=== PATIENT | male | born 1965 | race American Indian/Alaskan Native ===

== ENCOUNTER 2017-03-25 11:58 | Emergency (ER) | payer OTHER, SELFPAY ==
[2017-03-25 12:15] VITALS: RESP 18; TEMP 97.8; O2SAT 98
[2017-03-25] MEDS ORDERED: Sodium Chloride 0.9% 1,000 ML IV ONE ×2 (12:52→13:39)
[2017-03-25 13:06] LABS: BASO % 0.8 % (0.0-2.0); EOS # 0.1 K/uL (0.0-0.7); EOS % 1.2 % (0.0-4.0); HEMATOCRIT 45.8 % (35.0-51.0); LYMPH # 1.2 K/uL (1.0-4.3); LYMPH % 25.7 % (20.0-40.0); MEAN CELL VOLUME 89.7 fL (80.0-94.0); MEAN CORPUSCULAR HGB CONC 33.4 g/dL (33.0-37.0); MEAN PLATELET VOLUME 7.7 fL (7.2-11.7); MONO # 0.3 K/uL (0.0-0.8); MONO % 5.7 % (0.0-10.0); RED CELL DISTRIBUTION WIDTH 13.7 % (11.5-14.5); WHITE BLOOD COUNT 4.7 K/uL (4.8-10.8)
[2017-03-25 13:12] LABS: RBC URINE 1 /hpf (0-3); URINE BILIRUBIN NEGATIVE (NEGATIVE); URINE BLOOD NEGATIVE (NEGATIVE); URINE COLOR Straw (YELLOW); URINE GLUCOSE (UA) 3+ mg/dL (Normal); URINE KETONE 1+ mg/dL (NEGATIVE); URINE LEUKOCYTE ESTERASE NEG Leu/uL (Negative); URINE PROTEIN NEGATIVE (NEGATIVE); URINE UROBILINOGEN NORMAL mg/dL (0.2-1.0); WBC URINE < 1 /hpf (0-5)
[2017-03-25 13:21] LABS: CHLORIDE 90 mmol/L (98-107); POTASSIUM 4.5 mmol/L (3.6-5.2); SODIUM 129 mmol/L (132-148)
[2017-03-25 13:23] LABS: AST/SGOT 31 U/L (17-59); BILIRUBIN,TOTAL 0.7 mg/dL (0.2-1.3); CARBON DIOXIDE 27 mmol/L (22-30); GFR AFRICAN-AMERICAN > 60
[2017-03-25 13:24] LABS: ALB/GLOB RATIO 1.2 (1.0-2.1); ALKALINE PHOSPHATASE 138 U/L (38-126); ALT/SGPT 23 U/L (21-72); BLOOD UREA NITROGEN 12 mg/dL (9-20); CALCIUM 8.7 mg/dl (8.6-10.4); TOTAL PROTEIN 7.3 g/dL (6.3-8.3)
[2017-03-25] MEDS ORDERED: Sodium Chloride 0.9% 1,000 ML ONE (13:29)
[2017-03-25 13:35] LABS: GLUCOSE,RANDOM 503 mg/dL (75-110)
[2017-03-25] MEDS ORDERED: (Novolin R) Insulin Human Regular 100 units/ml vial IV ONE (13:39)
[2017-03-25] MEDS ORDERED: (Novolin R) Insulin Human Regular 100 units/ml vial ONE (14:09)
--- NOTE | 2017-03-25 14:43 | C.PDOC ---
History Of Present Illness 51-year-old male with PMHx of Seizure disorder, DM, Hypertension and Asthma, BIBA for evaluation of witnessed seizure. Patient admits to a Hx of seizure disorder and states he is compliant with Dilantin. He denies alcohol abuse or history of withdrawal seizures. Patient has no physical complaints at this time Time Seen by Provider: 03/25/17 12:39 Chief Complaint (Nursing): Seizure History Per: Patient, EMS History/Exam Limitations: no limitations Recent Seizure Activity Began: Just Before Arrival Number Of Seizures: One Length Of Seizures (Duration): Seconds Quality Of Seizure: Generalized Past Medical History Reviewed: Historical Data, Nursing Documentation, Vital Signs Vital Signs: Last Vital Signs Temp 97.8 F 03/25/17 12:07 Pulse 81 03/25/17 14:58 Resp 18 03/25/17 14:58 BP 139/84 03/25/17 14:58 Pulse Ox 98 03/25/17 16:00 - Medical History PMH: Asthma, Diabetes, HTN, Seizures - [facility] Procedures ALCOHOL DETOXIFICATION (08/03/14) Family History: States: No Known Family Hx - Social History Hx Tobacco Use: Yes Hx Alcohol Use: No Hx Substance Use: No - Immunization History Hx Tetanus Toxoid Vaccination: Yes Hx Influenza Vaccination: No Hx Pneumococcal Vaccination: No Review Of Systems Except As Marked, All Systems Reviewed And Found Negative. Constitutional: Negative for: Fever Cardiovascular: Negative for: Chest Pain, Palpitations Respiratory: Negative for: Cough, Shortness of Breath Gastrointestinal: Negative for: Nausea, Vomiting, Abdominal Pain, Diarrhea Skin: Negative for: Rash Neurological: Positive for: Seizures. Negative for: Weakness, Numbness, Altered Mental Status, Headache Physical Exam - Physical Exam Appears: Well, Non-toxic, No Acute Distress Skin: Warm, Dry, No Rash Head: Atraumatic, Normacephalic Eye(s): bilateral: Normal Inspection, PERRL, EOMI Oral Mucosa: Moist Lips: Normal Appearing, No Laceration Neck: Normal, Normal ROM, No Midline Cervical Tenderness, No Paracervical Tenderness, No Step Off Deformity, Supple Cardiovascular: Rhythm Regular Respiratory: Normal Breath Sounds, No Rales, No Rhonchi, No Wheezing Gastrointestinal/Abdominal: Normal Exam, Bowel Sounds, Soft, No Tenderness Extremity: Normal ROM Extremity: Bilateral: Atraumatic Neurological/Psych: Oriented x3, Normal Speech, Normal Cognition, Normal Cranial Nerves, No Cerebellar Signs, Normal Motor, Normal Sensation ED Course And Treatment - Laboratory Results Result Diagrams: 03/25/17 13:02 03/25/17 13:02 O2 Sat by Pulse Oximetry: 98 (RA) Pulse Ox Interpretation: Normal Progress Note: Bloodwork, EKG and UA ordered and reviewed. Patient's Dilantin level is noted - IV dilantin ordered. IV NS and IV insulin ordered for hyperglycemia. to be low. Blood sugar noted to be high. This patient is choosing to leave against medical advice. I have personally explained to the patient that choosing to do so may result in permanent bodily harm or . I have discussed at length that without further evaluation and monitoring there may be unforeseen circumstances and/or deterioration causing permanent bodily harm or as a result of their choice. The patient is alert, oriented, and shows the mental capacity to make clear decisions regarding the patients health care at this time. The patient continues to wish to leave against medical advice. In light of the patients decision to leave AMA, follow-up has been arranged and the patient is aware of the importance of following up as instructed. The patient has been advised that they should return to the ED immediately if they change their mind at any time, or if their condition begins to worsen. Reevaluation Time: 14:15 Reassessment Condition: Improved (Patient refusing rest of IV dilantin and wants to leave against medical advice. He has signed AMA form, and is aware of the risks of doing so. Rx given for metoformin and dilantin, and patient instructed to follow up with PMD/clinic in 1-2 days. He understands he should return to ED if symptoms worsen.) Disposition Counseled Patient/Family Regarding: Studies Performed, Diagnosis, Need For Followup, Rx Given - Disposition Referrals: Molly Mendes MD [Non-Staff] - Disposition: AGAINST MEDICAL ADVICE Disposition Time: 14:50 Condition: STABLE Additional Instructions: FOLLOW UP WITH YOUR DOCTOR IN 1-2 DAYS USE MEDICATIONS DIRECTED RETURN TO ER IF YOU HAVE ANY CONCERNING SYMPTOMS YOU ARE SIGNING OUT AGAINST MY MEDICAL ADVICE Prescriptions: metFORMIN [glucOPHAGE] 500 mg PO DAILY #30 tab Phenytoin Sodium Extended 100 mg PO BID #60 capsule Instructions: Epilepsy (ED), Against Medical Advice (ED) Print Language: SWISS - POA Present On Arrival: None - Clinical Impression Clinical Impression: Left against medical advice, Hyperglycemia, Seizure - Scribe Statement The provider has reviewed the documentation as recorded by the Alexibbeny Edwards All medical record entries made by the Alexibe were at my direction and personally dictated by me. I have reviewed the chart and agree that the record accurately reflects my personal performance of the history, physical exam, medical decision making, and the department course for this patient. I have also personally directed, reviewed, and agree with the discharge instructions and disposition.
[2017-03-25 14:59] VITALS: BP 139/84; PULSE 81
--- NOTE | 2017-03-26 18:36 | CARD ---
APPROVED REPORT EKG Measurement Heart [id number] <Conclusion> Normal sinus rhythm Normal ECG
== END 2017-03-25 14:58 | disposition left against medical advice (07) ==
LOC: C.ER 11:58
DX: G40.909 Epilepsy, unspecified, not intractable, without status epilepticus (principal); E11.65 Type 2 diabetes mellitus with hyperglycemia; Z79.84 Long term (current) use of oral hypoglycemic drugs
CPT/HCPCS: 80053; 80185; 80324; 80345; 80346; 80349; 80353; 80358; 80361; 81001; 82550; 83992; 85025; 93005; 96360; 99285; J7040

== ENCOUNTER 2017-05-24 15:35 | Inpatient (IN) | payer OTHER ==
[2017-05-24 15:40] VITALS: BMI 19.1
[2017-05-24] MEDS ORDERED: Piperacillin/Tazobact 3.375 gm 100 ML IV STA (16:06)
[2017-05-24] MEDS ORDERED: Sodium Chloride 0.9% 1,000 ML IV STA (16:06)
--- NOTE | 2017-05-24 16:29 | C.PDOC ---
History Of Present Illness 51 y/o male with history of heroin abuse, alcohol abuse, BIBA for left great toe pain. Denies trauma, fever, chills, nausea, vomiting, diarrhea, or other associated symptoms. Time Seen by Provider: 05/24/17 16:01 Chief Complaint (Nursing): Abdominal Pain History Per: Patient History/Exam Limitations: no limitations Onset/Duration Of Symptoms: Days Current Symptoms Are (Timing): Still Present Recent travel outside of the [place]: No Past Medical History Reviewed: Historical Data, Nursing Documentation, Vital Signs Vital Signs: Last Vital Signs Temp 98.8 F 05/24/17 15:43 Pulse 73 05/24/17 17:12 Resp 21 05/24/17 17:12 BP 173/84 H 05/24/17 17:12 Pulse Ox 98 05/24/17 18:14 - Medical History PMH: Asthma, Diabetes, HTN, Seizures - [facility] Procedures ALCOHOL DETOXIFICATION (08/03/14) Family History: States: Unknown Family Hx - Social History Hx Tobacco Use: Yes Hx Alcohol Use: No Hx Substance Use: Yes (snbiffs heroin) - Immunization History Hx Tetanus Toxoid Vaccination: Yes Hx Influenza Vaccination: No Hx Pneumococcal Vaccination: No Review Of Systems Except As Marked, All Systems Reviewed And Found Negative. Constitutional: Negative for: Fever, Chills Cardiovascular: Negative for: Chest Pain Respiratory: Negative for: Cough, Shortness of Breath Gastrointestinal: Negative for: Nausea, Vomiting, Abdominal Pain Musculoskeletal: Positive for: Foot Pain (left great toe) Skin: Negative for: Rash Neurological: Negative for: Weakness, Numbness Physical Exam - Physical Exam Appears: Non-toxic, No Acute Distress, Other (thin, emaciated, obtunded) Skin: Warm, Dry Head: Atraumatic, Normacephalic Chest: Symmetrical Cardiovascular: Rhythm Regular Respiratory: Normal Breath Sounds, No Rales, No Rhonchi, No Wheezing Gastrointestinal/Abdominal: Soft, No Tenderness Back: Normal Inspection Extremity: Normal ROM, Capillary Refill (< 2 sec.), No Deformity, Other (left great toe, sausage-like, foul smelling, no crepitus ) Extremity: Bilateral: Normal Color And Temperature Neurological/Psych: Oriented x3, Normal Speech, Normal Cognition, Normal Motor, Normal Sensation ED Course And Treatment - Laboratory Results Result Diagrams: 05/24/17 17:15 05/24/17 16:33 Lab Interpretation: Normal ECG: Interpreted By Me ECG Rhythm: Sinus Rhythm ECG Interpretation: Normal Rate From EC O2 Sat by Pulse Oximetry: 98 (RA) Pulse Ox Interpretation: Normal - Radiology CXR: Interpreted by Me CXR Interpretation: Yes: No Acute Disease - Other Rad L great toe X-Ray: Interpreted by Me (+ bony destruction L great toe, no gas.) Progress Note: Treated with pepcid, toradol, zofran, IVFs, IVF abx. Labs, CxR, EKG ordered. - Physician Consult Information Outcome Of Conversation: 1814: d/w Dr. Jagdish Donahue- [employer]- ok to Obs. Medical Decision Making Medical Decision Making: diabetic toe ulcer, persistent heroine/alcohol abuse Disposition Doctor Will See Patient In The: Hospital Counseled Patient/Family Regarding: Studies Performed, Diagnosis - Disposition Disposition: HOSPITALIZED Disposition Time: 18:15 Condition: FAIR - Clinical Impression Clinical Impression: Diabetic toe ulcer, Nausea and vomiting in adult, Osteomyelitis - Scribe Statement The provider has reviewed the documentation as recorded by the Rosa Elena Stallings Provider Attestation: All medical record entries made by the Rosa Elena were at my direction and personally dictated by me. I have reviewed the chart and agree that the record accurately reflects my personal performance of the history, physical exam, medical decision making, and the department course for this patient. I have also personally directed, reviewed, and agree with the discharge instructions and disposition.
[2017-05-24] MEDS ORDERED: Sodium Chloride 0.9% 1,000 ML ONE (16:36)
[2017-05-24 16:44] LABS: ALBUMIN 3.6 g/dL (3.5-5.0)
[2017-05-24 16:47] LABS: ALB/GLOB RATIO 0.8 (1.0-2.1); AST/SGOT 48 U/L (17-59); GFR AFRICAN-AMERICAN > 60; GFR NON-AFRICAN AMERICAN > 60
[2017-05-24 16:48] LABS: ALT/SGPT 18 U/L (21-72); BLOOD UREA NITROGEN 18 mg/dL (9-20); CALCIUM 9.1 mg/dl (8.6-10.4)
[2017-05-24] MEDS ORDERED: Piperacillin/Tazobact 3.375 gm 100 ML IVPB ONE (17:19)
[2017-05-24 17:28] LABS: BASO % 0.3 % (0.0-2.0); EOS % 0.3 % (0.0-4.0); HEMOGLOBIN 15.6 g/dL (12.0-18.0); LYMPH # 0.8 K/uL (1.0-4.3); LYMPH % 7.8 % (20.0-40.0); MEAN CELL VOLUME 89.9 fL (80.0-94.0); MEAN CORPUSCULAR HEMOGLOBIN 29.3 pg (27.0-31.0); MEAN CORPUSCULAR HGB CONC 32.6 g/dL (33.0-37.0); MEAN PLATELET VOLUME 7.4 fL (7.2-11.7); MONO # 0.6 K/uL (0.0-0.8); MONO % 6.4 % (0.0-10.0); NEUT # 8.3 K/uL (1.8-7.0); NEUT % 85.2 % (50.0-75.0); RED CELL DISTRIBUTION WIDTH 12.9 % (11.5-14.5)
[2017-05-24 17:34] LABS: PLATELET COUNT 359 K/uL (130-400); WHITE BLOOD COUNT 9.7 K/uL (4.8-10.8)
[2017-05-24 17:37] LABS: INR 1.1; PROTHROMBIN TIME 12.3 SECONDS (9.7-12.2)
--- NOTE | 2017-05-24 18:00 | RAD ---
PROCEDURE: CHEST RADIOGRAPH, 1 VIEW HISTORY: SOB COMPARISON: None available. FINDINGS: No PICC line is identified. LUNGS: The lungs are well inflated and clear. PLEURA: No pneumothorax or pleural fluid seen. CARDIOVASCULAR: Normal. OSSEOUS STRUCTURES: No significant abnormalities. VISUALIZED UPPER ABDOMEN: Normal. OTHER FINDINGS: None. IMPRESSION: No acute findings. No PICC line is identified on this radiograph.
--- NOTE | 2017-05-24 18:20 | RAD ---
PROCEDURE: Radiographs of the left great toe. TECHNIQUE:: AP radiograph of the left foot, with oblique and lateral view of the left great toe. COMPARISON: None. FINDINGS: BONES: There is destruction and erosive changes in the tip of the distal phalanx of the great toe. JOINTS: Normal. SOFT TISSUES: There is soft tissue swelling, ulceration and soft tissue gas in the great toe. OTHER FINDINGS: None. IMPRESSION: Findings are most compatible with osteomyelitis in the tuft of the distal phalanx of the great toe with cellulitis and soft tissue emphysema.
[2017-05-24 18:48] LABS: BANDS 2 % (0-2); EOSINOPHIL 1 % (0-4); LYMPHOCYTE 8 % (20-40); MONOCYTE 8 % (0-10); NEUTROPHIL 81 % (50-75); PLATELET ESTIMATE NORMAL (NORMAL); TOTAL CELLS COUNTED 100
[2017-05-24 18:49] LABS: LARGE PLATELETS PRESENT; MICROCYTOSIS SLIGHT; TEARDROP CELLS SLIGHT
--- NOTE | 2017-05-24 19:22 | CP.PCM.CON ---
History of Present Illness - History of Present Illness History of Present Illness: 51 y/o male with PMHx of DM, HTN, alcoholism, heroine abuse, seizures and asthma seen in the ED for left great toe pain. Patient states he has had this wound on his toe for two weeks and it is causing him a lot of pain. Patient states he does not see a doctor for his feet. Patient came in to the ED for nausea and vomiting but currently denies F/C/N/V/SOB. Review of Systems - Review of Systems All systems: reviewed and no additional remarkable complaints except (per HPI) Past Patient History - Past Medical History & Family History Past Medical History?: Yes - Past Social History Smoking Status: Light Smoker < 10 Cigarettes Daily - CARDIAC Hx Hypertension: Yes - PULMONARY Hx Asthma: Yes - NEUROLOGICAL Hx Seizures: Yes - ENDOCRINE/METABOLIC Hx Endocrine Disorders: Yes Hx Diabetes Mellitus Type 1: Yes - HEMATOLOGICAL/ONCOLOGICAL Hx Cancer: No - INTEGUMENTARY Hx Dermatological Problems: No - MUSCULOSKELETAL/RHEUMATOLOGICAL Hx Musculoskeletal Disorders: Yes Other/Comment: scoliosis - GASTROINTESTINAL Hx Gastrointestinal Disorders: No - GENITOURINARY/GYNECOLOGICAL Hx Genitourinary Disorders: No - PSYCHIATRIC Hx Substance Use: Yes (snbiffs heroin) - SURGICAL HISTORY Hx Surgeries: Yes Hx Musculoskeletal Surgery: Yes (b/l ankles; L wrist) - ANESTHESIA Hx Anesthesia: Yes Hx Anesthesia Reactions: No Hx Malignant Hyperthermia: No Meds Allergies/Adverse Reactions: Allergies Allergy/AdvReac Type Severity Reaction Status Date / Time FISH AdvReac Verified 05/24/17 15:39 tomatoes AdvReac Uncoded 03/25/17 12:15 Physical Exam - Constitutional Appears: Well, Non-toxic, No Acute Distress - Extremities Exam Additional comments: Vasc: DP/PT 2/4 B/L. Temperature gradient WNL. CFT < 3 sec x 10 digits. No pedal edema. Derm: Open ulceration noted to distal tip of left hallux with multiple ports of entry. Wound base is a mixture of necrotic and fibrotic tissue. Hyperkeratotic borders noted. Serosanguinous drainage elicited with pressure. (+) malodor. No fluctuance, no surrounding erythema, no streaking cellulitis. Additional 2x2cm ulceration noted L foot sub met 5 with hyperkeratotic rim. Hyperkeratotic lesion noted sub met 1 on R foot. Neuro: Protective sensation grossly intact Ortho: Pain upon use of cotton tip applicator to assess if wound probes to bone. - Neurological Exam Neurological exam: Altered (possibly under influence of heroine, alcohol and/or other substances) - Psychiatric Exam Psychiatric exam: Normal Affect, Normal Mood Results - Vital Signs Recent Vital Signs: Last Vital Signs Temp 98.8 F 05/24/17 15:43 Pulse 73 05/24/17 17:12 Resp 21 05/24/17 17:12 BP 173/84 H 05/24/17 17:12 Pulse Ox 98 05/24/17 18:34 - Labs Result Diagrams: 05/24/17 17:15 05/24/17 16:33 Assessment & Plan - Assessment and Plan (Free Text) Assessment: 51 y/o male with L hallux distal phalanx ulceration secondary to DM, alcoholism and heroine abuse. Plan: Pt seen and evaluated in ED Discussed plan in detail with attending Dr. Jordan Labs and vitals reviewed- afebrile, WBC 9.7 X-rays reveal destructive and erosive changes to L hallux distal phalanx Ordered MRI of L foot Pt to need partial hallux amp of L foot Will discuss treatment options with patient when he is alert and awake tomorrow to determine next step Will likely take to OR Saturday with Dr. Jordna pending patient agreement and medical clearance Medical clearance requested by. Dr Donahue - thank you Podiatry will continue to follow Thank you for this consult
[2017-05-24] MEDS ORDERED: Albuterol-Ipratrop 3 mg / 0.5 (3 ml) UD INH PRN (23:20)
[2017-05-25] MEDS: Piperacillin/Tazobact 3.375 GM in Sodium Chloride 100 ML IVPB SCH ×4 (00:06→23:51)
[2017-05-25] MEDS: Fluticasone-Salmeterol 250-50mcg Diskus INH SCH ×2 (07:48→20:01)
[2017-05-25] MEDS ORDERED: Fosphenytoin 1,000 MG in Sodium Chloride 0.9% 50 ML IV STA (10:45)
[2017-05-25] MEDS: (Novolog) Insulin Aspart, Recombinant 100 u/ml 10 ml vial SC SCH ×4 (11:43→21:52)
--- NOTE | 2017-05-25 11:44 | CT ---
PROCEDURE: CT HEAD WITHOUT CONTRAST. HISTORY: s/p seizure, r/o acute cva COMPARISON: None available. TECHNIQUE: Axial computed tomography images were obtained through the head/brain without intravenous contrast. Radiation dose: Total exam DLP = 1003.15 mGy-cm. This CT exam was performed using one or more of the following dose reduction techniques: Automated exposure control, adjustment of the mA and/or kV according to patient size, and/or use of iterative reconstruction technique. FINDINGS: HEMORRHAGE: No intracranial hemorrhage. BRAIN: No mass effect or edema. No atrophy or chronic microvascular ischemic changes. VENTRICLES: Unremarkable. No hydrocephalus. CALVARIUM: Unremarkable. PARANASAL SINUSES: Unremarkable as visualized. No significant inflammatory changes. MASTOID AIR CELLS: Unremarkable as visualized. No inflammatory changes. OTHER FINDINGS: None. IMPRESSION: No evidence of acute intracranial hemorrhage territorial infarct mass effect or midline shift.
--- NOTE | 2017-05-25 11:56 | RAD ---
HISTORY: r/o aspiration following seizure COMPARISON: Comparison is made to 11/14/2013 and 05/24/2017 FINDINGS: LUNGS: No significant interval change in the lungs PLEURA: No significant pleural effusion identified, no pneumothorax apparent. CARDIOVASCULAR: Normal. OSSEOUS STRUCTURES: No significant abnormalities. VISUALIZED UPPER ABDOMEN: Normal. OTHER FINDINGS: None. IMPRESSION: No active disease.
[2017-05-25 12:01] LABS: ABG ALLEN TEST POS; ARTERIAL BLOOD GAS HCO3 32.9 mmol/L (21-28); ARTERIAL BLOOD GAS HEMOGLOBIN 13.7 g/dL (11.7-17.4); ARTERIAL BLOOD GAS PCO2 46 mm/Hg (35-45); ARTERIAL BLOOD GAS PH 7.49 (7.35-7.45); ARTERIAL BLOOD GAS PO2 334 mm/Hg (80-100); ARTERIAL BLOOD GAS TCO2 36.5 mmol/L (22-28)
--- NOTE | 2017-05-25 13:10 | CP.PCM.PN ---
Subjective - Date & Time of Evaluation Date of Evaluation: 05/25/17 Time of Evaluation: 11:45 - Subjective Subjective: 51 y/o diabetic male patient seen at bedside this AM for f/u of right foot ulcerations. Pt seen resting in bed at time of visit and unarousable to verbal commands, however is arousable to painful stimuli. Was notified by nursing of [employer] event due to seizure activity earlier this AM at 10:30 while patient getting MRI of right foot. Pt was given ativan and stabilized and returned to floor. Dressing to right foot appears c/d/i at this time. Objective - Vital Signs/Intake and Output Vital Signs (last 24 hours): Temp Pulse Resp BP Pulse Ox 98.4 F 68 20 167/76 H 98 05/25/17 08:00 05/25/17 08:00 05/25/17 08:00 05/25/17 08:00 05/25/17 08:00 Intake and Output: 05/25/17 05/25/17 06:59 18:59 Intake Total 150 Balance 150 - Medications Medications: Current Medications Albuterol/Ipratropium (Duoneb 3 Mg/0.5 Mg (3 Ml) Ud) 3 ml INH RQ6 PRN PRN Reason: Shortness of Breath Heparin Sodium (Porcine) (Heparin) 5,000 units SC Q12 RANDAL Piperacillin Sod/Tazobactam (Sod 3.375 gm/ Sodium Chloride) 100 mls @ 200 mls/ hr IVPB Q8H [facility] Last Admin: 05/25/17 12:32 Dose: 200 mls/hr Vancomycin HCl 1,000 mg/ (Sodium Chloride) 250 mls @ 166.6 mls/hr IVPB Q12H [facility] Last Admin: 05/25/17 12:32 Dose: 166.6 mls/hr Insulin Aspart (Novolog) 0 unit SC ACHS RANDAL PRN Reason: Protocol Last Admin: 05/25/17 12:25 Dose: 3 unit Lisinopril (Zestril) 10 mg PO DAILY [facility] Last Admin: 05/25/17 11:43 Dose: Not Given Metformin HCl (Glucophage) 500 mg PO BRK [facility] Last Admin: 05/25/17 11:43 Dose: Not Given Phenytoin Sodium (Dilantin) 100 mg PO Q8H [facility] Last Admin: 05/25/17 12:17 Dose: Not Given Fluticasone/Salmeterol (Advair Diskus 250/50) 1 puff INH RQ12 RANDAL Last Admin: 05/25/17 07:48 Dose: Not Given - Labs Labs: PT 12.3 SECONDS (9.7-12.2) H 05/24/17 17:15 INR 1.1 05/24/17 17:15 APTT 32 SECONDS (21-34) 05/24/17 17:15 - Constitutional Appears: Non-toxic, No Acute Distress - Extremities Exam Additional comments: Vasc: DP/PT 2/4 B/L. Temperature gradient WNL. CFT < 3 sec x 10 digits. No pedal edema. Derm: Open ulceration noted to distal tip of left hallux with multiple ports of entry. Wound base is a mixture of necrotic and fibrotic tissue. Hyperkeratotic borders noted. Serosanguinous drainage elicited with pressure. (+) malodor. No fluctuance, no surrounding erythema, no streaking cellulitis. Additional 2x2cm ulceration noted L foot sub met 5 with hyperkeratotic rim. Hyperkeratotic lesion noted sub met 1 on R foot. Neuro: Protective sensation grossly intact - Neurological Exam Neurological Exam: absent: Alert, Awake - Psychiatric Exam Additional comments: unable to obtain Assessment and Plan - Assessment and Plan (Free Text) Assessment: 51 y/o male with L hallux distal phalanx ulceration secondary to DM Plan: Pt S&E at bedside Discussed plan in detail with attending Dr. Jordan Labs and vitals reviewed- afebrile, WBC 9.7 X-rays reveal destructive and erosive changes to L hallux distal phalanx MRI left foot taken: results pending Pt will require a left foot partial hallux amputation possibly for Saturday with Dr. Jordan Medical clearance is requested by Dr. Donahue Will discuss plan with patient when he becomes more stable Podiatry will continue to follow closely
[2017-05-25 13:53] LABS: BASO % 0.5 % (0.0-2.0); EOS % 0.3 % (0.0-4.0); HEMOGLOBIN 15.5 g/dL (12.0-18.0); LYMPH # 1.1 K/uL (1.0-4.3); LYMPH % 11.5 % (20.0-40.0); MEAN CELL VOLUME 90.9 fL (80.0-94.0); MEAN CORPUSCULAR HEMOGLOBIN 29.3 pg (27.0-31.0); MEAN CORPUSCULAR HGB CONC 32.2 g/dL (33.0-37.0); MEAN PLATELET VOLUME 7.4 fL (7.2-11.7); MONO # 0.8 K/uL (0.0-0.8); MONO % 8.4 % (0.0-10.0); NEUT # 7.3 K/uL (1.8-7.0); NEUT % 79.3 % (50.0-75.0); RBC 5.31 Mil/uL (4.40-5.90); RED CELL DISTRIBUTION WIDTH 13.2 % (11.5-14.5); WHITE BLOOD COUNT 9.2 K/uL (4.8-10.8)
[2017-05-25 14:02] LABS: ALBUMIN 3.5 g/dL (3.5-5.0)
[2017-05-25 14:04] LABS: GFR AFRICAN-AMERICAN > 60; GFR NON-AFRICAN AMERICAN > 60
[2017-05-25 14:05] LABS: ALB/GLOB RATIO 0.8 (1.0-2.1); ALT/SGPT 21 U/L (21-72); AST/SGOT 35 U/L (17-59); BLOOD UREA NITROGEN 28 mg/dL (9-20); CALCIUM 9.1 mg/dl (8.6-10.4)
--- NOTE | 2017-05-25 14:31 | CP.PCM.HP ---
Past Patient History - Past Medical History & Family History Past Medical History?: Yes - Past Social History Smoking Status: Light Smoker < 10 Cigarettes Daily - CARDIAC Hx Hypertension: Yes - PULMONARY Hx Asthma: Yes - NEUROLOGICAL Hx Seizures: Yes - HEENT Hx HEENT Problems: No - RENAL Hx Chronic Kidney Disease: No - ENDOCRINE/METABOLIC Hx Endocrine Disorders: Yes Hx Diabetes Mellitus Type 1: Yes - HEMATOLOGICAL/ONCOLOGICAL Hx Cancer: No - INTEGUMENTARY Hx Dermatological Problems: No - MUSCULOSKELETAL/RHEUMATOLOGICAL Hx Musculoskeletal Disorders: Yes Other/Comment: scoliosis - GASTROINTESTINAL Hx Gastrointestinal Disorders: No - GENITOURINARY/GYNECOLOGICAL Hx Genitourinary Disorders: No - PSYCHIATRIC Hx Substance Use: Yes (snbiffs heroin) - SURGICAL HISTORY Hx Surgeries: Yes Hx Musculoskeletal Surgery: Yes (b/l ankles; L wrist) - ANESTHESIA Hx Anesthesia: Yes Hx Anesthesia Reactions: No Hx Malignant Hyperthermia: No Meds Allergies/Adverse Reactions: Allergies Allergy/AdvReac Type Severity Reaction Status Date / Time FISH AdvReac Verified 05/24/17 15:39 tomatoes AdvReac Uncoded 03/25/17 12:15 Physical Exam - Constitutional Appears: Well - Head Exam Head Exam: ATRAUMATIC, NORMAL INSPECTION, NORMOCEPHALIC - Eye Exam Eye Exam: EOMI, Normal appearance, PERRL Pupil Exam: NORMAL ACCOMODATION, PERRL - ENT Exam ENT Exam: Mucous Membranes Moist, Normal Exam - Neck Exam Neck exam: Positive for: Normal Inspection - Respiratory Exam Respiratory Exam: Decreased Breath Sounds - Cardiovascular Exam Cardiovascular Exam: REGULAR RHYTHM, +S1, +S2 - GI/Abdominal Exam GI & Abdominal Exam: Diminished Bowel Sounds, Soft - Rectal Exam Rectal Exam: Deferred Results - Vital Signs Recent Vital Signs: Last Vital Signs Temp 98.4 F 05/25/17 08:00 Pulse 68 05/25/17 08:00 Resp 20 05/25/17 08:00 BP 167/76 H 05/25/17 08:00 Pulse Ox 98 05/25/17 08:00 - Labs Result Diagrams: 05/25/17 13:48 05/25/17 13:48 Labs: Laboratory Results - last 24 hr 05/24/17 05/25/17 05/25/17 22:04 07:28 10:49 WBC RBC Hgb Hct MCV MCH MCHC RDW Plt Count MPV Neut % (Auto) Lymph % (Auto) [place] % (Auto) Eos % (Auto) Baso % (Auto) Neut # Lymph # [place] # Eos # Baso # Puncture Site pCO2 pO2 HCO3 ABG pH ABG Total CO2 ABG O2 Saturation ABG Base Excess ABG Hemoglobin ABG Carboxyhemoglobin POC ABG HHb (Measured) ABG Methemoglobin Rafael Test A-a O2 Difference Respiratory Index Hgb O2 Saturation Liter Flow FiO2 Sodium Potassium Chloride Carbon Dioxide Anion Gap BUN Creatinine Est GFR ( Amer) Est GFR (Non-Af Amer) POC Glucose (mg/dL) 321 H 223 H 277 H Random Glucose Calcium Total Bilirubin AST ALT Alkaline Phosphatase Troponin I Total Protein Albumin Globulin Albumin/Globulin Ratio Phenytoin 05/25/17 05/25/17 05/25/17 11:55 13:48 13:48 WBC 9.2 RBC 5.31 Hgb 15.5 Hct 48.2 MCV 90.9 MCH 29.3 MCHC 32.2 L RDW 13.2 Plt Count 395 MPV 7.4 Neut % (Auto) 79.3 H Lymph % (Auto) 11.5 L [place] % (Auto) 8.4 Eos % (Auto) 0.3 Baso % (Auto) 0.5 Neut # 7.3 H Lymph # 1.1 [place] # 0.8 Eos # 0.0 Baso # 0.0 Puncture Site Rra pCO2 46 H pO2 334 H HCO3 32.9 H ABG pH 7.49 H ABG Total CO2 36.5 H ABG O2 Saturation 100.0 H ABG Base Excess 10.3 H ABG Hemoglobin 13.7 ABG Carboxyhemoglobin 2.1 H POC ABG HHb (Measured) 0.0 ABG Methemoglobin 1.6 Rafael Test Pos A-a O2 Difference 93.0 Respiratory Index 0.3 Hgb O2 Saturation 96.2 Liter Flow 12.0 FiO2 68.0 Sodium 136 Potassium 3.6 Chloride 89 L Carbon Dioxide 33 H Anion Gap 18 BUN 28 H Creatinine 0.9 Est GFR ( Amer) > 60 Est GFR (Non-Af Amer) > 60 POC Glucose (mg/dL) Random Glucose 278 H Calcium 9.1 Total Bilirubin 0.8 AST 35 ALT 21 Alkaline Phosphatase 137 H Troponin I < 0.0120 Total Protein 7.9 Albumin 3.5 Globulin 4.4 H Albumin/Globulin Ratio 0.8 L Phenytoin 05/25/17 13:48 WBC RBC Hgb Hct MCV MCH MCHC RDW Plt Count MPV Neut % (Auto) Lymph % (Auto) [place] % (Auto) Eos % (Auto) Baso % (Auto) Neut # Lymph # [place] # Eos # Baso # Puncture Site pCO2 pO2 HCO3 ABG pH ABG Total CO2 ABG O2 Saturation ABG Base Excess ABG Hemoglobin ABG Carboxyhemoglobin POC ABG HHb (Measured) ABG Methemoglobin Rafael Test A-a O2 Difference Respiratory Index Hgb O2 Saturation Liter Flow FiO2 Sodium Potassium Chloride Carbon Dioxide Anion Gap BUN Creatinine Est GFR ( Amer) Est GFR (Non-Af Amer) POC Glucose (mg/dL) Random Glucose Calcium Total Bilirubin AST ALT Alkaline Phosphatase Troponin I Total Protein Albumin Globulin Albumin/Globulin Ratio Phenytoin 22.0 H
[2017-05-25] MEDS ORDERED: Thiamine 100 mg/ml Inj IV ONE (15:04)
[2017-05-25] MEDS ORDERED: Magnesium Sulfate 1 gm in D5W 1 GM/100 ML BAG IVPB ONE (15:06)
--- NOTE | 2017-05-25 15:10 | PCM.RRTMUL ---
POLICYHOLDER INFORMATION CLERK Nurses Assessment - Situation POLICYHOLDER INFORMATION CLERK Responder Arrival Time:: 10:30 Location:: Outside Trailer (pt was getting imaging) POLICYHOLDER INFORMATION CLERK Reason for Call: Change in Mental Status POLICYHOLDER INFORMATION CLERK Called By: Other Disciplines - IV IV Inserted during POLICYHOLDER INFORMATION CLERK?: No - Respiratory Oxygen Delivery Method:: Room Air - Medication Medications Administered During POLICYHOLDER INFORMATION CLERK :: Ativan. Cerebyx - Diagnostic Test Ordered EKG:: Yes Chest X-Ray:: Yes CT Scan:: Yes - Stat Labs Ordered POLICYHOLDER INFORMATION CLERK Stat Labs Ordered:: CBC, BMP, TROPONIN, ABG CPR started during POLICYHOLDER INFORMATION CLERK?: No - Vital Signs Blood Pressure:: 167/76 Pulse Rate:: 68 Respiratory Rate:: 20 Temperature:: 98.4 F - Recommendations 5) POLICYHOLDER INFORMATION CLERK Level of Care Recommendations: Remain in current setting I.Reason for POLICYHOLDER INFORMATION CLERK - A) Acute Change in Patient: (Select all that apply): Acute change in mental status Subjective: An POLICYHOLDER INFORMATION CLERK was called by the senior quality technician while the patient was getting imaging in the trailer area of floor 1. We arrived at the scene at 1030am. We saw the patient laying in a transport bed on his side having a seizure with vomit and saliva around his mouth. The code cart did not have ativan (as it is policy at [facility] for the code carts not to carry ativan) thus the patient was wheeled back to his room 368A. The patient was given 2mg Ativan stat. His vitals were checked which showed 180/80 and a hr of 70. An ekg was done which did not show any abnormalities. A stat chest xray was ordered to check for aspiration, the xray was negative. His seizure resolved a few minutes after administration of ativan. He was also given a loading dose of cerebyx. A 100% oxygen nonbreather was placed. He was taken to get a head CT to rule out an intracranial bleed, this was also negative. Dr Garcia, neurology, was called to get recommendations for further medications (Dilantin 100mg q8). The patient's PMD, Dr Enio Donahue, was also called and notified of the situation. - B) Neurological Status (Select all that apply): Disoriented - C) Respiratory Oxygen Delivery Method: Face Mask @% - Head Head Exam: NORMAL INSPECTION - Eyes Eye Exam: EOMI, Normal appearance - Respiratory Exam Respiratory Exam: Clear to Ausculation Bilateral, NORMAL BREATHING PATTERN - Cardiovascular Exam Cardiovascular Exam: REGULAR RHYTHM - GI/Abdominal Exam GI & Abdominal Exam: Soft, Normal Bowel Sounds - Neurological Exam Neurological Exam: Awake
[2017-05-26] MEDS: Fluticasone-Salmeterol 250-50mcg Diskus INH SCH ×2 (08:38→19:34)
[2017-05-26] MEDS: (Novolog) Insulin Aspart, Recombinant 100 u/ml 10 ml vial SC SCH ×4 (08:45→22:37)
[2017-05-26] MEDS: Piperacillin/Tazobact 3.375 GM in Sodium Chloride 100 ML IVPB SCH ×2 (08:45→16:36)
--- NOTE | 2017-05-26 13:23 | CP.PCM.PN ---
Subjective - Date & Time of Evaluation Date of Evaluation: 05/26/17 Time of Evaluation: 12:30 - Subjective Subjective: 51 y/o diabetic male patient seen at bedside this AM for f/u of right foot ulcerations. Pt seen resting in bed at time of visit, appears comfortable however very lethargic at time of visit and not arousable to verbal stimuli. Nursing denies any acute events overnight. Dressing appears c/d/i to foot at this time. Objective - Vital Signs/Intake and Output Vital Signs (last 24 hours): Temp Pulse Resp BP Pulse Ox 98.1 F 73 20 163/94 H 99 05/26/17 08:17 05/26/17 08:17 05/26/17 08:17 05/26/17 08:17 05/26/17 08:17 Intake and Output: 05/26/17 05/26/17 06:59 18:59 Intake Total 950 Balance 950 - Medications Medications: Current Medications Albuterol/Ipratropium (Duoneb 3 Mg/0.5 Mg (3 Ml) Ud) 3 ml INH RQ6 PRN PRN Reason: Shortness of Breath Heparin Sodium (Porcine) (Heparin) 5,000 units SC Q12 [facility] Last Admin: 05/26/17 09:05 Dose: 5,000 units Piperacillin Sod/Tazobactam (Sod 3.375 gm/ Sodium Chloride) 100 mls @ 200 mls/ hr IVPB Q8H [facility] Last Admin: 05/26/17 08:45 Dose: 200 mls/hr Vancomycin HCl 1,000 mg/ (Sodium Chloride) 250 mls @ 166.6 mls/hr IVPB Q12H [facility] Last Admin: 05/26/17 10:33 Dose: 166.6 mls/hr Insulin Aspart (Novolog) 0 unit SC ACHS [facility] PRN Reason: Protocol Last Admin: 05/26/17 12:45 Dose: 2 unit Lisinopril (Zestril) 10 mg PO DAILY [facility] Last Admin: 05/26/17 09:05 Dose: 10 mg Metformin HCl (Glucophage) 500 mg PO BRK [facility] Last Admin: 05/26/17 08:45 Dose: 500 mg Phenytoin Sodium (Dilantin) 100 mg PO Q8H [facility] Last Admin: 05/26/17 12:46 Dose: 100 mg Fluticasone/Salmeterol (Advair Diskus 250/50) 1 puff INH RQ12 [facility] Last Admin: 05/26/17 08:38 Dose: 1 puff - Labs Labs: 05/25/17 13:48 05/25/17 13:48 PT 12.3 SECONDS (9.7-12.2) H 05/24/17 17:15 INR 1.1 05/24/17 17:15 APTT 32 SECONDS (21-34) 05/24/17 17:15 - Constitutional Appears: Non-toxic, No Acute Distress - Extremities Exam Additional comments: Vasc: DP/PT 2/4 B/L. Temperature gradient WNL. CFT < 3 sec x 10 digits. No pedal edema. Derm: Open ulceration noted to distal tip of left hallux with multiple ports of entry. Wound base is a mixture of necrotic and fibrotic tissue. Hyperkeratotic borders noted. Serosanguinous drainage elicited with pressure. (+) malodor. No fluctuance, no surrounding erythema, no streaking cellulitis. Additional 2x2cm ulceration noted L foot sub met 5 with hyperkeratotic rim. Hyperkeratotic lesion noted sub met 1 on R foot. Neuro: Protective sensation grossly intact - Neurological Exam Neurological Exam: absent: Alert, Awake, Oriented x3 - Psychiatric Exam Additional comments: unable to assess Assessment and Plan - Assessment and Plan (Free Text) Assessment: 51 y/o male with L hallux distal phalanx ulceration secondary to DM Plan: Pt S&E at bedside Discussed plan in detail with attending Dr. Jordan Labs and vitals reviewed- afebrile, WBC 9.7 X-rays reveal destructive and erosive changes to L hallux distal phalanx MRI left foot taken: results pending Plan for OR tomorrow afternoon 05/27/[address] Jordan for left foot partial hallux amputation Will require medical clearance prior to OR NPO past midnight Will discuss plan with patient when he becomes more stable Podiatry will continue to follow closely
--- NOTE | 2017-05-26 15:30 | CP.PCM.CON ---
History of Present Illness - History of Present Illness History of Present Illness: 51 y/o male with PMHx of DM, HTN, alcoholism, heroine abuse, seizures and asthma seen in the ED for left great toe pain. Patient states he has had this wound on his toe for two weeks and it is causing him a lot of pain. Patient states he does not see a doctor for his feet. Patient came in to the ED for nausea and vomiting but currently denies F/C/N/V/SOB. Review of Systems - Review of Systems All systems: reviewed and no additional remarkable complaints except - Constitutional Constitutional: As Per HPI - EENT Eyes: absent: As Per HPI, Blind Spots, Blurred Vision, Change in Vision, Decreased Night Vision, Diplopia, Discharge, Dry Eye, Exophthalmos, Floaters, Irritation, Itchy Eyes, Loss of Peripheral Vision, Pain, Photophobia, Requires Corrective Lenses, Sees Flashes, Spots in Vision, Tunnel Vision, Other Visual Disturbances, Loss of Vision, Other Ears: absent: As Per HPI, Decreased Hearing, Ear Discharge, Ear Pain, Tinnitus, Abnormal Hearing, Disequilibrium, Dizziness, Other Nose/Mouth/Throat: absent: As Per HPI, Epistaxis, Nasal Congestion, Nasal Discharge, Nasal Obstruction, Nasal Trauma, Nose Pain, Post Nasal Drip, Sinus Pain, Sinus Pressure, Bleeding Gums, Change in Voice, Dental Pain, Dry Mouth, Dysphagia, Halitosis, Hoarsness, Lip Swelling, Mouth Lesions, Mouth Pain, Odynophagia, Sore Throat, Throat Swelling, Tongue Swelling, Facial Pain, Neck Pain, Neck Mass, Other - Cardiovascular Cardiovascular: absent: As Per HPI, Acrocyanosis, Chest Pain, Chest Pain at Rest , Chest Pain with Activity, Claudication, Diaphoresis, Dyspnea, Dyspnea on Exertion, Edema, Irregular Heart Rhythm, Pain Radiating to Arm/Neck/Jaw, Leg Edema, Leg Ulcers, Lightheadedness, Orthopnea, Palpitations, Paroxysmal Nocturnal Dyspnea, Pedal Edema, Radiating Pain, Rapid Heart Rate, Slow Heart Rate, Syncope, Other - Respiratory Respiratory: absent: As Per HPI, Cough, Dyspnea, Hemoptysis, Dyspnea on Exertion , Wheezing, Snoring, Stridor, Pain on Inspiration, Chest Congestion, Excessive Mucous Production, Change in Mucous Color, Pain with Coughing, Other - Gastrointestinal Gastrointestinal: absent: As Per HPI, Abdominal Pain, Belching, Bloating, Change in Bowel Habits, Change in Stool Character, Coffee Ground Emesis, Constipation, Cramping, Diarrhea, Dyspepsia, Dysphagia, Early Satiety, Excessive Flatus, Fecal Incontinence, Heartburn, Hematemesis, Hematochezia, Loose Stools, Melena, Nausea, Odynophagia, Temesmus, Vomiting, Other - Genitourinary Genitourinary: absent: As Per HPI, Change in Urinary Stream, Difficulty Urinating, Dysuria, Flank Pain, Hematuria, Pyuria, Nocturia, Urinary Incontinence, Urinary Frequency, Urinary Hesitance, Urinary Urgency, Voiding Freq/Small Amts, Freq UTI, Hx Renal/Bladder Calculi, Hx /Renal Surgery, Bladder Distension, Other - Musculoskeletal Musculoskeletal: As Per HPI - Integumentary Integumentary: As Per HPI, Skin Pain, Wounds - Neurological Neurological: absent: As Per HPI, Abnormal Gait, Abnormal Hearing, Abnormal Movements, Abnormal Speech, Behavioral Changes, Burning Sensations, Confusion, Convulsions, Disequilibrium, Dizziness, Numbness, Focal Weakness, Frequent Falls , Headaches, Lack of Coordination, Loss of Vision, Memory Loss, Paresthesias, Radicular Pain, Restless Legs, Sensory Deficit, Syncope, Tingling, Tremor, Vertigo, Weakness, Other Visual Disturbances, Other - Psychiatric Psychiatric: absent: As Per HPI, Abnormal Sleep Pattern, Anhedonia, Anxiety, Auditory Hallucinations, Behavioral Changes, Change in Appetite, Change in Libido, Confusion, Depression, Difficulty Concentrating, Hallucinations, Homicidal Ideation, Hopelessness, Irritability, Memory Loss, Mood Swings, Panic Attacks, Paranoia, Suicidal Ideation, Visual Hallucinations, Tactile Hallucinations, Other - Endocrine Endocrine: absent: As Per HPI, Change in Body Appearance, Change in Libido, Cold Intolorance, Deepening of Voice, Excessive Sweating, Fatigue, Flushing, Heat Intolorance, Increase in Ring/Shoe/Hat Size, Palpitations, Polydipsia, Polyphagia, Polyuria, Other - Hematologic/Lymphatic Hematologic: absent: As Per HPI, Easy Bleeding, Easy Bruising, Lymphadenopathy, Other Past Patient History - Past Medical History & Family History Past Medical History?: Yes - Past Social History Smoking Status: Light Smoker < 10 Cigarettes Daily - CARDIAC Hx Hypertension: Yes - PULMONARY Hx Asthma: Yes - NEUROLOGICAL Hx Seizures: Yes - HEENT Hx HEENT Problems: No - RENAL Hx Chronic Kidney Disease: No - ENDOCRINE/METABOLIC Hx Endocrine Disorders: Yes Hx Diabetes Mellitus Type 1: Yes - HEMATOLOGICAL/ONCOLOGICAL Hx Cancer: No - INTEGUMENTARY Hx Dermatological Problems: No - MUSCULOSKELETAL/RHEUMATOLOGICAL Hx Musculoskeletal Disorders: Yes Other/Comment: scoliosis - GASTROINTESTINAL Hx Gastrointestinal Disorders: No - GENITOURINARY/GYNECOLOGICAL Hx Genitourinary Disorders: No - PSYCHIATRIC Hx Substance Use: Yes (snbiffs heroin) - SURGICAL HISTORY Hx Surgeries: Yes Hx Musculoskeletal Surgery: Yes (b/l ankles; L wrist) - ANESTHESIA Hx Anesthesia: Yes Hx Anesthesia Reactions: No Hx Malignant Hyperthermia: No Meds Allergies/Adverse Reactions: Allergies Allergy/AdvReac Type Severity Reaction Status Date / Time FISH AdvReac Verified 05/24/17 15:39 tomatoes AdvReac Uncoded 03/25/17 12:15 - Medications Medications: Current Medications Albuterol/Ipratropium (Duoneb 3 Mg/0.5 Mg (3 Ml) Ud) 3 ml INH RQ6 PRN PRN Reason: Shortness of Breath Heparin Sodium (Porcine) (Heparin) 5,000 units SC Q12 [facility] Last Admin: 05/26/17 09:05 Dose: 5,000 units Piperacillin Sod/Tazobactam (Sod 3.375 gm/ Sodium Chloride) 100 mls @ 200 mls/ hr IVPB Q8H [facility] Last Admin: 05/26/17 08:45 Dose: 200 mls/hr Vancomycin/Sodium Chloride (Vancocin) 1 gm in 200 mls @ 166.6 mls/hr IVPB Q12H [facility] Insulin Aspart (Novolog) 0 unit SC ACHS [facility] PRN Reason: Protocol Last Admin: 05/26/17 12:45 Dose: 2 unit Lisinopril (Zestril) 10 mg PO DAILY [facility] Last Admin: 05/26/17 09:05 Dose: 10 mg Metformin HCl (Glucophage) 500 mg PO BRK [facility] Last Admin: 05/26/17 08:45 Dose: 500 mg Phenytoin Sodium (Dilantin) 100 mg PO Q8H [facility] Last Admin: 05/26/17 12:46 Dose: 100 mg Fluticasone/Salmeterol (Advair Diskus 250/50) 1 puff INH RQ12 [facility] Last Admin: 05/26/17 08:38 Dose: 1 puff Physical Exam - Constitutional Appears: Non-toxic, Chronically Ill - Head Exam Head Exam: NORMOCEPHALIC - Eye Exam Eye Exam: PERRL. absent: Scleral icterus - ENT Exam ENT Exam: Mucous Membranes Dry, Normal External Ear Exam - Neck Exam Neck exam: Negative for: Lymphadenopathy - Respiratory Exam Respiratory Exam: Decreased Breath Sounds, Clear to Auscultation Bilateral - Cardiovascular Exam Cardiovascular Exam: REGULAR RHYTHM, +S1, +S2 - GI/Abdominal Exam GI & Abdominal Exam: Diminished Bowel Sounds, Soft. absent: Tenderness - Rectal Exam Rectal Exam: Deferred - Exam Exam: NORMAL INSPECTION - Extremities Exam Extremities exam: Positive for: pedal edema, tenderness, pedal pulses present. Negative for: calf tenderness Additional comments: Vasc: DP/PT 2/4 B/L. Temperature gradient WNL. CFT < 3 sec x 10 digits. No pedal edema. Derm: Open ulceration noted to distal tip of left hallux with multiple ports of entry. Wound base is a mixture of necrotic and fibrotic tissue. Hyperkeratotic borders noted. Serosanguinous drainage elicited with pressure. (+) malodor. No fluctuance, no surrounding erythema, no streaking cellulitis. Additional 2x2cm ulceration noted L foot sub met 5 with hyperkeratotic rim. Hyperkeratotic lesion noted sub met 1 on R foot. Neuro: Protective sensation grossly intact Ortho: Pain upon use of cotton tip applicator to assess if wound probes to bone. - Back Exam Back exam: absent: CVA tenderness (L), CVA tenderness (R), paraspinal tenderness - Neurological Exam Neurological exam: Alert, CN II-XII Intact, Oriented x3, Reflexes Normal - Psychiatric Exam Psychiatric exam: Normal Mood - Skin Skin Exam: Dry Results - Vital Signs Recent Vital Signs: Last Vital Signs Temp 98.1 F 05/26/17 08:17 Pulse 73 05/26/17 08:17 Resp 20 05/26/17 08:17 BP 163/94 H 05/26/17 08:17 Pulse Ox 99 05/26/17 08:17 - Labs Result Diagrams: 05/25/17 13:48 05/25/17 13:48 Labs: Laboratory Results - last 24 hr 05/25/17 05/25/17 05/26/17 16:38 21:11 07:04 POC Glucose (mg/dL) 351 H 312 H 229 H Phenytoin 05/26/17 05/26/17 10:00 11:21 POC Glucose (mg/dL) 265 H Phenytoin 12.2 Assessment & Plan (1) Diabetic toe ulcer Status: Acute (2) Nausea and vomiting in adult Status: Acute (3) Osteomyelitis Status: Acute (4) Abdominal pain Status: Acute (5) Alcohol dependence Status: Acute (6) Diabetes Status: Acute - Assessment and Plan (Free Text) Assessment: await wound cultures will likely need 6 weeks iv antibiotics
--- NOTE | 2017-05-26 19:31 | CON ---
DATE OF ADMISSION: 05/24/2017 ATTENDING PHYSICIAN: Dr. Donahue. REASON FOR CONSULTATION: Breakthrough seizures. HISTORY OF PRESENT ILLNESS: The patient is a 51-year-old gentleman with past medical history of diabetes mellitus, hypertension, alcohol abuse, heroin abuse, seizure disorder and asthma. The patient came to the emergency room because of infected toes, and while he was sent for the MRI, the patient had seizures and the patient was admitted for further evaluation. The patient is known with history of seizures. The patient is on Dilantin. The patient stated that he uses only 1 tablet a day and last seizure was 2 weeks ago. The patient does not have neurologist and does not know the name of his primary physician. The patient is lethargic now at this point. The patient is giving answers with efforts. PAST MEDICAL HISTORY: As mentioned above. CURRENT MEDICATIONS: Dilantin, albuterol, metformin, subQ heparin, insulin, piperacillin, phenytoin and fluticasone. SOCIAL HISTORY: Ethanol, drug abuse. ALLERGIES: Allergic to TOMATOES and FISH. REVIEW OF SYSTEMS: As per H and P and ER note reviewed. PHYSICAL EXAMINATION VITAL SIGNS: Blood pressure 173/84, pulse 73, respirations 21 and temperature 98.8. MENTAL STATUS: The patient is alert, awake, partially oriented to place, person and time. Slow mental processing. Decreased attention span. Short-term memory. The patient is not fully cooperative for neurological examination. CRANIAL NERVES: Pupils 3 mm bilaterally, active. No facial palsy. V1 to V3 intact. As mentioned before, the patient is not cooperative with exam. MOTOR: The patient is moving all his upper and lower extremities spontaneously and responses to noxious stimuli. The patient is lethargic, arousable and then he goes back to sleep. LABORATORY DATA: White blood cells 9.7, hemoglobin 15.6, hematocrit 47 and platelets 359. Sodium 132, potassium 4.8, chloride 86, CO2 of 33, BUN 18 and creatinine 0.7. IMAGING: CAT scan of the brain did not reveal significant findings. IMPRESSION: Breakthrough seizures, unfortunately it is not known if the patient was taking any drugs or not. No urine tox screen was done except for alcohol, which was normal. The patient's CAT scan did not reveal significant findings. The patient's Dilantin level was done after the patient was given probably a gram in the emergency room and Dilantin level is 22. The patient's lethargy could be secondary to high-level Dilantin versus postictal state. I will hold Dilantin for now. We will repeat the Dilantin in the morning and restart Dilantin in the morning. In addition, continue with Dilantin 100 mg every 8 hours starting tomorrow morning. The patient should be followed up by neurologist after discharge. If they change his Dilantin to Keppra, Dilantin needs a level and my feeling is that the patient is not compliant with medications and is drinking. I would rather put him on Keppra 500 mg q.12 hours and 750 after discharge. If needed, Dr. Sy will follow up the patient on Saturday. Thank you for the consultation. Roddy Garcia MD
--- NOTE | 2017-05-26 21:33 | CP.PCM.PN ---
Subjective - Date & Time of Evaluation Date of Evaluation: 05/26/17 Objective - Vital Signs/Intake and Output Vital Signs (last 24 hours): Temp Pulse Resp BP Pulse Ox 98.2 F 70 20 162/83 H 96 05/26/17 15:00 05/26/17 15:00 05/26/17 15:00 05/26/17 15:00 05/26/17 15:00 Intake and Output: 05/26/17 05/27/17 18:59 06:59 Intake Total 1200 Balance 1200 - Medications Medications: Current Medications Albuterol/Ipratropium (Duoneb 3 Mg/0.5 Mg (3 Ml) Ud) 3 ml INH RQ6 PRN PRN Reason: Shortness of Breath Famotidine (Pepcid) 20 mg IVP Q12 [facility] Heparin Sodium (Porcine) (Heparin) 5,000 units SC Q12 [facility] Last Admin: 05/26/17 09:05 Dose: 5,000 units Piperacillin Sod/Tazobactam (Sod 3.375 gm/ Sodium Chloride) 100 mls @ 200 mls/ hr IVPB Q8H [facility] Last Admin: 05/26/17 16:36 Dose: 200 mls/hr Vancomycin/Sodium Chloride (Vancocin) 1 gm in 200 mls @ 166.6 mls/hr IVPB Q12H [facility] Multivitamins/Vitamin C 5 ml/Thiamine HCl 100 mg/ Sodium Chloride 1,006 mls @ 60 mls/hr IV .[id number] [facility] Insulin Aspart (Novolog) 0 unit SC ACHS [facility] PRN Reason: Protocol Last Admin: 05/26/17 17:47 Dose: Not Given Lisinopril (Zestril) 10 mg PO DAILY [facility] Last Admin: 05/26/17 09:05 Dose: 10 mg Metformin HCl (Glucophage) 500 mg PO BRK [facility] Last Admin: 05/26/17 08:45 Dose: 500 mg Ondansetron HCl (Zofran Inj) 4 mg IVP Q8 PRN PRN Reason: Nausea/Vomiting Phenytoin Sodium (Dilantin) 100 mg PO Q8H [facility] Last Admin: 05/26/17 19:28 Dose: 100 mg Fluticasone/Salmeterol (Advair Diskus 250/50) 1 puff INH RQ12 [facility] Last Admin: 07/16/17 19:34 Dose: Not Given - Labs Labs: 05/25/17 13:48 05/25/17 13:48 PT 12.3 SECONDS (9.7-12.2) H 05/24/17 17:15 INR 1.1 05/24/17 17:15 APTT 32 SECONDS (21-34) 05/24/17 17:15
[2017-05-26] MEDS ORDERED: THIAMINE IV SCH (22:00)
[2017-05-26] MEDS ORDERED: SODIUM CHLORIDE 0.9% IV SCH (22:00)
[2017-05-26] MEDS ORDERED: MULTIVITAMIN IV SCH (22:00)
[2017-05-26] MEDS: Vancomycin 1 gm/NS 200 ml 1 GM/200 ML BAG IVPB SCH (22:35)
[2017-05-27] MEDS: Piperacillin/Tazobact 3.375 GM in Sodium Chloride 100 ML IVPB SCH ×2 (00:05→08:22)
[2017-05-27] MEDS: (Novolog) Insulin Aspart, Recombinant 100 u/ml 10 ml vial SC SCH ×2 (07:54→12:06)
--- NOTE | 2017-05-27 08:38 | CP.PCM.CON ---
<Soni Carballo - Last Filed: 05/27/17 10:19> History of Present Illness - History of Present Illness History of Present Illness: GI Fellow PGY4 Consult Note This is a 51yM with a pmhx of IDDM, HTN, Asthma, Seizure, Heroine/Alcholol abuse. Pt pw co left food pain, pt found to have left hallux distal phalanx diabetic infection with ulceration, bone destruction/erosion. Plan by podiatry for left foot partial hallux amputation today, pt is on IV abx Vanco/Zoysn. Consult for GI for nausea. Per nursing, pt has one episode of nausea last night that resolved with IV Zofran and one episode of diarrhea. 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 Pt had a seizure inpt and received IV Ativan after a [employer]. Pt denies any EGD or colonoscopy and reports nausea, vomiting and diarrhea for 2 days. ROS: A 12point ROS was obtained and was negative except as mentioned above. PmHx: As stated in HPI PsHx: Ankle, Wrist surgery SHx: Illicit drug use-sniffs heroin, alcohol abuse unable to quantify, tobacco use FHx: No reported family history Past Patient History - Past Medical History & Family History Past Medical History?: Yes - Past Social History Smoking Status: Light Smoker < 10 Cigarettes Daily - CARDIAC Hx Hypertension: Yes - PULMONARY Hx Asthma: Yes - NEUROLOGICAL Hx Seizures: Yes - HEENT Hx HEENT Problems: No - RENAL Hx Chronic Kidney Disease: No - ENDOCRINE/METABOLIC Hx Endocrine Disorders: Yes Hx Diabetes Mellitus Type 1: Yes - HEMATOLOGICAL/ONCOLOGICAL Hx Cancer: No - INTEGUMENTARY Hx Dermatological Problems: No - MUSCULOSKELETAL/RHEUMATOLOGICAL Hx Musculoskeletal Disorders: Yes Other/Comment: scoliosis - GASTROINTESTINAL Hx Gastrointestinal Disorders: No - GENITOURINARY/GYNECOLOGICAL Hx Genitourinary Disorders: No - PSYCHIATRIC Hx Substance Use: Yes (snbiffs heroin) - SURGICAL HISTORY Hx Surgeries: Yes Hx Musculoskeletal Surgery: Yes (b/l ankles; L wrist) - ANESTHESIA Hx Anesthesia: Yes Hx Anesthesia Reactions: No Hx Malignant Hyperthermia: No Meds Allergies/Adverse Reactions: Allergies Allergy/AdvReac Type Severity Reaction Status Date / Time FISH AdvReac Verified 05/24/17 15:39 tomatoes AdvReac Uncoded 03/25/17 12:15 - Medications Medications: Current Medications Albuterol/Ipratropium (Duoneb 3 Mg/0.5 Mg (3 Ml) Ud) 3 ml INH RQ6 PRN PRN Reason: Shortness of Breath Famotidine (Pepcid) 20 mg IVP Q12 [facility] Last Admin: 05/26/17 22:27 Dose: 20 mg Heparin Sodium (Porcine) (Heparin) 5,000 units SC Q12 [facility] Last Admin: 05/26/17 22:38 Dose: 5,000 units Piperacillin Sod/Tazobactam (Sod 3.375 gm/ Sodium Chloride) 100 mls @ 200 mls/ hr IVPB Q8H [facility] Last Admin: 05/27/17 08:22 Dose: 200 mls/hr Vancomycin/Sodium Chloride (Vancocin) 1 gm in 200 mls @ 166.6 mls/hr IVPB Q12H [facility] Last Admin: 05/26/17 22:35 Dose: 166.6 mls/hr Multivitamins/Vitamin C 5 ml/Thiamine HCl 100 mg/ Sodium Chloride 1,006 mls @ 60 mls/hr IV .[id number] [facility] Last Admin: 05/26/17 22:27 Dose: 60 mls/hr Sodium Chloride (Sodium Chloride 0.9%) 1,000 mls @ 60 mls/hr IV .[id number] [facility] Insulin Aspart (Novolog) 0 unit SC ACHS [facility] PRN Reason: Protocol Last Admin: 05/27/17 07:54 Dose: Not Given Lisinopril (Zestril) 10 mg PO DAILY [facility] Last Admin: 05/26/17 09:05 Dose: 10 mg Metformin HCl (Glucophage) 500 mg PO BRK [facility] Last Admin: 05/27/17 07:54 Dose: Not Given Ondansetron HCl (Zofran Inj) 4 mg IVP Q8 PRN PRN Reason: Nausea/Vomiting Phenytoin Sodium (Dilantin) 100 mg PO Q8H [facility] Last Admin: 05/27/17 03:10 Dose: 100 mg Fluticasone/Salmeterol (Advair Diskus 250/50) 1 puff INH RQ12 [facility] Last Admin: 05/26/17 19:34 Dose: Not Given Physical Exam - Constitutional Appears: Older Than Stated Age Additional comments: Drowsy but arousable - Head Exam Head Exam: ATRAUMATIC, NORMAL INSPECTION, NORMOCEPHALIC - Eye Exam Eye Exam: EOMI, Normal appearance, PERRL Pupil Exam: PERRL - ENT Exam ENT Exam: Mucous Membranes Moist, Normal Exam - Neck Exam Neck exam: Positive for: Normal Inspection - Respiratory Exam Respiratory Exam: Clear to Auscultation Bilateral, NORMAL BREATHING PATTERN - Cardiovascular Exam Cardiovascular Exam: RRR, +S1, +S2 - GI/Abdominal Exam GI & Abdominal Exam: Normal Bowel Sounds, Soft. absent: Distended, Guarding, Organomegaly - Rectal Exam Rectal Exam: Deferred - Extremities Exam Additional comments: Left Hallux dressing - Neurological Exam Additional comments: Drowsy but arousable, not answering much questions, reports that he is withdrawing - Psychiatric Exam Psychiatric exam: Flat Affect - Skin Skin Exam: Dry, Intact, Normal Color, Warm Results - Vital Signs Recent Vital Signs: Last Vital Signs Temp 98.8 F 05/27/17 00:01 Pulse 64 05/27/17 00:01 Resp 20 05/27/17 00:01 BP 161/73 H 05/27/17 00:01 Pulse Ox 95 05/27/17 00:01 - Labs Result Diagrams: 05/25/17 13:48 05/25/17 13:48 Labs: Laboratory Results - last 24 hr 05/26/17 05/26/17 05/26/17 10:00 11:21 17:21 POC Glucose (mg/dL) 265 H 185 H Vancomycin Trough Phenytoin 12.2 05/26/17 05/26/17 05/27/17 21:24 21:44 07:10 POC Glucose (mg/dL) 244 H 189 H Vancomycin Trough 9.4 Phenytoin 05/27/17 07:15 POC Glucose (mg/dL) Vancomycin Trough Phenytoin 10.8 Assessment & Plan - Assessment and Plan (Free Text) Assessment: This is a 51yM with hx of drug abuse with heroin and alcohol, IDDM, HTN, Seizure pw co ft pain and associated N/V/D. 1. Nausea 2. Diabetic foot infection 3. Heroin Abuse-withdrawing 4. Alcohol Abuse 5. Seizures Plan: -Nausea improves with IV Zofran, one episode of diarrhea and no further emesis. -Nausea likely multifactorial from current infection, abx therapy, and heroin withdrawal, and possible gastroparesis. -Continue supportive care with anti-emetics and can add probiotic to help with diarrhea since pt is receiving antibiotics. -Left hallux diabetic ft infection, plan for OR today by podiatry, continue abx per primary team -Recommend psych consult for detox/withdrawal <Kaden Franklin MD - Last Filed: 05/27/17 11:11> Meds - Medications Medications: Current Medications Albuterol/Ipratropium (Duoneb 3 Mg/0.5 Mg (3 Ml) Ud) 3 ml INH RQ6 PRN PRN Reason: Shortness of Breath Famotidine (Pepcid) 20 mg IVP Q12 [facility] Last Admin: 05/27/17 10:44 Dose: Not Given Heparin Sodium (Porcine) (Heparin) 5,000 units SC Q12 [facility] Last Admin: 05/26/17 22:38 Dose: 5,000 units Piperacillin Sod/Tazobactam (Sod 3.375 gm/ Sodium Chloride) 100 mls @ 200 mls/ hr IVPB Q8H [facility] Last Admin: 05/27/17 08:22 Dose: 200 mls/hr Vancomycin/Sodium Chloride (Vancocin) 1 gm in 200 mls @ 166.6 mls/hr IVPB Q12H [facility] Last Admin: 05/27/17 10:45 Dose: 166.6 mls/hr Multivitamins/Vitamin C 5 ml/Thiamine HCl 100 mg/ Sodium Chloride 1,006 mls @ 60 mls/hr IV .[id number] [facility] Last Admin: 05/26/17 22:27 Dose: 60 mls/hr Sodium Chloride (Sodium Chloride 0.9%) 1,000 mls @ 60 mls/hr IV .[id number] [facility] Insulin Aspart (Novolog) 0 unit SC ACHS [facility] PRN Reason: Protocol Last Admin: 05/27/17 07:54 Dose: Not Given Lisinopril (Zestril) 10 mg PO DAILY [facility] Last Admin: 05/27/17 10:44 Dose: Not Given Metformin HCl (Glucophage) 500 mg PO BRK [facility] Last Admin: 05/27/17 07:54 Dose: Not Given Ondansetron HCl (Zofran Inj) 4 mg IVP Q8 PRN PRN Reason: Nausea/Vomiting Phenytoin Sodium (Dilantin) 100 mg PO Q8H [facility] Last Admin: 05/27/17 03:10 Dose: 100 mg Fluticasone/Salmeterol (Advair Diskus 250/50) 1 puff INH RQ12 [facility] Last Admin: 05/27/17 08:57 Dose: 1 puff Results - Vital Signs Recent Vital Signs: Last Vital Signs Temp 98.4 F 05/27/17 08:50 Pulse 76 05/27/17 08:50 Resp 20 05/27/17 08:50 BP 154/65 H 05/27/17 08:50 Pulse Ox 100 05/27/17 08:50 - Labs Result Diagrams: 05/25/17 13:48 05/25/17 13:48 Labs: Laboratory Results - last 24 hr 05/26/17 05/26/17 05/26/17 10:00 11:21 17:21 POC Glucose (mg/dL) 265 H 185 H Vancomycin Trough Phenytoin 12.2 05/26/17 05/26/17 05/27/17 21:24 21:44 07:10 POC Glucose (mg/dL) 244 H 189 H Vancomycin Trough 9.4 Phenytoin 05/27/17 07:15 POC Glucose (mg/dL) Vancomycin Trough Phenytoin 10.8 Attending/Attestation - Attestation I have personally seen and examined this patient.: Yes I have fully participated in the care of the patient.: Yes I have reviewed all pertinent clinical information: Yes Notes (Text): 05/27/17 11:08 Patient seen with GI fellow on rounds. This is a 51yM with hx of drug abuse with heroin and alcohol, IDDM, HTN, Seizure pw complain of left foot with nausea. Nausea likely due to uncontrolled blood sugar. Currently in alcohol and heroin withdrawal. Last use was two days ago. Needs alcohol withdrawal protocol and anti emetic needed. Hb normal and no s/s of GI bleeding or hematemesis. LFt normal. No s/s of alcohol hepatitis. Continue supportive care. Continue PPI. No GI intervention needed. Will sign off. Thank you for letting us participate in the care of your patient.
[2017-05-27 08:51] VITALS: O2SAT 100
[2017-05-27] MEDS: Fluticasone-Salmeterol 250-50mcg Diskus INH SCH (08:57)
[2017-05-27] MEDS: Vancomycin 1 gm/NS 200 ml 1 GM/200 ML BAG IVPB SCH (10:45)
--- NOTE | 2017-05-27 11:11 | CP.PCM.PN ---
Subjective - Date & Time of Evaluation Date of Evaluation: 05/27/17 Time of Evaluation: 08:40 - Subjective Subjective: clinically same Objective - Vital Signs/Intake and Output Vital Signs (last 24 hours): Temp Pulse Resp BP Pulse Ox 98.4 F 76 20 154/65 H 100 05/27/17 08:50 05/27/17 08:50 05/27/17 08:50 05/27/17 08:50 05/27/17 08:50 Intake and Output: 05/27/17 05/27/17 06:59 18:59 Intake Total 1280 Balance 1280 - Medications Medications: Current Medications Albuterol/Ipratropium (Duoneb 3 Mg/0.5 Mg (3 Ml) Ud) 3 ml INH RQ6 PRN PRN Reason: Shortness of Breath Famotidine (Pepcid) 20 mg IVP Q12 [facility] Last Admin: 05/27/17 10:44 Dose: Not Given Heparin Sodium (Porcine) (Heparin) 5,000 units SC Q12 [facility] Last Admin: 05/26/17 22:38 Dose: 5,000 units Piperacillin Sod/Tazobactam (Sod 3.375 gm/ Sodium Chloride) 100 mls @ 200 mls/ hr IVPB Q8H [facility] Last Admin: 05/27/17 08:22 Dose: 200 mls/hr Vancomycin/Sodium Chloride (Vancocin) 1 gm in 200 mls @ 166.6 mls/hr IVPB Q12H [facility] Last Admin: 05/27/17 10:45 Dose: 166.6 mls/hr Multivitamins/Vitamin C 5 ml/Thiamine HCl 100 mg/ Sodium Chloride 1,006 mls @ 60 mls/hr IV .[id number] [facility] Last Admin: 05/26/17 22:27 Dose: 60 mls/hr Sodium Chloride (Sodium Chloride 0.9%) 1,000 mls @ 60 mls/hr IV .[id number] [facility] Insulin Aspart (Novolog) 0 unit SC ACHS [facility] PRN Reason: Protocol Last Admin: 05/27/17 07:54 Dose: Not Given Lisinopril (Zestril) 10 mg PO DAILY [facility] Last Admin: 05/27/17 10:44 Dose: Not Given Metformin HCl (Glucophage) 500 mg PO BRK [facility] Last Admin: 05/27/17 07:54 Dose: Not Given Ondansetron HCl (Zofran Inj) 4 mg IVP Q8 PRN PRN Reason: Nausea/Vomiting Phenytoin Sodium (Dilantin) 100 mg PO Q8H [facility] Last Admin: 05/27/17 03:10 Dose: 100 mg Fluticasone/Salmeterol (Advair Diskus 250/50) 1 puff INH RQ12 [facility] Last Admin: 05/27/17 08:57 Dose: 1 puff - Labs Labs: 05/25/17 13:48 05/25/17 13:48 PT 12.3 SECONDS (9.7-12.2) H 05/24/17 17:15 INR 1.1 05/24/17 17:15 APTT 32 SECONDS (21-34) 05/24/17 17:15 - Constitutional Appears: Well - Head Exam Head Exam: ATRAUMATIC, NORMAL INSPECTION, NORMOCEPHALIC - Eye Exam Eye Exam: EOMI, Normal appearance, PERRL Pupil Exam: NORMAL ACCOMODATION, PERRL - ENT Exam ENT Exam: Mucous Membranes Moist, Normal Exam - Neck Exam Neck Exam: Full ROM, Normal Inspection. absent: Lymphadenopathy - Respiratory Exam Respiratory Exam: Decreased Breath Sounds - Cardiovascular Exam Cardiovascular Exam: REGULAR RHYTHM, +S1, +S2 - GI/Abdominal Exam GI & Abdominal Exam: Soft, Diminished Bowel Sounds - Rectal Exam Rectal Exam: Deferred
--- NOTE | 2017-05-27 11:28 | CP.PCM.PN ---
Subjective - Date & Time of Evaluation Date of Evaluation: 05/27/17 Time of Evaluation: 11:26 - Subjective Subjective: 51 y/o diabetic male patient seen at bedside this AM for f/u of right foot ulcerations. Pt seen resting in bed at time of visit, appears comfortable however very lethargic at time of visit. denies any acute events overnight. Dressing appears c/d/i to foot at this time. Objective - Vital Signs/Intake and Output Vital Signs (last 24 hours): Temp Pulse Resp BP Pulse Ox 98.4 F 76 20 154/65 H 100 05/27/17 08:50 05/27/17 08:50 05/27/17 08:50 05/27/17 08:50 05/27/17 08:50 Intake and Output: 05/27/17 05/27/17 06:59 18:59 Intake Total 1280 Balance 1280 - Medications Medications: Current Medications Albuterol/Ipratropium (Duoneb 3 Mg/0.5 Mg (3 Ml) Ud) 3 ml INH RQ6 PRN PRN Reason: Shortness of Breath Famotidine (Pepcid) 20 mg IVP Q12 [facility] Last Admin: 05/27/17 10:44 Dose: Not Given Heparin Sodium (Porcine) (Heparin) 5,000 units SC Q12 [facility] Last Admin: 05/26/17 22:38 Dose: 5,000 units Piperacillin Sod/Tazobactam (Sod 3.375 gm/ Sodium Chloride) 100 mls @ 200 mls/ hr IVPB Q8H [facility] Last Admin: 05/27/17 08:22 Dose: 200 mls/hr Vancomycin/Sodium Chloride (Vancocin) 1 gm in 200 mls @ 166.6 mls/hr IVPB Q12H [facility] Last Admin: 05/27/17 10:45 Dose: 166.6 mls/hr Sodium Chloride (Sodium Chloride 0.9%) 1,000 mls @ 60 mls/hr IV .[id number] [facility] Multivitamins/Vitamin C 5 ml/Thiamine HCl 100 mg/ Sodium Chloride 1,006 mls @ 60 mls/hr IV DAILY@2200 [facility] Insulin Aspart (Novolog) 0 unit SC ACHS [facility] PRN Reason: Protocol Last Admin: 05/27/17 07:54 Dose: Not Given Lisinopril (Zestril) 10 mg PO DAILY [facility] Last Admin: 05/27/17 10:44 Dose: Not Given Metformin HCl (Glucophage) 500 mg PO BRK [facility] Last Admin: 05/27/17 07:54 Dose: Not Given Ondansetron HCl (Zofran Inj) 4 mg IVP Q8 PRN PRN Reason: Nausea/Vomiting Phenytoin Sodium (Dilantin) 100 mg PO Q8H [facility] Last Admin: 05/27/17 03:10 Dose: 100 mg Fluticasone/Salmeterol (Advair Diskus 250/50) 1 puff INH RQ12 [facility] Last Admin: 05/27/17 08:57 Dose: 1 puff - Labs Labs: 05/25/17 13:48 05/25/17 13:48 PT 12.3 SECONDS (9.7-12.2) H 05/24/17 17:15 INR 1.1 05/24/17 17:15 APTT 32 SECONDS (21-34) 05/24/17 17:15 - Constitutional Appears: Well, Non-toxic - Extremities Exam Additional comments: Vasc: DP/PT 2/4 B/L. Temperature gradient WNL. CFT < 3 sec x 10 digits. No pedal edema. Derm: Open ulceration noted to distal tip of left hallux with multiple ports of entry. Wound base is a mixture of necrotic and fibrotic tissue. Hyperkeratotic borders noted. Serosanguinous drainage elicited with pressure. (+) malodor. No fluctuance, no surrounding erythema, no streaking cellulitis. Additional 2x2cm ulceration noted L foot sub met 5 with hyperkeratotic rim. Hyperkeratotic lesion noted sub met 1 on R foot. Neuro: Protective sensation grossly intact - Neurological Exam Neurological Exam: Alert, Awake, Oriented x3 Assessment and Plan - Assessment and Plan (Free Text) Assessment: 51 y/o male with L hallux distal phalanx ulceration secondary to DM Plan: Pt S&E at bedside Discussed plan in detail with attending Dr. Jordan Labs and vitals reviewed- afebrile, WBC 9.7 (05/26/17) X-rays reveal destructive and erosive changes to L hallux distal phalanx MRI left foot taken: results pending Going to OR this afternoon 05/27/[address] Jordan for left foot partial hallux amputation NPO past midnight confirmed All risks, benefits, complications of surgical procedure explained in detail to patient no guarantees were given nor implied all questions and concerns were addressed Podiatry will continue to follow closely
[2017-05-27 11:29] LABS: BASO # 0.1 K/uL (0.0-0.2); EOS # 0.1 K/uL (0.0-0.7); EOS % 0.9 % (0.0-4.0); HEMOGLOBIN 14.1 g/dL (12.0-18.0); LYMPH # 1.2 K/uL (1.0-4.3); LYMPH % 12.5 % (20.0-40.0); MEAN CELL VOLUME 89.7 fL (80.0-94.0); MEAN CORPUSCULAR HEMOGLOBIN 29.4 pg (27.0-31.0); MEAN CORPUSCULAR HGB CONC 32.8 g/dL (33.0-37.0); MEAN PLATELET VOLUME 7.3 fL (7.2-11.7); MONO # 0.8 K/uL (0.0-0.8); MONO % 8.6 % (0.0-10.0); NEUT # 7.2 K/uL (1.8-7.0); NRBC % 0.1 % (0.0-2.0); RBC 4.78 Mil/uL (4.40-5.90); WHITE BLOOD COUNT 9.3 K/uL (4.8-10.8)
[2017-05-27] MEDS ORDERED: ceFAZolin IV 1 gm in Dextrose 0 GM/0 ML BAG IVPB ONE (11:33)
[2017-05-27] MEDS ORDERED: Lidocaine 2% Inj (20ml) ONE (11:33)
[2017-05-27] MEDS ORDERED: Bupivacaine HCl 0.5% PF (10 ml) Inj ONE (11:33)
[2017-05-27] MEDS ORDERED: Lactated Ringer's 1,000 ML IV ONE (11:40)
[2017-05-27 11:57] LABS: ALBUMIN 2.9 g/dL (3.5-5.0)
[2017-05-27 12:00] LABS: ALB/GLOB RATIO 0.7 (1.0-2.1); AST/SGOT 32 U/L (17-59); BLOOD UREA NITROGEN 17 mg/dL (9-20); GFR AFRICAN-AMERICAN > 60; GFR NON-AFRICAN AMERICAN > 60
[2017-05-27 12:01] LABS: ALT/SGPT 20 U/L (21-72); CALCIUM 8.3 mg/dl (8.6-10.4)
[2017-05-27] MEDS ORDERED: Bacitracin 150,000 UNIT in Sodium Chloride 0.9% Irrig 3,000 ML IR SCH (12:08)
[2017-05-27] MEDS ORDERED: Midazolam 2 MG/2 ML VIAL ONE (12:15)
[2017-05-27] MEDS ORDERED: Propofol 10 mg/ml Inj (20 ML) ONE (12:15)
--- NOTE | 2017-05-27 12:38 | CP.PCM.PN ---
Subjective - Date & Time of Evaluation Date of Evaluation: 05/27/17 Time of Evaluation: 08:00 - Subjective Subjective: iv rx in progress poditry to follow await cultures Objective - Vital Signs/Intake and Output Vital Signs (last 24 hours): Temp Pulse Resp BP Pulse Ox 98.4 F 76 20 154/65 H 100 05/27/17 08:50 05/27/17 08:50 05/27/17 08:50 05/27/17 08:50 05/27/17 08:50 Intake and Output: 05/27/17 05/27/17 06:59 18:59 Intake Total 1280 Balance 1280 - Medications Medications: Current Medications Albuterol/Ipratropium (Duoneb 3 Mg/0.5 Mg (3 Ml) Ud) 3 ml INH RQ6 PRN PRN Reason: Shortness of Breath Famotidine (Pepcid) 20 mg IVP Q12 [facility] Last Admin: 05/27/17 10:44 Dose: Not Given Heparin Sodium (Porcine) (Heparin) 5,000 units SC Q12 [facility] Last Admin: 05/26/17 22:38 Dose: 5,000 units Piperacillin Sod/Tazobactam (Sod 3.375 gm/ Sodium Chloride) 100 mls @ 200 mls/ hr IVPB Q8H [facility] Last Admin: 05/27/17 08:22 Dose: 200 mls/hr Vancomycin/Sodium Chloride (Vancocin) 1 gm in 200 mls @ 166.6 mls/hr IVPB Q12H [facility] Last Admin: 05/27/17 10:45 Dose: 166.6 mls/hr Sodium Chloride (Sodium Chloride 0.9%) 1,000 mls @ 60 mls/hr IV .[id number] [facility] Multivitamins/Vitamin C 5 ml/Thiamine HCl 100 mg/ Sodium Chloride 1,006 mls @ 60 mls/hr IV DAILY@2200 [facility] Bacitracin 150,000 unit/ (Sodium Chloride) 3,000 mls @ 3,000 mls/hr IR .Q1H [facility] Stop: 05/27/17 13:07 Insulin Aspart (Novolog) 0 unit SC ACHS [facility] PRN Reason: Protocol Last Admin: 05/27/17 12:06 Dose: Not Given Lisinopril (Zestril) 10 mg PO DAILY [facility] Last Admin: 05/27/17 10:44 Dose: Not Given Metformin HCl (Glucophage) 500 mg PO BRK [facility] Last Admin: 05/27/17 07:54 Dose: Not Given Ondansetron HCl (Zofran Inj) 4 mg IVP Q8 PRN PRN Reason: Nausea/Vomiting Phenytoin Sodium (Dilantin) 100 mg PO Q8H [facility] Last Admin: 05/27/17 11:30 Dose: Not Given Fluticasone/Salmeterol (Advair Diskus 250/50) 1 puff INH RQ12 [facility] Last Admin: 05/27/17 08:57 Dose: 1 puff - Labs Labs: 05/27/17 11:23 05/27/17 11:23 PT 12.3 SECONDS (9.7-12.2) H 05/24/17 17:15 INR 1.1 05/24/17 17:15 APTT 32 SECONDS (21-34) 05/24/17 17:15 - Constitutional Appears: Non-toxic - Head Exam Head Exam: NORMOCEPHALIC - Eye Exam Eye Exam: PERRL - ENT Exam ENT Exam: Mucous Membranes Dry - Neck Exam Neck Exam: absent: Lymphadenopathy - Respiratory Exam Respiratory Exam: Decreased Breath Sounds - Cardiovascular Exam Cardiovascular Exam: REGULAR RHYTHM - GI/Abdominal Exam GI & Abdominal Exam: Distended Assessment and Plan (1) Diabetic toe ulcer Status: Acute (2) Nausea and vomiting in adult Status: Acute (3) Osteomyelitis Status: Acute (4) Abdominal pain Status: Acute (5) Alcohol dependence Status: Acute (6) Diabetes Status: Acute
--- NOTE | 2017-05-27 12:47 | CARD ---
APPROVED REPORT EKG Measurement Heart [id number] <Conclusion> Normal sinus rhythm Possible Left atrial enlargement Left ventricular hypertrophy Septal infarct, age undetermined Abnormal ECG
--- NOTE | 2017-05-27 13:16 | PCM.SURG1 ---
Surgeon's Initial Post Op Note - Surgeon's Notes Surgeon: Dr. Jordan Gamb Cutter: Dr. Nunn PGY-2, Dr. De PGY-1 Type of Anesthesia: Local Anesthesia Administered By: Dr. Brumfield Pre-Operative Diagnosis: left hallux osteomyelitis Operative Findings: see dictation. 20mL 2% lidocaine plain wiht 0.5%marcaine plain. 2-0 , 3-0 nylon Post-Operative Diagnosis: same Operation Performed: left foot partial hallux amputation Specimen/Specimens Removed: bone Estimated Blood Loss: EBL {In ML}: 10 Blood Products Given: N/A Drains Used: No Drains Post-Op Condition: Good Date of Surgery/Procedure: 05/27/17 Time of Surgery/Procedure: 12:00
[2017-05-27] MEDS ORDERED: Oxycodone/Acetaminophen 5/325 mg Tab PO PRN ×2 (13:17)
--- NOTE | 2017-05-27 13:17 | RAD ---
Abdomen dated 05/26/2017. History: Persistent vomiting. Single AP supine portable view of the abdomen performed. Note that the examination is limited due to patient rotation to the right side. In the comparison made with prior CT scan abdomen and pelvis dated 05/12/2014. Findings: The current study reveals a nonobstructive/nonspecific bowel gas pattern. There is a rectangular and/or cylindrical radiopaque density overlying the right parasagittal abdomen at the L1-L2 level that measures 5.2 x 3.5 cm of uncertain etiology and location. This could represent overlying skin surface artifact. Rule out swallowed foreign body. Impression: Slightly limited study due to patient rotation. No evidence of acute mechanical bowel obstruction. There is a rectangular or cylindrical shaped radiopaque density overlying the right parasagittal abdomen at the L1-L2 level of uncertain etiology. This probably represents overlying artifact however swallowed foreign body not excluded. Clinical correlation recommended. Note that preliminary report provided by overnight radiology service Osseous structures appear intact.
[2017-05-27 14:11] VITALS: PULSE 80
[2017-05-27 14:13] VITALS: BP 164/90; RESP 18; TEMP 98
[2017-05-27] MEDS ORDERED: Potassium Chloride 20 mEq/15 ml LIQ UD PO ONE (14:45)
--- NOTE | 2017-05-27 15:46 | RAD ---
PROCEDURE: Left Foot Radiographs. HISTORY: s/p left foot surgery COMPARISON: None. FINDINGS: BONES: Status post amputation 1st digit in the mid proximal phalanx. No acute fracture. Small plantar calcaneal spur. Orthopedic hardware distal fibula. JOINTS: Normal. SOFT TISSUES: Bandaging seen over amputation site OTHER FINDINGS: None. IMPRESSION: Amputation 1st digit in the mid proximal phalanx.
[2017-05-27] MEDS ORDERED: Sodium Chloride 0.9% 1,000 ML IV SCH (16:00)
--- NOTE | 2017-05-27 16:12 | CP.PCM.PN ---
Subjective - Date & Time of Evaluation Date of Evaluation: 05/27/17 Time of Evaluation: 15:55 - Subjective Subjective: PGY3 House Doctor Note: Called for AMA. Dr. Jagdish Donahue was not yet notified. Called Dr. Jagdish Donahue who said patient should not leave because patient has osteomyelitis and just had surgery today. Code ECHO called while I was on the phone with Dr. Jagdish Donahue. Patient found on ground floor by back elevators. Patient convinced to go back upstairs to at least get IV line removed. Patient refused to stay to get any more IV antibiotics. I repeatedly told patient he has a very bad infection in his foot that can kill him. Patient said "then let me ." When told I dont want him to , patient scoffed. Patient was repeatedly asked if he wanted to call his niece to see what she thought. He repeatedly said no and that he will call her once he is out of here. Patient knew what year it is and where he was. Patient said he understood that he could develop sepsis or bacteremia from his bone infection. Patient said he understood that he can . Patient would not explain why he wants to leave. Patient very agitated and yelling at security guards. Patient signed AMA form explaining risks of infection, trauma and after IV line in jugular vein was removed. Objective - Vital Signs/Intake and Output Vital Signs (last 24 hours): Temp Pulse Resp BP Pulse Ox 98.0 F 80 18 164/90 H 100 05/27/17 14:00 05/27/17 14:10 05/27/17 14:00 05/27/17 14:00 05/27/17 14:00 Intake and Output: 05/27/17 05/27/17 06:59 18:59 Intake Total 1280 450 Balance 1280 450 - Medications Medications: Current Medications Acetaminophen (Tylenol 325mg Tab) 650 mg PO Q6 PRN PRN Reason: Pain, Mild (1-3) Albuterol/Ipratropium (Duoneb 3 Mg/0.5 Mg (3 Ml) Ud) 3 ml INH RQ6 PRN PRN Reason: Shortness of Breath Famotidine (Pepcid) 20 mg IVP Q12 [facility] Last Admin: 05/27/17 10:44 Dose: Not Given Heparin Sodium (Porcine) (Heparin) 5,000 units SC Q12 [facility] Last Admin: 05/26/17 22:38 Dose: 5,000 units Piperacillin Sod/Tazobactam (Sod 3.375 gm/ Sodium Chloride) 100 mls @ 200 mls/ hr IVPB Q8H [facility] Last Admin: 05/27/17 08:22 Dose: 200 mls/hr Vancomycin/Sodium Chloride (Vancocin) 1 gm in 200 mls @ 166.6 mls/hr IVPB Q12H [facility] Last Admin: 05/27/17 10:45 Dose: 166.6 mls/hr Sodium Chloride (Sodium Chloride 0.9%) 1,000 mls @ 60 mls/hr IV .[id number] [facility] Multivitamins/Vitamin C 5 ml/Thiamine HCl 100 mg/ Sodium Chloride 1,006 mls @ 60 mls/hr IV DAILY@2200 [facility] Insulin Aspart (Novolog) 0 unit SC ACHS [facility] PRN Reason: Protocol Last Admin: 05/27/17 12:06 Dose: Not Given Lisinopril (Zestril) 10 mg PO DAILY [facility] Last Admin: 05/27/17 10:44 Dose: Not Given Metformin HCl (Glucophage) 500 mg PO BRK [facility] Last Admin: 05/27/17 07:54 Dose: Not Given Ondansetron HCl (Zofran Inj) 4 mg IVP Q8 PRN PRN Reason: Nausea/Vomiting Oxycodone/Acetaminophen (Percocet 5/325 Mg Tab) 1 tab PO Q4H PRN PRN Reason: Pain, moderate (4-7) Stop: 05/30/17 13:18 Oxycodone/Acetaminophen (Percocet 5/325 Mg Tab) 2 tab PO Q4H PRN PRN Reason: Pain, severe (8-10) Stop: 05/30/17 13:18 Phenytoin Sodium (Dilantin) 100 mg PO Q8H [facility] Last Admin: 05/27/17 11:30 Dose: Not Given Fluticasone/Salmeterol (Advair Diskus 250/50) 1 puff INH RQ12 [facility] Last Admin: 05/27/17 08:57 Dose: 1 puff - Labs Labs: 05/27/17 11:23 05/27/17 11:23 PT 12.3 SECONDS (9.7-12.2) H 05/24/17 17:15 INR 1.1 05/24/17 17:15 APTT 32 SECONDS (21-34) 05/24/17 17:15
[2017-05-27] MEDS ORDERED: THIAMINE IV SCH (22:00)
[2017-05-27] MEDS ORDERED: SODIUM CHLORIDE 0.9% IV SCH (22:00)
[2017-05-27] MEDS ORDERED: MULTIVITAMIN IV SCH (22:00)
--- NOTE | 2017-05-27 23:49 | CP.PCM.PN ---
Subjective - Date & Time of Evaluation Date of Evaluation: 05/27/17 Time of Evaluation: 17:00 - Subjective Subjective: consultation requested for evaluation of PAD patient not seen as he left AMA prior to evaluation Objective - Vital Signs/Intake and Output Vital Signs (last 24 hours): Temp Pulse Resp BP Pulse Ox 98.0 F 80 18 164/90 H 100 05/27/17 14:00 05/27/17 14:10 05/27/17 14:00 05/27/17 14:00 05/27/17 14:00 Intake and Output: 05/27/17 05/28/17 18:59 06:59 Intake Total 450 Balance 450 - Labs Labs: 05/27/17 11:23 05/27/17 11:23 PT 12.3 SECONDS (9.7-12.2) H 05/24/17 17:15 INR 1.1 05/24/17 17:15 APTT 32 SECONDS (21-34) 05/24/17 17:15
--- NOTE | 2017-05-28 22:13 | OP ---
PROCEDURE DATE: 05/27/2017 PREOPERATIVE DIAGNOSIS: Left hallux osteomyelitis. POSTOPERATIVE DIAGNOSIS: Left hallux osteomyelitis. PROCEDURE: Left foot partial hallux amputation. SURGEON: Iris Jordan DPM SCREEN PRINTING MACHINE OPERATOR: 1. Funmi Nunn DPM, PGY2 2. Jimmy De DPM, PGY1 ADJUSTMENT SUPERVISOR: Dr. Brumfield. TYPE OF ANESTHESIA: IV sedation with local. INDICATIONS: The patient is a 51-year-old male with the above diagnosis. The patient has all conservative treatment at this time and now require a surgical intervention. The patient's family consent after careful explanation of risks, benefits, complications, and alternatives for surgical procedure. No guarantees were given nor imply. PREPARATION: The patient was brought into the operating room and placed on the operating room table in a supine position. A time-out was performed for identification of the correct patient and procedure. After induction of IV sedation, the patient received a total of 20 mL of 1:1 mix of 2% lidocaine plain and 0.5 % Marcaine plain in the local block-type fashion to the left foot. Once local anesthesia was achieved, the left foot was then prepped and draped in a normal sterile manner and the procedure began. DESCRIPTION OF PROCEDURE: Attention was then drawn to the left hallux where a V-shape racket-type incision was made at the base of the proximal phalanx of the hallux extending around the digit circumferentially using a 15 blade. The incision was then extended down through subcutaneous layers down to the level of bone. Using a bone clamp to stabilize the toe, all the soft tissue structures were released and detached from its insertion. The distal phalanx of the hallux was then disarticulated from the left foot. Utilizing a sagittal saw, the distal aspect of the proximal phalanx was then resected. All bone was sent to pathology. Deep wound cultures were taken at this time and sent to pathology. Using a size #15 blade, all necrotic and nonviable tissue was then excisionally debrided from the surgical site. The surgical site was then copiously flushed with a 3 L bag of saline mixed with bacitracin using a pulsed lavage. At this time, the skin layers were then reapproximated and coapted using 2-0 and 3-0 nylon in simple suture technique. The foot was then dressed with Betadine soaked Adaptic, 4 x 4 gauze, Kerlix, Yesenia and Mk. Immediate capillary refill time is noted at the surgical site. POSTOPERATIVE CONDITION: The patient tolerated the anesthesia and procedure well and was escorted to recovery room with vital signs stable and neurovascular status intact to the left foot. The patient is to be partial weightbearing to the heel and podiatry will continue to follow the patient while the patient remains in-house and will follow up with Dr. Jordan upon discharge. Funmi Nunn DPM
--- NOTE | 2017-05-31 14:09 | CARD ---
APPROVED REPORT EKG Measurement Heart [id number] <Conclusion> Normal sinus rhythm Septal infarct, age undetermined Abnormal ECG
== END 2017-05-27 16:40 | disposition left against medical advice (07) ==
LOC: C.ER 15:35 → C.9E 18:12 → C.3T 20:18
PROVIDERS: ADMIT Internal Medicine Nephrology; ATTEND Internal Medicine Nephrology
PROC: 0Y6N0Z9 Detachment at Left Foot, Partial 1st Ray, Open Approach (ICD-10-PCS; principal; 2017-05-27 14:15)
DX: E10.69 Type 1 diabetes mellitus with other specified complication (principal); M86.9 Osteomyelitis, unspecified; I10 Essential (primary) hypertension; L97.529 Non-pressure chronic ulcer of other part of left foot with unspecified severity; F11.23 Opioid dependence with withdrawal; E10.621 Type 1 diabetes mellitus with foot ulcer; M41.9 Scoliosis, unspecified; J45.909 Unspecified asthma, uncomplicated; F17.210 Nicotine dependence, cigarettes, uncomplicated; Y90.9 Presence of alcohol in blood, level not specified; F10.20 Alcohol dependence, uncomplicated; G40.802 Other epilepsy, not intractable, without status epilepticus; R53.83 Other fatigue; T42.0X5A Adverse effect of hydantoin derivatives, initial encounter; E10.628 Type 1 diabetes mellitus with other skin complications; L03.032 Cellulitis of left toe

== ENCOUNTER 2017-08-17 18:06 | Inpatient (IN) | payer OTHER ==
[2017-08-17 18:18] VITALS: BMI 22.0
[2017-08-17 19:17] LABS: BASO # 0.1 K/uL (0.0-0.2); BASO % 0.9 % (0.0-2.0); EOS # 0.4 K/uL (0.0-0.7); EOS % 4.5 % (0.0-4.0); HEMATOCRIT 32.5 % (35.0-51.0); LYMPH # 1.2 K/uL (1.0-4.3); LYMPH % 15.3 % (20.0-40.0); MEAN CELL VOLUME 88.7 fL (80.0-94.0); MEAN CORPUSCULAR HEMOGLOBIN 30.2 pg (27.0-31.0); MEAN PLATELET VOLUME 6.7 fL (7.2-11.7); MONO # 0.4 K/uL (0.0-0.8); MONO % 4.7 % (0.0-10.0); RED CELL DISTRIBUTION WIDTH 13.9 % (11.5-14.5)
[2017-08-17 19:24] LABS: RBC URINE 4 /hpf (0-3); URINE BILIRUBIN NEGATIVE (NEGATIVE); URINE BLOOD NEGATIVE (NEGATIVE); URINE COLOR Yellow (YELLOW); URINE GLUCOSE (UA) 3+ mg/dL (Normal); URINE KETONE NEGATIVE (NEGATIVE); URINE LEUKOCYTE ESTERASE NEG Leu/uL (Negative); URINE PROTEIN 1+ mg/dL (NEGATIVE); URINE UROBILINOGEN NORMAL mg/dL (0.2-1.0); WBC URINE < 1 /hpf (0-5)
[2017-08-17 19:42] LABS: CHLORIDE 95 mmol/L (98-107); POTASSIUM 3.5 mmol/L (3.6-5.2); SODIUM 132 mmol/L (132-148)
[2017-08-17 19:44] LABS: ALB/GLOB RATIO 0.8 (1.0-2.1); ALKALINE PHOSPHATASE 120 U/L (38-126); AST/SGOT 31 U/L (17-59); BILIRUBIN,TOTAL 0.4 mg/dL (0.2-1.3); BLOOD UREA NITROGEN 8 mg/dL (9-20); CARBON DIOXIDE 26 mmol/L (22-30); GFR AFRICAN-AMERICAN > 60; TOTAL PROTEIN 7.4 g/dL (6.3-8.3)
[2017-08-17 19:45] LABS: ALCOHOL SERUM 21 mg/dl (0-10); ALT/SGPT 22 U/L (21-72); GLUCOSE,RANDOM 338 mg/dL (75-110)
[2017-08-17] MEDS ORDERED: Sodium Chloride 0.9% 1,000 ML IV ONE (20:06)
[2017-08-17] MEDS ORDERED: Sodium Chloride 0.9% 1,000 ML ONE (20:06)
[2017-08-17] MEDS ORDERED: HYDROmorphone 1 mg/ml ISec IVP PRN (20:34)
--- NOTE | 2017-08-17 20:35 | C.PDOC ---
Time Seen by Provider: 08/17/17 18:32 Chief Complaint (Nursing): Abnormal Skin Integrity History Per: Patient, EMS History/Exam Limitations: intoxication Onset/Duration Of Symptoms: Days Current Symptoms Are (Timing): Worse Location Of Injury: Left: Foot, Leg Quality Of Symptoms: Painful, Swollen, Draining Severity: Moderate Additional History Per: Prior Records Past Medical History Reviewed: Historical Data, Nursing Documentation, Vital Signs Vital Signs: Last Vital Signs Temp 98.8 F 08/17/17 20:06 Pulse 109 H 08/17/17 18:28 Resp 18 08/17/17 18:28 BP 153/74 H 08/17/17 18:28 Pulse Ox 100 08/17/17 18:28 - Medical History PMH: Asthma, Diabetes, HTN, Seizures Other Surgeries: Left toes amputations - [facility] Procedures ALCOHOL DETOXIFICATION (08/03/14) DETACHMENT AT LEFT FOOT, PARTIAL 1ST RAY, OPEN APPROACH (05/24/17) Family History: States: Unknown Family Hx - Social History Hx Tobacco Use: Yes Hx Alcohol Use: Yes Hx Substance Use: Yes (sniffs heroin) - Immunization History Hx Tetanus Toxoid Vaccination: Yes Hx Influenza Vaccination: No Hx Pneumococcal Vaccination: No Review Of Systems Constitutional: Positive for: Fever Cardiovascular: Negative for: Chest Pain Respiratory: Negative for: Shortness of Breath Gastrointestinal: Negative for: Vomiting, Abdominal Pain Genitourinary: Negative for: Dysuria Musculoskeletal: Positive for: Back Pain, Leg Pain (left), Foot Pain (left). Negative for: Neck Pain Skin: Positive for: Rash Neurological: Negative for: Weakness, Numbness Physical Exam - Physical Exam Appears: Unkempt Skin: Warm, Dry Head: Atraumatic, Normacephalic Eye(s): bilateral: PERRL Neck: Normal ROM, Supple Cardiovascular: Rhythm Regular Respiratory: Normal Breath Sounds, No Accessory Muscle Use Gastrointestinal/Abdominal: Soft, No Tenderness Back: No CVA Tenderness Extremity: Normal ROM, Pedal Edema (left), Other (Left foot large open ulcer with erythma and warmth moving up left foot. ) Neurological/Psych: Oriented x3, Normal Motor, Normal Sensation, Slow To Respond With Command ED Course And Treatment - Laboratory Results Result Diagrams: 08/17/17 19:10 08/17/17 19:10 Lab Interpretation: Abnormal Interpretation Of Abnormal: Hyperglycemia. Elevated ESR and CRP. O2 Sat by Pulse Oximetry: 100 Disposition Discussed With : Stephen Donahue Comment: He accepted pt on his service and gave admitting orders to the nurse. Doctor Will See Patient In The: Hospital Counseled Patient/Family Regarding: Studies Performed, Diagnosis, Smoking Cessation - Disposition Disposition: HOSPITALIZED Disposition Time: 20:36 Condition: GUARDED - POA Present On Arrival: Poor Glycemic Control - Clinical Impression Clinical Impression: Diabetic ulcer of left foot, Cellulitis of left leg
[2017-08-17] MEDS ORDERED: Piperacillin/Tazobact 3.375 gm 100 ML IVPB ONE (20:57)
[2017-08-17] MEDS: Piperacillin/Tazobact 3.375 GM in Sodium Chloride 100 ML IVPB SCH (21:18)
--- NOTE | 2017-08-17 21:58 | CP.PCM.HP ---
Past Patient History - Past Medical History & Family History Past Medical History?: Yes - Past Social History Smoking Status: Light Smoker < 10 Cigarettes Daily - CARDIAC Hx Hypertension: Yes - PULMONARY Hx Asthma: Yes - NEUROLOGICAL Hx Seizures: Yes - HEENT Hx HEENT Problems: No - RENAL Hx Chronic Kidney Disease: No - ENDOCRINE/METABOLIC Hx Endocrine Disorders: Yes Hx Diabetes Mellitus Type 1: Yes - INTEGUMENTARY Hx Dermatological Problems: No - MUSCULOSKELETAL/RHEUMATOLOGICAL Hx Musculoskeletal Disorders: Yes Other/Comment: scoliosis - GASTROINTESTINAL Hx Gastrointestinal Disorders: No - PSYCHIATRIC Hx Substance Use: Yes (sniffs heroin) - SURGICAL HISTORY Hx Surgeries: Yes Hx Amputation: Yes (L foot last 3toes) Hx Musculoskeletal Surgery: Yes (b/l ankles; L wrist) - ANESTHESIA Hx Anesthesia: Yes Hx Anesthesia Reactions: No Hx Malignant Hyperthermia: No Meds Allergies/Adverse Reactions: Allergies Allergy/AdvReac Type Severity Reaction Status Date / Time FISH AdvReac Verified 08/17/17 18:18 tomatoes Allergy RASH Uncoded 08/17/17 18:18 Physical Exam - Constitutional Appears: Well - Head Exam Head Exam: ATRAUMATIC, NORMAL INSPECTION, NORMOCEPHALIC - Eye Exam Eye Exam: EOMI, Normal appearance, PERRL Pupil Exam: NORMAL ACCOMODATION, PERRL - ENT Exam ENT Exam: Mucous Membranes Moist, Normal Exam - Neck Exam Neck exam: Positive for: Normal Inspection - Respiratory Exam Respiratory Exam: Decreased Breath Sounds - Cardiovascular Exam Cardiovascular Exam: REGULAR RHYTHM, +S1, +S2 - GI/Abdominal Exam GI & Abdominal Exam: Diminished Bowel Sounds, Soft - Rectal Exam Rectal Exam: Deferred Results - Vital Signs Recent Vital Signs: Last Vital Signs Temp 99.4 F 08/17/17 21:16 Pulse 103 H 08/17/17 21:16 Resp 18 08/17/17 21:16 BP 156/74 H 08/17/17 21:16 Pulse Ox 98 08/17/17 21:16 - Labs Result Diagrams: 08/17/17 19:10 08/17/17 19:10 Labs: Laboratory Results - last 24 hr 08/17/17 08/17/17 08/17/17 19:10 19:10 19:10 WBC 8.0 RBC 3.67 L Hgb 11.1 L D Hct 32.5 L MCV 88.7 MCH 30.2 MCHC 34.0 RDW 13.9 Plt Count 387 MPV 6.7 L Neut % (Auto) 74.6 Lymph % (Auto) 15.3 L [place] % (Auto) 4.7 Eos % (Auto) 4.5 H Baso % (Auto) 0.9 Neut # 6.0 Lymph # 1.2 [place] # 0.4 Eos # 0.4 Baso # 0.1 ESR 64 H Sodium 132 Potassium 3.5 L Chloride 95 L Carbon Dioxide 26 Anion Gap 14 BUN 8 L Creatinine 0.7 L Est GFR ( Amer) > 60 Est GFR (Non-Af Amer) > 60 POC Glucose (mg/dL) Random Glucose 338 H Calcium 9.0 Total Bilirubin 0.4 AST 31 ALT 22 Alkaline Phosphatase 120 C-React Prot High Sens Total Protein 7.4 Albumin 3.3 L Globulin 4.1 H Albumin/Globulin Ratio 0.8 L Urine Color Yellow Urine Clarity Clear Urine pH 6.0 Ur Specific [place] 1.028 Urine Protein 1+ H Urine Glucose (UA) 3+ H Urine Ketones Negative Urine Blood Negative Urine Nitrate Negative Urine Bilirubin Negative Urine Urobilinogen Normal Ur Leukocyte Esterase Neg Urine WBC (Auto) < 1 Urine RBC (Auto) 4 H Urine Opiates Screen Urine Methadone Screen Ur Barbiturates Screen Phenytoin Ur Phencyclidine Scrn Ur Amphetamines Screen U Benzodiazepines Scrn U Oth Cocaine Metabols U Cannabinoids Screen Alcohol, Quantitative 21 H 08/17/17 08/17/17 08/17/17 19:10 19:10 19:10 WBC RBC Hgb Hct MCV MCH MCHC RDW Plt Count MPV Neut % (Auto) Lymph % (Auto) [place] % (Auto) Eos % (Auto) Baso % (Auto) Neut # Lymph # [place] # Eos # Baso # ESR Sodium Potassium Chloride Carbon Dioxide Anion Gap BUN Creatinine Est GFR ( Amer) Est GFR (Non-Af Amer) POC Glucose (mg/dL) Random Glucose Calcium Total Bilirubin AST ALT Alkaline Phosphatase C-React Prot High Sens > 15.00 H Total Protein Albumin Globulin Albumin/Globulin Ratio Urine Color Urine Clarity Urine pH Ur Specific [place] Urine Protein Urine Glucose (UA) Urine Ketones Urine Blood Urine Nitrate Urine Bilirubin Urine Urobilinogen Ur Leukocyte Esterase Urine WBC (Auto) Urine RBC (Auto) Urine Opiates Screen Positive Urine Methadone Screen Negative Ur Barbiturates Screen Negative Phenytoin < 3.0 L Ur Phencyclidine Scrn Negative Ur Amphetamines Screen Negative U Benzodiazepines Scrn Negative U Oth Cocaine Metabols Positive U Cannabinoids Screen Negative Alcohol, Quantitative 08/17/17 21:47 WBC RBC Hgb Hct MCV MCH MCHC RDW Plt Count MPV Neut % (Auto) Lymph % (Auto) [place] % (Auto) Eos % (Auto) Baso % (Auto) Neut # Lymph # [place] # Eos # Baso # ESR Sodium Potassium Chloride Carbon Dioxide Anion Gap BUN Creatinine Est GFR ( Amer) Est GFR (Non-Af Amer) POC Glucose (mg/dL) 357 H Random Glucose Calcium Total Bilirubin AST ALT Alkaline Phosphatase C-React Prot High Sens Total Protein Albumin Globulin Albumin/Globulin Ratio Urine Color Urine Clarity Urine pH Ur Specific [place] Urine Protein Urine Glucose (UA) Urine Ketones Urine Blood Urine Nitrate Urine Bilirubin Urine Urobilinogen Ur Leukocyte Esterase Urine WBC (Auto) Urine RBC (Auto) Urine Opiates Screen Urine Methadone Screen Ur Barbiturates Screen Phenytoin Ur Phencyclidine Scrn Ur Amphetamines Screen U Benzodiazepines Scrn U Oth Cocaine Metabols U Cannabinoids Screen Alcohol, Quantitative
[2017-08-17] MEDS: (Novolog) Insulin Aspart, Recombinant 100 u/ml 10 ml vial SC SCH (23:00)
[2017-08-17] MEDS: (Lantus) Insulin Glargine, Recombinant SC SCH (23:00)
[2017-08-18] MEDS: Piperacillin/Tazobact 3.375 GM in Sodium Chloride 100 ML IVPB SCH ×3 (05:36→20:30)
[2017-08-18] MEDS: (Novolog) Insulin Aspart, Recombinant 100 u/ml 10 ml vial SC SCH ×4 (08:00→21:46)
[2017-08-18] MEDS: Pantoprazole 40 mg EC Tab PO SCH (09:27)
[2017-08-18] MEDS: Enoxaparin 40 mg Syringe SC SCH (09:28)
--- NOTE | 2017-08-18 11:30 | CP.PCM.PN ---
Subjective - Date & Time of Evaluation Date of Evaluation: 08/18/17 Time of Evaluation: 13:20 - Subjective Subjective: clinically same Objective - Vital Signs/Intake and Output Vital Signs (last 24 hours): Temp Pulse Resp BP Pulse Ox 99 F 89 20 161/80 H 97 08/18/17 07:00 08/18/17 07:00 08/18/17 07:00 08/18/17 07:00 08/18/17 07:00 Intake and Output: 08/18/17 08/18/17 06:59 18:59 Intake Total 1000 Output Total 850 Balance 150 - Medications Medications: Current Medications Enoxaparin Sodium (Lovenox) 40 mg SC DAILY [facility] Last Admin: 08/18/17 09:28 Dose: 40 mg Home Med (Clonidine Hydrochloride [Catapres]) 0.2 mg PO BID [facility] Hydromorphone HCl (Dilaudid) 1 mg IVP Q8 PRN PRN Reason: Pain, moderate (4-7) Last Admin: 08/18/17 08:13 Dose: 1 mg Piperacillin Sod/Tazobactam (Sod 3.375 gm/ Sodium Chloride) 100 mls @ 200 mls/ hr IVPB Q8H [facility] Last Admin: 08/18/17 05:36 Dose: 200 mls/hr Vancomycin HCl 1 gm/ Sodium (Chloride) 250 mls @ 166.7 mls/hr IVPB Q24H [facility] Last Admin: 08/18/17 00:02 Dose: 166.7 mls/hr Insulin Aspart (Novolog) 0 unit SC ACHS [facility] PRN Reason: Protocol Last Admin: 08/18/17 08:00 Dose: 2 unit Insulin Glargine (Lantus) 30 unit SC HS [facility] Last Admin: 08/17/17 23:00 Dose: 30 units Pantoprazole Sodium (Protonix Ec Tab) 40 mg PO DAILY [facility] Last Admin: 08/18/17 09:27 Dose: 40 mg Phenytoin Sodium (Dilantin) 100 mg PO BID [facility] Last Admin: 08/18/17 09:27 Dose: 100 mg - Labs Labs: 08/17/17 19:10 08/17/17 19:10 - Constitutional Appears: Well - Head Exam Head Exam: ATRAUMATIC, NORMAL INSPECTION, NORMOCEPHALIC - Eye Exam Eye Exam: EOMI, Normal appearance, PERRL Pupil Exam: NORMAL ACCOMODATION, PERRL - ENT Exam ENT Exam: Mucous Membranes Moist, Normal Exam - Neck Exam Neck Exam: Full ROM, Normal Inspection. absent: Lymphadenopathy - Respiratory Exam Respiratory Exam: Decreased Breath Sounds - Cardiovascular Exam Cardiovascular Exam: REGULAR RHYTHM, +S1, +S2 - GI/Abdominal Exam GI & Abdominal Exam: Soft, Diminished Bowel Sounds - Rectal Exam Rectal Exam: Deferred
[2017-08-18 12:21] LABS: ALB/GLOB RATIO 0.9 (1.0-2.1); BILIRUBIN,DIRECT 0.4 mg/dL (0.0-0.4); BILIRUBIN,TOTAL 0.4 mg/dL (0.2-1.3); TOTAL PROTEIN 6.3 g/dL (6.3-8.3)
[2017-08-18] MEDS ORDERED: Potassium Chloride 20 mEq ER Tab PO STA (19:07)
[2017-08-18] MEDS: (Lantus) Insulin Glargine, Recombinant SC SCH (22:01)
--- NOTE | 2017-08-18 22:31 | CP.PCM.CON ---
History of Present Illness - History of Present Illness History of Present Illness: INFECTIOUS DISEASE CONSULT; HPI; 51 years old heroin and alcohol abuser male patient with past medical history of diabetes, hypertension, seizures, asthma , comes in with complaints of pain over left great toe.PATIENT HAS A DRAINING ULCER ON THE LEFT FOOT. No fever, nausea, vomiting. Patient was recently hospitalized at [facility] in May 2017 and underwent left foot partial hullux amputation on 05/17/17 for osteomyelitis. Patient grew Proteus mirabilis and Enterococcus faecalis and was being treated with IV antibiotics. Patient signed out AMA same day in spite of being explained he could of sepsis. PT STILL HAS GIOVANI IN PLACE 1ST BIG TOE S/P PARTIAL AMPUTAYION IST HULLUX, LEFT FOOT. FOOT IS EDEMATOUS WITH CELLULITIS EXTENDING DORSUM OF THE FOOT. Patient presently started on IV Zosyn by the private M.D. Infectious disease consultation requested for the above diabetic foot ulcer. PMH: Asthma, Diabetes, HTN, Seizures Other Surgeries: Left toes amputations - [facility] Procedures ALCOHOL DETOXIFICATION (08/03/14) DETACHMENT AT LEFT FOOT, PARTIAL 1ST RAY, OPEN APPROACH (05/24/17) Family History: States: Unknown Family Hx - Social History Hx Tobacco Use: Yes Hx Alcohol Use: Yes Hx Substance Use: Yes (sniffs heroin) - Immunization History Hx Tetanus Toxoid Vaccination: Yes Hx Influenza Vaccination: No Hx Pneumococcal Vaccination: No ALLERGY; FISH, TOMATOES. Review of Systems - Constitutional Constitutional: absent: Chills, Fever - EENT Nose/Mouth/Throat: absent: Mouth Lesions - Cardiovascular Cardiovascular: absent: Chest Pain - Respiratory Respiratory: absent: Cough, Dyspnea - Gastrointestinal Gastrointestinal: absent: Abdominal Pain, Diarrhea, Nausea, Vomiting - Genitourinary Genitourinary: absent: Dysuria, Hematuria - Neurological Neurological: absent: Headaches - Hematologic/Lymphatic Hematologic: As Per HPI. absent: Lymphadenopathy Past Patient History - Past Medical History & Family History Past Medical History?: Yes - Past Social History Smoking Status: Light Smoker < 10 Cigarettes Daily - CARDIAC Hx Hypertension: Yes - PULMONARY Hx Asthma: Yes - NEUROLOGICAL Hx Seizures: Yes - HEENT Hx HEENT Problems: No - RENAL Hx Chronic Kidney Disease: No - ENDOCRINE/METABOLIC Hx Endocrine Disorders: Yes Hx Diabetes Mellitus Type 1: Yes - INTEGUMENTARY Hx Dermatological Problems: No - MUSCULOSKELETAL/RHEUMATOLOGICAL Hx Musculoskeletal Disorders: Yes Other/Comment: scoliosis - GASTROINTESTINAL Hx Gastrointestinal Disorders: No - PSYCHIATRIC Hx Substance Use: Yes (sniffs heroin) - SURGICAL HISTORY Hx Surgeries: Yes Hx Amputation: Yes (L foot last 3toes) Hx Musculoskeletal Surgery: Yes (b/l ankles; L wrist) - ANESTHESIA Hx Anesthesia: Yes Hx Anesthesia Reactions: No Hx Malignant Hyperthermia: No Meds Allergies/Adverse Reactions: Allergies Allergy/AdvReac Type Severity Reaction Status Date / Time FISH AdvReac Verified 08/17/17 18:18 tomatoes Allergy RASH Uncoded 08/17/17 18:18 - Medications Medications: Current Medications Clonidine HCl (Catapres) 0.2 mg PO BID [facility] Last Admin: 08/18/17 17:51 Dose: 0.2 mg Enoxaparin Sodium (Lovenox) 40 mg SC DAILY [facility] Last Admin: 08/18/17 09:28 Dose: 40 mg Hydromorphone HCl (Dilaudid) 1 mg IVP Q4H PRN PRN Reason: pain Last Admin: 08/18/17 20:31 Dose: 1 mg Piperacillin Sod/Tazobactam (Sod 3.375 gm/ Sodium Chloride) 100 mls @ 200 mls/ hr IVPB Q8H [facility] Last Admin: 08/18/17 20:30 Dose: 200 mls/hr Vancomycin HCl 1 gm/ Sodium (Chloride) 250 mls @ 166.7 mls/hr IVPB Q24H [facility] Last Admin: 08/18/17 21:17 Dose: 166.7 mls/hr Insulin Aspart (Novolog) 0 unit SC ACHS [facility] PRN Reason: Protocol Last Admin: 08/18/17 21:46 Dose: Not Given Insulin Glargine (Lantus) 30 unit SC HS [facility] Last Admin: 08/18/17 22:01 Dose: 30 units Pantoprazole Sodium (Protonix Ec Tab) 40 mg PO DAILY [facility] Last Admin: 08/18/17 09:27 Dose: 40 mg Phenytoin Sodium (Dilantin) 100 mg PO BID [facility] Last Admin: 08/18/17 17:51 Dose: 100 mg Pneumococcal Polyvalent Vaccine (Pneumovax 23 Vaccine) 0.5 ml IM .ONCE ONE Stop: 08/20/17 10:01 Physical Exam - Constitutional Appears: No Acute Distress - Head Exam Head Exam: NORMAL INSPECTION - Eye Exam Eye Exam: EOMI, PERRL - ENT Exam ENT Exam: Normal Oropharynx - Neck Exam Neck exam: Positive for: Normal Inspection - Respiratory Exam Respiratory Exam: Clear to Auscultation Bilateral - Cardiovascular Exam Cardiovascular Exam: REGULAR RHYTHM, +S1, +S2 - GI/Abdominal Exam GI & Abdominal Exam: Normal Bowel Sounds, Soft - Extremities Exam Extremities exam: Positive for: pedal pulses present. Negative for: calf tenderness, pedal edema Additional comments: Normal ROM, Pedal Edema (left), Other (Left foot large open ulcer with erythma and warmth moving up left foot. MULTIPLE AMPUTATIONS OF THE LEFT FOOT TOES. SECOND TOE INTACT. ) - Neurological Exam Neurological exam: Alert, CN II-XII Intact, Oriented x3, Reflexes Normal - Skin Skin Exam: Dry, Normal Color, Warm Results - Vital Signs Recent Vital Signs: Last Vital Signs Temp 98.5 F 08/18/17 15:08 Pulse 83 08/18/17 16:00 Resp 20 08/18/17 15:08 BP 134/72 08/18/17 20:30 Pulse Ox 100 08/18/17 15:08 - Labs Result Diagrams: 08/19/17 13:57 08/19/17 13:57 Labs: Laboratory Results - last 24 hr 08/18/17 08/18/17 08/18/17 02:08 06:33 11:51 ESR 55 H POC Glucose (mg/dL) 259 H 206 H Total Bilirubin Direct Bilirubin AST ALT Alkaline Phosphatase Total Protein Albumin Globulin Albumin/Globulin Ratio 08/18/17 08/18/17 08/18/17 11:51 12:10 17:19 ESR POC Glucose (mg/dL) 287 H 318 H Total Bilirubin 0.4 Direct Bilirubin 0.4 AST 23 ALT 24 Alkaline Phosphatase 106 Total Protein 6.3 Albumin 3.0 L Globulin 3.3 Albumin/Globulin Ratio 0.9 L 08/18/17 21:41 ESR POC Glucose (mg/dL) 203 H Total Bilirubin Direct Bilirubin AST ALT Alkaline Phosphatase Total Protein Albumin Globulin Albumin/Globulin Ratio Assessment & Plan (1) Cellulitis of left leg Status: Acute (2) Amputation of left foot with complication Status: Acute (3) Diabetic ulcer of left foot Status: Acute (4) Alcohol dependence Status: Acute (5) Diabetes Status: Acute - Assessment and Plan (Free Text) Plan: PLAN; PANCULTURES ESR CRP. cONTINUE iv zOSYN 3.375 EVERY 8 HOURLY .08/17/17. aDD iv VANCOMYCIN 1 G ONCE A DAY DAILY. 08/17/17. vANCO TROUGH LEVEL PRIOR TO THE FOURTH DOSE ON 08/20/19 AND KEEP BETWEEN 10 AND 20. fOLLOW-UP RENAL FUNCTIONS CLOSELY. WOUND CULTURE LEFT FIRST TOE. lOCAL WOUND CARE PER PODIATRY. fOLLOW-UP CULTURES TO ADJUST ANTIBIOTICS. CASE DISCUSSED WITH STAFF. ANALGESICS PER PMD.
[2017-08-19] MEDS: Piperacillin/Tazobact 3.375 GM in Sodium Chloride 100 ML IVPB SCH ×3 (04:36→20:38)
--- NOTE | 2017-08-19 07:32 | CP.PCM.PN ---
<Fran Leon - Last Filed: 08/19/17 16:33> Subjective - Date & Time of Evaluation Date of Evaluation: 08/19/17 Time of Evaluation: 07:27 - Subjective Subjective: PGY-[address] Donahue's Service: Pt seen and examined at bedside. Nursing reports no acute events overnight. Patient denies pain in foot, and admits ambulating with cane. Pt denies fever, chills, chest pain, SOB, palpitations, N/V. Objective - Vital Signs/Intake and Output Vital Signs (last 24 hours): Temp Pulse Resp BP Pulse Ox 97.2 F L 81 20 128/83 97 08/18/17 23:05 08/18/17 23:05 08/18/17 23:05 08/19/17 04:35 08/18/17 23:05 Intake and Output: 08/19/17 08/19/17 06:59 18:59 Intake Total 1700 Output Total 400 Balance 1300 - Medications Medications: Current Medications Clonidine HCl (Catapres) 0.2 mg PO BID [facility] Last Admin: 08/18/17 17:51 Dose: 0.2 mg Enoxaparin Sodium (Lovenox) 40 mg SC DAILY [facility] Last Admin: 08/18/17 09:28 Dose: 40 mg Hydromorphone HCl (Dilaudid) 1 mg IVP Q4H PRN PRN Reason: pain Last Admin: 08/19/17 04:37 Dose: 1 mg Piperacillin Sod/Tazobactam (Sod 3.375 gm/ Sodium Chloride) 100 mls @ 200 mls/ hr IVPB Q8H [facility] Last Admin: 08/19/17 04:36 Dose: 200 mls/hr Vancomycin HCl 1 gm/ Sodium (Chloride) 250 mls @ 166.7 mls/hr IVPB Q24H [facility] Last Admin: 08/18/17 21:17 Dose: 166.7 mls/hr Insulin Aspart (Novolog) 0 unit SC ACHS [facility] PRN Reason: Protocol Last Admin: 08/18/17 21:46 Dose: Not Given Insulin Glargine (Lantus) 30 unit SC HS [facility] Last Admin: 08/18/17 22:01 Dose: 30 units Pantoprazole Sodium (Protonix Ec Tab) 40 mg PO DAILY [facility] Last Admin: 08/18/17 09:27 Dose: 40 mg Phenytoin Sodium (Dilantin) 100 mg PO BID [facility] Last Admin: 08/18/17 17:51 Dose: 100 mg Pneumococcal Polyvalent Vaccine (Pneumovax 23 Vaccine) 0.5 ml IM .ONCE ONE Stop: 08/20/17 10:01 - Labs Labs: 08/17/17 19:10 08/17/17 19:10 - Constitutional Appears: Non-toxic, No Acute Distress - Head Exam Head Exam: ATRAUMATIC, NORMOCEPHALIC Additional comments: no tongue fasciculations - Eye Exam Eye Exam: EOMI Pupil Exam: PERRL - ENT Exam ENT Exam: Mucous Membranes Moist - Neck Exam Neck Exam: Full ROM - Respiratory Exam Respiratory Exam: Clear to Ausculation Bilateral, NORMAL BREATHING PATTERN. absent: Rales, Rhonchi, Wheezes - Cardiovascular Exam Cardiovascular Exam: REGULAR RHYTHM, +S1, +S2 - GI/Abdominal Exam GI & Abdominal Exam: Soft, Normal Bowel Sounds. absent: Tenderness - Extremities Exam Extremities Exam: Tenderness. absent: Normal Inspection Additional comments: DP/PT pulses present but diminished Edema noted on left Left leg warm to touch Open ulcer noted History of amputation - Back Exam Back Exam: NORMAL INSPECTION Additional comments: No tremors - Neurological Exam Neurological Exam: Alert, Awake, Oriented x3 Additional comments: No tremors on exam - Psychiatric Exam Psychiatric exam: Normal Affect, Normal Mood - Skin Skin Exam: Normal Color, Warm Assessment and Plan - Assessment and Plan (Free Text) Plan: Diabetic ulcer/Cellulitis History of left foot partial amputation (left partial hallux) on 05/2017 for osteomyelitis - pt started on IV antibiotics but signed out AMA, not finishing course Draining ulcer over great toe on left foot ESR 55 Dr. Mujica, ID rewards consultant: help appreciated - Zosyn 3.375 gm Q8H - Vancomycin 1gram Daily - f/u Vanco trough prior to fourth dose (goal 10-20) Podiatry consult: Dr. Jordan - performed prior surgery Wound care consult -f/u reccs f/u foot Xray Blood culture (08/17/17): No growth x 24 hours x 2 wound culture (08/17/17): Gram negative goran, gram positive cocci, Corynebacterium species Dilaudid 1 mg IV Q4H PRN T2DM Consistent carb diet BG consistently elevated through admission Lantus 30 units SC HS ISS f/u A1C HTN well controlled today; elevated on admission Catapres 0.2mg PO BID Monitor Seizure D/O Dilantin 100mg PO BID History of heroin/EtOH abuse UDS positive for opiates, cocaine EtOH 21 on admission - Patient states his use is occasional depending on how much money he has - denies W/D symptoms - No tongue fasciculations or tremors noted on exam - No detox protocol needed per Dr Donahue Prophylaxis Lovenox 40mg SC daily Protonix 40mg PO daily [facility] C/I Fran Leon PGY2 All medical management per Dr. Juan Donahue <Stephen Donahue S - Last Filed: 08/19/17 23:37> Objective - Vital Signs/Intake and Output Vital Signs (last 24 hours): Temp Pulse Resp BP Pulse Ox 98.6 F 90 20 146/95 H 97 08/19/17 16:00 08/19/17 16:00 08/19/17 16:00 08/19/17 16:00 08/19/17 16:00 Intake and Output: 08/19/17 08/20/17 18:59 06:59 Intake Total 400 Balance 400 - Medications Medications: Current Medications Clonidine HCl (Catapres) 0.2 mg PO BID [facility] Last Admin: 08/19/17 18:25 Dose: 0.2 mg Enoxaparin Sodium (Lovenox) 40 mg SC DAILY [facility] Last Admin: 08/19/17 09:02 Dose: 40 mg Hydromorphone HCl (Dilaudid) 1 mg IVP Q4H PRN PRN Reason: pain Last Admin: 08/19/17 20:39 Dose: 1 mg Piperacillin Sod/Tazobactam (Sod 3.375 gm/ Sodium Chloride) 100 mls @ 200 mls/ hr IVPB Q8H [facility] Last Admin: 08/19/17 20:38 Dose: 200 mls/hr Vancomycin HCl 1 gm/ Sodium (Chloride) 250 mls @ 166.7 mls/hr IVPB Q24H [facility] Last Admin: 08/19/17 22:37 Dose: 166.7 mls/hr Insulin Aspart (Novolog) 0 unit SC ACHS [facility] PRN Reason: Protocol Last Admin: 08/19/17 22:55 Dose: Not Given Insulin Glargine (Lantus) 30 unit SC HS [facility] Last Admin: 08/19/17 22:37 Dose: 30 units Pantoprazole Sodium (Protonix Ec Tab) 40 mg PO DAILY [facility] Last Admin: 08/19/17 09:01 Dose: 40 mg Phenytoin Sodium (Dilantin) 100 mg PO BID [facility] Last Admin: 08/19/17 18:25 Dose: 100 mg Pneumococcal Polyvalent Vaccine (Pneumovax 23 Vaccine) 0.5 ml IM .ONCE ONE Stop: 08/20/17 10:01 Silver Sulfadiazine (Silvadene 1% 20 Gm) 1 ea TOP DAILY [facility] - Labs Labs: 08/19/17 13:57 08/19/17 13:57 Attending/Attestation - Attestation I have personally seen and examined this patient.: Yes I have fully participated in the care of the patient.: Yes I have reviewed all pertinent clinical information, including history, physical exam and plan: Yes Notes (Text): 08/19/17 23:37 asein and discussed with the staff and the resident spoke to Dr. Duarte who is a cardiology states he will look into someone accepting from the medicine and will speak with me after that will talk to another Dr. Gonsalez tomorrow morning continue same WBC is going down patient looks okay MRI reveals possible acute stroke Dr. Lyon is aware continue current medications including Plavix Lovenox lisinopril vancomycin continue same
[2017-08-19] MEDS: (Novolog) Insulin Aspart, Recombinant 100 u/ml 10 ml vial SC SCH ×4 (08:30→22:55)
[2017-08-19] MEDS: Pantoprazole 40 mg EC Tab PO SCH (09:01)
[2017-08-19] MEDS: Enoxaparin 40 mg Syringe SC SCH (09:02)
[2017-08-19 14:02] LABS: BASO % 0.6 % (0.0-2.0); EOS # 0.2 K/uL (0.0-0.7); EOS % 4.3 % (0.0-4.0); HEMATOCRIT 31.5 % (35.0-51.0); LYMPH # 1.5 K/uL (1.0-4.3); LYMPH % 31.2 % (20.0-40.0); MEAN CELL VOLUME 88.8 fL (80.0-94.0); MEAN CORPUSCULAR HEMOGLOBIN 30.1 pg (27.0-31.0); MEAN CORPUSCULAR HGB CONC 33.9 g/dL (33.0-37.0); MEAN PLATELET VOLUME 6.7 fL (7.2-11.7); MONO # 0.3 K/uL (0.0-0.8); RED CELL DISTRIBUTION WIDTH 14.1 % (11.5-14.5); WHITE BLOOD COUNT 4.9 K/uL (4.8-10.8)
[2017-08-19 14:19] LABS: CHLORIDE 98 mmol/L (98-107)
[2017-08-19 14:20] LABS: POTASSIUM 4.6 mmol/L (3.6-5.2); SODIUM 131 mmol/L (132-148)
[2017-08-19 14:22] LABS: ALB/GLOB RATIO 0.9 (1.0-2.1); ALKALINE PHOSPHATASE 95 U/L (38-126); AST/SGOT 20 U/L (17-59); BILIRUBIN,TOTAL 0.3 mg/dL (0.2-1.3); BLOOD UREA NITROGEN 11 mg/dL (9-20); CARBON DIOXIDE 27 mmol/L (22-30); GFR AFRICAN-AMERICAN > 60; GLUCOSE,RANDOM 205 mg/dL (75-110); TOTAL PROTEIN 6.1 g/dL (6.3-8.3)
[2017-08-19 14:23] LABS: ALT/SGPT 22 U/L (21-72); CALCIUM 8.3 mg/dl (8.6-10.4); MAGNESIUM 1.7 mg/dL (1.6-2.3); PHOSPHOROUS 2.7 mg/dL (2.5-4.5)
--- NOTE | 2017-08-19 16:09 | CP.PCM.PN ---
Subjective - Date & Time of Evaluation Date of Evaluation: 08/19/17 Time of Evaluation: 13:40 - Subjective Subjective: clinically same Objective - Vital Signs/Intake and Output Vital Signs (last 24 hours): Temp Pulse Resp BP Pulse Ox 98.1 F 79 20 148/87 96 08/19/17 07:15 08/19/17 07:15 08/19/17 07:15 08/19/17 07:15 08/19/17 07:15 Intake and Output: 08/19/17 08/19/17 06:59 18:59 Intake Total 1700 400 Output Total 400 Balance 1300 400 - Medications Medications: Current Medications Clonidine HCl (Catapres) 0.2 mg PO BID [facility] Last Admin: 08/19/17 09:01 Dose: 0.2 mg Enoxaparin Sodium (Lovenox) 40 mg SC DAILY [facility] Last Admin: 08/19/17 09:02 Dose: 40 mg Hydromorphone HCl (Dilaudid) 1 mg IVP Q4H PRN PRN Reason: pain Last Admin: 08/19/17 12:51 Dose: 1 mg Piperacillin Sod/Tazobactam (Sod 3.375 gm/ Sodium Chloride) 100 mls @ 200 mls/ hr IVPB Q8H [facility] Last Admin: 08/19/17 12:46 Dose: 200 mls/hr Vancomycin HCl 1 gm/ Sodium (Chloride) 250 mls @ 166.7 mls/hr IVPB Q24H [facility] Last Admin: 08/18/17 21:17 Dose: 166.7 mls/hr Insulin Aspart (Novolog) 0 unit SC ACHS [facility] PRN Reason: Protocol Last Admin: 08/19/17 12:10 Dose: 2 unit Insulin Glargine (Lantus) 30 unit SC HS [facility] Last Admin: 08/18/17 22:01 Dose: 30 units Pantoprazole Sodium (Protonix Ec Tab) 40 mg PO DAILY [facility] Last Admin: 08/19/17 09:01 Dose: 40 mg Phenytoin Sodium (Dilantin) 100 mg PO BID [facility] Last Admin: 08/19/17 09:01 Dose: 100 mg Pneumococcal Polyvalent Vaccine (Pneumovax 23 Vaccine) 0.5 ml IM .ONCE ONE Stop: 08/20/17 10:01 - Labs Labs: 08/19/17 13:57 08/19/17 13:57 - Constitutional Appears: Well - Head Exam Head Exam: ATRAUMATIC, NORMAL INSPECTION, NORMOCEPHALIC - Eye Exam Eye Exam: EOMI, Normal appearance, PERRL Pupil Exam: NORMAL ACCOMODATION, PERRL - ENT Exam ENT Exam: Mucous Membranes Moist, Normal Exam - Neck Exam Neck Exam: Full ROM, Normal Inspection. absent: Lymphadenopathy - Respiratory Exam Respiratory Exam: Decreased Breath Sounds - Cardiovascular Exam Cardiovascular Exam: REGULAR RHYTHM, +S1, +S2 - GI/Abdominal Exam GI & Abdominal Exam: Soft, Diminished Bowel Sounds - Rectal Exam Rectal Exam: Deferred Assessment and Plan - Assessment and Plan (Free Text) Plan: case seen and discussed with the staff and the resident spoke to Dr. Duarte who is a cardiology states he will look into someone accepting from the medicine and will speak with me after that will talk to another Dr. Gonsalez tomorrow morning continue same WBC is going down patient looks okay MRI reveals possible acute stroke Dr. Lyon is aware continue current medications including Plavix Lovenox lisinopril vancomycin continue same
--- NOTE | 2017-08-19 16:15 | RAD ---
PROCEDURE: Left Foot Radiographs. HISTORY: diabetic ulcer; hx OM/amputation left hallux COMPARISON: 05/27/2017 FINDINGS: BONES: The patient is status post interval amputation at the base of the 5th metatarsal and at the distal aspect of the 3rd and 4th metatarsals. The 2nd digit is intact. The patient is status post amputation of the 1st digit at the mid proximal phalanx. No osseous erosion. There is some smooth periosteal reaction seen about the distal aspect of the 4th metatarsal. JOINTS: Normal. SOFT TISSUES: Normal. OTHER FINDINGS: Evidence prior surgical fixation of distal fibular fracture. A screw traversing distal fibula and tibia has fractured in its mid aspect. IMPRESSION: Status post multiple amputations.
--- NOTE | 2017-08-19 20:26 | CP.PCM.PN ---
Subjective - Date & Time of Evaluation Date of Evaluation: 08/19/17 Time of Evaluation: 20:26 - Subjective Subjective: afebrile. resting in bed. NAEO. SEEN AND DRESSING DONE BY PODIATRY. LT FOOT EDEMATOUS WITH CELLULITUS AND OPEN ULCER. LT. HULLUX +VE ERYTHEMA AND EDEMA STUMP, INCISION +VE GIOVANI. Objective - Vital Signs/Intake and Output Vital Signs (last 24 hours): Temp Pulse Resp BP Pulse Ox 98.6 F 90 20 146/95 H 97 08/19/17 16:00 08/19/17 16:00 08/19/17 16:00 08/19/17 16:00 08/19/17 16:00 Intake and Output: 08/19/17 08/20/17 18:59 06:59 Intake Total 400 Balance 400 - Medications Medications: Current Medications Clonidine HCl (Catapres) 0.2 mg PO BID [facility] Last Admin: 08/19/17 18:25 Dose: 0.2 mg Enoxaparin Sodium (Lovenox) 40 mg SC DAILY [facility] Last Admin: 08/19/17 09:02 Dose: 40 mg Hydromorphone HCl (Dilaudid) 1 mg IVP Q4H PRN PRN Reason: pain Last Admin: 08/19/17 16:23 Dose: 1 mg Piperacillin Sod/Tazobactam (Sod 3.375 gm/ Sodium Chloride) 100 mls @ 200 mls/ hr IVPB Q8H [facility] Last Admin: 08/19/17 12:46 Dose: 200 mls/hr Vancomycin HCl 1 gm/ Sodium (Chloride) 250 mls @ 166.7 mls/hr IVPB Q24H [facility] Last Admin: 08/18/17 21:17 Dose: 166.7 mls/hr Insulin Aspart (Novolog) 0 unit SC ACHS [facility] PRN Reason: Protocol Last Admin: 08/19/17 17:12 Dose: 5 unit Insulin Glargine (Lantus) 30 unit SC HS [facility] Last Admin: 08/18/17 22:01 Dose: 30 units Pantoprazole Sodium (Protonix Ec Tab) 40 mg PO DAILY [facility] Last Admin: 08/19/17 09:01 Dose: 40 mg Phenytoin Sodium (Dilantin) 100 mg PO BID [facility] Last Admin: 08/19/17 18:25 Dose: 100 mg Pneumococcal Polyvalent Vaccine (Pneumovax 23 Vaccine) 0.5 ml IM .ONCE ONE Stop: 08/20/17 10:01 Silver Sulfadiazine (Silvadene 1% 20 Gm) 1 ea TOP DAILY [facility] - Labs Labs: 08/19/17 13:57 08/19/17 13:57 - Constitutional Appears: No Acute Distress - Head Exam Head Exam: NORMAL INSPECTION - Eye Exam Eye Exam: EOMI, PERRL - ENT Exam ENT Exam: Normal Oropharynx - Respiratory Exam Respiratory Exam: Clear to Ausculation Bilateral - Cardiovascular Exam Cardiovascular Exam: REGULAR RHYTHM, +S1, +S2 - GI/Abdominal Exam GI & Abdominal Exam: Soft, Normal Bowel Sounds - Extremities Exam Extremities Exam: Pedal Edema (LT FOOT IN DRESSING.). absent: Calf Tenderness - Neurological Exam Neurological Exam: Awake, Oriented x3 - Psychiatric Exam Psychiatric exam: Normal Mood - Skin Skin Exam: Normal Color, Warm Assessment and Plan (1) Cellulitis of left leg Status: Acute (2) Amputation of left foot with complication Status: Acute (3) Diabetic ulcer of left foot Assessment & Plan: XRAY LT FOOT. MULTIPLE AMPUTATIONS. ESR 54. CONTINUE ABX. Status: Acute (4) Alcohol dependence Status: Acute (5) Diabetes Status: Acute - Assessment and Plan (Free Text) Plan: CONTINUE iv zOSYN 3.375 EVERY 8 HOURLY .08/17/17. ON iv VANCOMYCIN 1 G ONCE A DAY DAILY. 08/17/17. vANCO TROUGH LEVEL PRIOR TO THE FOURTH DOSE ON 08/20/19 AND KEEP BETWEEN 10 AND 20. fOLLOW-UP RENAL FUNCTIONS CLOSELY. WOUND CULTURE LEFT FIRST TOE. lOCAL WOUND CARE PER PODIATRY. fOLLOW-UP CULTURES TO ADJUST ANTIBIOTICS. CASE DISCUSSED WITH STAFF. ANALGESICS PER PMD.
--- NOTE | 2017-08-19 20:33 | CP.PCM.CON ---
History of Present Illness - History of Present Illness History of Present Illness: 51 y/o male with PMHx of DM, HTN, alcoholism, heroine abuse, seizures and asthma seen at bedside for left foot ulceration and cellulitis. Pt is well know to podiatry service. Pt presents to [facility] with concern of potential infection in his left foot s/p prior amputation of the affected foot. Pt says he noted swelling in the left leg 4 days agod, and will increased mal-odor came for evaluation. Pt denies recent f/c/cp/sob/n/v/d. Past Patient History - Past Medical History & Family History Past Medical History?: Yes - Past Social History Smoking Status: Light Smoker < 10 Cigarettes Daily - CARDIAC Hx Hypertension: Yes - PULMONARY Hx Asthma: Yes - NEUROLOGICAL Hx Seizures: Yes - HEENT Hx HEENT Problems: No - RENAL Hx Chronic Kidney Disease: No - ENDOCRINE/METABOLIC Hx Endocrine Disorders: Yes Hx Diabetes Mellitus Type 1: Yes - INTEGUMENTARY Hx Dermatological Problems: No - MUSCULOSKELETAL/RHEUMATOLOGICAL Hx Musculoskeletal Disorders: Yes Other/Comment: scoliosis - GASTROINTESTINAL Hx Gastrointestinal Disorders: No - PSYCHIATRIC Hx Substance Use: Yes (sniffs heroin) - SURGICAL HISTORY Hx Surgeries: Yes Hx Amputation: Yes (L foot last 3toes) Hx Musculoskeletal Surgery: Yes (b/l ankles; L wrist) - ANESTHESIA Hx Anesthesia: Yes Hx Anesthesia Reactions: No Hx Malignant Hyperthermia: No Meds Allergies/Adverse Reactions: Allergies Allergy/AdvReac Type Severity Reaction Status Date / Time FISH AdvReac Verified 08/17/17 18:18 tomatoes Allergy RASH Uncoded 08/17/17 18:18 - Medications Medications: Current Medications Clonidine HCl (Catapres) 0.2 mg PO BID [facility] Last Admin: 08/19/17 18:25 Dose: 0.2 mg Enoxaparin Sodium (Lovenox) 40 mg SC DAILY [facility] Last Admin: 08/19/17 09:02 Dose: 40 mg Hydromorphone HCl (Dilaudid) 1 mg IVP Q4H PRN PRN Reason: pain Last Admin: 08/19/17 16:23 Dose: 1 mg Piperacillin Sod/Tazobactam (Sod 3.375 gm/ Sodium Chloride) 100 mls @ 200 mls/ hr IVPB Q8H [facility] Last Admin: 08/19/17 12:46 Dose: 200 mls/hr Vancomycin HCl 1 gm/ Sodium (Chloride) 250 mls @ 166.7 mls/hr IVPB Q24H [facility] Last Admin: 08/18/17 21:17 Dose: 166.7 mls/hr Insulin Aspart (Novolog) 0 unit SC ACHS [facility] PRN Reason: Protocol Last Admin: 08/19/17 17:12 Dose: 5 unit Insulin Glargine (Lantus) 30 unit SC HS [facility] Last Admin: 08/18/17 22:01 Dose: 30 units Pantoprazole Sodium (Protonix Ec Tab) 40 mg PO DAILY [facility] Last Admin: 08/19/17 09:01 Dose: 40 mg Phenytoin Sodium (Dilantin) 100 mg PO BID [facility] Last Admin: 08/19/17 18:25 Dose: 100 mg Pneumococcal Polyvalent Vaccine (Pneumovax 23 Vaccine) 0.5 ml IM .ONCE ONE Stop: 08/20/17 10:01 Silver Sulfadiazine (Silvadene 1% 20 Gm) 1 ea TOP DAILY [facility] Physical Exam - Constitutional Appears: Well, Non-toxic, No Acute Distress - Extremities Exam Additional comments: Left foot focused. Vasc: DP/PT 2/4 B/L. Temperature gradient WNL. CFT < 3 sec x 10 digits. Pedal non-pitting edema noted compared to contra-lateral limb. Calor noted to left foot and leg, extending proximally to level distal to calf. . Derm: Open full thickness ulceration noted to dorso-lateral aspect of left forefoot. Wound base is 100% granular with fibrotic slough and fibrotic margins. Ulcer bed measures 9 x 3 cm, negative probe to bone, absent tunneling, and marginal undermining. Mal-odor noted, absent purulence. MUSK: Partial hallux amputation site noted. Absence of 3rrd, 4th, and 5th digits noted. Neuro: Protective sensation grossly intact Results - Vital Signs Recent Vital Signs: Last Vital Signs Temp 98.6 F 08/19/17 16:00 Pulse 90 08/19/17 16:00 Resp 20 08/19/17 16:00 BP 146/95 H 08/19/17 16:00 Pulse Ox 97 08/19/17 16:00 - Labs Result Diagrams: 08/19/17 13:57 08/19/17 13:57 Labs: Laboratory Results - last 24 hr 08/18/17 08/19/17 08/19/17 21:41 06:10 11:35 WBC RBC Hgb Hct MCV MCH MCHC RDW Plt Count MPV Neut % (Auto) Lymph % (Auto) Giles % (Auto) Eos % (Auto) Baso % (Auto) Neut # Lymph # Giles # Eos # Baso # Sodium Potassium Chloride Carbon Dioxide Anion Gap BUN Creatinine Est GFR ( Amer) Est GFR (Non-Af Amer) POC Glucose (mg/dL) 203 H 322 H 248 H Random Glucose Calcium Phosphorus Magnesium Total Bilirubin AST ALT Alkaline Phosphatase Total Protein Albumin Globulin Albumin/Globulin Ratio 08/19/17 08/19/17 08/19/17 13:57 13:57 16:41 WBC 4.9 RBC 3.55 L Hgb 10.7 L Hct 31.5 L MCV 88.8 MCH 30.1 MCHC 33.9 RDW 14.1 Plt Count 375 MPV 6.7 L Neut % (Auto) 56.9 Lymph % (Auto) 31.2 Giles % (Auto) 7.0 Eos % (Auto) 4.3 H Baso % (Auto) 0.6 Neut # 2.8 Lymph # 1.5 Giles # 0.3 Eos # 0.2 Baso # 0.0 Sodium 131 L Potassium 4.6 Chloride 98 Carbon Dioxide 27 Anion Gap 10 BUN 11 Creatinine 0.8 Est GFR ( Amer) > 60 Est GFR (Non-Af Amer) > 60 POC Glucose (mg/dL) 355 H Random Glucose 205 H Calcium 8.3 L Phosphorus 2.7 Magnesium 1.7 Total Bilirubin 0.3 AST 20 ALT 22 Alkaline Phosphatase 95 Total Protein 6.1 L Albumin 2.9 L Globulin 3.3 Albumin/Globulin Ratio 0.9 L Assessment & Plan - Assessment and Plan (Free Text) Assessment: 51 year old male with left foot 1) full thickness ulceration and cellulitis Plan: Pt seen and evaluated. Chart, labs, and vitals reviewed. Discussed with attending, Dr. Jordan, who endorsed the following plan. Aseptically bluntly debrided all non-viable superficial soft tissue with sterile scissors totaling 3cm^2. Cleansed site with sterile saline. Dressed with betadine, 4x4 gauze, and DSD. Prescribed Silvadene cream. Pt to be partial weightbearing to left heel with use of post-op shoe. Radiographs reviewed- (-) OM and soft tissue emphysema. Left foot wound cultures- pending. Continue IV abx per ID. Podiatry to follow patient while inhouse. - Date & Time Date: 08/19/17 Time: 16:25
[2017-08-19] MEDS: (Lantus) Insulin Glargine, Recombinant SC SCH (22:37)
[2017-08-20] MEDS: Piperacillin/Tazobact 3.375 GM in Sodium Chloride 100 ML IVPB SCH ×3 (04:48→21:04)
[2017-08-20 07:08] LABS: CHLORIDE 98 mmol/L (98-107)
[2017-08-20 07:09] LABS: POTASSIUM 4.2 mmol/L (3.6-5.2); SODIUM 133 mmol/L (132-148)
[2017-08-20 07:10] LABS: CHOLESTEROL 149 mg/dL (0-199)
[2017-08-20 07:11] LABS: ALB/GLOB RATIO 0.8 (1.0-2.1); ALKALINE PHOSPHATASE 94 U/L (38-126); ALT/SGPT 21 U/L (21-72); AST/SGOT 26 U/L (17-59); BILIRUBIN,TOTAL < 0.1 mg/dL (0.2-1.3); BLOOD UREA NITROGEN 10 mg/dL (9-20); CARBON DIOXIDE 28 mmol/L (22-30); GFR AFRICAN-AMERICAN > 60; GLUCOSE,RANDOM 215 mg/dL (75-110); PHOSPHOROUS 3.1 mg/dL (2.5-4.5); TOTAL PROTEIN 6.3 g/dL (6.3-8.3)
[2017-08-20 07:12] LABS: CALCIUM 8.7 mg/dl (8.6-10.4); MAGNESIUM 1.8 mg/dL (1.6-2.3)
[2017-08-20 07:19] LABS: BASO % 0.4 % (0.0-2.0); EOS # 0.2 K/uL (0.0-0.7); EOS % 4.5 % (0.0-4.0); HEMATOCRIT 31.9 % (35.0-51.0); LYMPH # 1.6 K/uL (1.0-4.3); LYMPH % 33.4 % (20.0-40.0); MEAN CELL VOLUME 88.6 fL (80.0-94.0); MEAN CORPUSCULAR HGB CONC 33.9 g/dL (33.0-37.0); MEAN PLATELET VOLUME 6.9 fL (7.2-11.7); MONO # 0.4 K/uL (0.0-0.8); NRBC % 0.1 % (0.0-2.0); RED CELL DISTRIBUTION WIDTH 13.6 % (11.5-14.5); WHITE BLOOD COUNT 4.7 K/uL (4.8-10.8)
[2017-08-20] MEDS: (Novolog) Insulin Aspart, Recombinant 100 u/ml 10 ml vial SC SCH ×4 (08:14→21:42)
[2017-08-20] MEDS: Pantoprazole 40 mg EC Tab PO SCH (09:03)
[2017-08-20] MEDS: Enoxaparin 40 mg Syringe SC SCH (09:03)
[2017-08-20] MEDS: Silver Sulfadiazine 1% Cream (20 gm) TOP SCH (09:35)
[2017-08-20] MEDS ORDERED: Pneumococcal 23-Valent Vaccine IM ONE (10:00)
--- NOTE | 2017-08-20 10:04 | CP.PCM.PN ---
Subjective - Date & Time of Evaluation Date of Evaluation: 08/20/17 Time of Evaluation: 09:46 - Subjective Subjective: PGY-[address] Donahue's service: Pt seen and examined at bedside. Nursing reports no acute events overnight. Pt found walking morales with cane. Pt reports increased pain in his leg today. He denies fever, chills, SOB, chest pain, N/V/D/C. Objective - Vital Signs/Intake and Output Vital Signs (last 24 hours): Temp Pulse Resp BP Pulse Ox 98.3 F 74 18 160/88 H 100 08/20/17 07:15 08/20/17 07:15 08/20/17 07:15 08/20/17 07:15 08/20/17 07:15 Intake and Output: 08/20/17 08/20/17 06:59 18:59 Intake Total 1630 Output Total 1000 Balance 630 - Medications Medications: Current Medications Clonidine HCl (Catapres) 0.2 mg PO BID [facility] Last Admin: 08/20/17 09:03 Dose: 0.2 mg Enoxaparin Sodium (Lovenox) 40 mg SC DAILY [facility] Last Admin: 08/20/17 09:03 Dose: 40 mg Hydromorphone HCl (Dilaudid) 1 mg IVP Q4H PRN PRN Reason: pain Last Admin: 08/20/17 08:39 Dose: 1 mg Piperacillin Sod/Tazobactam (Sod 3.375 gm/ Sodium Chloride) 100 mls @ 200 mls/ hr IVPB Q8H [facility] Last Admin: 08/20/17 04:48 Dose: 200 mls/hr Vancomycin HCl 1 gm/ Sodium (Chloride) 250 mls @ 166.7 mls/hr IVPB Q24H [facility] Last Admin: 08/19/17 22:37 Dose: 166.7 mls/hr Insulin Aspart (Novolog) 0 unit SC ACHS [facility] PRN Reason: Protocol Last Admin: 08/20/17 08:14 Dose: 2 unit Insulin Glargine (Lantus) 30 unit SC HS [facility] Last Admin: 08/19/17 22:37 Dose: 30 units Pantoprazole Sodium (Protonix Ec Tab) 40 mg PO DAILY [facility] Last Admin: 08/20/17 09:03 Dose: 40 mg Phenytoin Sodium (Dilantin) 100 mg PO BID [facility] Last Admin: 08/20/17 09:03 Dose: 100 mg Pneumococcal Polyvalent Vaccine (Pneumovax 23 Vaccine) 0.5 ml IM .ONCE ONE Stop: 08/20/17 10:01 Last Admin: 08/20/17 09:36 Dose: Not Given Silver Sulfadiazine (Silvadene 1% 20 Gm) 1 ea TOP DAILY [facility] Last Admin: 08/20/17 09:35 Dose: 1 gm - Labs Labs: 08/20/17 06:45 08/20/17 06:45 - Additional Findings Additional findings: - Constitutional Appears: Non-toxic, No Acute Distress - Head Exam Head Exam: ATRAUMATIC, NORMOCEPHALIC Additional comments: no tongue fasciculations - Eye Exam Eye Exam: EOMI Pupil Exam: PERRL - ENT Exam ENT Exam: Mucous Membranes Moist - Neck Exam Neck Exam: Full ROM - Respiratory Exam Respiratory Exam: Clear to Ausculation Bilateral, NORMAL BREATHING PATTERN. absent: Rales, Rhonchi, Wheezes - Cardiovascular Exam Cardiovascular Exam: REGULAR RHYTHM, +S1, +S2 - GI/Abdominal Exam GI & Abdominal Exam: Soft, Normal Bowel Sounds. absent: Tenderness - Extremities Exam Extremities Exam: Tenderness. absent: Normal Inspection Additional comments: DP/PT pulses present but diminished Edema noted on left Left leg warm to touch Open ulcer noted History of amputation - Back Exam Back Exam: NORMAL INSPECTION Additional comments: No tremors - Neurological Exam Neurological Exam: Alert, Awake, Oriented x3 Additional comments: No tremors on exam - Psychiatric Exam Psychiatric exam: Normal Affect, Normal Mood - Skin Skin Exam: Normal Color, Warm Assessment and Plan - Assessment and Plan (Free Text) Plan: Diabetic ulcer/Cellulitis History of left foot partial amputation (left partial hallux) on 05/2017 for osteomyelitis - pt started on IV antibiotics but signed out AMA, not finishing course Draining ulcer over great toe on left foot Foot Xray (08/19/17): Negative for OM ESR 55 Dr. Mujica, ID exchange underwriting consultant: help donald - Zosyn 3.375 gm Q8H - Vancomycin 1gram Daily - f/u Vanco trough prior to fourth dose (goal 10-20) Podiatry consult: Dr. Jordan - performed prior amputation of left hallux - Partial weight-bearing with post-op shoe; silvadene cream Wound care consult -f/u reccs Blood culture (08/17/17): No growth x 48 hours x 2 Wound culture (08/17/17): Staph Aureus, Acinetobacter baumanni, Corynebacterium species Dilaudid 1 mg IV Q4H PRN T2DM Poorly controlled, A1c 9.2 Consistent carb diet BG consistently elevated through admission Start Lisinopril 5mg PO Daily Lantus increased to 35 units SC HS ISS - increased to HTN well controlled today; elevated on admission Start Lisinopril 5mg PO Daily Catapres 0.2mg PO BID Monitor Vitamin D deficiency < 12.8 on labs Start Ergocalciferol 50,000 u Q7D Seizure D/O Dilantin 100mg PO BID History of heroin/EtOH abuse UDS positive for opiates, cocaine EtOH 21 on admission - Patient states his use is occasional depending on how much money he has - denies W/D symptoms - No tongue fasciculations or tremors noted on exam - No detox protocol needed per Dr Donahue Prophylaxis Lovenox 40mg SC daily Protonix 40mg PO daily [facility] C/I Fran Leon PGY2 All medical management per Dr. Juan Donahue
[2017-08-20] MEDS ORDERED: Ergocalciferol 50,000 Intl Units Cap PO SCH (10:15)
[2017-08-20] MEDS ORDERED: HYDROmorphone 0.5 mg/0.5 ml ISec IVP STA (10:46)
--- NOTE | 2017-08-20 13:52 | CP.PCM.PN ---
Subjective - Date & Time of Evaluation Date of Evaluation: 08/20/17 Time of Evaluation: 08:20 - Subjective Subjective: 51 y/o male seen at bedside for left foot ulceration and cellulitis. Pt says he is feeling better and left lef feels "less hot." Pt denies and overnight events. f/c/cp/sob/n/v/d. Pt has no new pedal complaints. Objective - Vital Signs/Intake and Output Vital Signs (last 24 hours): Temp Pulse Resp BP Pulse Ox 98.3 F 74 18 160/88 H 100 08/20/17 07:15 08/20/17 07:15 08/20/17 07:15 08/20/17 07:15 08/20/17 07:15 Intake and Output: 08/20/17 08/20/17 06:59 18:59 Intake Total 1630 Output Total 1000 Balance 630 - Medications Medications: Current Medications Clonidine HCl (Catapres) 0.2 mg PO BID [facility] Last Admin: 08/20/17 09:03 Dose: 0.2 mg Enoxaparin Sodium (Lovenox) 40 mg SC DAILY [facility] Last Admin: 08/20/17 09:03 Dose: 40 mg Ergocalciferol (Drisdol 50,000 Intl Units Cap) 1 cap PO Q7D [facility] Last Admin: 08/20/17 11:08 Dose: 1 cap Hydromorphone HCl (Dilaudid) 1 mg IVP Q4H PRN PRN Reason: pain Last Admin: 08/20/17 13:09 Dose: 1 mg Piperacillin Sod/Tazobactam (Sod 3.375 gm/ Sodium Chloride) 100 mls @ 200 mls/ hr IVPB Q8H [facility] Last Admin: 08/20/17 13:04 Dose: 200 mls/hr Vancomycin HCl 1 gm/ Sodium (Chloride) 250 mls @ 166.7 mls/hr IVPB Q24H [facility] Last Admin: 08/19/17 22:37 Dose: 166.7 mls/hr Insulin Aspart (Novolog) 0 unit SC ACHS [facility] PRN Reason: Protocol Last Admin: 08/20/17 12:00 Dose: 6 unit Insulin Glargine (Lantus) 35 unit SC HS [facility] Lisinopril (Zestril) 5 mg PO DAILY [facility] Pantoprazole Sodium (Protonix Ec Tab) 40 mg PO DAILY [facility] Last Admin: 08/20/17 09:03 Dose: 40 mg Phenytoin Sodium (Dilantin) 100 mg PO BID [facility] Last Admin: 08/20/17 09:03 Dose: 100 mg Silver Sulfadiazine (Silvadene 1% 20 Gm) 1 ea TOP DAILY [facility] Last Admin: 08/20/17 09:35 Dose: 1 gm - Labs Labs: 08/20/17 06:45 08/20/17 06:45 - Constitutional Appears: Well, Non-toxic, No Acute Distress - Extremities Exam Additional comments: Left foot focused. Dressing clean, dry, and intact. Vasc: DP/PT 2/4 B/L. Temperature gradient WNL. CFT < 3 sec x 10 digits. Pedal non-pitting edema noted compared to contra-lateral limb. Calor noted to left foot and leg, extending proximally to level distal to calf. . Derm: Open full thickness ulceration noted to dorso-lateral aspect of left forefoot. Wound base is 100% granular and fibrotic margins. Ulcer bed measures 9 x 3 cm, negative probe to bone, absent tunneling, and marginal undermining. Mal-odor noted, absent purulence. MUSK: Partial hallux amputation site noted. Absence of 3rrd, 4th, and 5th digits noted. Neuro: Protective sensation grossly intact - Neurological Exam Neurological Exam: Alert, Awake, Oriented x3 - Psychiatric Exam Psychiatric exam: Normal Affect, Normal Mood Assessment and Plan - Assessment and Plan (Free Text) Assessment: 51 year old male with left foot 1) full thickness ulceration and cellulitis Plan: Pt seen and evaluated. Chart, labs, and vitals reviewed. Discussed with attending, Dr. Jordan, who endorsed the following plan. Cleansed site with sterile saline. Dressed with Silvadene cream, 4x4 gauze, and DSD. Pt to be partial weightbearing to left heel with use of post-op shoe. Radiographs reviewed- (-) OM and soft tissue emphysema. Left foot wound cultures- Acinetobacter Baumannii, Staph Aureus, Corynebacterium species Continue IV abx per ID. Podiatry to follow patient while inhouse.
--- NOTE | 2017-08-20 20:12 | CP.PCM.PN ---
Subjective - Date & Time of Evaluation Date of Evaluation: 08/20/17 Time of Evaluation: 11:40 - Subjective Subjective: clinically same Objective - Vital Signs/Intake and Output Vital Signs (last 24 hours): Temp Pulse Resp BP Pulse Ox 98.1 F 83 20 143/84 98 08/20/17 15:00 08/20/17 15:00 08/20/17 15:00 08/20/17 15:00 08/20/17 15:00 Intake and Output: 08/20/17 08/21/17 18:59 06:59 Intake Total 500 Balance 500 - Medications Medications: Current Medications Clonidine HCl (Catapres) 0.2 mg PO BID [facility] Last Admin: 08/20/17 18:35 Dose: 0.2 mg Enoxaparin Sodium (Lovenox) 40 mg SC DAILY [facility] Last Admin: 08/20/17 09:03 Dose: 40 mg Ergocalciferol (Drisdol 50,000 Intl Units Cap) 1 cap PO Q7D [facility] Last Admin: 08/20/17 11:08 Dose: 1 cap Hydromorphone HCl (Dilaudid) 1 mg IVP Q4H PRN PRN Reason: pain Last Admin: 08/20/17 17:01 Dose: 1 mg Piperacillin Sod/Tazobactam (Sod 3.375 gm/ Sodium Chloride) 100 mls @ 200 mls/ hr IVPB Q8H [facility] Last Admin: 08/20/17 13:04 Dose: 200 mls/hr Vancomycin HCl 1 gm/ Sodium (Chloride) 250 mls @ 166.7 mls/hr IVPB Q24H [facility] Last Admin: 08/19/17 22:37 Dose: 166.7 mls/hr Insulin Aspart (Novolog) 0 unit SC ACHS [facility] PRN Reason: Protocol Last Admin: 08/20/17 16:30 Dose: Not Given Insulin Glargine (Lantus) 35 unit SC HS [facility] Lisinopril (Zestril) 5 mg PO DAILY [facility] Last Admin: 08/20/17 18:37 Dose: 5 mg Pantoprazole Sodium (Protonix Ec Tab) 40 mg PO DAILY [facility] Last Admin: 08/20/17 09:03 Dose: 40 mg Phenytoin Sodium (Dilantin) 100 mg PO BID [facility] Last Admin: 08/20/17 18:35 Dose: 100 mg Silver Sulfadiazine (Silvadene 1% 20 Gm) 1 ea TOP DAILY [facility] Last Admin: 08/20/17 09:35 Dose: 1 gm - Labs Labs: 08/20/17 06:45 08/20/17 06:45 - Constitutional Appears: Well - Head Exam Head Exam: ATRAUMATIC, NORMAL INSPECTION, NORMOCEPHALIC - Eye Exam Eye Exam: EOMI, Normal appearance, PERRL Pupil Exam: NORMAL ACCOMODATION, PERRL - ENT Exam ENT Exam: Mucous Membranes Moist, Normal Exam - Neck Exam Neck Exam: Full ROM, Normal Inspection. absent: Lymphadenopathy - Respiratory Exam Respiratory Exam: Decreased Breath Sounds - Cardiovascular Exam Cardiovascular Exam: REGULAR RHYTHM, +S1, +S2 - GI/Abdominal Exam GI & Abdominal Exam: Soft, Diminished Bowel Sounds - Rectal Exam Rectal Exam: Deferred
[2017-08-20] MEDS: (Lantus) Insulin Glargine, Recombinant SC SCH (21:41)
--- NOTE | 2017-08-20 22:25 | CP.PCM.PN ---
Subjective - Date & Time of Evaluation Date of Evaluation: 08/20/17 Time of Evaluation: 22:25 - Subjective Subjective: afebrile. resting in bed. OFFERS NO NEW COMPLAINTS EXCEPT ANXIOUS TO GO. SEEN AND NEW DRESSING DONE BY PODIATRY LT FOOT EDEMATOUS WITH CELLULITUS AND OPEN ULCER. LT. HULLUX +VE ERYTHEMA AND EDEMA STUMP, INCISION +VE GIOVANI. WOUND CULTURE +VE ACINETOBACTER BAUMANNI,MSSA,, CORYNEBACTERIUM SPECIES Radiographs reviewed- (-) OM and soft tissue emphysema. Objective - Vital Signs/Intake and Output Vital Signs (last 24 hours): Temp Pulse Resp BP Pulse Ox 98.1 F 83 20 143/84 98 08/20/17 15:00 08/20/17 15:00 08/20/17 15:00 08/20/17 15:00 08/20/17 15:00 Intake and Output: 08/20/17 08/21/17 18:59 06:59 Intake Total 500 Balance 500 - Medications Medications: Current Medications Clonidine HCl (Catapres) 0.2 mg PO BID [facility] Last Admin: 08/20/17 18:35 Dose: 0.2 mg Enoxaparin Sodium (Lovenox) 40 mg SC DAILY [facility] Last Admin: 08/20/17 09:03 Dose: 40 mg Ergocalciferol (Drisdol 50,000 Intl Units Cap) 1 cap PO Q7D [facility] Last Admin: 08/20/17 11:08 Dose: 1 cap Hydromorphone HCl (Dilaudid) 1 mg IVP Q4H PRN PRN Reason: pain Last Admin: 08/20/17 21:00 Dose: 1 mg Piperacillin Sod/Tazobactam (Sod 3.375 gm/ Sodium Chloride) 100 mls @ 200 mls/ hr IVPB Q8H [facility] Last Admin: 08/20/17 21:04 Dose: 200 mls/hr Vancomycin HCl 1 gm/ Sodium (Chloride) 250 mls @ 166.7 mls/hr IVPB Q24H [facility] Last Admin: 08/20/17 21:33 Dose: 166.7 mls/hr Insulin Aspart (Novolog) 0 unit SC ACHS [facility] PRN Reason: Protocol Last Admin: 08/20/17 21:42 Dose: 3 unit Insulin Glargine (Lantus) 35 unit SC HS [facility] Last Admin: 08/20/17 21:41 Dose: 35 units Lisinopril (Zestril) 5 mg PO DAILY [facility] Last Admin: 08/20/17 18:37 Dose: 5 mg Pantoprazole Sodium (Protonix Ec Tab) 40 mg PO DAILY [facility] Last Admin: 08/20/17 09:03 Dose: 40 mg Phenytoin Sodium (Dilantin) 100 mg PO BID [facility] Last Admin: 08/20/17 18:35 Dose: 100 mg Silver Sulfadiazine (Silvadene 1% 20 Gm) 1 ea TOP DAILY [facility] Last Admin: 08/20/17 09:35 Dose: 1 gm - Labs Labs: 08/20/17 06:45 08/20/17 06:45 - Constitutional Appears: No Acute Distress - Head Exam Head Exam: NORMAL INSPECTION - Eye Exam Eye Exam: EOMI, PERRL - ENT Exam ENT Exam: Normal Oropharynx - Neck Exam Neck Exam: Normal Inspection - Respiratory Exam Respiratory Exam: Clear to Ausculation Bilateral, NORMAL BREATHING PATTERN - Cardiovascular Exam Cardiovascular Exam: REGULAR RHYTHM, +S1, +S2 - GI/Abdominal Exam GI & Abdominal Exam: Soft, Normal Bowel Sounds - Extremities Exam Extremities Exam: Pedal Edema. absent: Calf Tenderness - Neurological Exam Neurological Exam: Awake, CN II-XII Intact, Oriented x3 - Psychiatric Exam Psychiatric exam: Normal Mood - Skin Skin Exam: Dry, Warm Assessment and Plan (1) Cellulitis of left leg Status: Acute (2) Amputation of left foot with complication Status: Acute (3) Diabetic ulcer of left foot Status: Acute (4) Alcohol dependence Status: Acute (5) Diabetes Status: Acute - Assessment and Plan (Free Text) Plan: DC iv zOSYN 3.375 EVERY 8 HOURLY .08/17/17. START iv CEFEPIME 1 G EVERY 12 HOURLY 08/20/17 FOR BETTER aCINETOBACTER COVERAGE. CONTINUE iv VANCOMYCIN 1 G ONCE A DAY DAILY. 08/17/17. PATIENT WILL NEED A PICC LINE FOR iv ANTIBIOTICS X 2WKS AND CLOSE MONITORING OF RENAL FUNCTIONS F/U BY BY MOUTH LEVAQUIN 500 MG ONCE A DAY FOR 2 WEEKS. VANCO TROUGH LEVEL PRIOR TO THE FOURTH DOSE ON 08/20/19 AND KEEP BETWEEN 10 AND 20. fOLLOW-UP RENAL FUNCTIONS CLOSELY. wILL DISCUSS WITH ATTENDING IF PATIENT PLANNING TO STAY LAST TIME HE WALKED OUT AMA.
[2017-08-20] MEDS ORDERED: Cefepime 1 GM in Sodium Chloride 0.9% 50 ML IVPB SCH (23:45)
[2017-08-21] MEDS: Cefepime 1 GM in Sodium Chloride 0.9% 100 ML IVPB SCH ×2 (00:35→12:30)
[2017-08-21 07:38] LABS: BASO % 0.4 % (0.0-2.0); EOS # 0.2 K/uL (0.0-0.7); EOS % 4.6 % (0.0-4.0); HEMATOCRIT 33.8 % (35.0-51.0); LYMPH # 1.5 K/uL (1.0-4.3); LYMPH % 33.3 % (20.0-40.0); MEAN CELL VOLUME 88.3 fL (80.0-94.0); MEAN CORPUSCULAR HEMOGLOBIN 30.5 pg (27.0-31.0); MEAN CORPUSCULAR HGB CONC 34.6 g/dL (33.0-37.0); MEAN PLATELET VOLUME 6.6 fL (7.2-11.7); MONO # 0.4 K/uL (0.0-0.8); MONO % 9.2 % (0.0-10.0); NRBC % 0.1 % (0.0-2.0); RED CELL DISTRIBUTION WIDTH 13.9 % (11.5-14.5); WHITE BLOOD COUNT 4.4 K/uL (4.8-10.8)
[2017-08-21] MEDS: (Novolog) Insulin Aspart, Recombinant 100 u/ml 10 ml vial SC SCH ×4 (08:00→22:11)
[2017-08-21 08:08] LABS: CHLORIDE 97 mmol/L (98-107); POTASSIUM 4.8 mmol/L (3.6-5.2); SODIUM 131 mmol/L (132-148)
[2017-08-21 08:10] LABS: GFR AFRICAN-AMERICAN > 60
[2017-08-21 08:11] LABS: ALB/GLOB RATIO 0.9 (1.0-2.1); ALKALINE PHOSPHATASE 98 U/L (38-126); ALT/SGPT 23 U/L (21-72); AST/SGOT 35 U/L (17-59); BILIRUBIN,TOTAL 0.3 mg/dL (0.2-1.3); BLOOD UREA NITROGEN 14 mg/dL (9-20); CARBON DIOXIDE 28 mmol/L (22-30); GLUCOSE,RANDOM 155 mg/dL (75-110); PHOSPHOROUS 3.6 mg/dL (2.5-4.5); TOTAL PROTEIN 6.9 g/dL (6.3-8.3)
[2017-08-21 08:12] LABS: CALCIUM 8.7 mg/dl (8.6-10.4); MAGNESIUM 1.8 mg/dL (1.6-2.3)
[2017-08-21] MEDS: Pantoprazole 40 mg EC Tab PO SCH (09:27)
[2017-08-21] MEDS: Enoxaparin 40 mg Syringe SC SCH (09:27)
[2017-08-21] MEDS: Silver Sulfadiazine 1% Cream (20 gm) TOP SCH (10:00)
--- NOTE | 2017-08-21 11:25 | CP.PCM.PN ---
Subjective - Date & Time of Evaluation Date of Evaluation: 08/21/17 Time of Evaluation: 11:00 - Subjective Subjective: PGY3 on medicine Dr. Donahue service: Pt seen and examined at bedside. Pt reports leg pain controlled better with medicine but requests more. No acute events overnight per RN. Denied other complaints. Asked for juice and crackers. Objective - Vital Signs/Intake and Output Vital Signs (last 24 hours): Temp Pulse Resp BP Pulse Ox 98.1 F 72 18 152/83 H 100 08/21/17 07:20 08/21/17 07:20 08/21/17 07:20 08/21/17 07:20 08/21/17 07:20 Intake and Output: 08/21/17 08/21/17 06:59 18:59 Intake Total 1300 Output Total 900 Balance 400 - Medications Medications: Current Medications Clonidine HCl (Catapres) 0.2 mg PO BID [facility] Last Admin: 08/21/17 09:27 Dose: 0.2 mg Enoxaparin Sodium (Lovenox) 40 mg SC DAILY [facility] Last Admin: 08/21/17 09:27 Dose: 40 mg Ergocalciferol (Drisdol 50,000 Intl Units Cap) 1 cap PO Q7D [facility] Last Admin: 08/20/17 11:08 Dose: 1 cap Hydromorphone HCl (Dilaudid) 1 mg IVP Q4H PRN PRN Reason: pain Last Admin: 08/21/17 09:01 Dose: 1 mg Vancomycin HCl 1 gm/ Sodium (Chloride) 250 mls @ 166.7 mls/hr IVPB Q24H [facility] Last Admin: 08/20/17 21:33 Dose: 166.7 mls/hr Cefepime HCl 1 gm/ Sodium (Chloride) 100 mls @ 200 mls/hr IVPB Q12H [facility] Last Admin: 08/21/17 00:35 Dose: 200 mls/hr Insulin Aspart (Novolog) 0 unit SC ACHS [facility] PRN Reason: Protocol Last Admin: 08/21/17 08:00 Dose: 2 unit Insulin Glargine (Lantus) 35 unit SC HS [facility] Last Admin: 08/20/17 21:41 Dose: 35 units Ketorolac Tromethamine (Toradol) 30 mg IVP Q6 PRN PRN Reason: moderate pain Lisinopril (Zestril) 5 mg PO DAILY [facility] Last Admin: 08/21/17 09:27 Dose: 5 mg Pantoprazole Sodium (Protonix Ec Tab) 40 mg PO DAILY [facility] Last Admin: 08/21/17 09:27 Dose: 40 mg Phenytoin Sodium (Dilantin) 100 mg PO BID [facility] Last Admin: 08/21/17 09:27 Dose: 100 mg Silver Sulfadiazine (Silvadene 1% 20 Gm) 1 ea TOP DAILY [facility] Last Admin: 08/20/17 09:35 Dose: 1 gm - Labs Labs: 08/21/17 07:30 08/21/17 07:30 - Constitutional Appears: Non-toxic, No Acute Distress - Head Exam Head Exam: NORMOCEPHALIC - Eye Exam Eye Exam: Normal appearance Pupil Exam: NORMAL ACCOMODATION - Respiratory Exam Respiratory Exam: Clear to Ausculation Bilateral, NORMAL BREATHING PATTERN. absent: Wheezes - Cardiovascular Exam Cardiovascular Exam: REGULAR RHYTHM, +S1, +S2. absent: Gallop, Rubs - GI/Abdominal Exam GI & Abdominal Exam: Soft, Normal Bowel Sounds - Extremities Exam Additional comments: LLE dressing c/d/i, mild edema L>R - Neurological Exam Neurological Exam: Alert, Awake, Oriented x3 - Psychiatric Exam Psychiatric exam: Normal Mood - Skin Skin Exam: Dry, Intact Assessment and Plan - Assessment and Plan (Free Text) Assessment: Diabetic ulcer/Cellulitis History of left foot partial amputation (left partial hallux) on 05/2017 for osteomyelitis - pt started on IV antibiotics but signed out AMA, not finishing course Draining ulcer over great toe on left foot Foot Xray (08/19/17): Negative for OM ESR 55 Dr. Mujica, ID vendor management consultant: help appreciated Zosyn started on 08/17 and stopped on 08/20. Will need Cefepime 1g IV q12H and Vancomycin 1g IV daily for 2 weeks with close monitoring of renal function, followed by Levaquin 500mg PO daily for 2 weeks. Will need to keep Vancomycin trough between 10-20. Pt to have PICC insertion today, case management for rehab placement. Podiatry consult: Dr. Jordan - performed prior amputation of left hallux - Partial weight-bearing with post-op shoe; silvadene cream Wound care consult -f/u reccs Blood culture (08/17/17): No growth x 48 hours x 2 Wound culture (08/17/17): Staph Aureus, Acinetobacter baumanni, Corynebacterium species Dilaudid 1 mg IV Q4H PRN Toradol q6H PRN T2DM Poorly controlled, A1c 9.2 Consistent carb diet BG consistently elevated through admission Start Lisinopril 5mg PO Daily Lantus increased to 35 units SC HS ISS - increased to HTN well controlled today; elevated on admission Start Lisinopril 5mg PO Daily Catapres 0.2mg PO BID Monitor Vitamin D deficiency < 12.8 on labs Start Ergocalciferol 50,000 u Q7D Seizure D/O Dilantin 100mg PO BID History of heroin/EtOH abuse UDS positive for opiates, cocaine EtOH 21 on admission - Patient states his use is occasional depending on how much money he has - denies W/D symptoms - No tongue fasciculations or tremors noted on exam - No detox protocol needed per Dr Donahue Prophylaxis Lovenox 40mg SC daily Protonix 40mg PO daily SCD C/I All medical management per Dr. Juan Donahue
--- NOTE | 2017-08-21 13:19 | RAD ---
HISTORY: verify left PICC COMPARISON: Chest x-ray performed 05/25/17 TECHNIQUE: Chest, one view. FINDINGS: Left-sided PICC extends to the cavoatrial junction. LUNGS: No focal consolidation. Please note that chest x-ray has limited sensitivity for the detection of pulmonary masses. PLEURA: No significant pleural effusion identified. No definite pneumothorax . CARDIOVASCULAR: Heart size appears within normal limits. OSSEOUS STRUCTURES: No acute osseous abnormality identified. VISUALIZED UPPER ABDOMEN: Unremarkable. OTHER FINDINGS: None. IMPRESSION: Left-sided PICC.
[2017-08-21] MEDS ORDERED: HYDROmorphone 0.5 mg/0.5 ml ISec IVP ONE (16:15)
[2017-08-21] MEDS: HYDROmorphone 0.5 mg/0.5 ml ISec IVP PRN ×2 (17:58→21:58)
--- NOTE | 2017-08-21 19:19 | CP.PCM.PN ---
Subjective - Date & Time of Evaluation Date of Evaluation: 08/21/17 Time of Evaluation: 11:00 - Subjective Subjective: clinically same Objective - Vital Signs/Intake and Output Vital Signs (last 24 hours): Temp Pulse Resp BP Pulse Ox 98.2 F 80 20 149/83 99 08/21/17 15:43 08/21/17 15:43 08/21/17 15:43 08/21/17 15:43 08/21/17 15:43 Intake and Output: 08/21/17 08/22/17 18:59 06:59 Intake Total 600 Balance 600 - Medications Medications: Current Medications Clonidine HCl (Catapres) 0.2 mg PO BID [facility] Last Admin: 08/21/17 17:58 Dose: 0.2 mg Enoxaparin Sodium (Lovenox) 40 mg SC DAILY [facility] Last Admin: 08/21/17 09:27 Dose: 40 mg Ergocalciferol (Drisdol 50,000 Intl Units Cap) 1 cap PO Q7D [facility] Last Admin: 08/20/17 11:08 Dose: 1 cap Hydromorphone HCl (Dilaudid) 1 mg IVP Q4H PRN PRN Reason: pain Last Admin: 08/21/17 17:58 Dose: 1 mg Vancomycin HCl 1 gm/ Sodium (Chloride) 250 mls @ 166.7 mls/hr IVPB Q24H [facility] Last Admin: 08/20/17 21:33 Dose: 166.7 mls/hr Cefepime HCl 1 gm/ Sodium (Chloride) 100 mls @ 200 mls/hr IVPB Q12H [facility] Last Admin: 08/21/17 12:30 Dose: 200 mls/hr Insulin Aspart (Novolog) 0 unit SC ACHS [facility] PRN Reason: Protocol Last Admin: 08/21/17 18:06 Dose: 3 unit Insulin Glargine (Lantus) 35 unit SC HS [facility] Last Admin: 08/20/17 21:41 Dose: 35 units Ketorolac Tromethamine (Toradol) 30 mg IVP Q6 PRN PRN Reason: Pain, moderate (4-7) Last Admin: 08/21/17 11:44 Dose: 30 mg Lisinopril (Zestril) 5 mg PO DAILY [facility] Last Admin: 08/21/17 09:27 Dose: 5 mg Pantoprazole Sodium (Protonix Ec Tab) 40 mg PO DAILY [facility] Last Admin: 08/21/17 09:27 Dose: 40 mg Phenytoin Sodium (Dilantin) 100 mg PO BID [facility] Last Admin: 08/21/17 17:58 Dose: 100 mg Silver Sulfadiazine (Silvadene 1% 20 Gm) 1 ea TOP DAILY [facility] Last Admin: 08/21/17 10:00 Dose: 1 gm - Labs Labs: 08/21/17 07:30 08/21/17 07:30 - Constitutional Appears: Well - Head Exam Head Exam: ATRAUMATIC, NORMAL INSPECTION, NORMOCEPHALIC - Eye Exam Eye Exam: EOMI, Normal appearance, PERRL Pupil Exam: NORMAL ACCOMODATION, PERRL - ENT Exam ENT Exam: Mucous Membranes Moist, Normal Exam - Neck Exam Neck Exam: Full ROM, Normal Inspection. absent: Lymphadenopathy - Respiratory Exam Respiratory Exam: Decreased Breath Sounds - Cardiovascular Exam Cardiovascular Exam: REGULAR RHYTHM, +S1, +S2 - GI/Abdominal Exam GI & Abdominal Exam: Soft, Diminished Bowel Sounds - Rectal Exam Rectal Exam: Deferred
--- NOTE | 2017-08-21 19:21 | CP.PCM.PN ---
Subjective - Date & Time of Evaluation Date of Evaluation: 08/21/17 Time of Evaluation: 04:00 - Subjective Subjective: 51 y/o male seen at bedside for left foot ulceration and cellulitis. Pt says he is feeling better and left legf feels "less hot." Pt denies and overnight events. Pt states that he has back pain radiating into left leg, pain is graded "6/10". Pt denies f/c/cp/sob/n/v/d. Pt has no new pedal complaints. Objective - Vital Signs/Intake and Output Vital Signs (last 24 hours): Temp Pulse Resp BP Pulse Ox 98.2 F 80 20 149/83 99 08/21/17 15:43 08/21/17 15:43 08/21/17 15:43 08/21/17 15:43 08/21/17 15:43 Intake and Output: 08/21/17 08/22/17 18:59 06:59 Intake Total 600 Balance 600 - Medications Medications: Current Medications Clonidine HCl (Catapres) 0.2 mg PO BID [facility] Last Admin: 08/21/17 17:58 Dose: 0.2 mg Enoxaparin Sodium (Lovenox) 40 mg SC DAILY [facility] Last Admin: 08/21/17 09:27 Dose: 40 mg Ergocalciferol (Drisdol 50,000 Intl Units Cap) 1 cap PO Q7D [facility] Last Admin: 08/20/17 11:08 Dose: 1 cap Hydromorphone HCl (Dilaudid) 1 mg IVP Q4H PRN PRN Reason: pain Last Admin: 08/21/17 17:58 Dose: 1 mg Vancomycin HCl 1 gm/ Sodium (Chloride) 250 mls @ 166.7 mls/hr IVPB Q24H [facility] Last Admin: 08/20/17 21:33 Dose: 166.7 mls/hr Cefepime HCl 1 gm/ Sodium (Chloride) 100 mls @ 200 mls/hr IVPB Q12H [facility] Last Admin: 08/21/17 12:30 Dose: 200 mls/hr Insulin Aspart (Novolog) 0 unit SC ACHS [facility] PRN Reason: Protocol Last Admin: 08/21/17 18:06 Dose: 3 unit Insulin Glargine (Lantus) 35 unit SC HS [facility] Last Admin: 08/20/17 21:41 Dose: 35 units Ketorolac Tromethamine (Toradol) 30 mg IVP Q6 PRN PRN Reason: Pain, moderate (4-7) Last Admin: 08/21/17 11:44 Dose: 30 mg Lisinopril (Zestril) 5 mg PO DAILY [facility] Last Admin: 08/21/17 09:27 Dose: 5 mg Pantoprazole Sodium (Protonix Ec Tab) 40 mg PO DAILY [facility] Last Admin: 08/21/17 09:27 Dose: 40 mg Phenytoin Sodium (Dilantin) 100 mg PO BID [facility] Last Admin: 08/21/17 17:58 Dose: 100 mg Silver Sulfadiazine (Silvadene 1% 20 Gm) 1 ea TOP DAILY [facility] Last Admin: 08/21/17 10:00 Dose: 1 gm - Labs Labs: 08/21/17 07:30 08/21/17 07:30 - Constitutional Appears: Well, Non-toxic, No Acute Distress - Extremities Exam Additional comments: Left foot focused. Dressing clean, dry, and intact. Vasc: DP/PT 2/4 B/L. Temperature gradient WNL. CFT < 3 sec x 10 digits. Pedal non-pitting edema noted compared to contra-lateral limb. Calor noted to left foot and leg, extending proximally to level distal to calf. . Derm: Open full thickness ulceration noted to dorso-lateral aspect of left forefoot. Wound base is 100% granular and fibrotic margins. Ulcer bed measures 9 x 3 cm, negative probe to bone, absent tunneling, and marginal undermining. Mal-odor noted, absent purulence. MUSK: Partial hallux amputation site noted. Absence of 3rrd, 4th, and 5th digits noted. Neuro: Protective sensation grossly intact - Neurological Exam Neurological Exam: Alert, Awake, Oriented x3 - Psychiatric Exam Psychiatric exam: Normal Affect, Normal Mood Assessment and Plan - Assessment and Plan (Free Text) Assessment: 51 year old male with left foot 1) full thickness ulceration and cellulitis Plan: Pt seen and evaluated. Chart, labs, and vitals reviewed. Discussed with attending, Dr. Jordan, who endorsed the following plan. Cleansed site with sterile saline. Dressed with Silvadene cream, 4x4 gauze, and DSD. Pt to be partial weightbearing to left heel with use of post-op shoe. Radiographs reviewed- (-) OM and soft tissue emphysema. Left foot wound cultures- Acinetobacter Baumannii, Staph Aureus, Corynebacterium species Continue IV abx per ID. Podiatry to follow patient while inhouse.
[2017-08-21] MEDS: (Lantus) Insulin Glargine, Recombinant SC SCH (21:57)
--- NOTE | 2017-08-21 22:56 | CP.PCM.PN ---
Subjective - Date & Time of Evaluation Date of Evaluation: 08/21/17 Time of Evaluation: 22:55 - Subjective Subjective: afebrile. STATES HE FEELS FINE. lESS PAIN LEFT FOOT. S/P GLEN picc LINE IN PLACE LT FOOT EDEMATOUS WITH CELLULITUS AND OPEN ULCER. LT. HULLUX +VE ERYTHEMA AND EDEMA STUMP, INCISION +VE GIOVANI. WOUND CULTURE +VE ACINETOBACTER BAUMANNI,MSSA,, CORYNEBACTERIUM SPECIES S-NOTED. ACINITOBACTER SENSITIVE TO PRIMAXIN vANCO TROUGH <5.0 LOW ADJUST ANTIBIOTICS DC iv CEFEPIME START iv PRIMAXIN 500 MG EVERY 8 HOURLY.08/21/17 INCREASE iv VANCOMYCIN 1 G EVERY 12 HOURLY. 08/21/17. Objective - Vital Signs/Intake and Output Vital Signs (last 24 hours): Temp Pulse Resp BP Pulse Ox 98.2 F 80 20 149/83 99 08/21/17 15:43 08/21/17 15:43 08/21/17 15:43 08/21/17 15:43 08/21/17 15:43 Intake and Output: 08/21/17 08/22/17 18:59 06:59 Intake Total 600 Balance 600 - Medications Medications: Current Medications Clonidine HCl (Catapres) 0.2 mg PO BID [facility] Last Admin: 08/21/17 17:58 Dose: 0.2 mg Enoxaparin Sodium (Lovenox) 40 mg SC DAILY [facility] Last Admin: 08/21/17 09:27 Dose: 40 mg Ergocalciferol (Drisdol 50,000 Intl Units Cap) 1 cap PO Q7D [facility] Last Admin: 08/20/17 11:08 Dose: 1 cap Hydromorphone HCl (Dilaudid) 1 mg IVP Q4H PRN PRN Reason: pain Last Admin: 08/21/17 21:58 Dose: 1 mg Vancomycin HCl 1 gm/ Sodium (Chloride) 250 mls @ 166.7 mls/hr IVPB Q24H [facility] Last Admin: 08/21/17 22:11 Dose: 166.7 mls/hr Cefepime HCl 1 gm/ Sodium (Chloride) 100 mls @ 200 mls/hr IVPB Q12H [facility] Last Admin: 08/21/17 12:30 Dose: 200 mls/hr Insulin Aspart (Novolog) 0 unit SC ACHS [facility] PRN Reason: Protocol Last Admin: 08/21/17 22:11 Dose: 2 unit Insulin Glargine (Lantus) 35 unit SC HS [facility] Last Admin: 08/21/17 21:57 Dose: 35 units Ketorolac Tromethamine (Toradol) 30 mg IVP Q6 PRN PRN Reason: Pain, moderate (4-7) Last Admin: 08/21/17 11:44 Dose: 30 mg Lisinopril (Zestril) 5 mg PO DAILY [facility] Last Admin: 08/21/17 09:27 Dose: 5 mg Pantoprazole Sodium (Protonix Ec Tab) 40 mg PO DAILY [facility] Last Admin: 08/21/17 09:27 Dose: 40 mg Phenytoin Sodium (Dilantin) 100 mg PO BID [facility] Last Admin: 08/21/17 17:58 Dose: 100 mg Silver Sulfadiazine (Silvadene 1% 20 Gm) 1 ea TOP DAILY [facility] Last Admin: 08/21/17 10:00 Dose: 1 gm - Labs Labs: 08/21/17 07:30 08/21/17 07:30 - Constitutional Appears: No Acute Distress - Head Exam Head Exam: NORMAL INSPECTION - ENT Exam ENT Exam: Normal Oropharynx - Neck Exam Neck Exam: Normal Inspection - Respiratory Exam Respiratory Exam: Clear to Ausculation Bilateral - Cardiovascular Exam Cardiovascular Exam: REGULAR RHYTHM, +S1, +S2 - GI/Abdominal Exam GI & Abdominal Exam: Soft, Normal Bowel Sounds - Extremities Exam Extremities Exam: Pedal Edema (LEFT FOOT WITH EDEMA AND CLEAN, DRY DRESSING. mILD TENDERNESS AT THE SITE OF ULCER.). absent: Calf Tenderness - Neurological Exam Neurological Exam: Awake, CN II-XII Intact, Oriented x3 - Psychiatric Exam Psychiatric exam: Normal Mood - Skin Skin Exam: Dry, Warm Assessment and Plan (1) Cellulitis of left leg Status: Acute (2) Amputation of left foot with complication Status: Acute (3) Diabetic ulcer of left foot Status: Acute (4) Alcohol dependence Status: Acute (5) Diabetes Status: Acute - Assessment and Plan (Free Text) Plan: DC iv CEFEPIME START iv PRIMAXIN 500 MG EVERY 8 HOURLY.08/21/17 X 2WEEKS INCREASE iv VANCOMYCIN 1 G EVERY 12 HOURLY. 08/21/17 X 2 WEEKS F/U BY BY MOUTH LEVAQUIN 750 ONCE DAILY FOR 2 WEEKS. fOLLOW-UP VANCO TROUGH LEVEL PRIOR TO THE FOURTH DOSE AND KEEP BETWEEN 10 AND 20. fOLLOW-UP RENAL FUNCTIONS WEEKLY. fOLLOW-UP lftS WEEKLY WITH CBC. LOCAL WOUND CARE PER PODIATRY. LOCAL CARE picc LINE PER pmd. WILL FOLLOW PATIENT WHILE IN HOSPITAL. CASE DISCUSSED WITH STAFF.
[2017-08-22] MEDS: HYDROmorphone 0.5 mg/0.5 ml ISec IVP PRN ×4 (01:02→14:11)
[2017-08-22 06:30] LABS: BASO % 0.4 % (0.0-2.0); EOS # 0.2 K/uL (0.0-0.7); EOS % 4.1 % (0.0-4.0); HEMATOCRIT 33.4 % (35.0-51.0); LYMPH # 1.8 K/uL (1.0-4.3); LYMPH % 33.1 % (20.0-40.0); MEAN CELL VOLUME 88.6 fL (80.0-94.0); MEAN CORPUSCULAR HEMOGLOBIN 30.3 pg (27.0-31.0); MEAN CORPUSCULAR HGB CONC 34.2 g/dL (33.0-37.0); MEAN PLATELET VOLUME 6.5 fL (7.2-11.7); MONO # 0.5 K/uL (0.0-0.8); MONO % 8.7 % (0.0-10.0); WHITE BLOOD COUNT 5.4 K/uL (4.8-10.8)
[2017-08-22 07:38] LABS: CHLORIDE 96 mmol/L (98-107); SODIUM 130 mmol/L (132-148)
[2017-08-22 07:39] LABS: POTASSIUM 4.7 mmol/L (3.6-5.2)
[2017-08-22 07:40] LABS: GFR AFRICAN-AMERICAN > 60
[2017-08-22 07:41] LABS: ALB/GLOB RATIO 0.9 (1.0-2.1); ALKALINE PHOSPHATASE 98 U/L (38-126); ALT/SGPT 30 U/L (21-72); AST/SGOT 52 U/L (17-59); BILIRUBIN,TOTAL 0.3 mg/dL (0.2-1.3); BLOOD UREA NITROGEN 15 mg/dL (9-20); CARBON DIOXIDE 28 mmol/L (22-30); GLUCOSE,RANDOM 189 mg/dL (75-110); PHOSPHOROUS 3.4 mg/dL (2.5-4.5); TOTAL PROTEIN 6.6 g/dL (6.3-8.3)
[2017-08-22 07:42] LABS: CALCIUM 8.9 mg/dl (8.6-10.4); MAGNESIUM 1.7 mg/dL (1.6-2.3)
[2017-08-22] MEDS: (Novolog) Insulin Aspart, Recombinant 100 u/ml 10 ml vial SC SCH ×2 (08:13→12:48)
[2017-08-22] MEDS: Pantoprazole 40 mg EC Tab PO SCH (09:40)
[2017-08-22] MEDS: Enoxaparin 40 mg Syringe SC SCH (09:40)
[2017-08-22] MEDS ORDERED: Vancomycin 1 gm/NS 200 ml 1 GM/200 ML BAG IVPB SCH (10:00)
[2017-08-22] MEDS: Silver Sulfadiazine 1% Cream (20 gm) TOP SCH (10:10)
--- NOTE | 2017-08-22 11:36 | CP.PCM.PN ---
Subjective - Date & Time of Evaluation Date of Evaluation: 08/22/17 Time of Evaluation: 10:00 - Subjective Subjective: 51 y/o male seen at bedside for left foot ulceration and cellulitis. Pt says he is feeling "fine" and left leg feels beter. Pt denies and overnight events. Pt states that his previously reported back pain radiating into left leg, is well controlled by pain medication at this time. Pt denies f/c/cp/sob/n/v/d. Pt has no new pedal complaints. Objective - Vital Signs/Intake and Output Vital Signs (last 24 hours): Temp Pulse Resp BP Pulse Ox 98.4 F 74 18 158/88 H 100 08/22/17 07:15 08/22/17 07:15 08/22/17 07:15 08/22/17 07:15 08/22/17 07:15 - Medications Medications: Current Medications Clonidine HCl (Catapres) 0.2 mg PO BID [facility] Last Admin: 08/22/17 09:40 Dose: 0.2 mg Enoxaparin Sodium (Lovenox) 40 mg SC DAILY [facility] Last Admin: 08/22/17 09:40 Dose: 40 mg Ergocalciferol (Drisdol 50,000 Intl Units Cap) 1 cap PO Q7D [facility] Last Admin: 08/20/17 11:08 Dose: 1 cap Hydromorphone HCl (Dilaudid) 1 mg IVP Q4H PRN PRN Reason: pain Last Admin: 08/22/17 09:35 Dose: 1 mg Imipenem/Cilastatin Sodium 500 (mg/ Sodium Chloride) 100 mls @ 100 mls/hr IVPB Q8H [facility] Last Admin: 08/22/17 08:27 Dose: 100 mls/hr Vancomycin/Sodium Chloride (Vancocin) 1 gm in 200 mls @ 133 mls/hr IVPB Q12H [facility] Stop: 08/27/17 10:01 Last Admin: 08/22/17 10:08 Dose: 133 mls/hr Insulin Aspart (Novolog) 0 unit SC ACHS [facility] PRN Reason: Protocol Last Admin: 08/22/17 08:13 Dose: 2 unit Insulin Glargine (Lantus) 35 unit SC HS [facility] Last Admin: 08/21/17 21:57 Dose: 35 units Ketorolac Tromethamine (Toradol) 30 mg IVP Q6 PRN PRN Reason: Pain, moderate (4-7) Last Admin: 08/21/17 11:44 Dose: 30 mg Lisinopril (Zestril) 5 mg PO DAILY [facility] Last Admin: 08/22/17 09:40 Dose: 5 mg Pantoprazole Sodium (Protonix Ec Tab) 40 mg PO DAILY [facility] Last Admin: 08/22/17 09:40 Dose: 40 mg Phenytoin Sodium (Dilantin) 100 mg PO BID [facility] Last Admin: 08/22/17 09:40 Dose: 100 mg Silver Sulfadiazine (Silvadene 1% 20 Gm) 1 ea TOP DAILY [facility] Last Admin: 08/22/17 10:10 Dose: 1 gm - Labs Labs: 08/22/17 06:21 08/22/17 06:21 - Constitutional Appears: Well, Non-toxic, No Acute Distress - Extremities Exam Additional comments: Left foot focused. Dressing clean, dry, and intact. Vasc: DP/PT 2/4 B/L. Temperature gradient WNL. CFT < 3 sec x 10 digits. Pedal non-pitting edema noted compared to contra-lateral limb. Calor noted to left foot and leg, extending proximally to level distal to calf. . Derm: Open full thickness ulceration noted to dorso-lateral aspect of left forefoot. Wound base is 100% granular and fibrotic margins. Ulcer bed measures 9 x 3 cm, negative probe to bone, absent tunneling, and marginal undermining. Mal-odor noted, absent purulence. MUSK: Partial hallux amputation site noted. Absence of 3rrd, 4th, and 5th digits noted. Neuro: Protective sensation grossly intact - Neurological Exam Neurological Exam: Alert, Awake, Oriented x3 - Psychiatric Exam Psychiatric exam: Normal Affect, Normal Mood Assessment and Plan - Assessment and Plan (Free Text) Assessment: 51 year old male with left foot 1) full thickness ulceration and cellulitis Plan: Pt seen and evaluated. Chart, labs, and vitals reviewed. Discussed with attending, Dr. Jordan, who endorsed the following plan. Cleansed site with sterile saline. Dressed with Silvadene cream, 4x4 gauze, and DSD. Pt to be partial weightbearing to left heel with use of post-op shoe. Radiographs reviewed- (-) OM and soft tissue emphysema. Left foot wound cultures- Acinetobacter Baumannii, Staph Aureus, Corynebacterium species Continue IV abx per ID. Pt is stable for discharge from podiatry standpoint. Follow up with Dr. Jordan in [facility] podiatry clinic. Podiatry to follow patient while inhouse.
--- NOTE | 2017-08-22 15:38 | CP.PCM.PN ---
Subjective - Date & Time of Evaluation Date of Evaluation: 08/22/17 Time of Evaluation: 15:26 - Subjective Subjective: PATIENT SEEN AND EXAMINED AAO LYING DOWN COMPLAINING OF DISCONFORT PALN WAS DISCUSS WITH PMD AND CLEARED PATIENT FOR D/C TO BE D/C TO [facility] PER Juan BROOKS AND DR Rabia POLANCO CLEARED PATIENT FOR D/C PICC NOTED INTHE LEFT ARM AND NEEDED FOR CAUL FAT PULLER IV ABX PER DR Juan ARORA AND Rabia POLANCO CONTINUE HOME MEDICATIONS PER DR Juan ARORA CONTINUE IV ABX OER DR Rabia POLANCO FOLLOW IV PRAMAXIN 500 MG EVERY 12 HOURS FOR 2 WEEKS (STARTED ON 08/21/2017) VIA PICC LINE IV VANCOMYCIN 1 G EVERY 12 HOURS FOR 2 WEEKS (STARTED 08/21/2017) THEN FOLLOW UP BY MOUTH LEVAQUIN 750 MG DAILY FOR 2 WEEKS FOLLOW UP WITH VANCO THROUGH LEVEL PRIOR TO THE FOURTH DOSE AND KEEP LEVEL BETWEEN 10 AND 20 FOLLOW UP RENAL FUNCTION WEEKLY POST DC FOLLOW UP LFT S WEEKLY WITH CBC PICC LINE CARE PER FACILITY PROTOCOL LOCAL WOUND CARE PER CARRIAGE OPERATOR AND FACILITY PROTOCOL ---- PER DR RODRIGUEZ THE CARRIAGE OPERATOR: CLEANSED SITE WITH STERILE SALINE. DRESSED WITH SILVADENE CREAM [id number] AND DSD PATIENT TO BE PARTIAL WEIGHTBERAING TO LEFT HEEL WITH USE OF POST-OP SHOE FOLLOW UP WITH DR RODRIGUEZ IN [facility] ----PLAN DISCUSS WITH PATIENT AND AGREE WITH D/C PLAN Objective - Vital Signs/Intake and Output Vital Signs (last 24 hours): Temp Pulse Resp BP Pulse Ox 98.4 F 74 18 158/88 H 100 08/22/17 07:15 08/22/17 07:15 08/22/17 07:15 08/22/17 07:15 08/22/17 07:15 - Medications Medications: Current Medications Clonidine HCl (Catapres) 0.2 mg PO BID [facility] Last Admin: 08/22/17 09:40 Dose: 0.2 mg Enoxaparin Sodium (Lovenox) 40 mg SC DAILY [facility] Last Admin: 08/22/17 09:40 Dose: 40 mg Ergocalciferol (Drisdol 50,000 Intl Units Cap) 1 cap PO Q7D [facility] Last Admin: 08/20/17 11:08 Dose: 1 cap Hydromorphone HCl (Dilaudid) 1 mg IVP Q4H PRN PRN Reason: pain Last Admin: 08/22/17 14:11 Dose: 1 mg Imipenem/Cilastatin Sodium 500 (mg/ Sodium Chloride) 100 mls @ 100 mls/hr IVPB Q8H [facility] Last Admin: 08/22/17 08:27 Dose: 100 mls/hr Vancomycin/Sodium Chloride (Vancocin) 1 gm in 200 mls @ 133 mls/hr IVPB Q12H [facility] Stop: 08/27/17 10:01 Last Admin: 08/22/17 10:08 Dose: 133 mls/hr Insulin Aspart (Novolog) 0 unit SC ACHS [facility] PRN Reason: Protocol Last Admin: 08/22/17 12:48 Dose: Not Given Insulin Glargine (Lantus) 35 unit SC HS [facility] Last Admin: 08/21/17 21:57 Dose: 35 units Ketorolac Tromethamine (Toradol) 30 mg IVP Q6 PRN PRN Reason: Pain, moderate (4-7) Last Admin: 08/21/17 11:44 Dose: 30 mg Lisinopril (Zestril) 5 mg PO DAILY [facility] Last Admin: 08/22/17 09:40 Dose: 5 mg Pantoprazole Sodium (Protonix Ec Tab) 40 mg PO DAILY [facility] Last Admin: 08/22/17 09:40 Dose: 40 mg Phenytoin Sodium (Dilantin) 100 mg PO BID [facility] Last Admin: 08/22/17 09:40 Dose: 100 mg Silver Sulfadiazine (Silvadene 1% 20 Gm) 1 ea TOP DAILY [facility] Last Admin: 08/22/17 10:10 Dose: 1 gm - Labs Labs: 08/22/17 06:21 08/22/17 06:21
[2017-08-22 16:32] VITALS: BP 157/79; PULSE 78; RESP 20; TEMP 98.2; O2SAT 98
[2017-08-22] MEDS ORDERED: Influenza Vaccine 60 mcg/0.5 mL SYR (4YR UP) IM ONE (16:55)
--- NOTE | 2017-08-22 17:58 | CP.PCM.PN ---
Subjective - Date & Time of Evaluation Date of Evaluation: 08/22/17 Time of Evaluation: 07:40 - Subjective Subjective: clinically same Objective - Vital Signs/Intake and Output Vital Signs (last 24 hours): Temp Pulse Resp BP Pulse Ox 98.2 F 78 20 157/79 H 98 08/22/17 16:00 08/22/17 16:00 08/22/17 16:00 08/22/17 16:00 08/22/17 16:00 - Medications Medications: Current Medications Clonidine HCl (Catapres) 0.2 mg PO BID [facility] Last Admin: 08/22/17 09:40 Dose: 0.2 mg Ergocalciferol (Drisdol 50,000 Intl Units Cap) 1 cap PO Q7D [facility] Last Admin: 08/20/17 11:08 Dose: 1 cap Hydromorphone HCl (Dilaudid) 1 mg IVP Q4H PRN PRN Reason: pain Last Admin: 08/22/17 14:11 Dose: 1 mg Imipenem/Cilastatin Sodium 500 (mg/ Sodium Chloride) 100 mls @ 100 mls/hr IVPB Q8H [facility] Last Admin: 08/22/17 08:27 Dose: 100 mls/hr Vancomycin/Sodium Chloride (Vancocin) 1 gm in 200 mls @ 133 mls/hr IVPB Q12H [facility] Stop: 08/27/17 10:01 Last Admin: 08/22/17 10:08 Dose: 133 mls/hr Insulin Aspart (Novolog) 0 unit SC ACHS [facility] PRN Reason: Protocol Last Admin: 08/22/17 12:48 Dose: Not Given Insulin Glargine (Lantus) 35 unit SC HS [facility] Last Admin: 08/21/17 21:57 Dose: 35 units Ketorolac Tromethamine (Toradol) 30 mg IVP Q6 PRN PRN Reason: Pain, moderate (4-7) Last Admin: 08/21/17 11:44 Dose: 30 mg Lisinopril (Zestril) 5 mg PO DAILY [facility] Last Admin: 08/22/17 09:40 Dose: 5 mg Pantoprazole Sodium (Protonix Ec Tab) 40 mg PO DAILY [facility] Last Admin: 08/22/17 09:40 Dose: 40 mg Phenytoin Sodium (Dilantin) 100 mg PO BID [facility] Last Admin: 08/22/17 09:40 Dose: 100 mg Silver Sulfadiazine (Silvadene 1% 20 Gm) 1 ea TOP DAILY [facility] Last Admin: 08/22/17 10:10 Dose: 1 gm - Labs Labs: 08/22/17 06:21 08/22/17 06:21 - Constitutional Appears: Well - Head Exam Head Exam: ATRAUMATIC, NORMAL INSPECTION, NORMOCEPHALIC - Eye Exam Eye Exam: EOMI, Normal appearance, PERRL Pupil Exam: NORMAL ACCOMODATION, PERRL - ENT Exam ENT Exam: Mucous Membranes Moist, Normal Exam - Neck Exam Neck Exam: Full ROM, Normal Inspection. absent: Lymphadenopathy - Respiratory Exam Respiratory Exam: Decreased Breath Sounds - Cardiovascular Exam Cardiovascular Exam: REGULAR RHYTHM, +S1, +S2 - GI/Abdominal Exam GI & Abdominal Exam: Soft, Diminished Bowel Sounds - Rectal Exam Rectal Exam: Deferred
--- NOTE | 2017-08-27 15:02 | PQF GENQUE ---
This form is a permanent part of the medical record The progress notes state the patient had an infection of the amputation stump, however the specific complication was never stated. Please clarify for coding purposes the type of amputation stump complication the patient was treated for. Clarification of your documentation is requested to better reflect the severity of illness and intensity of treatment of your patient. Indicators present [] Specify: [Diabetic foot ulcereration and cellulitis] [] Specify: [] [] Specify: [] [] Specify: [] Location in the medical record that reflects the above clinical findings: [] Treatment Provided: [] PHYSICIAN'S RESPONSE Based on your medical judgment of the clinical indicators outlined above please clarify the following: [] Practitioner response [] If unable to determine, please check the box, sign and date. Present On Admission (POA) Indicator: [] Present at the time of admission [] Not present at the time of admission [] Clinically Undetermined In responding to this query, please exercise your independent professional judgment. The fact that a question is asked does not imply that any particular answer is desired or expected. Thank you for your clarification on this documentation. If you have any questions please call:[ ] * Thank you, [ ] police inspector MIKE
== END 2017-08-22 17:55 | DRG 287 ==
LOC: C.ER 18:06 → C.9E 21:05 → C.6T 21:22 → OBSVTOIN 08-19 16:55 → C.3T 08-22 11:21
PROVIDERS: ADMIT Internal Medicine Nephrology; ATTEND Internal Medicine Nephrology
PROC: 0HBNXZZ Excision of Left Foot Skin, External Approach (ICD-10-PCS; principal; 2017-08-19)
PROC: 05H333Z Insertion of Infusion Device into Right Innominate Vein, Percutaneous Approach (ICD-10-PCS; 2017-08-21)
DX: E11.621 Type 2 diabetes mellitus with foot ulcer (principal); L03.116 Cellulitis of left lower limb; B95.61 Methicillin susceptible Staphylococcus aureus infection as the cause of diseases classified elsewhere; I10 Essential (primary) hypertension; F11.10 Opioid abuse, uncomplicated; J45.909 Unspecified asthma, uncomplicated; F17.210 Nicotine dependence, cigarettes, uncomplicated; F10.20 Alcohol dependence, uncomplicated; B96.89 Other specified bacterial agents as the cause of diseases classified elsewhere; E55.9 Vitamin D deficiency, unspecified; G40.909 Epilepsy, unspecified, not intractable, without status epilepticus; T87.9 Unspecified complications of amputation stump

== ENCOUNTER 2017-09-24 04:08 | Emergency (ER) | payer OTHER ==
[2017-09-24 04:08] VITALS: BMI 22.0
[2017-09-24 04:22] VITALS: RESP 20
--- NOTE | 2017-09-24 05:40 | C.PDOC ---
History Of Present Illness 52 y/o male brought to ED by EMS with complaints of low back pain since earlier today. Patient states he was walking and suddenly "back gave up on him". Patient states he has previously been evaluated for back pain and given Percocets, reports he ran out and tried refilling medication buy couldn't. Patient is requesting Dilaudid and states he does not like taking pills. No other complaints at this time. Time Seen by Provider: 09/24/17 04:16 Chief Complaint (Nursing): Back Pain History Per: Patient History/Exam Limitations: no limitations Onset/Duration Of Symptoms: Hrs Current Symptoms Are (Timing): Still Present Quality Of Discomfort: "Pain" Previous Symptoms: Chronic Pain Associated Symptoms: denies: Incontinence, New Weakness, New Numbness Exacerbating Factor(s): Turning, Movement Recent travel outside of the [place]: No Past Medical History Reviewed: Historical Data, Nursing Documentation, Vital Signs Vital Signs: Last Vital Signs Temp 98.3 F 09/24/17 05:48 Pulse 90 09/24/17 05:48 Resp 20 09/24/17 05:48 BP 150/74 09/24/17 05:48 Pulse Ox 97 09/24/17 05:51 - Medical History PMH: Asthma, Diabetes, HTN, Seizures Surgical History: No Surg Hx - [facility] Procedures ALCOHOL DETOXIFICATION (08/03/14) DETACHMENT AT LEFT FOOT, PARTIAL 1ST RAY, OPEN APPROACH (05/24/17) EXCISION OF LEFT FOOT SKIN, EXTERNAL APPROACH (08/19/17) INSERTION OF INFUSION DEV INTO R INNOM VEIN, PERC APPROACH (08/19/17) Family History: States: No Known Family Hx - Social History Hx Tobacco Use: Yes Hx Alcohol Use: Yes Hx Substance Use: Yes (sniffs heroin) - Immunization History Hx Tetanus Toxoid Vaccination: Yes Hx Influenza Vaccination: No Hx Pneumococcal Vaccination: No Review Of Systems Except As Marked, All Systems Reviewed And Found Negative. Constitutional: Negative for: Fever, Chills Gastrointestinal: Negative for: Nausea, Vomiting Genitourinary: Negative for: Dysuria, Hematuria Musculoskeletal: Positive for: Back Pain Skin: Negative for: Rash Physical Exam - Physical Exam Appears: Non-toxic, No Acute Distress Skin: Warm, Dry, No Rash Head: Atraumatic, Normacephalic Eye(s): bilateral: Normal Inspection, PERRL, EOMI Oral Mucosa: Moist Neck: Normal ROM, No Midline Cervical Tenderness, No Paracervical Tenderness, Supple Chest: Symmetrical, No Tenderness Cardiovascular: Rhythm Regular, No Friction Rub, No Murmur Respiratory: Normal Breath Sounds, No Rales, No Rhonchi, No Wheezing Gastrointestinal/Abdominal: Soft, No Tenderness, No Guarding, No Rebound Back: No CVA Tenderness, No Paraspinal Tenderness Extremity: Normal ROM, No Tenderness, Capillary Refill (<2 seconds), No Swelling Neurological/Psych: Oriented x3, Normal Speech, Normal Cranial Nerves, Normal Motor, Normal Sensation Gait: Steady ED Course And Treatment O2 Sat by Pulse Oximetry: 97 (RA) Pulse Ox Interpretation: Normal Medical Decision Making Medical Decision Making: Patient has become combative and argumentive with the staff and patient was discharged home. Disposition - Disposition Referrals: Rolando Becerril MD [Primary Care Provider] - Disposition: HOME/ ROUTINE Disposition Time: 05:49 Condition: GOOD Additional Instructions: Follow up with the medical doctor within 1-2 days. Return if worsened. Prescriptions: Acetaminophen [Tylenol] 325 mg PO Q6 PRN #30 tab PRN Reason: Pain, Mild (1-3) Ibuprofen [Motrin] 600 mg PO TID #21 tab Instructions: Acute Low Back Pain (ED) Forms: [facility] (Spanish) - Clinical Impression Clinical Impression: Low back pain - PA / DIRECTOR OF RADIOLOGY / Resident Statement MD/DO has reviewed & agrees with the documentation as recorded. - Scribe Statement The provider has reviewed the documentation as recorded by the Alexibe Balwinder Mcgowan All medical record entries made by the Alexibe were at my direction and personally dictated by me. I have reviewed the chart and agree that the record accurately reflects my personal performance of the history, physical exam, medical decision making, and the department course for this patient. I have also personally directed, reviewed, and agree with the discharge instructions and disposition.
[2017-09-24 05:50] VITALS: BP 150/74; PULSE 90; TEMP 98.3
[2017-09-24 05:51] VITALS: O2SAT 97
== END 2017-09-24 06:00 | disposition home or self-care (01) ==
LOC: C.ER 04:08 → SUPCPDRO 04:08 → C.ER 06:00
DX: M54.5 Low back pain (principal)
CPT/HCPCS: 82948; 96372; 99283; J1885

== ENCOUNTER 2017-11-09 23:39 | Inpatient (IN) | payer OTHER ==
[2017-11-09 23:39] VITALS: BMI 22.0
--- NOTE | 2017-11-10 00:09 | C.PDOC ---
History Of Present Illness 52 year old male presents to the ED looking for a place to stay and c/o left foot pain. Patient reports he drinks everyday as well as using multiple drugs. 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 Patient denies fever, chills, nausea, vomit, abdominal pain. Time Seen by Provider: 11/10/17 00:09 Chief Complaint (Nursing): Syncope History Per: Patient History/Exam Limitations: no limitations Onset/Duration Of Symptoms: Days Current Symptoms Are (Timing): Still Present Seizure Or Post-ictal Symptoms: None Fall Associated With With Symptoms: No Severity: None Recent travel outside of the [place]: No Additional History Per: Patient Past Medical History Reviewed: Historical Data, Nursing Documentation, Vital Signs Vital Signs: Last Vital Signs Temp 98.3 F 11/09/17 23:54 Pulse 109 H 11/09/17 23:54 Resp 12 11/09/17 23:54 BP 177/93 H 11/09/17 23:54 Pulse Ox 95 11/10/17 04:30 - Medical History PMH: Asthma, Diabetes, HTN, Peripheral Edema, Seizures Denies: Deep Vein Thrombosis, Chronic Kidney Disease Surgical History: No Surg Hx Denies: Pacemaker - [facility] Procedures ALCOHOL DETOXIFICATION (08/03/14) DETACHMENT AT LEFT 3RD TOE, COMPLETE, OPEN APPROACH (06/05/17) DETACHMENT AT LEFT 3RD TOE, HIGH, OPEN APPROACH (06/05/17) DETACHMENT AT LEFT 4TH TOE, COMPLETE, OPEN APPROACH (06/05/17) DETACHMENT AT LEFT 4TH TOE, HIGH, OPEN APPROACH (06/05/17) DETACHMENT AT LEFT 5TH TOE, COMPLETE, OPEN APPROACH (06/05/17) DETACHMENT AT LEFT 5TH TOE, HIGH, OPEN APPROACH (06/05/17) DETACHMENT AT LEFT FOOT, COMPLETE 5TH RAY, OPEN APPROACH (06/05/17) DETACHMENT AT LEFT FOOT, PARTIAL 1ST RAY, OPEN APPROACH (05/24/17) DRAINAGE OF L FOOT SUBCU/FASCIA, OPEN APPROACH (06/05/17) EXCISION OF L FOOT SUBCU/FASCIA, OPEN APPROACH (06/05/17) EXCISION OF LEFT FOOT SKIN, EXTERNAL APPROACH (08/19/17) EXCISION OF TOE NAIL, EXTERNAL APPROACH (10/01/17) FLUOROSCOPY OF SUP VENA CAVA USING L OSM CONTRAST, GUIDANCE (06/05/17) INSERTION OF INFUSION DEV INTO R INNOM VEIN, PERC APPROACH (08/19/17) INSERTION OF INFUSION DEV INTO R SUBCLAV VEIN, PERC APPROACH (10/14/17) INSERTION OF INFUSION DEV INTO SUP VENA CAVA, PERC APPROACH (06/05/17) INTRODUCE OF OTH THERAP SUBST INTO RESP TRACT, VIA OPENING (09/14/17) TRANSFUSE NONAUT RED BLOOD CELLS IN PERIPH VEIN, PERC (06/05/17) ULTRASONOGRAPHY OF LEFT UPPER EXTREMITY VEINS, GUIDANCE (06/05/17) ULTRASONOGRAPHY OF RIGHT UPPER EXTREMITY VEINS, GUIDANCE (10/14/17) Family History: States: Unknown Family Hx - Social History Hx Tobacco Use: Yes Hx Alcohol Use: Yes Hx Substance Use: Yes (sniffs heroin) - Immunization History Hx Tetanus Toxoid Vaccination: Yes Hx Influenza Vaccination: No Hx Pneumococcal Vaccination: No Review Of Systems Constitutional: Negative for: Fever, Chills Cardiovascular: Negative for: Chest Pain, Palpitations Respiratory: Negative for: Cough, Shortness of Breath Gastrointestinal: Negative for: Nausea, Vomiting, Abdominal Pain Musculoskeletal: Positive for: Foot Pain (left) Skin: Negative for: Rash Neurological: Negative for: Weakness, Numbness Physical Exam - Physical Exam Appears: Non-toxic, No Acute Distress Skin: Warm, Dry Head: Normacephalic Eye(s): bilateral: Other (slightly pinpoint, reactive) Nose: No Discharge, No Deformity Oral Mucosa: Moist Teeth: No Normal Dentition (Poor ) Neck: Trachea Midline, Supple Chest: Symmetrical Cardiovascular: Rhythm Regular, No Murmur Respiratory: No Decreased Breath Sounds, No Rales, No Rhonchi, No Wheezing Gastrointestinal/Abdominal: Soft, No Tenderness Back: Normal Inspection Extremity: No Tenderness, Pedal Edema (trace), No Calf Tenderness, Capillary Refill (< 2 seconds), No Swelling, Other (chronic open ulcer to dorsum of left foot, amputated 3th,4th,5th metacarpals) Extremity: Bilateral: Normal ROM Pulses: Left Dorsalis Pedis: Normal, Right Dorsalis Pedis: Normal Neurological/Psych: Oriented x3 Gait: Unable To Assess ED Course And Treatment - Laboratory Results Result Diagrams: 11/10/17 01:25 11/10/17 01:25 ECG: Interpreted By Me, Viewed By Me ECG Rhythm: Sinus Rhythm (120), Nonspecific Changes O2 Sat by Pulse Oximetry: 95 (On RA) Pulse Ox Interpretation: Normal - Radiology CXR: Interpreted by Me, Viewed By Me CXR Interpretation: Yes: Infiltrates, Cardiomegaly, Other (acute pulm edema) Progress Note: Plan: -Blood work. -VBG. 2:45 AM pt hypoxic. ! narcan given. Pt agitated ,. combative, sat incread to 93%. continuing to thrash in the strecher, requiring restrains. lungs: rales. cor: tachy. spoke with dr ulloa - icu- will see the pt in the ed Critical Care Time - Critical Care Note Total Time (in mins): 30 Documented critical care: time excludes all time spent performing seperately billable procedures. Disposition Discussed With Dr.: Stephen Donahue Comment: accepted the pt on his service and took over the care at 4:27 AM Counseled Patient/Family Regarding: Studies Performed, Diagnosis - Disposition Disposition: HOSPITALIZED Disposition Time: 00:09 Condition: CRITICAL Forms: [facility] ([place]) - POA Present On Arrival: Poor Glycemic Control - Clinical Impression Clinical Impression: Osteomyelitis of foot, Alcohol abuse, Hyperglycemia, Pneumonia, Pulmonary edema - Scribe Statement The provider has reviewed the documentation as recorded by the Scribe Andreas Quiroz All medical record entries made by the Scribe were at my direction and personally dictated by me. I have reviewed the chart and agree that the record accurately reflects my personal performance of the history, physical exam, medical decision making, and the department course for this patient. I have also personally directed, reviewed, and agree with the discharge instructions and disposition. Decision To Admit - Pt Status Changed To: Hospital Disposition Of: Inpatient - Admit Certification Admit to Inpatient:: After my assessment, the patient will require hospitalization for at least two midnights. This is because of the severity of symptoms shown, intensity of services needed, and/or the medical risk in this patient being treated as an outpatient. - InPatient: Physician Admission Certification: I certify that this patient requires 2 or more midnights of care for the following reason:: After my assessment, the patient will require hospitalization for at least two midnights. This is because of the severity of symptoms shown, intensity of services needed, and/or the medical risk in this patient being treated as an outpatient. - . Bed Request Type: ICU Admitting Physician: Stephen Donahue Patient Diagnosis: Osteomyelitis of foot, Alcohol abuse, Hyperglycemia, Pneumonia, Pulmonary edema
[2017-11-10 01:28] LABS: BASO # 0.1 K/uL (0.0-0.2); BASO % 1.1 % (0.0-2.0); EOS # 0.1 K/uL (0.0-0.7); EOS % 2.4 % (0.0-4.0); LYMPH # 1.1 K/uL (1.0-4.3); MEAN CELL VOLUME 89.3 fL (80.0-94.0); MEAN CORPUSCULAR HEMOGLOBIN 29.3 pg (27.0-31.0); MEAN CORPUSCULAR HGB CONC 32.8 g/dL (33.0-37.0); MEAN PLATELET VOLUME 6.9 fL (7.2-11.7); MONO # 0.5 K/uL (0.0-0.8); MONO % 8.9 % (0.0-10.0); NEUT # 4.2 K/uL (1.8-7.0); NEUT % 69.6 % (50.0-75.0); RBC 3.41 Mil/uL (4.40-5.90); RED CELL DISTRIBUTION WIDTH 15.6 % (11.5-14.5)
[2017-11-10 01:49] LABS: BLOOD UREA NITROGEN 19 mg/dL (9-20); GFR AFRICAN-AMERICAN > 60; GFR NON-AFRICAN AMERICAN > 60
[2017-11-10 02:06] LABS: VENOUS BLOOD GAS BASE EXCESS 2.7 mmol/L (0.0-2.0); VENOUS BLOOD GAS PCO2 56 mmHg (40-60); VENOUS BLOOD GAS PO2 37 mm/Hg (30-55); VENOUS BLOOD PH 7.33 (7.32-7.43)
[2017-11-10] MEDS ORDERED: Naloxone 0.4 mg/ml Inj (Adult) ONE (02:54)
[2017-11-10] MEDS ORDERED: Naloxone 0.4 mg/ml Inj (Adult) IVP ONE (03:00)
[2017-11-10 03:24] LABS: BARBITURATES, UR NEGATIVE (NEGATIVE); BENZODIAZEPINES, UR NEGATIVE (NEGATIVE); PHENCYCLIDINE, UR NEGATIVE (NEGATIVE)
[2017-11-10 03:28] LABS: OPIATES, UR POSITIVE (NEGATIVE)
[2017-11-10] MEDS ORDERED: Piperacillin/Tazobact 3.375 gm 100 ML IVPB STA (04:07)
[2017-11-10] MEDS ORDERED: Piperacill/Tazo 3.375gm in Dex 3.375 GM/50 ML BAG IVPB STA (04:29)
[2017-11-10] MEDS ORDERED: Propofol 10 mg/ml Inj (20 ML) ONE ×2 (05:17→10:18)
[2017-11-10] MEDS ORDERED: Propofol 10 mg/ml 1,000 MG/100 ML VIAL ONE (05:18)
[2017-11-10] MEDS: Propofol 10 mg/ml 1,000 MG/100 ML VIAL IV PRN ×3 (05:30→20:48)
--- NOTE | 2017-11-10 05:37 | CP.PCM.CON ---
History of Present Illness - History of Present Illness History of Present Illness: History from ER notes/Physician 52 year old male with h/o HTN,asthma,DM,toe amputation,drug abuse presents to the ED looking for a place to stay and c/o left foot pain. Patient reports he drinks everyday as well as using multiple drugs. 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 Patient denies fever, chills, nausea, vomit, abdominal pain. In Er he was found to be hypoxic ,narcan given.Patient became agitated lorazepam and geodan given.Chest xray showed pulmonary edema,IV lasix given, diuresed 900cc urine . Urine positive for opiates and coccaine At time of my evaluation patient responded only to pain,hypoxic, tachycardic, frothing from the mouth Intubated started on propofol Review of Systems - Review of Systems Systems not reviewed;Unavailable: Unstable Vital Signs, Respiratory Distress Past Patient History - Past Medical History & Family History Past Medical History?: Yes - Past Social History Smoking Status: Light Smoker < 10 Cigarettes Daily - CARDIAC Hx Hypertension: Yes Hx Pacemaker: No Hx Peripheral Edema: Yes - PULMONARY Hx Asthma: Yes - NEUROLOGICAL Hx Seizures: Yes - HEENT Hx HEENT Problems: No - RENAL Hx Chronic Kidney Disease: No - ENDOCRINE/METABOLIC Hx Diabetes Mellitus Type 2: Yes - INTEGUMENTARY Hx Dermatological Problems: No - MUSCULOSKELETAL/RHEUMATOLOGICAL Hx Musculoskeletal Disorders: Yes Hx Falls: No Hx Osteomyelitis: Yes (s/p amputations of L toes #3,4,5 ) - GASTROINTESTINAL Hx Gastrointestinal Disorders: No - PSYCHIATRIC Hx Substance Use: Yes (sniffs heroin) - SURGICAL HISTORY Hx Amputation: Yes (L foot last 3toes) - ANESTHESIA Hx Anesthesia Reactions: No Meds Allergies/Adverse Reactions: Allergies Allergy/AdvReac Type Severity Reaction Status Date / Time Fish Containing Products Allergy VOMITING Verified 11/10/17 00:00 tomato Allergy VOMITING Verified 11/10/17 00:00 FISH AdvReac Verified 11/10/17 00:00 tomatoes Allergy RASH Uncoded 11/10/17 00:00 Physical Exam - Constitutional Appears: Unkempt, Older Than Stated Age, Chronically Ill - Head Exam Head Exam: ATRAUMATIC, NORMAL INSPECTION, NORMOCEPHALIC - Eye Exam Eye Exam: PERRL Additional comments: pinpoint pupils - ENT Exam ENT Exam: Mucous Membranes Moist - Neck Exam Neck exam: Positive for: Normal Inspection - Respiratory Exam Respiratory Exam: Rales - Cardiovascular Exam Cardiovascular Exam: Tachycardia. absent: JVD - GI/Abdominal Exam GI & Abdominal Exam: Normal Bowel Sounds, Soft. absent: Guarding - Extremities Exam Extremities exam: Positive for: pedal edema, pedal pulses present - Expanded Lower Extremities Exam Left Foot/Toe exam: amputation (left 3rd,4th,5th toes amputated.dorsum of foot withulcer) Results - Vital Signs Recent Vital Signs: Last Vital Signs Temp 98.3 F 11/09/17 23:54 Pulse 109 H 11/09/17 23:54 Resp 12 11/09/17 23:54 BP 177/93 H 11/09/17 23:54 Pulse Ox 95 11/10/17 05:26 - Labs Result Diagrams: 11/10/17 01:25 11/10/17 01:25 Labs: Laboratory Results - last 24 hr 11/10/17 11/10/17 11/10/17 01:25 01:25 01:55 WBC 6.0 RBC 3.41 L Hgb 10.0 L Hct 30.5 L MCV 89.3 MCH 29.3 MCHC 32.8 L RDW 15.6 H Plt Count 347 MPV 6.9 L Neut % (Auto) 69.6 Lymph % (Auto) 18.0 L [place] % (Auto) 8.9 Eos % (Auto) 2.4 Baso % (Auto) 1.1 Neut # 4.2 Lymph # 1.1 [place] # 0.5 Eos # 0.1 Baso # 0.1 pO2 37 VBG pH 7.33 VBG pCO2 56 VBG HCO3 26.5 VBG Total CO2 31.2 H VBG O2 Sat (Calc) 74.8 H VBG Base Excess 2.7 H VBG Potassium 4.3 Glucose 335 H Lactate 2.4 H Sodium 129 L 139.0 Potassium 4.3 Chloride 99 103.0 Carbon Dioxide 25 Anion Gap 10 BUN 19 Creatinine 0.9 Est GFR ( Amer) > 60 Est GFR (Non-Af Amer) > 60 Random Glucose 315 H Calcium 8.0 L Venous Blood Potassium 4.3 Urine Opiates Screen Urine Methadone Screen Ur Barbiturates Screen Ur Phencyclidine Scrn Ur Amphetamines Screen U Benzodiazepines Scrn U Oth Cocaine Metabols U Cannabinoids Screen Alcohol, Quantitative < 10 11/10/17 03:06 WBC RBC Hgb Hct MCV MCH MCHC RDW Plt Count MPV Neut % (Auto) Lymph % (Auto) [place] % (Auto) Eos % (Auto) Baso % (Auto) Neut # Lymph # [place] # Eos # Baso # pO2 VBG pH VBG pCO2 VBG HCO3 VBG Total CO2 VBG O2 Sat (Calc) VBG Base Excess VBG Potassium Glucose Lactate Sodium Potassium Chloride Carbon Dioxide Anion Gap BUN Creatinine Est GFR ( Amer) Est GFR (Non-Af Amer) Random Glucose Calcium Venous Blood Potassium Urine Opiates Screen Positive H Urine Methadone Screen Negative Ur Barbiturates Screen Negative Ur Phencyclidine Scrn Negative Ur Amphetamines Screen Negative U Benzodiazepines Scrn Negative U Oth Cocaine Metabols Positive H U Cannabinoids Screen Negative Alcohol, Quantitative - EKG Data EKG Interpreted by: Myself Rate: Tachycardia - Imaging and Cardiology Chest x-ray Status: Image reviewed by me Assessment & Plan - Assessment and Plan (Free Text) Assessment: 1.Respiratory failure secondary to Pulmonary edema,r/o R pneumonia diuretics serial EKG/Cardiac enzymes ACEI,lovenox cultures,antibiotics 2.DM-insulin coverage 3.Drug abuse-watch for withdrawals 4.siezures on Keppra 5.Anemia 6.h/o asthma
[2017-11-10] MEDS: (Novolin R) Insulin Human Regular 100 units/ml vial SC SCH ×2 (06:00→10:28)
[2017-11-10 06:04] LABS: PROTHROMBIN TIME 10.6 SECONDS (9.7-12.2)
[2017-11-10 06:18] LABS: ABG ALLEN TEST POS; ARTERIAL BLOOD GAS HCO3 26.1 mmol/L (21-28); ARTERIAL BLOOD GAS O2 SAT 100.2 % (95-98); ARTERIAL BLOOD GAS PCO2 52 mm/Hg (35-45); ARTERIAL BLOOD GAS PH 7.34 (7.35-7.45); ARTERIAL BLOOD GAS PO2 238 mm/Hg (80-100); ARTERIAL BLOOD GAS TCO2 29.7 mmol/L (22-28)
--- NOTE | 2017-11-10 06:34 | PCM.PROC ---
Procedures Attestation:: I certify that I have explained the specified Operation(s) or Procedure(s), risks, benefits and reasonable alternatives to the Patient and/or other person responsible. The opportunity was given to ask questions and all questions answered - Intubation Time Out Performed: Yes Sedative: Etomidate, Other (Ativan 2mg iv) Laryngoscope: Mary (4) ET Tube Size: 8.0 ET Tube Uncuffed: No ET Tube Secured Locarion: Teeth (21) ET Tube Placement Confirmation: Visualized Passing Through Cords, Breath Sounds Equal Bilaterally, No Breath Sounds Over Epigastrum, Confirmation w/Capnometry Patient Tolerated Procedure: Well Additional comments: Patient was lethargic, RR in 30's/min, rattling all the lung herman, spo2 76% on NRB. CXR suggestive of pulm edema vs areas of alveolar infiltrate/ consolidation. Done on request of Dr. Ramírez expediter service order overnight.
[2017-11-10 07:03] LABS: ALBUMIN 3.3 g/dL (3.5-5.0); ALT/SGPT 53 U/L (21-72); AST/SGOT 101 U/L (17-59); BLOOD UREA NITROGEN 20 mg/dL (9-20); CALCIUM 8.2 mg/dl (8.6-10.4); GFR AFRICAN-AMERICAN > 60; GFR NON-AFRICAN AMERICAN > 60
[2017-11-10 07:14] LABS: MAGNESIUM 1.7 mg/dL (1.6-2.3)
[2017-11-10 07:14] LABS: B-TYPE NATRIURETIC PEPTIDE 1570 pg/mL (0-900)
[2017-11-10 07:26] LABS: TROPONIN I 0.085 ng/mL (0.00-0.120)
[2017-11-10 08:20] LABS: FOLATE 12.4 ng/mL
[2017-11-10 08:28] LABS: URINE AMORPHOUS SEDIMENT RARE /ul (<OCC); URINE BILIRUBIN NEGATIVE (NEGATIVE); URINE BLOOD 1+ (NEGATIVE); URINE CLARITY Clear (Clear); URINE COLOR Straw (YELLOW); URINE GLUCOSE (UA) 3+ mg/dL (Normal); URINE LEUKOCYTE ESTERASE NEG Leu/uL (Negative); URINE NITRATE NEGATIVE (NEGATIVE); URINE PROTEIN 1+ mg/dL (NEGATIVE); URINE UROBILINOGEN NORMAL mg/dL (0.2-1.0)
[2017-11-10 08:34] LABS: MAGNESIUM 1.8 mg/dL (1.6-2.3)
[2017-11-10] MEDS: Piperacill/Tazo 3.375gm in Dex 3.375 GM/50 ML BAG IVPB SCH ×3 (08:51→19:32)
--- NOTE | 2017-11-10 08:56 | RAD ---
PROCEDURE: CHEST RADIOGRAPH, 1 VIEW HISTORY: sob COMPARISON: Comparison is made to 08/21/2017 FINDINGS: LUNGS: Diffuse heterogeneous opacities in the lungs more prominent at the perihilar region. Findings suspicious for pulmonary edema. The differential consideration includes ARDS. PLEURA: No pneumothorax or pleural fluid seen. CARDIOVASCULAR: Normal. OSSEOUS STRUCTURES: No significant abnormalities. VISUALIZED UPPER ABDOMEN: Normal. OTHER FINDINGS: None. IMPRESSION: Acute pulmonary edema versus ARDS.
--- NOTE | 2017-11-10 09:05 | RAD ---
HISTORY: post intubation bed 6 COMPARISON: Comparison is made with previous same-day exam FINDINGS: LUNGS: Interval [id number] improvement in the perihilar opacities since the previous study. The patient is status post intubation. The ET tube is seen at appropriate position. PLEURA: No significant pleural effusion identified, no pneumothorax apparent. CARDIOVASCULAR: Normal. OSSEOUS STRUCTURES: No significant abnormalities. VISUALIZED UPPER ABDOMEN: Normal. OTHER FINDINGS: None. IMPRESSION: Status post intubation. The ET tube is seen at appropriate position. Interval improvement in the lungs since the previous study.
[2017-11-10 09:13] LABS: DILANTIN (PHENYTOIN) < 3.0 ug/mL (10-20); IRON 19 ug/dL (49-181)
[2017-11-10 09:18] LABS: TOTAL IRON BINDING CAPACITY 223 ug/dL (250-450)
[2017-11-10 09:19] LABS: % IRON SATURATION 8 (20-55)
[2017-11-10] MEDS ORDERED: Propofol 10 mg/ml Inj (20 ML) IV ONE (10:10)
--- NOTE | 2017-11-10 10:30 | CP.PCM.PN ---
Subjective - Date & Time of Evaluation Date of Evaluation: 11/10/17 Time of Evaluation: 10:27 - Subjective Subjective: CALLED TO BEDSIDE BY RUBEN AYALA. +ACTIVE VOMITING BILIOUS MATERIAL. PER ORDERS, NG TUBE WAS ORDERED @ 0528 BY MEDICINE TEAM BUT NONE APPEARS PRESENT. VSS. ON VENT +ACTIVE GAG REFLEX. PER RN JAMIE, DR AMBRIZ UNAVAILABLE FOR IMMEDIATE ER EVAL. PROCEDURE: 16 FR NG TUBE PLACED R NARE WO DIFF. +BILIOUS OUTPUT. VSS PT TOLERATED WELL. REPEAT CXR +NGT IN PLACE, ETT ABOVE FAY Objective - Vital Signs/Intake and Output Vital Signs (last 24 hours): Temp Pulse Resp BP Pulse Ox 98.2 F 102 H 20 153/94 H 100 11/10/17 06:50 11/10/17 09:45 11/10/17 09:45 11/10/17 09:45 11/10/17 09:45 Intake and Output: 11/10/17 11/10/17 06:59 18:59 Intake Total 100 Output Total 2500 Balance -2400 - Medications Medications: Current Medications Enoxaparin Sodium (Lovenox) 60 mg SC Q12 RANDAL Furosemide (Lasix) 40 mg IVP Q12 [facility] Propofol (Diprivan) 1,000 mg in 100 mls @ 1.905 mls/hr IV .Q24H PRN; Protocol; 5 MCG/KG/MIN PRN Reason: Agitation Last Admin: 11/10/17 08:09 Dose: 10 mcg/kg/min, 3.81 mls/hr Piperacillin Sod/Tazobactam Sod (Zosyn 3.375 Gm Iv Premix) 3.375 gm in 50 mls @ 100 mls/hr IVPB Q6H [facility] Last Admin: 11/10/17 08:51 Dose: Not Given Insulin Human Regular (Novolin R) 0 unit SC Q4H [facility] PRN Reason: Protocol Levetiracetam (Keppra) 500 mg PO BID [facility] Lisinopril (Zestril) 5 mg NG DAILY [facility] Pantoprazole Sodium (Protonix Inj) 40 mg IVP DAILY [facility] Phenytoin Sodium (Dilantin) 100 mg PO BID [facility]AL - Labs Labs: 11/10/17 01:25 11/10/17 06:26 PT 10.6 SECONDS (9.7-12.2) 11/10/17 05:48 INR 1.0 11/10/17 05:48 APTT 32 SECONDS (21-34) 11/10/17 05:48
[2017-11-10] MEDS: Enoxaparin 60 mg Syringe SC SCH ×2 (11:02→21:40)
[2017-11-10] MEDS ORDERED: (Novolin R) Insulin Human Regular 100 units/ml vial SC SCH (11:15)
[2017-11-10 12:53] LABS: BLOOD UREA NITROGEN 14 mg/dL (9-20); GFR AFRICAN-AMERICAN > 60; GFR NON-AFRICAN AMERICAN > 60
--- NOTE | 2017-11-10 13:19 | CP.PCM.CON ---
Past Patient History - Past Medical History & Family History Past Medical History?: Yes - Past Social History Smoking Status: Light Smoker < 10 Cigarettes Daily - CARDIAC Hx Hypertension: Yes Hx Pacemaker: No Hx Peripheral Edema: Yes - PULMONARY Hx Asthma: Yes - NEUROLOGICAL Hx Seizures: Yes - HEENT Hx HEENT Problems: No - RENAL Hx Chronic Kidney Disease: No - ENDOCRINE/METABOLIC Hx Diabetes Mellitus Type 2: Yes - INTEGUMENTARY Hx Dermatological Problems: No - MUSCULOSKELETAL/RHEUMATOLOGICAL Hx Musculoskeletal Disorders: Yes Hx Falls: No Hx Osteomyelitis: Yes (s/p amputations of L toes #3,4,5 ) - GASTROINTESTINAL Hx Gastrointestinal Disorders: No - PSYCHIATRIC Hx Substance Use: Yes (sniffs heroin) - SURGICAL HISTORY Hx Amputation: Yes (L foot last 3toes) - ANESTHESIA Hx Anesthesia Reactions: No Meds Allergies/Adverse Reactions: Allergies Allergy/AdvReac Type Severity Reaction Status Date / Time Fish Containing Products Allergy VOMITING Verified 11/10/17 00:00 tomato Allergy VOMITING Verified 11/10/17 00:00 FISH AdvReac Verified 11/10/17 00:00 tomatoes Allergy RASH Uncoded 11/10/17 00:00 - Medications Medications: Current Medications Enoxaparin Sodium (Lovenox) 60 mg SC Q12 [facility] Last Admin: 11/10/17 11:02 Dose: 60 mg Furosemide (Lasix) 40 mg IVP Q12 [facility] Last Admin: 11/10/17 10:45 Dose: 40 mg Propofol (Diprivan) 1,000 mg in 100 mls @ 1.905 mls/hr IV .Q24H PRN; Protocol; 5 MCG/KG/MIN PRN Reason: Agitation Last Titration: 11/10/17 12:30 Dose: Infused Piperacillin Sod/Tazobactam Sod (Zosyn 3.375 Gm Iv Premix) 3.375 gm in 50 mls @ 100 mls/hr IVPB Q6H [facility] Last Admin: 11/10/17 12:00 Dose: 100 mls/hr Insulin Aspart (Novolog) 0 unit SC QID [facility] PRN Reason: Protocol Insulin Human Regular (Novolin R) 0 unit SC Q4H [facility] PRN Reason: Protocol Levetiracetam (Keppra) 500 mg PO BID [facility] Last Admin: 11/10/17 10:00 Dose: Not Given Lisinopril (Zestril) 5 mg NG DAILY [facility] Last Admin: 11/10/17 10:00 Dose: Not Given Pantoprazole Sodium (Protonix Inj) 40 mg IVP DAILY [facility] Last Admin: 11/10/17 10:31 Dose: 40 mg Phenytoin Sodium (Dilantin) 100 mg PO BID [facility] Last Admin: 11/10/17 10:00 Dose: Not Given Results - Vital Signs Recent Vital Signs: Last Vital Signs Temp 98.2 F 11/10/17 06:50 Pulse 110 H 11/10/17 12:37 Resp 24 11/10/17 12:37 BP 115/77 11/10/17 12:37 Pulse Ox 100 11/10/17 12:37 - Labs Result Diagrams: 11/10/17 01:25 11/10/17 11:14 Labs: Laboratory Results - last 24 hr 11/10/17 11/10/17 11/10/17 01:25 01:25 01:55 WBC 6.0 RBC 3.41 L Hgb 10.0 L Hct 30.5 L MCV 89.3 MCH 29.3 MCHC 32.8 L RDW 15.6 H Plt Count 347 MPV 6.9 L Neut % (Auto) 69.6 Lymph % (Auto) 18.0 L [place] % (Auto) 8.9 Eos % (Auto) 2.4 Baso % (Auto) 1.1 Neut # 4.2 Lymph # 1.1 [place] # 0.5 Eos # 0.1 Baso # 0.1 PT INR APTT Puncture Site pCO2 pO2 37 HCO3 ABG pH ABG Total CO2 ABG O2 Saturation ABG Base Excess Rafael Test ABG Potassium VBG pH 7.33 VBG pCO2 56 VBG HCO3 26.5 VBG Total CO2 31.2 H VBG O2 Sat (Calc) 74.8 H VBG Base Excess 2.7 H VBG Potassium 4.3 A-a O2 Difference Respiratory Index Glucose 335 H Lactate 2.4 H Vent Mode Mechanical Rate FiO2 Tidal Volume PEEP Sodium 129 L 139.0 Potassium 4.3 Chloride 99 103.0 Carbon Dioxide 25 Anion Gap 10 BUN 19 Creatinine 0.9 Est GFR ( Amer) > 60 Est GFR (Non-Af Amer) > 60 POC Glucose (mg/dL) Random Glucose 315 H Calcium 8.0 L Phosphorus Magnesium Iron TIBC % Saturation Total Bilirubin AST ALT Alkaline Phosphatase Troponin I NT-Pro-B Natriuret Pep Total Protein Albumin Globulin Albumin/Globulin Ratio Vitamin B12 Folate Arterial Blood Potassium Venous Blood Potassium 4.3 Urine Color Urine Clarity Urine pH Ur Specific [place] Urine Protein Urine Glucose (UA) Urine Ketones Urine Blood Urine Nitrate Urine Bilirubin Urine Urobilinogen Ur Leukocyte Esterase Urine WBC (Auto) Urine RBC (Auto) Amorphous Sediment Urine Opiates Screen Urine Methadone Screen Ur Barbiturates Screen Phenytoin Ur Phencyclidine Scrn Ur Amphetamines Screen U Benzodiazepines Scrn U Oth Cocaine Metabols U Cannabinoids Screen Alcohol, Quantitative < 10 11/10/17 11/10/17 11/10/17 03:06 05:48 06:10 WBC RBC Hgb Hct MCV MCH MCHC RDW Plt Count MPV Neut % (Auto) Lymph % (Auto) [place] % (Auto) Eos % (Auto) Baso % (Auto) Neut # Lymph # [place] # Eos # Baso # PT 10.6 INR 1.0 APTT 32 Puncture Site Rradial pCO2 52 H pO2 238 H HCO3 26.1 ABG pH 7.34 L ABG Total CO2 29.7 H ABG O2 Saturation 100.2 H ABG Base Excess 1.4 Rafael Test Pos ABG Potassium 3.5 L VBG pH VBG pCO2 VBG HCO3 VBG Total CO2 VBG O2 Sat (Calc) VBG Base Excess VBG Potassium A-a O2 Difference 410.0 Respiratory Index 1.7 Glucose 252 H Lactate 0.6 L Vent Mode Prvc Mechanical Rate 12 FiO2 100.0 Tidal Volume 500 PEEP 5 Sodium 139.0 Potassium Chloride 108.0 H Carbon Dioxide Anion Gap BUN Creatinine Est GFR ( Amer) Est GFR (Non-Af Amer) POC Glucose (mg/dL) Random Glucose Calcium Phosphorus Magnesium Iron TIBC % Saturation Total Bilirubin AST ALT Alkaline Phosphatase Troponin I NT-Pro-B Natriuret Pep Total Protein Albumin Globulin Albumin/Globulin Ratio Vitamin B12 Folate Arterial Blood Potassium 3.5 L Venous Blood Potassium Urine Color Urine Clarity Urine pH Ur Specific [place] Urine Protein Urine Glucose (UA) Urine Ketones Urine Blood Urine Nitrate Urine Bilirubin Urine Urobilinogen Ur Leukocyte Esterase Urine WBC (Auto) Urine RBC (Auto) Amorphous Sediment Urine Opiates Screen Positive H Urine Methadone Screen Negative Ur Barbiturates Screen Negative Phenytoin Ur Phencyclidine Scrn Negative Ur Amphetamines Screen Negative U Benzodiazepines Scrn Negative U Oth Cocaine Metabols Positive H U Cannabinoids Screen Negative Alcohol, Quantitative 12/31/17 12/31/17 12/31/17 06:26 06:57 06:57 WBC RBC Hgb Hct MCV MCH MCHC RDW Plt Count MPV Neut % (Auto) Lymph % (Auto) [place] % (Auto) Eos % (Auto) Baso % (Auto) Neut # Lymph # [place] # Eos # Baso # PT INR APTT Puncture Site pCO2 pO2 HCO3 ABG pH ABG Total CO2 ABG O2 Saturation ABG Base Excess Rafael Test ABG Potassium VBG pH VBG pCO2 VBG HCO3 VBG Total CO2 VBG O2 Sat (Calc) VBG Base Excess VBG Potassium A-a O2 Difference Respiratory Index Glucose Lactate Vent Mode Mechanical Rate FiO2 Tidal Volume PEEP Sodium 131 L Potassium 4.6 Chloride 99 Carbon Dioxide 22 Anion Gap 14 BUN 20 Creatinine 0.9 Est GFR ( Amer) > 60 Est GFR (Non-Af Amer) > 60 POC Glucose (mg/dL) Random Glucose 316 H Calcium 8.2 L Phosphorus 4.0 Magnesium 1.8 1.7 Iron 19 L TIBC 223 L % Saturation 8 L Total Bilirubin 0.5 AST 101 H D ALT 53 Alkaline Phosphatase 267 H D Troponin I 0.0680 0.0850 NT-Pro-B Natriuret Pep 1570 H Total Protein 6.5 Albumin 3.3 L Globulin 3.2 Albumin/Globulin Ratio 1.0 Vitamin B12 498 Folate 12.4 Arterial Blood Potassium Venous Blood Potassium Urine Color Urine Clarity Urine pH Ur Specific [place] Urine Protein Urine Glucose (UA) Urine Ketones Urine Blood Urine Nitrate Urine Bilirubin Urine Urobilinogen Ur Leukocyte Esterase Urine WBC (Auto) Urine RBC (Auto) Amorphous Sediment Urine Opiates Screen Urine Methadone Screen Ur Barbiturates Screen Phenytoin < 3.0 L Ur Phencyclidine Scrn Ur Amphetamines Screen U Benzodiazepines Scrn U Oth Cocaine Metabols U Cannabinoids Screen Alcohol, Quantitative 11/10/17 11/10/17 11/10/17 08:08 09:37 11:14 WBC RBC Hgb Hct MCV MCH MCHC RDW Plt Count MPV Neut % (Auto) Lymph % (Auto) [place] % (Auto) Eos % (Auto) Baso % (Auto) Neut # Lymph # [place] # Eos # Baso # PT INR APTT Puncture Site pCO2 pO2 HCO3 ABG pH ABG Total CO2 ABG O2 Saturation ABG Base Excess Rafael Test ABG Potassium VBG pH VBG pCO2 VBG HCO3 VBG Total CO2 VBG O2 Sat (Calc) VBG Base Excess VBG Potassium A-a O2 Difference Respiratory Index Glucose Lactate Vent Mode Mechanical Rate FiO2 Tidal Volume PEEP Sodium 133 Potassium 3.6 Chloride 97 L Carbon Dioxide 31 H Anion Gap 9 L BUN 14 Creatinine 0.8 Est GFR ( Amer) > 60 Est GFR (Non-Af Amer) > 60 POC Glucose (mg/dL) 175 H Random Glucose 180 H Calcium 8.0 L Phosphorus Magnesium Iron TIBC % Saturation Total Bilirubin AST ALT Alkaline Phosphatase Troponin I 0.0870 NT-Pro-B Natriuret Pep Total Protein Albumin Globulin Albumin/Globulin Ratio Vitamin B12 Folate Arterial Blood Potassium Venous Blood Potassium Urine Color Straw Urine Clarity Clear Urine pH 6.0 Ur Specific [place] 1.002 L Urine Protein 1+ H Urine Glucose (UA) 3+ H Urine Ketones Negative Urine Blood 1+ H Urine Nitrate Negative Urine Bilirubin Negative Urine Urobilinogen Normal Ur Leukocyte Esterase Neg Urine WBC (Auto) 1 Urine RBC (Auto) 1 Amorphous Sediment Rare H Urine Opiates Screen Urine Methadone Screen Ur Barbiturates Screen Phenytoin Ur Phencyclidine Scrn Ur Amphetamines Screen U Benzodiazepines Scrn U Oth Cocaine Metabols U Cannabinoids Screen Alcohol, Quantitative
--- NOTE | 2017-11-10 13:37 | RAD ---
PROCEDURE: CHEST RADIOGRAPH, 1 VIEW HISTORY: NG TUBE PLACEMENT COMPARISON: Comparison is made with the previous same-day exam FINDINGS: LUNGS: No significant interval change in the lungs noted since the previous study. The ET tube is seen at appropriate position PLEURA: Blunting of the right costophrenic angle is noted suspicious for small pleural effusion CARDIOVASCULAR: Normal. OSSEOUS STRUCTURES: No significant abnormalities. VISUALIZED UPPER ABDOMEN: The NG tube seen extending to the abdomen indicated appropriate position. OTHER FINDINGS: None. IMPRESSION: Appropriate position of the NG tube. Otherwise no interval change.
[2017-11-10] MEDS ORDERED: (Novolog) Insulin Aspart, Recombinant 100 u/ml 10 ml vial SC SCH (14:00)
--- NOTE | 2017-11-10 18:35 | CP.PCM.CON ---
History of Present Illness - History of Present Illness History of Present Illness: Patient seen and evaluated Intubated Admitted with CHF and respiratory failure Continue current meds. Will follow Past Patient History - Past Medical History & Family History Past Medical History?: Yes - Past Social History Smoking Status: Light Smoker < 10 Cigarettes Daily - CARDIAC Hx Hypertension: Yes Hx Pacemaker: No Hx Peripheral Edema: Yes - PULMONARY Hx Asthma: Yes - NEUROLOGICAL Hx Seizures: Yes - HEENT Hx HEENT Problems: No - RENAL Hx Chronic Kidney Disease: No - ENDOCRINE/METABOLIC Hx Diabetes Mellitus Type 2: Yes - INTEGUMENTARY Hx Dermatological Problems: No - MUSCULOSKELETAL/RHEUMATOLOGICAL Hx Musculoskeletal Disorders: Yes Hx Falls: No Hx Osteomyelitis: Yes (s/p amputations of L toes #3,4,5 ) - GASTROINTESTINAL Hx Gastrointestinal Disorders: No - PSYCHIATRIC Hx Substance Use: Yes (sniffs heroin) - SURGICAL HISTORY Hx Amputation: Yes (L foot last 3toes) - ANESTHESIA Hx Anesthesia Reactions: No Meds Allergies/Adverse Reactions: Allergies Allergy/AdvReac Type Severity Reaction Status Date / Time Fish Containing Products Allergy VOMITING Verified 11/10/17 00:00 tomato Allergy VOMITING Verified 11/10/17 00:00 FISH AdvReac Verified 11/10/17 00:00 tomatoes Allergy RASH Uncoded 11/10/17 00:00 - Medications Medications: Current Medications Enoxaparin Sodium (Lovenox) 60 mg SC Q12 [facility] Last Admin: 11/10/17 11:02 Dose: 60 mg Furosemide (Lasix) 40 mg IVP Q12 [facility] Last Admin: 11/10/17 10:45 Dose: 40 mg Propofol (Diprivan) 1,000 mg in 100 mls @ 1.905 mls/hr IV .Q24H PRN; Protocol; 5 MCG/KG/MIN PRN Reason: Agitation Last Titration: 11/10/17 12:30 Dose: Infused Piperacillin Sod/Tazobactam Sod (Zosyn 3.375 Gm Iv Premix) 3.375 gm in 50 mls @ 100 mls/hr IVPB Q6H [facility] Last Admin: 11/10/17 12:00 Dose: 100 mls/hr Levetiracetam 500 mg/ Sodium (Chloride) 105 mls @ 420 mls/hr IVPB Q12H [facility] Insulin Aspart (Novolog) 0 unit SC Q6H [facility] PRN Reason: Protocol Lisinopril (Zestril) 5 mg NG DAILY [facility] Last Admin: 11/10/17 10:00 Dose: Not Given Pantoprazole Sodium (Protonix Inj) 40 mg IVP DAILY [facility] Last Admin: 11/10/17 10:31 Dose: 40 mg Phenytoin (Dilantin) 100 mg IVP BID [facility] Results - Vital Signs Recent Vital Signs: Last Vital Signs Temp 101.1 F H 11/10/17 13:15 Pulse 109 H 11/10/17 14:55 Resp 22 11/10/17 14:55 BP 168/93 H 11/10/17 14:55 Pulse Ox 100 11/10/17 14:55 - Labs Result Diagrams: 11/10/17 01:25 11/10/17 11:14 Labs: Laboratory Results - last 24 hr 11/10/17 11/10/17 11/10/17 01:25 01:25 01:55 WBC 6.0 RBC 3.41 L Hgb 10.0 L Hct 30.5 L MCV 89.3 MCH 29.3 MCHC 32.8 L RDW 15.6 H Plt Count 347 MPV 6.9 L Neut % (Auto) 69.6 Lymph % (Auto) 18.0 L [place] % (Auto) 8.9 Eos % (Auto) 2.4 Baso % (Auto) 1.1 Neut # 4.2 Lymph # 1.1 [place] # 0.5 Eos # 0.1 Baso # 0.1 PT INR APTT Puncture Site pCO2 pO2 37 HCO3 ABG pH ABG Total CO2 ABG O2 Saturation ABG Base Excess Rafael Test ABG Potassium VBG pH 7.33 VBG pCO2 56 VBG HCO3 26.5 VBG Total CO2 31.2 H VBG O2 Sat (Calc) 74.8 H VBG Base Excess 2.7 H VBG Potassium 4.3 A-a O2 Difference Respiratory Index Glucose 335 H Lactate 2.4 H Vent Mode Mechanical Rate FiO2 Tidal Volume PEEP Sodium 129 L 139.0 Potassium 4.3 Chloride 99 103.0 Carbon Dioxide 25 Anion Gap 10 BUN 19 Creatinine 0.9 Est GFR ( Amer) > 60 Est GFR (Non-Af Amer) > 60 POC Glucose (mg/dL) Random Glucose 315 H Calcium 8.0 L Phosphorus Magnesium Iron TIBC % Saturation Total Bilirubin AST ALT Alkaline Phosphatase Troponin I NT-Pro-B Natriuret Pep Total Protein Albumin Globulin Albumin/Globulin Ratio Vitamin B12 Folate Arterial Blood Potassium Venous Blood Potassium 4.3 Urine Color Urine Clarity Urine pH Ur Specific [place] Urine Protein Urine Glucose (UA) Urine Ketones Urine Blood Urine Nitrate Urine Bilirubin Urine Urobilinogen Ur Leukocyte Esterase Urine WBC (Auto) Urine RBC (Auto) Amorphous Sediment Urine Opiates Screen Urine Methadone Screen Ur Barbiturates Screen Phenytoin Ur Phencyclidine Scrn Ur Amphetamines Screen U Benzodiazepines Scrn U Oth Cocaine Metabols U Cannabinoids Screen Alcohol, Quantitative < 10 11/10/17 11/10/17 11/10/17 03:06 05:48 06:10 WBC RBC Hgb Hct MCV MCH MCHC RDW Plt Count MPV Neut % (Auto) Lymph % (Auto) [place] % (Auto) Eos % (Auto) Baso % (Auto) Neut # Lymph # [place] # Eos # Baso # PT 10.6 INR 1.0 APTT 32 Puncture Site Rradial pCO2 52 H pO2 238 H HCO3 26.1 ABG pH 7.34 L ABG Total CO2 29.7 H ABG O2 Saturation 100.2 H ABG Base Excess 1.4 Rafael Test Pos ABG Potassium 3.5 L VBG pH VBG pCO2 VBG HCO3 VBG Total CO2 VBG O2 Sat (Calc) VBG Base Excess VBG Potassium A-a O2 Difference 410.0 Respiratory Index 1.7 Glucose 252 H Lactate 0.6 L Vent Mode Prvc Mechanical Rate 12 FiO2 100.0 Tidal Volume 500 PEEP 5 Sodium 139.0 Potassium Chloride 108.0 H Carbon Dioxide Anion Gap BUN Creatinine Est GFR ( Amer) Est GFR (Non-Af Amer) POC Glucose (mg/dL) Random Glucose Calcium Phosphorus Magnesium Iron TIBC % Saturation Total Bilirubin AST ALT Alkaline Phosphatase Troponin I NT-Pro-B Natriuret Pep Total Protein Albumin Globulin Albumin/Globulin Ratio Vitamin B12 Folate Arterial Blood Potassium 3.5 L Venous Blood Potassium Urine Color Urine Clarity Urine pH Ur Specific [place] Urine Protein Urine Glucose (UA) Urine Ketones Urine Blood Urine Nitrate Urine Bilirubin Urine Urobilinogen Ur Leukocyte Esterase Urine WBC (Auto) Urine RBC (Auto) Amorphous Sediment Urine Opiates Screen Positive H Urine Methadone Screen Negative Ur Barbiturates Screen Negative Phenytoin Ur Phencyclidine Scrn Negative Ur Amphetamines Screen Negative U Benzodiazepines Scrn Negative U Oth Cocaine Metabols Positive H U Cannabinoids Screen Negative Alcohol, Quantitative 11/10/17 11/10/17 11/10/17 06:26 06:57 06:57 WBC RBC Hgb Hct MCV MCH MCHC RDW Plt Count MPV Neut % (Auto) Lymph % (Auto) [place] % (Auto) Eos % (Auto) Baso % (Auto) Neut # Lymph # [place] # Eos # Baso # PT INR APTT Puncture Site pCO2 pO2 HCO3 ABG pH ABG Total CO2 ABG O2 Saturation ABG Base Excess Rafael Test ABG Potassium VBG pH VBG pCO2 VBG HCO3 VBG Total CO2 VBG O2 Sat (Calc) VBG Base Excess VBG Potassium A-a O2 Difference Respiratory Index Glucose Lactate Vent Mode Mechanical Rate FiO2 Tidal Volume PEEP Sodium 131 L Potassium 4.6 Chloride 99 Carbon Dioxide 22 Anion Gap 14 BUN 20 Creatinine 0.9 Est GFR ( Amer) > 60 Est GFR (Non-Af Amer) > 60 POC Glucose (mg/dL) Random Glucose 316 H Calcium 8.2 L Phosphorus 4.0 Magnesium 1.8 1.7 Iron 19 L TIBC 223 L % Saturation 8 L Total Bilirubin 0.5 AST 101 H D ALT 53 Alkaline Phosphatase 267 H D Troponin I 0.0680 0.0850 NT-Pro-B Natriuret Pep 1570 H Total Protein 6.5 Albumin 3.3 L Globulin 3.2 Albumin/Globulin Ratio 1.0 Vitamin B12 498 Folate 12.4 Arterial Blood Potassium Venous Blood Potassium Urine Color Urine Clarity Urine pH Ur Specific [place] Urine Protein Urine Glucose (UA) Urine Ketones Urine Blood Urine Nitrate Urine Bilirubin Urine Urobilinogen Ur Leukocyte Esterase Urine WBC (Auto) Urine RBC (Auto) Amorphous Sediment Urine Opiates Screen Urine Methadone Screen Ur Barbiturates Screen Phenytoin < 3.0 L Ur Phencyclidine Scrn Ur Amphetamines Screen U Benzodiazepines Scrn U Oth Cocaine Metabols U Cannabinoids Screen Alcohol, Quantitative 11/10/17 11/10/17 11/10/17 08:08 09:37 11:14 WBC RBC Hgb Hct MCV MCH MCHC RDW Plt Count MPV Neut % (Auto) Lymph % (Auto) [place] % (Auto) Eos % (Auto) Baso % (Auto) Neut # Lymph # [place] # Eos # Baso # PT INR APTT Puncture Site pCO2 pO2 HCO3 ABG pH ABG Total CO2 ABG O2 Saturation ABG Base Excess Rafael Test ABG Potassium VBG pH VBG pCO2 VBG HCO3 VBG Total CO2 VBG O2 Sat (Calc) VBG Base Excess VBG Potassium A-a O2 Difference Respiratory Index Glucose Lactate Vent Mode Mechanical Rate FiO2 Tidal Volume PEEP Sodium 133 Potassium 3.6 Chloride 97 L Carbon Dioxide 31 H Anion Gap 9 L BUN 14 Creatinine 0.8 Est GFR ( Amer) > 60 Est GFR (Non-Af Amer) > 60 POC Glucose (mg/dL) 175 H Random Glucose 180 H Calcium 8.0 L Phosphorus Magnesium Iron TIBC % Saturation Total Bilirubin AST ALT Alkaline Phosphatase Troponin I 0.0870 NT-Pro-B Natriuret Pep Total Protein Albumin Globulin Albumin/Globulin Ratio Vitamin B12 Folate Arterial Blood Potassium Venous Blood Potassium Urine Color Straw Urine Clarity Clear Urine pH 6.0 Ur Specific [place] 1.002 L Urine Protein 1+ H Urine Glucose (UA) 3+ H Urine Ketones Negative Urine Blood 1+ H Urine Nitrate Negative Urine Bilirubin Negative Urine Urobilinogen Normal Ur Leukocyte Esterase Neg Urine WBC (Auto) 1 Urine RBC (Auto) 1 Amorphous Sediment Rare H Urine Opiates Screen Urine Methadone Screen Ur Barbiturates Screen Phenytoin Ur Phencyclidine Scrn Ur Amphetamines Screen U Benzodiazepines Scrn U Oth Cocaine Metabols U Cannabinoids Screen Alcohol, Quantitative 11/10/17 17:43 WBC RBC Hgb Hct MCV MCH MCHC RDW Plt Count MPV Neut % (Auto) Lymph % (Auto) [place] % (Auto) Eos % (Auto) Baso % (Auto) Neut # Lymph # [place] # Eos # Baso # PT INR APTT Puncture Site pCO2 pO2 HCO3 ABG pH ABG Total CO2 ABG O2 Saturation ABG Base Excess Rafael Test ABG Potassium VBG pH VBG pCO2 VBG HCO3 VBG Total CO2 VBG O2 Sat (Calc) VBG Base Excess VBG Potassium A-a O2 Difference Respiratory Index Glucose Lactate Vent Mode Mechanical Rate FiO2 Tidal Volume PEEP Sodium Potassium Chloride Carbon Dioxide Anion Gap BUN Creatinine Est GFR ( Amer) Est GFR (Non-Af Amer) POC Glucose (mg/dL) 189 H Random Glucose Calcium Phosphorus Magnesium Iron TIBC % Saturation Total Bilirubin AST ALT Alkaline Phosphatase Troponin I NT-Pro-B Natriuret Pep Total Protein Albumin Globulin Albumin/Globulin Ratio Vitamin B12 Folate Arterial Blood Potassium Venous Blood Potassium Urine Color Urine Clarity Urine pH Ur Specific [place] Urine Protein Urine Glucose (UA) Urine Ketones Urine Blood Urine Nitrate Urine Bilirubin Urine Urobilinogen Ur Leukocyte Esterase Urine WBC (Auto) Urine RBC (Auto) Amorphous Sediment Urine Opiates Screen Urine Methadone Screen Ur Barbiturates Screen Phenytoin Ur Phencyclidine Scrn Ur Amphetamines Screen U Benzodiazepines Scrn U Oth Cocaine Metabols U Cannabinoids Screen Alcohol, Quantitative
--- NOTE | 2017-11-10 18:54 | CP.PCM.HP ---
Past Patient History - Past Medical History & Family History Past Medical History?: Yes - Past Social History Smoking Status: Light Smoker < 10 Cigarettes Daily - CARDIAC Hx Hypertension: Yes Hx Pacemaker: No Hx Peripheral Edema: Yes - PULMONARY Hx Asthma: Yes - NEUROLOGICAL Hx Seizures: Yes - HEENT Hx HEENT Problems: No - RENAL Hx Chronic Kidney Disease: No - ENDOCRINE/METABOLIC Hx Diabetes Mellitus Type 2: Yes - INTEGUMENTARY Hx Dermatological Problems: No - MUSCULOSKELETAL/RHEUMATOLOGICAL Hx Musculoskeletal Disorders: Yes Hx Falls: No Hx Osteomyelitis: Yes (s/p amputations of L toes #3,4,5 ) - GASTROINTESTINAL Hx Gastrointestinal Disorders: No - PSYCHIATRIC Hx Substance Use: Yes (sniffs heroin) - SURGICAL HISTORY Hx Amputation: Yes (L foot last 3toes) - ANESTHESIA Hx Anesthesia Reactions: No Meds Allergies/Adverse Reactions: Allergies Allergy/AdvReac Type Severity Reaction Status Date / Time Fish Containing Products Allergy VOMITING Verified 11/10/17 00:00 tomato Allergy VOMITING Verified 11/10/17 00:00 FISH AdvReac Verified 11/10/17 00:00 tomatoes Allergy RASH Uncoded 11/10/17 00:00 Results - Vital Signs Recent Vital Signs: Last Vital Signs Temp 101.1 F H 11/10/17 13:15 Pulse 109 H 11/10/17 14:55 Resp 22 11/10/17 14:55 BP 168/93 H 11/10/17 14:55 Pulse Ox 100 11/10/17 14:55 - Labs Result Diagrams: 11/10/17 01:25 11/10/17 11:14 Labs: Laboratory Results - last 24 hr 11/10/17 11/10/17 11/10/17 01:25 01:25 01:55 WBC 6.0 RBC 3.41 L Hgb 10.0 L Hct 30.5 L MCV 89.3 MCH 29.3 MCHC 32.8 L RDW 15.6 H Plt Count 347 MPV 6.9 L Neut % (Auto) 69.6 Lymph % (Auto) 18.0 L Ferry % (Auto) 8.9 Eos % (Auto) 2.4 Baso % (Auto) 1.1 Neut # 4.2 Lymph # 1.1 Ferry # 0.5 Eos # 0.1 Baso # 0.1 PT INR APTT Puncture Site pCO2 pO2 37 HCO3 ABG pH ABG Total CO2 ABG O2 Saturation ABG Base Excess Rafael Test ABG Potassium VBG pH 7.33 VBG pCO2 56 VBG HCO3 26.5 VBG Total CO2 31.2 H VBG O2 Sat (Calc) 74.8 H VBG Base Excess 2.7 H VBG Potassium 4.3 A-a O2 Difference Respiratory Index Glucose 335 H Lactate 2.4 H Vent Mode Mechanical Rate FiO2 Tidal Volume PEEP Sodium 129 L 139.0 Potassium 4.3 Chloride 99 103.0 Carbon Dioxide 25 Anion Gap 10 BUN 19 Creatinine 0.9 Est GFR ( Amer) > 60 Est GFR (Non-Af Amer) > 60 POC Glucose (mg/dL) Random Glucose 315 H Calcium 8.0 L Phosphorus Magnesium Iron TIBC % Saturation Total Bilirubin AST ALT Alkaline Phosphatase Troponin I NT-Pro-B Natriuret Pep Total Protein Albumin Globulin Albumin/Globulin Ratio Vitamin B12 Folate Arterial Blood Potassium Venous Blood Potassium 4.3 Urine Color Urine Clarity Urine pH Ur Specific Homer Urine Protein Urine Glucose (UA) Urine Ketones Urine Blood Urine Nitrate Urine Bilirubin Urine Urobilinogen Ur Leukocyte Esterase Urine WBC (Auto) Urine RBC (Auto) Amorphous Sediment Urine Opiates Screen Urine Methadone Screen Ur Barbiturates Screen Phenytoin Ur Phencyclidine Scrn Ur Amphetamines Screen U Benzodiazepines Scrn U Oth Cocaine Metabols U Cannabinoids Screen Alcohol, Quantitative < 10 11/10/17 11/10/17 11/10/17 03:06 05:48 06:10 WBC RBC Hgb Hct MCV MCH MCHC RDW Plt Count MPV Neut % (Auto) Lymph % (Auto) Ferry % (Auto) Eos % (Auto) Baso % (Auto) Neut # Lymph # Ferry # Eos # Baso # PT 10.6 INR 1.0 APTT 32 Puncture Site Rradial pCO2 52 H pO2 238 H HCO3 26.1 ABG pH 7.34 L ABG Total CO2 29.7 H ABG O2 Saturation 100.2 H ABG Base Excess 1.4 Rafael Test Pos ABG Potassium 3.5 L VBG pH VBG pCO2 VBG HCO3 VBG Total CO2 VBG O2 Sat (Calc) VBG Base Excess VBG Potassium A-a O2 Difference 410.0 Respiratory Index 1.7 Glucose 252 H Lactate 0.6 L Vent Mode Prvc Mechanical Rate 12 FiO2 100.0 Tidal Volume 500 PEEP 5 Sodium 139.0 Potassium Chloride 108.0 H Carbon Dioxide Anion Gap BUN Creatinine Est GFR ( Amer) Est GFR (Non-Af Amer) POC Glucose (mg/dL) Random Glucose Calcium Phosphorus Magnesium Iron TIBC % Saturation Total Bilirubin AST ALT Alkaline Phosphatase Troponin I NT-Pro-B Natriuret Pep Total Protein Albumin Globulin Albumin/Globulin Ratio Vitamin B12 Folate Arterial Blood Potassium 3.5 L Venous Blood Potassium Urine Color Urine Clarity Urine pH Ur Specific Homer Urine Protein Urine Glucose (UA) Urine Ketones Urine Blood Urine Nitrate Urine Bilirubin Urine Urobilinogen Ur Leukocyte Esterase Urine WBC (Auto) Urine RBC (Auto) Amorphous Sediment Urine Opiates Screen Positive H Urine Methadone Screen Negative Ur Barbiturates Screen Negative Phenytoin Ur Phencyclidine Scrn Negative Ur Amphetamines Screen Negative U Benzodiazepines Scrn Negative U Oth Cocaine Metabols Positive H U Cannabinoids Screen Negative Alcohol, Quantitative 11/10/17 11/10/17 11/10/17 06:26 06:57 06:57 WBC RBC Hgb Hct MCV MCH MCHC RDW Plt Count MPV Neut % (Auto) Lymph % (Auto) Ferry % (Auto) Eos % (Auto) Baso % (Auto) Neut # Lymph # [place] # Eos # Baso # PT INR APTT Puncture Site pCO2 pO2 HCO3 ABG pH ABG Total CO2 ABG O2 Saturation ABG Base Excess Rafael Test ABG Potassium VBG pH VBG pCO2 VBG HCO3 VBG Total CO2 VBG O2 Sat (Calc) VBG Base Excess VBG Potassium A-a O2 Difference Respiratory Index Glucose Lactate Vent Mode Mechanical Rate FiO2 Tidal Volume PEEP Sodium 131 L Potassium 4.6 Chloride 99 Carbon Dioxide 22 Anion Gap 14 BUN 20 Creatinine 0.9 Est GFR ( Amer) > 60 Est GFR (Non-Af Amer) > 60 POC Glucose (mg/dL) Random Glucose 316 H Calcium 8.2 L Phosphorus 4.0 Magnesium 1.8 1.7 Iron 19 L TIBC 223 L % Saturation 8 L Total Bilirubin 0.5 AST 101 H D ALT 53 Alkaline Phosphatase 267 H D Troponin I 0.0680 0.0850 NT-Pro-B Natriuret Pep 1570 H Total Protein 6.5 Albumin 3.3 L Globulin 3.2 Albumin/Globulin Ratio 1.0 Vitamin B12 498 Folate 12.4 Arterial Blood Potassium Venous Blood Potassium Urine Color Urine Clarity Urine pH Ur Specific Homer Urine Protein Urine Glucose (UA) Urine Ketones Urine Blood Urine Nitrate Urine Bilirubin Urine Urobilinogen Ur Leukocyte Esterase Urine WBC (Auto) Urine RBC (Auto) Amorphous Sediment Urine Opiates Screen Urine Methadone Screen Ur Barbiturates Screen Phenytoin < 3.0 L Ur Phencyclidine Scrn Ur Amphetamines Screen U Benzodiazepines Scrn U Oth Cocaine Metabols U Cannabinoids Screen Alcohol, Quantitative 11/10/17 11/10/17 11/10/17 08:08 09:37 11:14 WBC RBC Hgb Hct MCV MCH MCHC RDW Plt Count MPV Neut % (Auto) Lymph % (Auto) [place]erry % (Auto) Eos % (Auto) Baso % (Auto) Neut # Lymph # [place] # Eos # Baso # PT INR APTT Puncture Site pCO2 pO2 HCO3 ABG pH ABG Total CO2 ABG O2 Saturation ABG Base Excess Rafael Test ABG Potassium VBG pH VBG pCO2 VBG HCO3 VBG Total CO2 VBG O2 Sat (Calc) VBG Base Excess VBG Potassium A-a O2 Difference Respiratory Index Glucose Lactate Vent Mode Mechanical Rate FiO2 Tidal Volume PEEP Sodium 133 Potassium 3.6 Chloride 97 L Carbon Dioxide 31 H Anion Gap 9 L BUN 14 Creatinine 0.8 Est GFR ( Amer) > 60 Est GFR (Non-Af Amer) > 60 POC Glucose (mg/dL) 175 H Random Glucose 180 H Calcium 8.0 L Phosphorus Magnesium Iron TIBC % Saturation Total Bilirubin AST ALT Alkaline Phosphatase Troponin I 0.0870 NT-Pro-B Natriuret Pep Total Protein Albumin Globulin Albumin/Globulin Ratio Vitamin B12 Folate Arterial Blood Potassium Venous Blood Potassium Urine Color Straw Urine Clarity Clear Urine pH 6.0 Ur Specific Homer 1.002 L Urine Protein 1+ H Urine Glucose (UA) 3+ H Urine Ketones Negative Urine Blood 1+ H Urine Nitrate Negative Urine Bilirubin Negative Urine Urobilinogen Normal Ur Leukocyte Esterase Neg Urine WBC (Auto) 1 Urine RBC (Auto) 1 Amorphous Sediment Rare H Urine Opiates Screen Urine Methadone Screen Ur Barbiturates Screen Phenytoin Ur Phencyclidine Scrn Ur Amphetamines Screen U Benzodiazepines Scrn U Oth Cocaine Metabols U Cannabinoids Screen Alcohol, Quantitative 11/10/17 17:43 WBC RBC Hgb Hct MCV MCH MCHC RDW Plt Count MPV Neut % (Auto) Lymph % (Auto) [place] % (Auto) Eos % (Auto) Baso % (Auto) Neut # Lymph # [place] # Eos # Baso # PT INR APTT Puncture Site pCO2 pO2 HCO3 ABG pH ABG Total CO2 ABG O2 Saturation ABG Base Excess Rafael Test ABG Potassium VBG pH VBG pCO2 VBG HCO3 VBG Total CO2 VBG O2 Sat (Calc) VBG Base Excess VBG Potassium A-a O2 Difference Respiratory Index Glucose Lactate Vent Mode Mechanical Rate FiO2 Tidal Volume PEEP Sodium Potassium Chloride Carbon Dioxide Anion Gap BUN Creatinine Est GFR ( Amer) Est GFR (Non-Af Amer) POC Glucose (mg/dL) 189 H Random Glucose Calcium Phosphorus Magnesium Iron TIBC % Saturation Total Bilirubin AST ALT Alkaline Phosphatase Troponin I NT-Pro-B Natriuret Pep Total Protein Albumin Globulin Albumin/Globulin Ratio Vitamin B12 Folate Arterial Blood Potassium Venous Blood Potassium Urine Color Urine Clarity Urine pH Ur Specific Homer Urine Protein Urine Glucose (UA) Urine Ketones Urine Blood Urine Nitrate Urine Bilirubin Urine Urobilinogen Ur Leukocyte Esterase Urine WBC (Auto) Urine RBC (Auto) Amorphous Sediment Urine Opiates Screen Urine Methadone Screen Ur Barbiturates Screen Phenytoin Ur Phencyclidine Scrn Ur Amphetamines Screen U Benzodiazepines Scrn U Oth Cocaine Metabols U Cannabinoids Screen Alcohol, Quantitative
[2017-11-10] MEDS: levETIRAcetam 500 MG in Sodium Chloride 0.9% 100 ML IVPB SCH (19:31)
[2017-11-10] MEDS: (Novolog) Insulin Aspart, Recombinant 100 u/ml 10 ml vial SC SCH (19:56)
[2017-11-10] MEDS: Phenytoin 100 mg/2 ml Inj IVP SCH (20:05)
[2017-11-11] MEDS: Piperacill/Tazo 3.375gm in Dex 3.375 GM/50 ML BAG IVPB SCH ×3 (00:36→12:13)
[2017-11-11] MEDS: (Novolog) Insulin Aspart, Recombinant 100 u/ml 10 ml vial SC SCH ×4 (00:37→17:49)
[2017-11-11] MEDS: Propofol 10 mg/ml 1,000 MG/100 ML VIAL IV PRN ×2 (04:17→10:20)
[2017-11-11 05:14] LABS: ABG ALLEN TEST POS; ARTERIAL BLOOD GAS HCO3 30.5 mmol/L (21-28); ARTERIAL BLOOD GAS HEMOGLOBIN 17.6 g/dL (11.7-17.4); ARTERIAL BLOOD GAS O2 SAT 100.3 % (95-98); ARTERIAL BLOOD GAS PCO2 47 mm/Hg (35-45); ARTERIAL BLOOD GAS PH 7.45 (7.35-7.45); ARTERIAL BLOOD GAS PO2 483 mm/Hg (80-100); ARTERIAL BLOOD GAS TCO2 34.1 mmol/L (22-28)
[2017-11-11] MEDS: levETIRAcetam 500 MG in Sodium Chloride 0.9% 100 ML IVPB SCH ×2 (06:32→17:15)
[2017-11-11 06:53] LABS: BASO % 0.3 % (0.0-2.0); EOS % 0.2 % (0.0-4.0); LYMPH # 0.3 K/uL (1.0-4.3); LYMPH % 4.2 % (20.0-40.0); MEAN CELL VOLUME 88.1 fL (80.0-94.0); MEAN CORPUSCULAR HGB CONC 34.1 g/dL (33.0-37.0); MEAN PLATELET VOLUME 7.1 fL (7.2-11.7); MONO # 0.3 K/uL (0.0-0.8); MONO % 3.4 % (0.0-10.0); NEUT # 7.2 K/uL (1.8-7.0); NEUT % 91.9 % (50.0-75.0); NRBC % 0.1 % (0.0-2.0); PLATELET COUNT 253 K/uL (130-400); RBC 2.67 Mil/uL (4.40-5.90); RED CELL DISTRIBUTION WIDTH 15.6 % (11.5-14.5); WHITE BLOOD COUNT 7.9 K/uL (4.8-10.8)
[2017-11-11 07:28] LABS: ALB/GLOB RATIO 0.9 (1.0-2.1); ALBUMIN 2.9 g/dL (3.5-5.0); ALT/SGPT 48 U/L (21-72); AST/SGOT 39 U/L (17-59); BLOOD UREA NITROGEN 16 mg/dL (9-20); GFR AFRICAN-AMERICAN > 60; GFR NON-AFRICAN AMERICAN > 60; MAGNESIUM 1.5 mg/dL (1.6-2.3)
--- NOTE | 2017-11-11 09:06 | RAD ---
HISTORY: respiratory failure COMPARISON: Comparison is made to with 11/10/2017 FINDINGS: LUNGS: Interval improvement in the previously seen patchy opacities in the lungs since the previous exam. Residual small perihilar opacities are noted. PLEURA: No significant pleural effusion identified, no pneumothorax apparent. CARDIOVASCULAR: Normal. OSSEOUS STRUCTURES: No significant abnormalities. VISUALIZED UPPER ABDOMEN: Normal. OTHER FINDINGS: None. IMPRESSION: Interval significant improvement in the previously seen patchy opacities in the lungs with residual small perihilar opacities. The ET tube and NG tube are seen at appropriate position.
[2017-11-11 09:09] LABS: EOSINOPHIL 1 % (0-4); LYMPHOCYTE 3 % (20-40); MONOCYTE 3 % (0-10); NEUTROPHIL 92 % (50-75); REACTIVE LYMPHOCYTES 1 % (0-0); TOTAL CELLS COUNTED 100
[2017-11-11 09:10] LABS: ANISOCYTOSIS SLIGHT; PLATELET ESTIMATE NORMAL (NORMAL); TOXIC GRANULATION PRESENT
[2017-11-11 09:11] LABS: HYPOCHROMIC SLIGHT; POLYCHROMIC SLIGHT
[2017-11-11] MEDS: Phenytoin 100 mg/2 ml Inj IVP SCH ×2 (09:20→17:18)
[2017-11-11] MEDS: Enoxaparin 60 mg Syringe SC SCH ×2 (09:21→21:30)
[2017-11-11] MEDS: Magnesium Sulfate 1 gm in D5W 1 GM/100 ML BAG IVPB SCH ×2 (14:52→15:30)
--- NOTE | 2017-11-11 15:13 | CP.PCM.PN ---
Subjective - Date & Time of Evaluation Date of Evaluation: 11/11/17 Time of Evaluation: 09:45 - Subjective Subjective: clinically same Objective - Vital Signs/Intake and Output Vital Signs (last 24 hours): Temp Pulse Resp BP Pulse Ox 98.6 F 103 H 17 138/86 100 11/11/17 08:00 11/11/17 14:30 11/11/17 13:02 11/11/17 13:02 11/11/17 13:02 Intake and Output: 11/11/17 11/11/17 06:59 18:59 Intake Total 355.5 185.3 Output Total 1420 85 Balance -1064.5 100.3 - Medications Medications: Current Medications Enoxaparin Sodium (Lovenox) 60 mg SC Q12 [facility] Last Admin: 11/11/17 09:21 Dose: 60 mg Furosemide (Lasix) 40 mg IVP Q12 [facility] Last Admin: 11/11/17 09:21 Dose: 40 mg Levetiracetam 500 mg/ Sodium (Chloride) 105 mls @ 420 mls/hr IVPB Q12H [facility] Last Admin: 11/11/17 06:32 Dose: 420 mls/hr Potassium Chloride (Potassium Chloride 10 Meq/100 Ml) 10 meq in 100 mls @ 100 mls/hr IVPB ONCE ONE Stop: 11/11/17 15:14 Last Admin: 11/11/17 14:52 Dose: 100 mls/hr Insulin Aspart (Novolog) 0 unit SC Q6H [facility] PRN Reason: Protocol Last Admin: 11/11/17 12:11 Dose: 2 unit Lisinopril (Zestril) 5 mg NG DAILY [facility] Last Admin: 11/11/17 09:22 Dose: 5 mg Pantoprazole Sodium (Protonix Inj) 40 mg IVP DAILY [facility] Last Admin: 11/11/17 09:22 Dose: 40 mg Phenytoin (Dilantin) 100 mg IVP BID [facility] Last Admin: 11/11/17 09:20 Dose: 100 mg - Labs Labs: 11/11/17 06:36 11/11/17 06:36 PT 10.6 SECONDS (9.7-12.2) 11/10/17 05:48 INR 1.0 11/10/17 05:48 APTT 32 SECONDS (21-34) 11/10/17 05:48 - Constitutional Appears: Well - Head Exam Head Exam: ATRAUMATIC, NORMAL INSPECTION, NORMOCEPHALIC - Eye Exam Eye Exam: EOMI, Normal appearance, PERRL Pupil Exam: NORMAL ACCOMODATION, PERRL - ENT Exam ENT Exam: Mucous Membranes Moist, Normal Exam - Neck Exam Neck Exam: Full ROM, Normal Inspection. absent: Lymphadenopathy - Respiratory Exam Respiratory Exam: Decreased Breath Sounds - Cardiovascular Exam Cardiovascular Exam: REGULAR RHYTHM, +S1, +S2 - GI/Abdominal Exam GI & Abdominal Exam: Soft, Diminished Bowel Sounds - Rectal Exam Rectal Exam: Deferred
--- NOTE | 2017-11-11 19:11 | CP.CCUPN ---
CCU Subjective - Physician Review Events Since Last Encounter (Free Text): 11/11/17 19:07 self extubated. CCU Objective - Vital Signs / Intake & Output Vital Signs (Last 4 hours): Vital Signs Temp Pulse Resp BP Pulse Ox 11/11/17 16:02 102 H 22 158/96 H 100 11/11/17 16:00 100.6 F H 102 H 23 100 11/11/17 15:40 102 H Intake and Output (Last 8hrs): Intake & Output 11/11/17 11/11/17 11/11/17 06:59 14:59 22:59 Intake Total 329.1 185.3 Output Total 1100 85 1670 Balance -770.9 100.3 -1670 Weight 145 lb 14.4 oz Intake: IV 100 140 Intake, IV Amount 229.1 45.3 Left Forearm 79.1 45.3 Right Forearm 150 Output: Urine 1100 85 1670 Urethral (Pina) 1100 85 1670 - Physical Exam Head: Positive for: Atraumatic, Normocephalic Pupils: Positive for: PERRL Extroacular Muscles: Positive for: EOMI Conjunctiva: Positive for: Normal Mouth: Positive for: Moist Mucous Membranes Respiratory/Chest: Positive for: Clear to Auscultation Cardiovascular: Positive for: Regular Rate and Rhythm Abdomen: Positive for: Normal Bowel Sounds. Negative for: Tenderness, Distention Upper Extremity: Positive for: Normal Inspection Psychiatric: Positive for: Alert - Medications Active Medications: Active Medications Generic Name Dose Route Start Last Admin Trade Name Freq PRN Reason Stop Dose Admin Enoxaparin Sodium 60 mg 11/10/17 10:00 11/11/17 09:21 Lovenox SC 60 mg Q12 [facility] Administration Furosemide 40 mg 11/10/17 10:00 11/11/17 09:21 Lasix IVP 40 mg Q12 [facility] Administration Levetiracetam 500 mg/ Sodium 105 mls @ 420 mls/hr 11/10/17 18:00 11/11/17 17: 15 Chloride IVPB 420 mls/hr Q12H [facility] Administration Insulin Aspart 0 unit 11/10/17 17:45 11/11/17 17:49 Novolog SC 1 unit Q6H [facility] Administration Protocol Lisinopril 5 mg 11/10/17 10:00 11/11/17 09:22 Zestril NG 5 mg DAILY [facility] Administration Pantoprazole Sodium 40 mg 11/10/17 10:00 11/11/17 09:22 Protonix Inj IVP 40 mg DAILY [facility] Administration Phenytoin 100 mg 11/10/17 18:00 11/11/17 17:18 Dilantin IVP 100 mg BID [facility] Administration - Patient Studies Lab Studies: Microbiology Studies 11/10/17 06:36 Blood Culture - Preliminary Blood-Venous NO GROWTH AFTER 24 HOURS 11/10/17 06:36 Blood Culture - Preliminary Blood-Venous NO GROWTH AFTER 24 HOURS 11/10/17 07:42 Urine Culture - Final Urine,Catheterized No Growth (<1,000 CFU/ML) Lab Studies 11/11/17 11/11/17 11/11/17 Range/Units 17:41 11:43 11:37 WBC (4.8-10.8) K/uL RBC (4.40-5.90) Mil/uL Hgb (12.0-18.0) g/dL Hct (35.0-51.0) % MCV (80.0-94.0) fL MCH (27.0-31.0) pg MCHC (33.0-37.0) g/dL RDW (11.5-14.5) % Plt Count (130-400) K/uL MPV (7.2-11.7) fL Neut % (Auto) (50.0-75.0) % Lymph % (Auto) (20.0-40.0) % Aiken % (Auto) (0.0-10.0) % Eos % (Auto) (0.0-4.0) % Baso % (Auto) (0.0-2.0) % Neut # (1.8-7.0) K/uL Lymph # (1.0-4.3) K/uL Aiken # (0.0-0.8) K/uL Eos # (0.0-0.7) K/uL Baso # (0.0-0.2) K/uL Neutrophils % (Manual) (50-75) % Lymphocytes % (Manual) (20-40) % Reactive Lymphs % (0-0) % Monocytes % (Manual) (0-10) % Eosinophils % (Manual) (0-4) % Toxic Granulation Platelet Estimate (NORMAL) Polychromasia Hypochromasia (manual) Anisocytosis (manual) Puncture Site pCO2 (35-45) mm/Hg pO2 (80-100) mm/Hg HCO3 (21-28) mmol/L ABG pH (7.35-7.45) ABG Total CO2 (22-28) mmol/L ABG O2 Saturation (95-98) % ABG Base Excess (-2.0-3.0) mmol/L ABG Hemoglobin (11.7-17.4) g/dL ABG Carboxyhemoglobin (0.5-1.5) % POC ABG HHb (Measured) (0.0-5.0) % ABG Methemoglobin (0.0-3.0) % Rafael Test A-a O2 Difference mm/Hg Respiratory Index Hgb O2 Saturation (95.0-98.0) % Vent Mode Mechanical Rate FiO2 % Tidal Volume PEEP Sodium (132-148) mmol/L Potassium (3.6-5.2) mmol/L Chloride (98-107) mmol/L Carbon Dioxide (22-30) mmol/L Anion Gap (10-20) BUN (9-20) mg/dL Creatinine (0.8-1.5) mg/dL Est GFR ( Amer) Est GFR (Non-Af Amer) POC Glucose (mg/dL) 174 H 220 H (65-110) mg/dL Random Glucose (75-110) mg/dL Calcium (8.6-10.4) mg/dl Phosphorus (2.5-4.5) mg/dL Magnesium (1.6-2.3) mg/dL Total Bilirubin (0.2-1.3) mg/dL AST (17-59) U/L ALT (21-72) U/L Alkaline Phosphatase (38-126) U/L Troponin I 0.0460 (0.00-0.120) ng/mL Total Protein (6.3-8.3) g/dL Albumin (3.5-5.0) g/dL Globulin (2.2-3.9) gm/dL Albumin/Globulin Ratio (1.0-2.1) 11/11/17 11/11/17 11/11/17 Range/Units 06:36 06:36 05:51 WBC 7.9 (4.8-10.8) K/uL RBC 2.67 L (4.40-5.90) Mil/uL Hgb 8.0 L D (12.0-18.0) g/dL Hct 23.5 L (35.0-51.0) % MCV 88.1 (80.0-94.0) fL MCH 30.0 (27.0-31.0) pg MCHC 34.1 (33.0-37.0) g/dL RDW 15.6 H (11.5-14.5) % Plt Count 253 (130-400) K/uL MPV 7.1 L (7.2-11.7) fL Neut % (Auto) 91.9 H (50.0-75.0) % Lymph % (Auto) 4.2 L (20.0-40.0) % Aiken % (Auto) 3.4 (0.0-10.0) % Eos % (Auto) 0.2 (0.0-4.0) % Baso % (Auto) 0.3 (0.0-2.0) % Neut # 7.2 H (1.8-7.0) K/uL Lymph # 0.3 L (1.0-4.3) K/uL Aiken # 0.3 (0.0-0.8) K/uL Eos # 0.0 (0.0-0.7) K/uL Baso # 0.0 (0.0-0.2) K/uL Neutrophils % (Manual) 92 H (50-75) % Lymphocytes % (Manual) 3 L (20-40) % Reactive Lymphs % 1 H (0-0) % Monocytes % (Manual) 3 (0-10) % Eosinophils % (Manual) 1 (0-4) % Toxic Granulation Present Platelet Estimate Normal (NORMAL) Polychromasia Slight Hypochromasia (manual) Slight Anisocytosis (manual) Slight Puncture Site pCO2 (35-45) mm/Hg pO2 (80-100) mm/Hg HCO3 (21-28) mmol/L ABG pH (7.35-7.45) ABG Total CO2 (22-28) mmol/L ABG O2 Saturation (95-98) % ABG Base Excess (-2.0-3.0) mmol/L ABG Hemoglobin (11.7-17.4) g/dL ABG Carboxyhemoglobin (0.5-1.5) % POC ABG HHb (Measured) (0.0-5.0) % ABG Methemoglobin (0.0-3.0) % Rafael Test A-a O2 Difference mm/Hg Respiratory Index Hgb O2 Saturation (95.0-98.0) % Vent Mode Mechanical Rate FiO2 % Tidal Volume PEEP Sodium 131 L (132-148) mmol/L Potassium 3.4 L (3.6-5.2) mmol/L Chloride 96 L (98-107) mmol/L Carbon Dioxide 30 (22-30) mmol/L Anion Gap 8 L (10-20) BUN 16 (9-20) mg/dL Creatinine 0.9 (0.8-1.5) mg/dL Est GFR ( Amer) > 60 Est GFR (Non-Af Amer) > 60 POC Glucose (mg/dL) 130 H (65-110) mg/dL Random Glucose 148 H (75-110) mg/dL Calcium 8.0 L (8.6-10.4) mg/dl Phosphorus 3.4 (2.5-4.5) mg/dL Magnesium 1.5 L (1.6-2.3) mg/dL Total Bilirubin 0.6 (0.2-1.3) mg/dL AST 39 (17-59) U/L ALT 48 (21-72) U/L Alkaline Phosphatase 180 H D (38-126) U/L Troponin I (0.00-0.120) ng/mL Total Protein 5.9 L (6.3-8.3) g/dL Albumin 2.9 L (3.5-5.0) g/dL Globulin 3.0 (2.2-3.9) gm/dL Albumin/Globulin Ratio 0.9 L (1.0-2.1) 11/11/17 11/11/17 11/10/17 Range/Units 04:50 00:07 22:16 WBC (4.8-10.8) K/uL RBC (4.40-5.90) Mil/uL Hgb (12.0-18.0) g/dL Hct (35.0-51.0) % MCV (80.0-94.0) fL MCH (27.0-31.0) pg MCHC (33.0-37.0) g/dL RDW (11.5-14.5) % Plt Count (130-400) K/uL MPV (7.2-11.7) fL Neut % (Auto) (50.0-75.0) % Lymph % (Auto) (20.0-40.0) % Aiken % (Auto) (0.0-10.0) % Eos % (Auto) (0.0-4.0) % Baso % (Auto) (0.0-2.0) % Neut # (1.8-7.0) K/uL Lymph # (1.0-4.3) K/uL Aiken # (0.0-0.8) K/uL Eos # (0.0-0.7) K/uL Baso # (0.0-0.2) K/uL Neutrophils % (Manual) (50-75) % Lymphocytes % (Manual) (20-40) % Reactive Lymphs % (0-0) % Monocytes % (Manual) (0-10) % Eosinophils % (Manual) (0-4) % Toxic Granulation Platelet Estimate (NORMAL) Polychromasia Hypochromasia (manual) Anisocytosis (manual) Puncture Site Rr pCO2 47 H (35-45) mm/Hg pO2 483 H (80-100) mm/Hg HCO3 30.5 H (21-28) mmol/L ABG pH 7.45 (7.35-7.45) ABG Total CO2 34.1 H (22-28) mmol/L ABG O2 Saturation 100.3 H (95-98) % ABG Base Excess 7.2 H (-2.0-3.0) mmol/L ABG Hemoglobin 17.6 H (11.7-17.4) g/dL ABG Carboxyhemoglobin 1.8 H (0.5-1.5) % POC ABG HHb (Measured) -0.3 L (0.0-5.0) % ABG Methemoglobin 1.1 (0.0-3.0) % Rafael Test Pos A-a O2 Difference 171.0 mm/Hg Respiratory Index 0.4 Hgb O2 Saturation 97.5 (95.0-98.0) % Vent Mode Prvc Mechanical Rate 12 FiO2 100.0 % Tidal Volume 500 PEEP 5 Sodium (132-148) mmol/L Potassium (3.6-5.2) mmol/L Chloride (98-107) mmol/L Carbon Dioxide (22-30) mmol/L Anion Gap (10-20) BUN (9-20) mg/dL Creatinine (0.8-1.5) mg/dL Est GFR ( Amer) Est GFR (Non-Af Amer) POC Glucose (mg/dL) 192 H (65-110) mg/dL Random Glucose (75-110) mg/dL Calcium (8.6-10.4) mg/dl Phosphorus (2.5-4.5) mg/dL Magnesium (1.6-2.3) mg/dL Total Bilirubin (0.2-1.3) mg/dL AST (17-59) U/L ALT (21-72) U/L Alkaline Phosphatase (38-126) U/L Troponin I 0.0770 (0.00-0.120) ng/mL Total Protein (6.3-8.3) g/dL Albumin (3.5-5.0) g/dL Globulin (2.2-3.9) gm/dL Albumin/Globulin Ratio (1.0-2.1) Laboratory Results - last 24 hr 11/10/17 11/11/17 11/11/17 22:16 00:07 04:50 WBC RBC Hgb Hct MCV MCH MCHC RDW Plt Count MPV Neut % (Auto) Lymph % (Auto) Aiken % (Auto) Eos % (Auto) Baso % (Auto) Neut # Lymph # [place] # Eos # Baso # Neutrophils % (Manual) Lymphocytes % (Manual) Reactive Lymphs % Monocytes % (Manual) Eosinophils % (Manual) Toxic Granulation Platelet Estimate Polychromasia Hypochromasia (manual) Anisocytosis (manual) Puncture Site Rr pCO2 47 H pO2 483 H HCO3 30.5 H ABG pH 7.45 ABG Total CO2 34.1 H ABG O2 Saturation 100.3 H ABG Base Excess 7.2 H ABG Hemoglobin 17.6 H ABG Carboxyhemoglobin 1.8 H POC ABG HHb (Measured) -0.3 L ABG Methemoglobin 1.1 Rafael Test Pos A-a O2 Difference 171.0 Respiratory Index 0.4 Hgb O2 Saturation 97.5 Vent Mode Prvc Mechanical Rate 12 FiO2 100.0 Tidal Volume 500 PEEP 5 Sodium Potassium Chloride Carbon Dioxide Anion Gap BUN Creatinine Est GFR ( Amer) Est GFR (Non-Af Amer) POC Glucose (mg/dL) 192 H Random Glucose Calcium Phosphorus Magnesium Total Bilirubin AST ALT Alkaline Phosphatase Troponin I 0.0770 Total Protein Albumin Globulin Albumin/Globulin Ratio 11/11/17 11/11/17 11/11/17 05:51 06:36 06:36 WBC 7.9 RBC 2.67 L Hgb 8.0 L D Hct 23.5 L MCV 88.1 MCH 30.0 MCHC 34.1 RDW 15.6 H Plt Count 253 MPV 7.1 L Neut % (Auto) 91.9 H Lymph % (Auto) 4.2 L Aiken % (Auto) 3.4 Eos % (Auto) 0.2 Baso % (Auto) 0.3 Neut # 7.2 H Lymph # 0.3 L Aiken # 0.3 Eos # 0.0 Baso # 0.0 Neutrophils % (Manual) 92 H Lymphocytes % (Manual) 3 L Reactive Lymphs % 1 H Monocytes % (Manual) 3 Eosinophils % (Manual) 1 Toxic Granulation Present Platelet Estimate Normal Polychromasia Slight Hypochromasia (manual) Slight Anisocytosis (manual) Slight Puncture Site pCO2 pO2 HCO3 ABG pH ABG Total CO2 ABG O2 Saturation ABG Base Excess ABG Hemoglobin ABG Carboxyhemoglobin POC ABG HHb (Measured) ABG Methemoglobin Rafael Test A-a O2 Difference Respiratory Index Hgb O2 Saturation Vent Mode Mechanical Rate FiO2 Tidal Volume PEEP Sodium 131 L Potassium 3.4 L Chloride 96 L Carbon Dioxide 30 Anion Gap 8 L BUN 16 Creatinine 0.9 Est GFR ( Amer) > 60 Est GFR (Non-Af Amer) > 60 POC Glucose (mg/dL) 130 H Random Glucose 148 H Calcium 8.0 L Phosphorus 3.4 Magnesium 1.5 L Total Bilirubin 0.6 AST 39 ALT 48 Alkaline Phosphatase 180 H D Troponin I Total Protein 5.9 L Albumin 2.9 L Globulin 3.0 Albumin/Globulin Ratio 0.9 L 11/11/17 11/11/17 11/11/17 11:37 11:43 17:41 WBC RBC Hgb Hct MCV MCH MCHC RDW Plt Count MPV Neut % (Auto) Lymph % (Auto) Aiken % (Auto) Eos % (Auto) Baso % (Auto) Neut # Lymph # Aiken # Eos # Baso # Neutrophils % (Manual) Lymphocytes % (Manual) Reactive Lymphs % Monocytes % (Manual) Eosinophils % (Manual) Toxic Granulation Platelet Estimate Polychromasia Hypochromasia (manual) Anisocytosis (manual) Puncture Site pCO2 pO2 HCO3 ABG pH ABG Total CO2 ABG O2 Saturation ABG Base Excess ABG Hemoglobin ABG Carboxyhemoglobin POC ABG HHb (Measured) ABG Methemoglobin Rafael Test A-a O2 Difference Respiratory Index Hgb O2 Saturation Vent Mode Mechanical Rate FiO2 Tidal Volume PEEP Sodium Potassium Chloride Carbon Dioxide Anion Gap BUN Creatinine Est GFR ( Amer) Est GFR (Non-Af Amer) POC Glucose (mg/dL) 220 H 174 H Random Glucose Calcium Phosphorus Magnesium Total Bilirubin AST ALT Alkaline Phosphatase Troponin I 0.0460 Total Protein Albumin Globulin Albumin/Globulin Ratio Fingerstick Blood Sugar Results: 174 Review of Systems - Review of Systems Systems not reviewed;Unavailable: Altered Mental Status Assessment/Plan (1) Pulmonary edema Assessment and plan: 52 year old male with h/o HTN,asthma,DM,toe amputation,drug abuse presents to the ED looking for a place to stay and c/o left foot pain. patient went into flash pulmonary edema in ED and was intubated. Seizure disorder continue Keppra IV and Dilantin IV self extubated, placed on BIPAP. diuretics improved pulmonary edema, f/u echo. DM type 2, SISS for coverage HTN continue lisinopril. Critical Care time 35 minutes Current Visit: Yes Status: Acute
--- NOTE | 2017-11-11 20:15 | CP.PCM.PN ---
Subjective - Date & Time of Evaluation Date of Evaluation: 11/11/17 Time of Evaluation: 16:10 - Subjective Subjective: Patient seen and evaluated Intubated No cardiac events noted Objective - Vital Signs/Intake and Output Vital Signs (last 24 hours): Temp Pulse Resp BP Pulse Ox 100.6 F H 102 H 22 158/96 H 100 11/11/17 16:00 11/11/17 16:02 11/11/17 16:02 11/11/17 16:02 11/11/17 16:02 Intake and Output: 11/11/17 11/12/17 18:59 06:59 Intake Total 185.3 Output Total 1755 60 Balance -1569.7 -60 - Medications Medications: Current Medications Enoxaparin Sodium (Lovenox) 60 mg SC Q12 [facility] Last Admin: 11/11/17 09:21 Dose: 60 mg Furosemide (Lasix) 40 mg IVP Q12 [facility] Last Admin: 11/11/17 09:21 Dose: 40 mg Levetiracetam 500 mg/ Sodium (Chloride) 105 mls @ 420 mls/hr IVPB Q12H [facility] Last Admin: 11/11/17 17:15 Dose: 420 mls/hr Insulin Aspart (Novolog) 0 unit SC Q6H [facility] PRN Reason: Protocol Last Admin: 11/11/17 17:49 Dose: 1 unit Lisinopril (Zestril) 5 mg NG DAILY [facility] Last Admin: 11/11/17 09:22 Dose: 5 mg Pantoprazole Sodium (Protonix Inj) 40 mg IVP DAILY [facility] Last Admin: 11/11/17 09:22 Dose: 40 mg Phenytoin (Dilantin) 100 mg IVP BID [facility] Last Admin: 11/11/17 17:18 Dose: 100 mg - Labs Labs: 11/11/17 06:36 11/11/17 06:36 PT 10.6 SECONDS (9.7-12.2) 11/10/17 05:48 INR 1.0 11/10/17 05:48 APTT 32 SECONDS (21-34) 11/10/17 05:48
[2017-11-11 20:17] LABS: ABG ALLEN TEST POS; ARTERIAL BLOOD GAS HCO3 31.3 mmol/L (21-28); ARTERIAL BLOOD GAS HEMOGLOBIN 10.8 g/dL (11.7-17.4); ARTERIAL BLOOD GAS O2 SAT 99.7 % (95-98); ARTERIAL BLOOD GAS PCO2 45 mm/Hg (35-45); ARTERIAL BLOOD GAS PH 7.47 (7.35-7.45); ARTERIAL BLOOD GAS PO2 136 mm/Hg (80-100); ARTERIAL BLOOD GAS TCO2 34.2 mmol/L (22-28)
[2017-11-12] MEDS: (Novolog) Insulin Aspart, Recombinant 100 u/ml 10 ml vial SC SCH ×5 (01:08→21:13)
[2017-11-12] MEDS: levETIRAcetam 500 MG in Sodium Chloride 0.9% 100 ML IVPB SCH ×2 (05:33→18:05)
[2017-11-12 06:39] LABS: HEMOGLOBIN 11.5 g/dL (12.0-18.0); MEAN CELL VOLUME 88.4 fL (80.0-94.0); MEAN CORPUSCULAR HEMOGLOBIN 29.6 pg (27.0-31.0); MEAN CORPUSCULAR HGB CONC 33.6 g/dL (33.0-37.0); MEAN PLATELET VOLUME 7.6 fL (7.2-11.7); RBC 3.88 Mil/uL (4.40-5.90); RED CELL DISTRIBUTION WIDTH 15.5 % (11.5-14.5); WHITE BLOOD COUNT 4.8 K/uL (4.8-10.8)
[2017-11-12 06:49] LABS: ALB/GLOB RATIO 0.9 (1.0-2.1); ALBUMIN 3.1 g/dL (3.5-5.0); ALT/SGPT 41 U/L (21-72); AST/SGOT 34 U/L (17-59); BLOOD UREA NITROGEN 20 mg/dL (9-20); CALCIUM 8.2 mg/dl (8.6-10.4); GFR AFRICAN-AMERICAN > 60; GFR NON-AFRICAN AMERICAN > 60
[2017-11-12 08:56] LABS: PROLACTIN 4.2 ng/mL (3.7-17.9)
[2017-11-12] MEDS: Phenytoin 100 mg/2 ml Inj IVP SCH (09:25)
[2017-11-12] MEDS ORDERED: PHENYTOIN IVPB STA (11:00)
[2017-11-12] MEDS ORDERED: SODIUM CHLORIDE 0.9% IVPB STA (11:00)
--- NOTE | 2017-11-12 11:47 | CP.PCM.PN ---
Subjective - Date & Time of Evaluation Date of Evaluation: 11/12/17 Time of Evaluation: 15:20 - Subjective Subjective: clinically same Objective - Vital Signs/Intake and Output Vital Signs (last 24 hours): Temp Pulse Resp BP Pulse Ox 99 F 95 H 22 145/94 H 100 11/12/17 08:00 11/12/17 11:02 11/12/17 11:02 11/12/17 11:02 11/12/17 10:00 Intake and Output: 11/12/17 11/12/17 06:59 18:59 Intake Total 240 Output Total 1954 65 Balance -1954 175 - Medications Medications: Current Medications Enoxaparin Sodium (Lovenox) 60 mg SC Q12 [facility] Last Admin: 11/11/17 21:30 Dose: 60 mg Furosemide (Lasix) 40 mg IVP Q12 [facility] Last Admin: 11/12/17 09:23 Dose: 40 mg Levetiracetam 500 mg/ Sodium (Chloride) 105 mls @ 420 mls/hr IVPB Q12H [facility] Last Admin: 11/12/17 05:33 Dose: 420 mls/hr Phenytoin 100 mg/ Sodium (Chloride) 52 mls @ 0 mls/hr IVPB TID [facility] PRN Reason: Per Protocol Phenytoin 500 mg/ Sodium (Chloride) 100 mls @ 120 mls/hr IVPB STAT STA Stop: 11/12/17 11:49 Insulin Aspart (Novolog) 0 unit SC Q6H [facility] PRN Reason: Protocol Last Admin: 11/12/17 05:46 Dose: Not Given Lisinopril (Zestril) 5 mg NG DAILY [facility] Last Admin: 11/12/17 09:33 Dose: 5 mg Pantoprazole Sodium (Protonix Inj) 40 mg IVP DAILY [facility] Last Admin: 11/12/17 09:23 Dose: 40 mg - Labs Labs: 11/12/17 06:10 11/12/17 06:11 PT 10.6 SECONDS (9.7-12.2) 11/10/17 05:48 INR 1.0 11/10/17 05:48 APTT 32 SECONDS (21-34) 11/10/17 05:48 - Constitutional Appears: Well - Head Exam Head Exam: ATRAUMATIC, NORMAL INSPECTION, NORMOCEPHALIC - Eye Exam Eye Exam: EOMI, Normal appearance, PERRL Pupil Exam: NORMAL ACCOMODATION, PERRL - ENT Exam ENT Exam: Mucous Membranes Moist, Normal Exam - Neck Exam Neck Exam: Full ROM, Normal Inspection. absent: Lymphadenopathy - Respiratory Exam Respiratory Exam: Decreased Breath Sounds - Cardiovascular Exam Cardiovascular Exam: REGULAR RHYTHM, +S1, +S2 - GI/Abdominal Exam GI & Abdominal Exam: Soft, Diminished Bowel Sounds - Rectal Exam Rectal Exam: Deferred
[2017-11-12] MEDS: Enoxaparin 60 mg Syringe SC SCH ×2 (12:20→21:12)
--- NOTE | 2017-11-12 13:15 | CARD ---
APPROVED REPORT EKG Measurement Heart [id number] <Conclusion> Sinus tachycardia Possible Left atrial enlargement Anteroseptal infarct, age undetermined Abnormal ECG
--- NOTE | 2017-11-12 13:15 | CARD ---
APPROVED REPORT EKG Measurement Heart [id number] <Conclusion> Sinus tachycardia Possible Left atrial enlargement Nonspecific T wave abnormality Abnormal ECG
--- NOTE | 2017-11-12 14:52 | CP.CCUPN ---
Addendum entered and electronically signed by Shari Plaza DO 11/12/17 15:44: concern for malingering. patient is yelling for food and sitting out of bed when nurses are around, but when a doctor comes to speak to patient, he is completely silent and keeps shaking his legs Original Note: <Shari Plaza - Last Filed: 11/12/17 14:51> CCU Subjective - Physician Review Subjective (Free Text): 11/12/17 14:[address] Progress Note [address]. Ray : Patient seen and examined at bedside. Patient does not respond well. Patient appears drowsy. Per nursing, patient continues to ask for food. Patient does not respond to questions for ROS. Critical Care Time Spent (in minutes): 35 CCU Objective - Vital Signs / Intake & Output Vital Signs (Last 4 hours): Vital Signs Temp Pulse Resp BP Pulse Ox 11/12/17 13:02 103 H 26 H 131/78 78 L 11/12/17 13:00 103 H 28 H 11/12/17 12:02 99 H 24 129/80 11/12/17 12:00 98.6 F 98 H 23 11/12/17 11:02 95 H 22 145/94 H 11/12/17 11:00 97 H 20 Intake and Output (Last 8hrs): Intake & Output 11/11/17 11/12/17 11/12/17 22:59 06:59 14:59 Intake Total 560 Output Total 2250 1375 1265 Balance -2250 -1375 -705 Weight 141 lb 5 oz Intake: Intake, IV Amount 200 Left Forearm 100 Right Forearm 100 Oral 360 Output: Urine 2250 1375 1265 Urethral (Pina) 2250 1375 1265 - Physical Exam Head: Positive for: Atraumatic, Normocephalic Pupils: Positive for: PERRL Extroacular Muscles: Positive for: EOMI Conjunctiva: Positive for: Normal Mouth: Positive for: Moist Mucous Membranes Respiratory/Chest: Positive for: Clear to Auscultation Cardiovascular: Positive for: Regular Rate and Rhythm Abdomen: Positive for: Normal Bowel Sounds. Negative for: Tenderness, Distention Upper Extremity: Positive for: Normal Inspection Psychiatric: Positive for: Alert - Medications Active Medications: Active Medications Generic Name Dose Route Start Last Admin Trade Name Freq PRN Reason Stop Dose Admin Enoxaparin Sodium 60 mg 11/10/17 10:00 11/12/17 12:20 Lovenox SC 60 mg Q12 RANDAL Administration Furosemide 40 mg 11/10/17 10:00 11/12/17 09:23 Lasix IVP 40 mg Q12 RANDAL Administration Levetiracetam 500 mg/ Sodium 105 mls @ 420 mls/hr 11/10/17 18:00 11/12/17 05: 33 Chloride IVPB 420 mls/hr Q12H RANDAL Administration Phenytoin 100 mg/ Sodium 52 mls @ 0 mls/hr 11/12/17 14:00 Chloride IVPB TID RANDAL Per Protocol Insulin Aspart 0 unit 11/10/17 17:45 11/12/17 12:21 Novolog SC 6 unit Q6H RANDAL Administration Protocol Lisinopril 5 mg 11/10/17 10:00 11/12/17 09:33 Zestril NG 5 mg DAILY RANDAL Administration Pantoprazole Sodium 40 mg 11/10/17 10:00 11/12/17 09:23 Protonix Inj IVP 40 mg DAILY RANDAL Administration - Patient Studies Lab Studies: Microbiology Studies 11/10/17 06:36 Blood Culture - Preliminary Blood-Venous NO GROWTH AFTER 48 HOURS 11/10/17 06:36 Blood Culture - Preliminary Blood-Venous NO GROWTH AFTER 48 HOURS 11/10/17 18:00 MRSA Culture (Admit) - Final Naris MRSA NOT DETECTED Lab Studies 11/12/17 11/12/17 11/12/17 Range/Units 11:29 09:18 08:31 WBC (4.8-10.8) K/uL RBC (4.40-5.90) Mil/uL Hgb (12.0-18.0) g/dL Hct (35.0-51.0) % MCV (80.0-94.0) fL MCH (27.0-31.0) pg MCHC (33.0-37.0) g/dL RDW (11.5-14.5) % Plt Count (130-400) K/uL MPV (7.2-11.7) fL Puncture Site pCO2 (35-45) mm/Hg pO2 (80-100) mm/Hg HCO3 (21-28) mmol/L ABG pH (7.35-7.45) ABG Total CO2 (22-28) mmol/L ABG O2 Saturation (95-98) % ABG Base Excess (-2.0-3.0) mmol/L ABG Hemoglobin (11.7-17.4) g/dL ABG Carboxyhemoglobin (0.5-1.5) % POC ABG HHb (Measured) (0.0-5.0) % ABG Methemoglobin (0.0-3.0) % Rafael Test A-a O2 Difference mm/Hg Respiratory Index Hgb O2 Saturation (95.0-98.0) % Vent Mode FiO2 % Inspiratory BiPAP Expiratory BiPAP Sodium (132-148) mmol/L Potassium (3.6-5.2) mmol/L Chloride (98-107) mmol/L Carbon Dioxide (22-30) mmol/L Anion Gap (10-20) BUN (9-20) mg/dL Creatinine (0.8-1.5) mg/dL Est GFR ( Amer) Est GFR (Non-Af Amer) POC Glucose (mg/dL) 465 H* 105 (65-110) mg/dL Random Glucose (75-110) mg/dL Calcium (8.6-10.4) mg/dl Phosphorus (2.5-4.5) mg/dL Magnesium (1.6-2.3) mg/dL Total Bilirubin (0.2-1.3) mg/dL AST (17-59) U/L ALT (21-72) U/L Alkaline Phosphatase (38-126) U/L Total Protein (6.3-8.3) g/dL Albumin (3.5-5.0) g/dL Globulin (2.2-3.9) gm/dL Albumin/Globulin Ratio (1.0-2.1) Prolactin (3.7-17.9) ng/mL Phenytoin 4.0 L (10-20) ug/mL 11/12/17 11/12/17 11/12/17 Range/Units 06:11 06:10 05:43 WBC 4.8 (4.8-10.8) K/uL RBC 3.88 L (4.40-5.90) Mil/uL Hgb 11.5 L D (12.0-18.0) g/dL Hct 34.3 L (35.0-51.0) % MCV 88.4 (80.0-94.0) fL MCH 29.6 (27.0-31.0) pg MCHC 33.6 (33.0-37.0) g/dL RDW 15.5 H (11.5-14.5) % Plt Count 385 D (130-400) K/uL MPV 7.6 (7.2-11.7) fL Puncture Site pCO2 (35-45) mm/Hg pO2 (80-100) mm/Hg HCO3 (21-28) mmol/L ABG pH (7.35-7.45) ABG Total CO2 (22-28) mmol/L ABG O2 Saturation (95-98) % ABG Base Excess (-2.0-3.0) mmol/L ABG Hemoglobin (11.7-17.4) g/dL ABG Carboxyhemoglobin (0.5-1.5) % POC ABG HHb (Measured) (0.0-5.0) % ABG Methemoglobin (0.0-3.0) % Rafael Test A-a O2 Difference mm/Hg Respiratory Index Hgb O2 Saturation (95.0-98.0) % Vent Mode FiO2 % Inspiratory BiPAP Expiratory BiPAP Sodium 131 L (132-148) mmol/L Potassium 3.5 L (3.6-5.2) mmol/L Chloride 93 L (98-107) mmol/L Carbon Dioxide 35 H (22-30) mmol/L Anion Gap 7 L (10-20) BUN 20 (9-20) mg/dL Creatinine 0.9 (0.8-1.5) mg/dL Est GFR ( Amer) > 60 Est GFR (Non-Af Amer) > 60 POC Glucose (mg/dL) 72 (65-110) mg/dL Random Glucose 79 (75-110) mg/dL Calcium 8.2 L (8.6-10.4) mg/dl Phosphorus 3.4 (2.5-4.5) mg/dL Magnesium 2.0 (1.6-2.3) mg/dL Total Bilirubin 0.6 (0.2-1.3) mg/dL AST 34 (17-59) U/L ALT 41 (21-72) U/L Alkaline Phosphatase 170 H (38-126) U/L Total Protein 6.7 (6.3-8.3) g/dL Albumin 3.1 L (3.5-5.0) g/dL Globulin 3.6 (2.2-3.9) gm/dL Albumin/Globulin Ratio 0.9 L (1.0-2.1) Prolactin 4.2 (3.7-17.9) ng/mL Phenytoin (10-20) ug/mL 11/12/17 11/11/17 11/11/17 Range/Units 00:24 20:10 17:41 WBC (4.8-10.8) K/uL RBC (4.40-5.90) Mil/uL Hgb (12.0-18.0) g/dL Hct (35.0-51.0) % MCV (80.0-94.0) fL MCH (27.0-31.0) pg MCHC (33.0-37.0) g/dL RDW (11.5-14.5) % Plt Count (130-400) K/uL MPV (7.2-11.7) fL Puncture Site Rra pCO2 45 (35-45) mm/Hg pO2 136 H (80-100) mm/Hg HCO3 31.3 H (21-28) mmol/L ABG pH 7.47 H (7.35-7.45) ABG Total CO2 34.2 H (22-28) mmol/L ABG O2 Saturation 99.7 H (95-98) % ABG Base Excess 8.2 H (-2.0-3.0) mmol/L ABG Hemoglobin 10.8 L (11.7-17.4) g/dL ABG Carboxyhemoglobin 2.0 H (0.5-1.5) % POC ABG HHb (Measured) 0.3 (0.0-5.0) % ABG Methemoglobin 1.1 (0.0-3.0) % Rafael Test Pos A-a O2 Difference 93.0 mm/Hg Respiratory Index 0.7 Hgb O2 Saturation 96.6 (95.0-98.0) % Vent Mode Bipap FiO2 40.0 % Inspiratory BiPAP 16 Expiratory BiPAP 8 Sodium (132-148) mmol/L Potassium (3.6-5.2) mmol/L Chloride (98-107) mmol/L Carbon Dioxide (22-30) mmol/L Anion Gap (10-20) BUN (9-20) mg/dL Creatinine (0.8-1.5) mg/dL Est GFR ( Amer) Est GFR (Non-Af Amer) POC Glucose (mg/dL) 193 H 174 H (65-110) mg/dL Random Glucose (75-110) mg/dL Calcium (8.6-10.4) mg/dl Phosphorus (2.5-4.5) mg/dL Magnesium (1.6-2.3) mg/dL Total Bilirubin (0.2-1.3) mg/dL AST (17-59) U/L ALT (21-72) U/L Alkaline Phosphatase (38-126) U/L Total Protein (6.3-8.3) g/dL Albumin (3.5-5.0) g/dL Globulin (2.2-3.9) gm/dL Albumin/Globulin Ratio (1.0-2.1) Prolactin (3.7-17.9) ng/mL Phenytoin (10-20) ug/mL Laboratory Results - last 24 hr 11/11/17 11/11/17 11/12/17 17:41 20:10 00:24 WBC RBC Hgb Hct MCV MCH MCHC RDW Plt Count MPV Puncture Site Rra pCO2 45 pO2 136 H HCO3 31.3 H ABG pH 7.47 H ABG Total CO2 34.2 H ABG O2 Saturation 99.7 H ABG Base Excess 8.2 H ABG Hemoglobin 10.8 L ABG Carboxyhemoglobin 2.0 H POC ABG HHb (Measured) 0.3 ABG Methemoglobin 1.1 Rafael Test Pos A-a O2 Difference 93.0 Respiratory Index 0.7 Hgb O2 Saturation 96.6 Vent Mode Bipap FiO2 40.0 Inspiratory BiPAP 16 Expiratory BiPAP 8 Sodium Potassium Chloride Carbon Dioxide Anion Gap BUN Creatinine Est GFR ( Amer) Est GFR (Non-Af Amer) POC Glucose (mg/dL) 174 H 193 H Random Glucose Calcium Phosphorus Magnesium Total Bilirubin AST ALT Alkaline Phosphatase Total Protein Albumin Globulin Albumin/Globulin Ratio Prolactin Phenytoin 11/12/17 11/12/17 11/12/17 05:43 06:10 06:11 WBC 4.8 RBC 3.88 L Hgb 11.5 L D Hct 34.3 L MCV 88.4 MCH 29.6 MCHC 33.6 RDW 15.5 H Plt Count 385 D MPV 7.6 Puncture Site pCO2 pO2 HCO3 ABG pH ABG Total CO2 ABG O2 Saturation ABG Base Excess ABG Hemoglobin ABG Carboxyhemoglobin POC ABG HHb (Measured) ABG Methemoglobin Rafael Test A-a O2 Difference Respiratory Index Hgb O2 Saturation Vent Mode FiO2 Inspiratory BiPAP Expiratory BiPAP Sodium 131 L Potassium 3.5 L Chloride 93 L Carbon Dioxide 35 H Anion Gap 7 L BUN 20 Creatinine 0.9 Est GFR ( Amer) > 60 Est GFR (Non-Af Amer) > 60 POC Glucose (mg/dL) 72 Random Glucose 79 Calcium 8.2 L Phosphorus 3.4 Magnesium 2.0 Total Bilirubin 0.6 AST 34 ALT 41 Alkaline Phosphatase 170 H Total Protein 6.7 Albumin 3.1 L Globulin 3.6 Albumin/Globulin Ratio 0.9 L Prolactin 4.2 Phenytoin 11/12/17 11/12/17 11/12/17 08:31 09:18 11:29 WBC RBC Hgb Hct MCV MCH MCHC RDW Plt Count MPV Puncture Site pCO2 pO2 HCO3 ABG pH ABG Total CO2 ABG O2 Saturation ABG Base Excess ABG Hemoglobin ABG Carboxyhemoglobin POC ABG HHb (Measured) ABG Methemoglobin Rafael Test A-a O2 Difference Respiratory Index Hgb O2 Saturation Vent Mode FiO2 Inspiratory BiPAP Expiratory BiPAP Sodium Potassium Chloride Carbon Dioxide Anion Gap BUN Creatinine Est GFR ( Amer) Est GFR (Non-Af Amer) POC Glucose (mg/dL) 105 465 H* Random Glucose Calcium Phosphorus Magnesium Total Bilirubin AST ALT Alkaline Phosphatase Total Protein Albumin Globulin Albumin/Globulin Ratio Prolactin Phenytoin 4.0 L Fingerstick Blood Sugar Results: 72 Critical Care Progress Note - Nutrition Nutrition: Nutrition Category Date Time Status Heart Healthy Diet [DIET] Diets 11/12/17 Dinner Ordered Assessment/Plan - Assessment and Plan (Free Text) Assessment: Assessment 52 M with PMH HTN, Asthma, DM, toe amputations, drug abuse presented for ED for a place to stay and with left foot pain. Patient developed flash pulmonary edema and was intubated. Plan Neuro/Psych: Sedation: none Pain: none Seizure disorder: Keppra and Dilantin (Phenytoin) 100mg 50cc NS IVPB TID, Levetiracetam 500mg NS 100cc IVPB Q12H Dilantin levels Cardio: HTN Lisinopril 5mh NG QD Pulm: Pulmonary edema Patient was intubated, Patient self extubated, currently, patient is on BIPAP Lasix 40mg IVP Q12 ABG, Vent Settings: 11/10 06:10 7.34, CO2 52, O2 238, HCO3 26.1, PRVC RR 12 FiO2 100% TV 500 PEEP 5 11/11/17 04:50 7.45, 47, 483, 30.5, PRVC RR 12, FiO2 100%, TV 500, PEEP 5 11/11/16 20:10 7.47, 45, 136, 31.3, BiPAP FiO2 40% 26/06 Endo: T2DM SISS Accucheck ACHS GI: Diet: Heart Healthy Diet, Carb consistent diet : Renal: I/O: 185.01/3710 = -3524.7 Heme/Onc: H/H: 11/10 10.0/30.5 11/11/17 8.0/23.5 11/12/17 11.5/34.3 MSK: Activity as tolerated ID: f/u AM CBC Prophylaxis: DVT: Lovenox 60mg SC Q12 GI: Protonix 40mg IVP QD Discussed with Dr. Farideh Plaza DO PGY1 - Date & Time Date: 11/12/17 Time: 14:51 <Juan F Gong - Last Filed: 11/12/17 18:28> CCU Objective - Vital Signs / Intake & Output Vital Signs (Last 4 hours): Vital Signs Temp Pulse Resp BP Pulse Ox 11/12/17 17:02 100 H 19 126/78 11/12/17 17:00 96 H 21 11/12/17 16:02 96 H 21 133/82 11/12/17 16:00 98.4 F 96 H 20 11/12/17 15:02 101 H 21 125/77 100 11/12/17 15:00 101 H 21 100 Intake and Output (Last 8hrs): Intake & Output 11/12/17 11/12/17 11/12/17 06:59 14:59 22:59 Intake Total 560 530 Output Total 1375 1365 100 Balance -1375 -805 430 Weight 141 lb 5 oz Intake: Intake, IV Amount 200 50 Left Forearm 100 50 Right Forearm 100 Oral 360 480 Output: Urine 1375 1365 100 Urethral (Pina) 1375 1365 100 - Medications Active Medications: Active Medications Generic Name Dose Route Start Last Admin Trade Name Freq PRN Reason Stop Dose Admin Enoxaparin Sodium 60 mg 11/10/17 10:00 11/12/17 12:20 Lovenox SC 60 mg Q12 RANDAL Administration Furosemide 40 mg 11/10/17 10:00 11/12/17 09:23 Lasix IVP 40 mg Q12 RANDAL Administration Levetiracetam 500 mg/ Sodium 105 mls @ 420 mls/hr 11/10/17 18:00 11/12/17 18: 05 Chloride IVPB 420 mls/hr Q12H RANDAL Administration Phenytoin 100 mg/ Sodium 52 mls @ 0 mls/hr 11/12/17 14:00 11/12/17 15:10 Chloride IVPB 100 mls/hr TID RANDAL Administration Per Protocol Insulin Aspart 0 unit 11/10/17 17:45 11/12/17 18:12 Novolog SC 2 unit Q6H RANDAL Administration Protocol Lisinopril 5 mg 11/10/17 10:00 11/12/17 09:33 Zestril NG 5 mg DAILY RANDAL Administration Pantoprazole Sodium 40 mg 11/10/17 10:00 11/12/17 09:23 Protonix Inj IVP 40 mg DAILY RANDAL Administration - Patient Studies Lab Studies: Microbiology Studies 11/10/17 06:36 Blood Culture - Preliminary Blood-Venous NO GROWTH AFTER 48 HOURS 11/10/17 06:36 Blood Culture - Preliminary Blood-Venous NO GROWTH AFTER 48 HOURS 11/10/17 18:00 MRSA Culture (Admit) - Final Naris MRSA NOT DETECTED Lab Studies 11/12/17 11/12/17 11/12/17 Range/Units 17:44 11:29 09:18 WBC (4.8-10.8) K/uL RBC (4.40-5.90) Mil/uL Hgb (12.0-18.0) g/dL Hct (35.0-51.0) % MCV (80.0-94.0) fL MCH (27.0-31.0) pg MCHC (33.0-37.0) g/dL RDW (11.5-14.5) % Plt Count (130-400) K/uL MPV (7.2-11.7) fL Puncture Site pCO2 (35-45) mm/Hg pO2 (80-100) mm/Hg HCO3 (21-28) mmol/L ABG pH (7.35-7.45) ABG Total CO2 (22-28) mmol/L ABG O2 Saturation (95-98) % ABG Base Excess (-2.0-3.0) mmol/L ABG Hemoglobin (11.7-17.4) g/dL ABG Carboxyhemoglobin (0.5-1.5) % POC ABG HHb (Measured) (0.0-5.0) % ABG Methemoglobin (0.0-3.0) % Rafael Test A-a O2 Difference mm/Hg Respiratory Index Hgb O2 Saturation (95.0-98.0) % Vent Mode FiO2 % Inspiratory BiPAP Expiratory BiPAP Sodium (132-148) mmol/L Potassium (3.6-5.2) mmol/L Chloride (98-107) mmol/L Carbon Dioxide (22-30) mmol/L Anion Gap (10-20) BUN (9-20) mg/dL Creatinine (0.8-1.5) mg/dL Est GFR ( Amer) Est GFR (Non-Af Amer) POC Glucose (mg/dL) 267 H 465 H* (65-110) mg/dL Random Glucose (75-110) mg/dL Calcium (8.6-10.4) mg/dl Phosphorus (2.5-4.5) mg/dL Magnesium (1.6-2.3) mg/dL Total Bilirubin (0.2-1.3) mg/dL AST (17-59) U/L ALT (21-72) U/L Alkaline Phosphatase (38-126) U/L Total Protein (6.3-8.3) g/dL Albumin (3.5-5.0) g/dL Globulin (2.2-3.9) gm/dL Albumin/Globulin Ratio (1.0-2.1) Prolactin (3.7-17.9) ng/mL Phenytoin 4.0 L (10-20) ug/mL 11/12/17 11/12/17 11/12/17 Range/Units 08:31 06:11 06:10 WBC 4.8 (4.8-10.8) K/uL RBC 3.88 L (4.40-5.90) Mil/uL Hgb 11.5 L D (12.0-18.0) g/dL Hct 34.3 L (35.0-51.0) % MCV 88.4 (80.0-94.0) fL MCH 29.6 (27.0-31.0) pg MCHC 33.6 (33.0-37.0) g/dL RDW 15.5 H (11.5-14.5) % Plt Count 385 D (130-400) K/uL MPV 7.6 (7.2-11.7) fL Puncture Site pCO2 (35-45) mm/Hg pO2 (80-100) mm/Hg HCO3 (21-28) mmol/L ABG pH (7.35-7.45) ABG Total CO2 (22-28) mmol/L ABG O2 Saturation (95-98) % ABG Base Excess (-2.0-3.0) mmol/L ABG Hemoglobin (11.7-17.4) g/dL ABG Carboxyhemoglobin (0.5-1.5) % POC ABG HHb (Measured) (0.0-5.0) % ABG Methemoglobin (0.0-3.0) % Rafael Test A-a O2 Difference mm/Hg Respiratory Index Hgb O2 Saturation (95.0-98.0) % Vent Mode FiO2 % Inspiratory BiPAP Expiratory BiPAP Sodium 131 L (132-148) mmol/L Potassium 3.5 L (3.6-5.2) mmol/L Chloride 93 L (98-107) mmol/L Carbon Dioxide 35 H (22-30) mmol/L Anion Gap 7 L (10-20) BUN 20 (9-20) mg/dL Creatinine 0.9 (0.8-1.5) mg/dL Est GFR ( Amer) > 60 Est GFR (Non-Af Amer) > 60 POC Glucose (mg/dL) 105 (65-110) mg/dL Random Glucose 79 (75-110) mg/dL Calcium 8.2 L (8.6-10.4) mg/dl Phosphorus 3.4 (2.5-4.5) mg/dL Magnesium 2.0 (1.6-2.3) mg/dL Total Bilirubin 0.6 (0.2-1.3) mg/dL AST 34 (17-59) U/L ALT 41 (21-72) U/L Alkaline Phosphatase 170 H (38-126) U/L Total Protein 6.7 (6.3-8.3) g/dL Albumin 3.1 L (3.5-5.0) g/dL Globulin 3.6 (2.2-3.9) gm/dL Albumin/Globulin Ratio 0.9 L (1.0-2.1) Prolactin 4.2 (3.7-17.9) ng/mL Phenytoin (10-20) ug/mL 11/12/17 11/12/17 11/11/17 Range/Units 05:43 00:24 20:10 WBC (4.8-10.8) K/uL RBC (4.40-5.90) Mil/uL Hgb (12.0-18.0) g/dL Hct (35.0-51.0) % MCV (80.0-94.0) fL MCH (27.0-31.0) pg MCHC (33.0-37.0) g/dL RDW (11.5-14.5) % Plt Count (130-400) K/uL MPV (7.2-11.7) fL Puncture Site Rra pCO2 45 (35-45) mm/Hg pO2 136 H (80-100) mm/Hg HCO3 31.3 H (21-28) mmol/L ABG pH 7.47 H (7.35-7.45) ABG Total CO2 34.2 H (22-28) mmol/L ABG O2 Saturation 99.7 H (95-98) % ABG Base Excess 8.2 H (-2.0-3.0) mmol/L ABG Hemoglobin 10.8 L (11.7-17.4) g/dL ABG Carboxyhemoglobin 2.0 H (0.5-1.5) % POC ABG HHb (Measured) 0.3 (0.0-5.0) % ABG Methemoglobin 1.1 (0.0-3.0) % Rafael Test Pos A-a O2 Difference 93.0 mm/Hg Respiratory Index 0.7 Hgb O2 Saturation 96.6 (95.0-98.0) % Vent Mode Bipap FiO2 40.0 % Inspiratory BiPAP 16 Expiratory BiPAP 8 Sodium (132-148) mmol/L Potassium (3.6-5.2) mmol/L Chloride (98-107) mmol/L Carbon Dioxide (22-30) mmol/L Anion Gap (10-20) BUN (9-20) mg/dL Creatinine (0.8-1.5) mg/dL Est GFR ( Amer) Est GFR (Non-Af Amer) POC Glucose (mg/dL) 72 193 H (65-110) mg/dL Random Glucose (75-110) mg/dL Calcium (8.6-10.4) mg/dl Phosphorus (2.5-4.5) mg/dL Magnesium (1.6-2.3) mg/dL Total Bilirubin (0.2-1.3) mg/dL AST (17-59) U/L ALT (21-72) U/L Alkaline Phosphatase (38-126) U/L Total Protein (6.3-8.3) g/dL Albumin (3.5-5.0) g/dL Globulin (2.2-3.9) gm/dL Albumin/Globulin Ratio (1.0-2.1) Prolactin (3.7-17.9) ng/mL Phenytoin (10-20) ug/mL Laboratory Results - last 24 hr 11/11/17 11/12/17 11/12/17 20:10 00:24 05:43 WBC RBC Hgb Hct MCV MCH MCHC RDW Plt Count MPV Puncture Site Rra pCO2 45 pO2 136 H HCO3 31.3 H ABG pH 7.47 H ABG Total CO2 34.2 H ABG O2 Saturation 99.7 H ABG Base Excess 8.2 H ABG Hemoglobin 10.8 L ABG Carboxyhemoglobin 2.0 H POC ABG HHb (Measured) 0.3 ABG Methemoglobin 1.1 Rafael Test Pos A-a O2 Difference 93.0 Respiratory Index 0.7 Hgb O2 Saturation 96.6 Vent Mode Bipap FiO2 40.0 Inspiratory BiPAP 16 Expiratory BiPAP 8 Sodium Potassium Chloride Carbon Dioxide Anion Gap BUN Creatinine Est GFR ( Amer) Est GFR (Non-Af Amer) POC Glucose (mg/dL) 193 H 72 Random Glucose Calcium Phosphorus Magnesium Total Bilirubin AST ALT Alkaline Phosphatase Total Protein Albumin Globulin Albumin/Globulin Ratio Prolactin Phenytoin 11/12/17 11/12/17 11/12/17 06:10 06:11 08:31 WBC 4.8 RBC 3.88 L Hgb 11.5 L D Hct 34.3 L MCV 88.4 MCH 29.6 MCHC 33.6 RDW 15.5 H Plt Count 385 D MPV 7.6 Puncture Site pCO2 pO2 HCO3 ABG pH ABG Total CO2 ABG O2 Saturation ABG Base Excess ABG Hemoglobin ABG Carboxyhemoglobin POC ABG HHb (Measured) ABG Methemoglobin Rafael Test A-a O2 Difference Respiratory Index Hgb O2 Saturation Vent Mode FiO2 Inspiratory BiPAP Expiratory BiPAP Sodium 131 L Potassium 3.5 L Chloride 93 L Carbon Dioxide 35 H Anion Gap 7 L BUN 20 Creatinine 0.9 Est GFR ( Amer) > 60 Est GFR (Non-Af Amer) > 60 POC Glucose (mg/dL) 105 Random Glucose 79 Calcium 8.2 L Phosphorus 3.4 Magnesium 2.0 Total Bilirubin 0.6 AST 34 ALT 41 Alkaline Phosphatase 170 H Total Protein 6.7 Albumin 3.1 L Globulin 3.6 Albumin/Globulin Ratio 0.9 L Prolactin 4.2 Phenytoin 11/12/17 11/12/17 11/12/17 09:18 11:29 17:44 WBC RBC Hgb Hct MCV MCH MCHC RDW Plt Count MPV Puncture Site pCO2 pO2 HCO3 ABG pH ABG Total CO2 ABG O2 Saturation ABG Base Excess ABG Hemoglobin ABG Carboxyhemoglobin POC ABG HHb (Measured) ABG Methemoglobin Rafael Test A-a O2 Difference Respiratory Index Hgb O2 Saturation Vent Mode FiO2 Inspiratory BiPAP Expiratory BiPAP Sodium Potassium Chloride Carbon Dioxide Anion Gap BUN Creatinine Est GFR ( Amer) Est GFR (Non-Af Amer) POC Glucose (mg/dL) 465 H* 267 H Random Glucose Calcium Phosphorus Magnesium Total Bilirubin AST ALT Alkaline Phosphatase Total Protein Albumin Globulin Albumin/Globulin Ratio Prolactin Phenytoin 4.0 L Critical Care Progress Note - Nutrition Nutrition: Nutrition Category Date Time Status Heart Healthy Diet [DIET] Diets 11/12/17 Dinner Active Assessment/Plan (1) Pulmonary edema Current Visit: Yes Status: Acute Attending/Attestation - Attestation I have personally seen and examined this patient.: Yes I have fully participated in the care of the patient.: Yes I have reviewed all pertinent clinical information: Yes Notes (Text): 11/12/17 18:25 I have seen and examined the patient. Medical records, lab studies, and imaging were reviewed by me and a management plan was formulated on multidisciplinary rounds with resident Dr. Plaza. I agree with their documented assessment and plan. Patient is clinically stable off of vent. He was subtherapeutic on Dilantin, bolused and continued current regimen. It is not felt he is having seizures but is currently malingering, based on intermittent episodes of complete clarity and yelling at the nurses for food and removing equipment off of himself quite carefully, clinically stable for downgrade to the floors. Critical Care Time 35 minutes. Multi-disciplinary rounds were performed with house staff, nursing, speech therapy, respiratory therapy, pharmacy and nutrition with integrated input from the primary team/attending and other consulting services. The documented time is cumulative and includes review of patient data/exams/labs/chart review and examination of the patient on rounds and throughout the day; time is exclusive of any procedures or teaching time.
--- NOTE | 2017-11-12 15:15 | CP.PCM.CON ---
History of Present Illness - History of Present Illness History of Present Illness: Mr. Walker is a 52-year-old homeless man with a past medical history of heroin abuse, hypertension, diabetes and epilepsy, who presented to the ED with respiratory difficulty, had flash pulmonary edema, was intubated, then self extubated and was subsequently noted to be lethargic/confused. He was thought to possibly be post-ictal. Dilantin level was subtherapeutic. The patient is currently breathing normally, opens eyes, moves all extremities, but seems to be refusing to follow commands. An EEG was attempted, but he removed the EEG leads. Review of Systems - Review of Systems All systems: reviewed and no additional remarkable complaints except Past Patient History - Past Medical History & Family History Past Medical History?: Yes - Past Social History Smoking Status: Light Smoker < 10 Cigarettes Daily - CARDIAC Hx Hypertension: Yes Hx Pacemaker: No Hx Peripheral Edema: Yes - PULMONARY Hx Asthma: Yes - NEUROLOGICAL Hx Seizures: Yes - HEENT Hx HEENT Problems: No - RENAL Hx Chronic Kidney Disease: No - ENDOCRINE/METABOLIC Hx Diabetes Mellitus Type 2: Yes - INTEGUMENTARY Hx Dermatological Problems: No - MUSCULOSKELETAL/RHEUMATOLOGICAL Hx Musculoskeletal Disorders: Yes Hx Falls: No Hx Osteomyelitis: Yes (s/p amputations of L toes #3,4,5 ) - GASTROINTESTINAL Hx Gastrointestinal Disorders: No - PSYCHIATRIC Hx Substance Use: Yes (sniffs heroin) - SURGICAL HISTORY Hx Amputation: Yes (L foot last 3toes) - ANESTHESIA Hx Anesthesia Reactions: No Meds Allergies/Adverse Reactions: Allergies Allergy/AdvReac Type Severity Reaction Status Date / Time Fish Containing Products Allergy VOMITING Verified 11/10/17 00:00 tomato Allergy VOMITING Verified 11/10/17 00:00 FISH AdvReac Verified 11/10/17 00:00 tomatoes Allergy RASH Uncoded 11/10/17 00:00 - Medications Medications: Current Medications Enoxaparin Sodium (Lovenox) 60 mg SC Q12 [facility] Last Admin: 11/12/17 12:20 Dose: 60 mg Furosemide (Lasix) 40 mg IVP Q12 [facility] Last Admin: 11/12/17 09:23 Dose: 40 mg Levetiracetam 500 mg/ Sodium (Chloride) 105 mls @ 420 mls/hr IVPB Q12H [facility] Last Admin: 11/12/17 05:33 Dose: 420 mls/hr Phenytoin 100 mg/ Sodium (Chloride) 52 mls @ 0 mls/hr IVPB TID [facility] PRN Reason: Per Protocol Insulin Aspart (Novolog) 0 unit SC Q6H [facility] PRN Reason: Protocol Last Admin: 11/12/17 12:21 Dose: 6 unit Lisinopril (Zestril) 5 mg NG DAILY [facility] Last Admin: 11/12/17 09:33 Dose: 5 mg Pantoprazole Sodium (Protonix Inj) 40 mg IVP DAILY [facility] Last Admin: 11/12/17 09:23 Dose: 40 mg Physical Exam - Constitutional Appears: Well - Head Exam Head Exam: ATRAUMATIC, NORMAL INSPECTION, NORMOCEPHALIC - Eye Exam Eye Exam: EOMI, Normal appearance, PERRL - ENT Exam ENT Exam: Mucous Membranes Moist, Normal Exam - Respiratory Exam Respiratory Exam: Rales, Rhonchi, Wheezes - Cardiovascular Exam Cardiovascular Exam: REGULAR RHYTHM - Rectal Exam Rectal Exam: Deferred - Neurological Exam Neurological exam: Altered, Reflexes Normal Additional comments: Moves all extremities equally, sensation is intact, no facial asymmetry noted, no CN deficits noted. Plantar responses are normal. Results - Vital Signs Recent Vital Signs: Last Vital Signs Temp 98.6 F 11/12/17 12:00 Pulse 102 H 11/12/17 14:02 Resp 25 H 11/12/17 14:02 BP 115/71 11/12/17 14:02 Pulse Ox 78 L 11/12/17 13:02 - Labs Result Diagrams: 11/12/17 06:10 11/12/17 06:11 Labs: Laboratory Results - last 24 hr 11/11/17 11/11/17 11/12/17 17:41 20:10 00:24 WBC RBC Hgb Hct MCV MCH MCHC RDW Plt Count MPV Puncture Site Rra pCO2 45 pO2 136 H HCO3 31.3 H ABG pH 7.47 H ABG Total CO2 34.2 H ABG O2 Saturation 99.7 H ABG Base Excess 8.2 H ABG Hemoglobin 10.8 L ABG Carboxyhemoglobin 2.0 H POC ABG HHb (Measured) 0.3 ABG Methemoglobin 1.1 Rafael Test Pos A-a O2 Difference 93.0 Respiratory Index 0.7 Hgb O2 Saturation 96.6 Vent Mode Bipap FiO2 40.0 Inspiratory BiPAP 16 Expiratory BiPAP 8 Sodium Potassium Chloride Carbon Dioxide Anion Gap BUN Creatinine Est GFR ( Amer) Est GFR (Non-Af Amer) POC Glucose (mg/dL) 174 H 193 H Random Glucose Calcium Phosphorus Magnesium Total Bilirubin AST ALT Alkaline Phosphatase Total Protein Albumin Globulin Albumin/Globulin Ratio Prolactin Phenytoin 11/12/17 11/12/17 11/12/17 05:43 06:10 06:11 WBC 4.8 RBC 3.88 L Hgb 11.5 L D Hct 34.3 L MCV 88.4 MCH 29.6 MCHC 33.6 RDW 15.5 H Plt Count 385 D MPV 7.6 Puncture Site pCO2 pO2 HCO3 ABG pH ABG Total CO2 ABG O2 Saturation ABG Base Excess ABG Hemoglobin ABG Carboxyhemoglobin POC ABG HHb (Measured) ABG Methemoglobin Rafael Test A-a O2 Difference Respiratory Index Hgb O2 Saturation Vent Mode FiO2 Inspiratory BiPAP Expiratory BiPAP Sodium 131 L Potassium 3.5 L Chloride 93 L Carbon Dioxide 35 H Anion Gap 7 L BUN 20 Creatinine 0.9 Est GFR ( Amer) > 60 Est GFR (Non-Af Amer) > 60 POC Glucose (mg/dL) 72 Random Glucose 79 Calcium 8.2 L Phosphorus 3.4 Magnesium 2.0 Total Bilirubin 0.6 AST 34 ALT 41 Alkaline Phosphatase 170 H Total Protein 6.7 Albumin 3.1 L Globulin 3.6 Albumin/Globulin Ratio 0.9 L Prolactin 4.2 Phenytoin 11/12/17 11/12/17 11/12/17 08:31 09:18 11:29 WBC RBC Hgb Hct MCV MCH MCHC RDW Plt Count MPV Puncture Site pCO2 pO2 HCO3 ABG pH ABG Total CO2 ABG O2 Saturation ABG Base Excess ABG Hemoglobin ABG Carboxyhemoglobin POC ABG HHb (Measured) ABG Methemoglobin Rafael Test A-a O2 Difference Respiratory Index Hgb O2 Saturation Vent Mode FiO2 Inspiratory BiPAP Expiratory BiPAP Sodium Potassium Chloride Carbon Dioxide Anion Gap BUN Creatinine Est GFR ( Amer) Est GFR (Non-Af Amer) POC Glucose (mg/dL) 105 465 H* Random Glucose Calcium Phosphorus Magnesium Total Bilirubin AST ALT Alkaline Phosphatase Total Protein Albumin Globulin Albumin/Globulin Ratio Prolactin Phenytoin 4.0 L Assessment & Plan (1) Seizure disorder Assessment and Plan: Continue Keppra at current dose. Load dilantin 500 mg IV once, and continue [address] head without contrast and EEG when possible. No further recommendations at this time. Thank you. Status: Acute Priority: High
--- NOTE | 2017-11-12 15:37 | CP.PCM.PN ---
Subjective - Date & Time of Evaluation Date of Evaluation: 11/12/17 Time of Evaluation: 15:36 Objective - Vital Signs/Intake and Output Vital Signs (last 24 hours): Temp Pulse Resp BP Pulse Ox 98.6 F 101 H 21 125/77 100 11/12/17 12:00 11/12/17 15:02 11/12/17 15:02 11/12/17 15:02 11/12/17 15:02 Intake and Output: 11/12/17 11/12/17 06:59 18:59 Intake Total 610 Output Total 1954 2177 Balance -5 -294 - Medications Medications: Current Medications Enoxaparin Sodium (Lovenox) 60 mg SC Q12 [facility] Last Admin: 11/12/17 12:20 Dose: 60 mg Furosemide (Lasix) 40 mg IVP Q12 [facility] Last Admin: 11/12/17 09:23 Dose: 40 mg Levetiracetam 500 mg/ Sodium (Chloride) 105 mls @ 420 mls/hr IVPB Q12H [facility] Last Admin: 11/12/17 05:33 Dose: 420 mls/hr Phenytoin 100 mg/ Sodium (Chloride) 52 mls @ 0 mls/hr IVPB TID [facility] PRN Reason: Per Protocol Last Admin: 11/12/17 15:10 Dose: 100 mls/hr Insulin Aspart (Novolog) 0 unit SC Q6H [facility] PRN Reason: Protocol Last Admin: 11/12/17 12:21 Dose: 6 unit Lisinopril (Zestril) 5 mg NG DAILY [facility] Last Admin: 11/12/17 09:33 Dose: 5 mg Pantoprazole Sodium (Protonix Inj) 40 mg IVP DAILY [facility] Last Admin: 11/12/17 09:23 Dose: 40 mg - Labs Labs: 11/12/17 06:10 11/12/17 06:11 PT 10.6 SECONDS (9.7-12.2) 11/10/17 05:48 INR 1.0 11/10/17 05:48 APTT 32 SECONDS (21-34) 11/10/17 05:48
--- NOTE | 2017-11-12 20:40 | CP.PCM.PN ---
Subjective - Date & Time of Evaluation Date of Evaluation: 11/12/17 Time of Evaluation: 09:00 - Subjective Subjective: Patient seen and evaluated Not in distress S/P Diastolic CHF HTN Hx of drug abuse Seizures Stable Objective - Vital Signs/Intake and Output Vital Signs (last 24 hours): Temp Pulse Resp BP Pulse Ox 99 F 103 H 25 H 121/80 97 11/12/17 20:00 11/12/17 20:02 11/12/17 20:02 11/12/17 20:02 11/12/17 20:02 Intake and Output: 11/12/17 11/13/17 18:59 06:59 Intake Total 1190 50 Output Total 1465 600 Balance -275 -550 - Medications Medications: Current Medications Enoxaparin Sodium (Lovenox) 60 mg SC Q12 [facility] Last Admin: 11/12/17 12:20 Dose: 60 mg Furosemide (Lasix) 40 mg IVP Q12 [facility] Last Admin: 11/12/17 09:23 Dose: 40 mg Levetiracetam 500 mg/ Sodium (Chloride) 105 mls @ 420 mls/hr IVPB Q12H [facility] Last Admin: 11/12/17 18:05 Dose: 420 mls/hr Phenytoin 100 mg/ Sodium (Chloride) 52 mls @ 0 mls/hr IVPB TID [facility] PRN Reason: Per Protocol Last Admin: 11/12/17 19:51 Dose: 50 mls/hr Insulin Aspart (Novolog) 0 unit SC ACHS [facility] PRN Reason: Protocol Lisinopril (Zestril) 5 mg NG DAILY [facility] Last Admin: 11/12/17 09:33 Dose: 5 mg Pantoprazole Sodium (Protonix Inj) 40 mg IVP DAILY [facility] Last Admin: 11/12/17 09:23 Dose: 40 mg - Labs Labs: 11/12/17 06:10 11/12/17 06:11 PT 10.6 SECONDS (9.7-12.2) 11/10/17 05:48 INR 1.0 11/10/17 05:48 APTT 32 SECONDS (21-34) 11/10/17 05:48
[2017-11-12 22:58] LABS: PHENYTOIN,FREE <0.5 mg/L (1.0-2.0)
--- NOTE | 2017-11-13 02:53 | PCM.RRT ---
IT SERVICE TECHNICIAN Nurses Assessment - Situation Date: 11/13/17 Time IT SERVICE TECHNICIAN was called: 02:01 IT SERVICE TECHNICIAN Responder Arrival Time:: 02:04 IT SERVICE TECHNICIAN Location:: Med/Oncology Room Number: 358b IT SERVICE TECHNICIAN Reason for Call: Change in Mental Status IT SERVICE TECHNICIAN Called By: RN - IV IV Inserted during IT SERVICE TECHNICIAN?: No - Respiratory IT SERVICE TECHNICIAN Delivery Method: Nasal Cannula @L/min Oxygen Flow Rate: 3 Received Nebulizer Treatments: No Was the Patient Ventilated with Bag/Mask 100% O2?: No Secretions Suctioned?: No Was the Patient Intubated?: No Was the Patient Placed on a Ventilator?: No - Ventilator Settings FIO2 (% Oxygen): 40 - Medication Medications Administered During IT SERVICE TECHNICIAN: none - Diagnostic Test Ordered EKG: No Chest X-Ray: No CT Scan: No CPR started during IT SERVICE TECHNICIAN?: No - Vital Signs Vital Signs: Rapid Response Vital Sign Blood Pressure 126/85 Pulse Rate 98 Respiratory Rate 20 Temperature 97.9 F Oxygen Saturation 97 - Time IT SERVICE TECHNICIAN Ended Time IT SERVICE TECHNICIAN Ended: 02:14 - Vital Signs at end of IT SERVICE TECHNICIAN Vital Signs at end of IT SERVICE TECHNICIAN: Rapid Response End Vital Sign Blood Pressure 126/82 Pulse Rate 101 Respiratory Rate 20 Temperature 97.7 F O2 Sat by Pulse Oximetry 100 - Recommendations Notifications: Attending Physician, Consultations I.Reason for IT SERVICE TECHNICIAN - A) Acute Change in Patient: (Select all that apply): Acute change in mental status - Neurological Status (Select all that apply): Alert, Responsive - Respiratory Oxygen Delivery Method: Nasal Cannula @L/min Oxygen Flow Rate: 3 - Constitutional Appears: No Acute Distress - Head Head Exam: ATRAUMATIC - Eyes Eye Exam: EOMI - Respiratory Exam Respiratory Exam: Clear to Ausculation Bilateral - Cardiovascular Exam Cardiovascular Exam: Tachycardia, +S1, +S2 - GI/Abdominal Exam GI & Abdominal Exam: Soft, Normal Bowel Sounds. absent: Tenderness - Neurological Exam Neurological Exam: Alert, Awake Additional exam: Responsive and making requests - Extremities Exam Extremities Exam: absent: Pedal Edema Additional comments: left foot toe amputations of 3rd, 4th, and 5th toe Plan - Assessment of Findings&Treatment Plan This is a 52 year old male with PMHx HTN, Asthma, DM, toe amputations, substance abuse. IT SERVICE TECHNICIAN called due to seizure-like symptoms witnessed by the patient's nurse. These have since resolved without any intervention. The patient is also now responsive and requesting medications for his back pain. The patient is oriented but at times confused. The patient's primary and neurologist on the case is to be notified. No medications were initiated during this IT SERVICE TECHNICIAN. Patient is set to receive his next dose of Keppra as scheduled.
[2017-11-13] MEDS: levETIRAcetam 500 MG in Sodium Chloride 0.9% 100 ML IVPB SCH ×2 (05:50→18:30)
[2017-11-13 07:45] VITALS: BP 127/79; PULSE 79; RESP 20; TEMP 98.3; O2SAT 96
[2017-11-13] MEDS: (Novolog) Insulin Aspart, Recombinant 100 u/ml 10 ml vial SC SCH ×3 (07:56→17:10)
--- NOTE | 2017-11-13 10:20 | PCM.RRT ---
FIELD SERVICE MANAGER Nurses Assessment - Situation Date: 11/13/17 Time FIELD SERVICE MANAGER was called: 10:40 FIELD SERVICE MANAGER Responder Arrival Time:: 10:45 FIELD SERVICE MANAGER Location:: 3T Med/Oncology Room Number: 358b FIELD SERVICE MANAGER Reason for Call: Change in Mental Status FIELD SERVICE MANAGER Called By: RN - IV IV Inserted during FIELD SERVICE MANAGER?: No - Respiratory FIELD SERVICE MANAGER Delivery Method: Nasal Cannula @L/min Oxygen Flow Rate: 3 Received Nebulizer Treatments: No Was the Patient Ventilated with Bag/Mask 100% O2?: No Secretions Suctioned?: No Was the Patient Intubated?: No Was the Patient Placed on a Ventilator?: No - Ventilator Settings FIO2 (% Oxygen): 40 - Medication Medications Administered During FIELD SERVICE MANAGER: none - Diagnostic Test Ordered EKG: No Chest X-Ray: No CT Scan: Yes (CT of the head without contrast) - Stat Labs Ordered FIELD SERVICE MANAGER Other Labs Ordered: prolactin and dilantin CPR started during FIELD SERVICE MANAGER?: No - Vital Signs Vital Signs: Rapid Response Vital Sign Blood Pressure 126/85 Pulse Rate 98 Respiratory Rate 20 Temperature 97.9 F Oxygen Saturation 97 - Yuliana Coma Scale Coma Scale Eye Opening: Spontaneous Coma Scale Motor: Obeys Commands Movement - Time FIELD SERVICE MANAGER Ended Time FIELD SERVICE MANAGER Ended: 10:55 - Vital Signs at end of FIELD SERVICE MANAGER Vital Signs at end of FIELD SERVICE MANAGER: Rapid Response End Vital Sign Blood Pressure 126/82 Pulse Rate 101 Respiratory Rate 20 Temperature 97.7 F O2 Sat by Pulse Oximetry 100 - Recommendations 5) FIELD SERVICE MANAGER Level of Care Recommendations: Remain in current setting Notifications: Consultations - Neurological Status (Select all that apply): Responsive, Verbal - Respiratory Oxygen Delivery Method: Nasal Cannula @L/min Oxygen Flow Rate: 3 - Constitutional Appears: Chronically Ill - Eyes Eye Exam: EOMI - Respiratory Exam Respiratory Exam: Clear to Ausculation Bilateral. absent: Rhonchi, Wheezes - Cardiovascular Exam Cardiovascular Exam: REGULAR RHYTHM, RRR, +S1, +S2 - GI/Abdominal Exam GI & Abdominal Exam: Soft - Neurological Exam Additional exam: guarding Plan - Assessment of Findings&Treatment Plan Patient was found to have a 5 second witnessed seizure this morning after he also had a 10 second seizure earlier this morning. He is verbal and guarding and following commands. His vital signs are wnl and stable, accu check was 300 , his pulse ox is 97% on 3 liters nasal canula. A procalitonin and Dilantin levels were ordered as well as CT scan of the head without contrast. Neurology was called and notified.
[2017-11-13] MEDS: Enoxaparin 60 mg Syringe SC SCH (10:23)
--- NOTE | 2017-11-13 10:29 | CP.PCM.PN ---
Subjective - Date & Time of Evaluation Date of Evaluation: 11/13/17 Time of Evaluation: 10:28 - Subjective Subjective: Mr. Walker was seen and examined at the bedside. SOLE ASSESSOR was called on him due to a seizure-like activity. His vital signs Blood Pressure- 126/85, Heart rate- 98 , temperature-97.9, SPO2- 97. He is responsive to stimuli and verbalizes wanting dilaudid. The SOLE ASSESSOR team explained to him that with his recent episode of seizure-like activity, dilaudid is not recommended. He again went to a non- verbal state, but responsive to tactile stimuli.Repeat dilantin level, prolactin levels was drawn. According to staff, he had this seizure-like activity last night with stable vital signs.EEG was attempted yesterday, but patient was uncooperative.He remains on 1:1 sitter for patient safety. Objective - Vital Signs/Intake and Output Vital Signs (last 24 hours): Temp Pulse Resp BP Pulse Ox 98.3 F 79 20 127/79 96 11/13/17 07:44 11/13/17 07:44 11/13/17 07:44 11/13/17 07:44 11/13/17 07:44 Intake and Output: 11/13/17 11/13/17 06:59 18:59 Intake Total 510 Output Total 2100 Balance -1590 - Medications Medications: Current Medications Enoxaparin Sodium (Lovenox) 60 mg SC Q12 [facility] Last Admin: 11/12/17 21:12 Dose: 60 mg Furosemide (Lasix) 40 mg IVP Q12 [facility] Last Admin: 11/12/17 21:12 Dose: 40 mg Levetiracetam 500 mg/ Sodium (Chloride) 105 mls @ 420 mls/hr IVPB Q12H [facility] Last Admin: 11/13/17 05:50 Dose: 420 mls/hr Phenytoin 100 mg/ Sodium (Chloride) 52 mls @ 0 mls/hr IVPB TID [facility] PRN Reason: Per Protocol Last Admin: 11/13/17 10:21 Dose: 50 mls/hr Insulin Aspart (Novolog) 0 unit SC ACHS [facility] PRN Reason: Protocol Last Admin: 11/13/17 07:56 Dose: 4 unit Lisinopril (Zestril) 5 mg NG DAILY [facility] Last Admin: 11/13/17 10:23 Dose: Not Given Pantoprazole Sodium (Protonix Inj) 40 mg IVP DAILY [facility] Last Admin: 11/13/17 10:23 Dose: Not Given - Labs Labs: 11/12/17 06:10 11/12/17 06:11 PT 10.6 SECONDS (9.7-12.2) 11/10/17 05:48 INR 1.0 11/10/17 05:48 APTT 32 SECONDS (21-34) 11/10/17 05:48 - Constitutional Appears: Unkempt - Head Exam Head Exam: NORMAL INSPECTION - Neurological Exam Neurological Exam: Awake Neuro motor strength exam: Left Upper Extremity: 3, Right Upper Extremity: 3, Left Lower Extremity: 3, Right Lower Extremity: 3 Additional comments: He is able to verbalize his request for pain medication, responsive to pain stimuli. Assessment and Plan (1) Seizure disorder Assessment & Plan: Case discussed with Dr. Murillo, Recommend continue all current medical regimen. Will follow up dilantin level, Ct of the head without contrast. Status: Acute
--- NOTE | 2017-11-13 11:15 | CT ---
PROCEDURE: CT HEAD WITHOUT CONTRAST. HISTORY: seizure COMPARISON: None available. TECHNIQUE: Axial computed tomography images were obtained through the head/brain without intravenous contrast. Radiation dose: Total exam DLP = 938.98 mGy-cm. This CT exam was performed using one or more of the following dose reduction techniques: Automated exposure control, adjustment of the mA and/or kV according to patient size, and/or use of iterative reconstruction technique. FINDINGS: HEMORRHAGE: No intracranial hemorrhage. BRAIN: No mass effect or edema. No atrophy or chronic microvascular ischemic changes.Please note that MRI with diffusion imaging is more sensitive in the detection of acute ischemic event. VENTRICLES: No hydrocephalus. CALVARIUM: Unremarkable. PARANASAL SINUSES: Mucosal thickening of the ethmoid air cells and to a lesser extent maxillary and sphenoid sinuses. MASTOID AIR CELLS: Unremarkable as visualized. No inflammatory changes. OTHER FINDINGS: None. IMPRESSION: No acute intracranial pathology identified. Mucosal thickening of the ethmoid air cells and to a lesser extent maxillary and sphenoid sinuses ; correlate clinically for history of sinusitis.
[2017-11-13] MEDS ORDERED: Phenytoin 100 mg/4 ml Oral Susp UD PO ONE (11:37)
--- NOTE | 2017-11-13 12:11 | CARD ---
APPROVED REPORT EXAM: Two-dimensional and M-mode echocardiogram with Doppler and color Doppler. Other Information Quality : GoodRhythm : INDICATION Pulmonary Edema/ Respitory Failure/ Drug abuse RISK FACTORS Hypertension Diabetes 2D DIMENSIONS IVSd1.3 (0.7-1.1cm)LVDd5.2 (3.9-5.9cm) PWd1.3 (0.7-1.1cm)LVDs4.0 (2.5-4.0cm) FS (%) 22.9 %LVEF (%)40.0 (>50%) M-Mode DIMENSIONS Left Atrium (MM)3.93 (2.5-4.0cm)Aortic Root3.29 (2.2-3.7cm) Aortic Cusp Exc.2.38 (1.5-2.0cm) Mitral Valve MV E Rtbptlba57.8cm/sMV A Jvhuqbgg80.5cm/sE/A ratio1.0 TDI E/Lateral E'0.0E/Medial E'0.0 Tricuspid Valve TR Peak [id number]/sTR Peak Gr.19mmHg LEFT VENTRICLE The left ventricle is normal size. There is normal left ventricular wall thickness. The Ejection Fraction is 35-40% Transmitral Doppler flow pattern is Grade II-pseudonormal filling dynamics. The left atrial pressure is mildly elevated. RIGHT VENTRICLE The right ventricle is normal size. The right ventricular systolic function is normal. ATRIA The left atrium size is normal. The right atrium size is normal. AORTIC VALVE The aortic valve is normal in structure. No aortic regurgitation is present. MITRAL VALVE The mitral valve is normal in structure. Mitral regurgitation is mild. TRICUSPID VALVE The tricuspid valve is normal in structure. There is mild tricuspid regurgitation. PULMONIC VALVE The pulmonary valve is normal in structure. There is trace pulmonic valvular regurgitation. GREAT VESSELS The aortic root is normal in size. The IVC is normal in size and collapses >50% with inspiration. PERICARDIAL EFFUSION trivial posterior pericrdial effusion is noted. <Conclusion> The left ventricle is normal size. The Ejection Fraction is 35-40% Transmitral Doppler flow pattern is Grade II-pseudonormal filling dynamics. The left atrial pressure is mildly elevated. Mitral regurgitation is mild.
--- NOTE | 2017-11-13 12:12 | CP.PCM.PN ---
Subjective - Date & Time of Evaluation Date of Evaluation: 11/13/17 Time of Evaluation: 12:12 Objective - Vital Signs/Intake and Output Vital Signs (last 24 hours): Temp Pulse Resp BP Pulse Ox 98.3 F 79 20 127/79 96 11/13/17 07:44 11/13/17 07:44 11/13/17 07:44 11/13/17 10:23 11/13/17 07:44 Intake and Output: 11/13/17 11/13/17 06:59 18:59 Intake Total 510 Output Total 2100 Balance -1590 - Medications Medications: Current Medications Enoxaparin Sodium (Lovenox) 60 mg SC Q12 [facility] Last Admin: 11/13/17 10:23 Dose: 60 mg Furosemide (Lasix) 40 mg IVP Q12 [facility] Last Admin: 11/13/17 10:23 Dose: 40 mg Levetiracetam 500 mg/ Sodium (Chloride) 105 mls @ 420 mls/hr IVPB Q12H [facility] Last Admin: 11/13/17 05:50 Dose: 420 mls/hr Phenytoin 100 mg/ Sodium (Chloride) 52 mls @ 0 mls/hr IVPB TID [facility] PRN Reason: Per Protocol Last Admin: 11/13/17 10:21 Dose: 50 mls/hr Insulin Aspart (Novolog) 0 unit SC ACHS [facility] PRN Reason: Protocol Last Admin: 11/13/17 12:06 Dose: 4 unit Lisinopril (Zestril) 5 mg NG DAILY [facility] Last Admin: 11/13/17 10:23 Dose: Not Given Pantoprazole Sodium (Protonix Inj) 40 mg IVP DAILY [facility] Last Admin: 11/13/17 10:23 Dose: Not Given - Labs Labs: 11/12/17 06:10 11/12/17 06:11 PT 10.6 SECONDS (9.7-12.2) 11/10/17 05:48 INR 1.0 11/10/17 05:48 APTT 32 SECONDS (21-34) 11/10/17 05:48
--- NOTE | 2017-11-13 13:52 | CP.PCM.PN ---
Subjective - Date & Time of Evaluation Date of Evaluation: 11/13/17 Time of Evaluation: 09:00 - Subjective Subjective: clinically same Objective - Vital Signs/Intake and Output Vital Signs (last 24 hours): Temp Pulse Resp BP Pulse Ox 98.3 F 79 20 127/79 96 11/13/17 07:44 11/13/17 07:44 11/13/17 07:44 11/13/17 10:23 11/13/17 07:44 Intake and Output: 11/13/17 11/13/17 06:59 18:59 Intake Total 510 Output Total 2100 Balance -1590 - Medications Medications: Current Medications Enoxaparin Sodium (Lovenox) 60 mg SC Q12 [facility] Last Admin: 11/13/17 10:23 Dose: 60 mg Furosemide (Lasix) 40 mg IVP Q12 [facility] Last Admin: 11/13/17 10:23 Dose: 40 mg Levetiracetam 500 mg/ Sodium (Chloride) 105 mls @ 420 mls/hr IVPB Q12H [facility] Last Admin: 11/13/17 05:50 Dose: 420 mls/hr Phenytoin 100 mg/ Sodium (Chloride) 52 mls @ 0 mls/hr IVPB TID RANDAL PRN Reason: Per Protocol Last Admin: 11/13/17 13:35 Dose: 50 mls/hr Insulin Aspart (Novolog) 0 unit SC ACHS [facility] PRN Reason: Protocol Last Admin: 11/13/17 12:06 Dose: 4 unit Lisinopril (Zestril) 5 mg NG DAILY [facility] Last Admin: 11/13/17 10:23 Dose: Not Given Pantoprazole Sodium (Protonix Inj) 40 mg IVP DAILY [facility] Last Admin: 11/13/17 10:23 Dose: Not Given - Labs Labs: 11/12/17 06:10 11/12/17 06:11 PT 10.6 SECONDS (9.7-12.2) 11/10/17 05:48 INR 1.0 11/10/17 05:48 APTT 32 SECONDS (21-34) 11/10/17 05:48 - Constitutional Appears: Well - Head Exam Head Exam: ATRAUMATIC, NORMAL INSPECTION, NORMOCEPHALIC - Eye Exam Eye Exam: EOMI, Normal appearance, PERRL Pupil Exam: NORMAL ACCOMODATION, PERRL - ENT Exam ENT Exam: Mucous Membranes Moist, Normal Exam - Neck Exam Neck Exam: Full ROM, Normal Inspection. absent: Lymphadenopathy - Respiratory Exam Respiratory Exam: Decreased Breath Sounds - Cardiovascular Exam Cardiovascular Exam: REGULAR RHYTHM, +S1, +S2 - GI/Abdominal Exam GI & Abdominal Exam: Soft, Diminished Bowel Sounds - Rectal Exam Rectal Exam: Deferred
== END 2017-11-13 19:45 | disposition left against medical advice (07) | DRG 882 ==
LOC: C.ER 23:39 → C.9I 11-10 04:25 → C.9E 11-10 10:49 → C.9I 11-10 14:23 → C.3T 11-12 22:48
PROVIDERS: ADMIT Internal Medicine Nephrology; ATTEND Internal Medicine Nephrology
PROC: 5A1935Z Respiratory Ventilation, Less than 24 Consecutive Hours (ICD-10-PCS; principal; 2017-11-10)
PROC: 0BH17EZ Insertion of Endotracheal Airway into Trachea, Via Natural or Artificial Opening (ICD-10-PCS; 2017-11-10)
DX: J96.91 Respiratory failure, unspecified with hypoxia (principal); J18.9 Pneumonia, unspecified organism; E11.69 Type 2 diabetes mellitus with other specified complication; I11.0 Hypertensive heart disease with heart failure; I50.30 Unspecified diastolic (congestive) heart failure; E11.65 Type 2 diabetes mellitus with hyperglycemia; F14.10 Cocaine abuse, uncomplicated; F11.10 Opioid abuse, uncomplicated; M86.9 Osteomyelitis, unspecified; J45.909 Unspecified asthma, uncomplicated; G40.909 Epilepsy, unspecified, not intractable, without status epilepticus; F17.210 Nicotine dependence, cigarettes, uncomplicated; Z79.4 Long term (current) use of insulin; D64.9 Anemia, unspecified; Z89.422 Acquired absence of other left toe(s)

== ENCOUNTER 2017-11-19 08:16 | Emergency (ER) | payer OTHER ==
[2017-11-19 08:17] VITALS: BMI 22.0
[2017-11-19 08:23] VITALS: RESP 18
--- NOTE | 2017-11-19 09:23 | C.PDOC ---
History Of Present Illness Pt is uncooperative, poor historian. Info from EMS+pt 52 year old male, homeless, is brought to ED via ambulance for evaluation of lower back pain. Pt states, "I was walking to my brother's house, and suddenly I felt sharp pain in my back". Pt states that pain is chronic with acute exacerbation this morning. Notes that pain is non-radiating, and worse with movement. As per EMS, pt was picked up at [facility] in [place], and was found to be hyperglycemic. Denies injury, trauma, fever, chills, headache, dizziness, neck pain, CP, SOB, dsypnea, abd. pain, N/V/D, denies weakness, sensory vascular changes to bilateral lower extremities, bowel/bladder incontinence/retention, dysuria, hemturia. FYI: ED records review, multiple visit to ED with various complaints. Last visit was on 11/07/17 when pt was admitted and discharged from hospital 11/13/17. Blood work review, imaging during the inpatient. Time Seen by Provider: 11/19/17 08:37 Chief Complaint (Nursing): Back Pain History Per: Patient History/Exam Limitations: no limitations Onset/Duration Of Symptoms: Days Current Symptoms Are (Timing): Still Present Quality Of Discomfort: "Pain" Previous Symptoms: Back Pain, Chronic Pain. denies: Prior Injury, Prior Surgery Associated Symptoms: None. denies: Incontinence, New Weakness, New Numbness Exacerbating Factor(s): Movement Recent travel outside of the [place]: No Additional History Per: Patient Past Medical History Reviewed: Historical Data, Nursing Documentation, Vital Signs Vital Signs: Last Vital Signs Temp 98.6 F 11/19/17 11:43 Pulse 84 11/19/17 11:43 Resp 18 11/19/17 11:43 BP 150/78 11/19/17 11:43 Pulse Ox 98 11/19/17 11:43 - Medical History PMH: Asthma, Diabetes, HTN, Peripheral Edema, Seizures Denies: Deep Vein Thrombosis, Chronic Kidney Disease Surgical History: Denies: Pacemaker - [facility] Procedures ALCOHOL DETOXIFICATION (08/03/14) DETACHMENT AT LEFT 3RD TOE, COMPLETE, OPEN APPROACH (06/05/17) DETACHMENT AT LEFT 3RD TOE, HIGH, OPEN APPROACH (06/05/17) DETACHMENT AT LEFT 4TH TOE, COMPLETE, OPEN APPROACH (06/05/17) DETACHMENT AT LEFT 4TH TOE, HIGH, OPEN APPROACH (06/05/17) DETACHMENT AT LEFT 5TH TOE, COMPLETE, OPEN APPROACH (06/05/17) DETACHMENT AT LEFT 5TH TOE, HIGH, OPEN APPROACH (06/05/17) DETACHMENT AT LEFT FOOT, COMPLETE 5TH RAY, OPEN APPROACH (06/05/17) DETACHMENT AT LEFT FOOT, PARTIAL 1ST RAY, OPEN APPROACH (05/24/17) DRAINAGE OF L FOOT SUBCU/FASCIA, OPEN APPROACH (06/05/17) EXCISION OF L FOOT SUBCU/FASCIA, OPEN APPROACH (06/05/17) EXCISION OF LEFT FOOT SKIN, EXTERNAL APPROACH (08/19/17) EXCISION OF TOE NAIL, EXTERNAL APPROACH (10/01/17) FLUOROSCOPY OF SUP VENA CAVA USING L OSM CONTRAST, GUIDANCE (06/05/17) INSERTION OF ENDOTRACHEAL AIRWAY INTO TRACHEA, VIA OPENING (11/10/17) INSERTION OF INFUSION DEV INTO R INNOM VEIN, PERC APPROACH (08/19/17) INSERTION OF INFUSION DEV INTO R SUBCLAV VEIN, PERC APPROACH (10/14/17) INSERTION OF INFUSION DEV INTO SUP VENA CAVA, PERC APPROACH (06/05/17) INTRODUCE OF OTH THERAP SUBST INTO RESP TRACT, VIA OPENING (09/14/17) RESPIRATORY VENTILATION, LESS THAN 24 CONSECUTIVE HOURS (11/10/17) TRANSFUSE NONAUT RED BLOOD CELLS IN PERIPH VEIN, PERC (06/05/17) ULTRASONOGRAPHY OF LEFT UPPER EXTREMITY VEINS, GUIDANCE (06/05/17) ULTRASONOGRAPHY OF RIGHT UPPER EXTREMITY VEINS, GUIDANCE (10/14/17) Family History: States: Unknown Family Hx - Social History Hx Tobacco Use: Yes Hx Alcohol Use: Yes Hx Substance Use: Yes (sniffs heroin) - Immunization History Hx Tetanus Toxoid Vaccination: Yes Hx Influenza Vaccination: No Hx Pneumococcal Vaccination: No Review Of Systems Except As Marked, All Systems Reviewed And Found Negative. Constitutional: Negative for: Fever, Chills Cardiovascular: Negative for: Chest Pain, Palpitations Respiratory: Negative for: Cough, Shortness of Breath Gastrointestinal: Negative for: Nausea, Vomiting, Abdominal Pain, Diarrhea Genitourinary: Negative for: Dysuria, Frequency, Incontinence, Hematuria Musculoskeletal: Positive for: Back Pain. Negative for: Neck Pain Neurological: Negative for: Weakness, Numbness, Headache Physical Exam - Physical Exam Appears: Non-toxic, No Acute Distress, Unkempt (disheveled ), Other (sleeping, non-compliant) Skin: Normal Color, Warm, Dry, No Rash, No Ecchymosis Head: Atraumatic, Normacephalic Eye(s): bilateral: PERRL Nose: No Discharge Oral Mucosa: Moist, No Drooling Throat: No Drooling Neck: Trachea Midline, No Midline Cervical Tenderness, No Paracervical Tenderness, No Step Off Deformity, Supple Cardiovascular: Rhythm Regular, No Murmur Respiratory: No Accessory Muscle Use, No Rales, No Rhonchi, No Wheezing Gastrointestinal/Abdominal: Soft, No Tenderness Back: No CVA Tenderness, No Vertebral Tenderness, Paraspinal Tenderness ( diffuse paralumbar) Extremity: Normal ROM, No Pedal Edema, No Deformity, No Swelling Neurological/Psych: Oriented x3, Normal Speech, Normal Motor, Normal Sensation, Normal Reflexes ED Course And Treatment O2 Sat by Pulse Oximetry: 99 (RA) Pulse Ox Interpretation: Normal Progress Note: LS spine was ordered but pt refused. Pt was given Flexeril, Toradol, and Tramadol. Pt was OBS in Ed for 3 hours and remained stable. On re -evaluation, pt is afebrile, hemodynamicaly stable. Non-toxic. Ambulatory in Ed with stable gait. PulseOx 99% RA. ENT: no acute findings. neck: Supple, (- ) midline tenderness, (-) JVD, (-) carotid bruits B/L. Lungs: CTA B/L, BS equal B/L. CVS: (+)S1S2, reg. Abd: benign, (-) guarding or rebound. Back: (- ) CVA tenderness. Pt has clinical findings c/w lower back pain, chronic with acute exacerbation. Pt advised. ref. to F/u with PMD, PM in2 -3 days for re- eavl. return to ED if any worsening ornew changes. Reassessment Condition: Unchanged Disposition Counseled Patient/Family Regarding: Diagnosis, Need For Followup - Disposition Referrals: [facility] [Outside] Disposition: HOME/ ROUTINE Disposition Time: 09:47 Condition: STABLE Additional Instructions: TAKE MEDICATION PRESCRIBED FOLLOW UP WITH PMD IN 2-3 DAYS FOR RE-EVALUATION. RETURN IF ANY NEW CHANGES. Prescriptions: Ibuprofen [Motrin] 1 tab PO TID PRN #30 tab PRN Reason: Pain Instructions: Chronic Back Pain (ED) Forms: [facility] (Moroccan) - Clinical Impression Clinical Impression: Chronic low back pain - PA / EPIC AMBULATORY ANALYST / Resident Statement MD/DO has reviewed & agrees with the documentation as recorded. - Scribe Statement The provider has reviewed the documentation as recorded by the Aelxibe Margot Donahue All medical record entries made by the Alexibbeny were at my direction and personally dictated by me. I have reviewed the chart and agree that the record accurately reflects my personal performance of the history, physical exam, medical decision making, and the department course for this patient. I have also personally directed, reviewed, and agree with the discharge instructions and disposition.
[2017-11-19 11:43] VITALS: BP 150/78; PULSE 84; TEMP 98.6
[2017-11-19 18:36] VITALS: O2SAT 99
== END 2017-11-19 11:48 | disposition home or self-care (01) ==
LOC: C.ER 08:16
DX: G89.29 Other chronic pain (principal); M54.5 Low back pain
CPT/HCPCS: 96372; 99284; J1885

== ENCOUNTER 2018-06-03 22:33 | Emergency (ER) | payer MEDICAID, OTHER ==
[2018-06-03 22:34] VITALS: BMI 22.0
[2018-06-03 22:49] VITALS: RESP 18; TEMP 98.8; O2SAT 98
--- NOTE | 2018-06-03 23:45 | C.PDOC ---
History Of Present Illness 52 y/o male presents to ED for complaints of chronic left foot wound. [facility] for causing disruptiveness to patient and staff. Denies any other physical complaints. Patient has Hx of heroin abuse, CHF, and toe amputations. Time Seen by Provider: 06/03/18 23:03 Chief Complaint (Nursing): Lower Extremity Problem/Injury History Per: Patient History/Exam Limitations: no limitations Onset/Duration Of Symptoms: Hrs Current Symptoms Are (Timing): Still Present Recent travel outside of the [place]: No Past Medical History Reviewed: Historical Data, Nursing Documentation, Vital Signs Vital Signs: Last Vital Signs Temp 98.8 F 06/03/18 22:45 Pulse 108 H 06/04/18 00:17 Resp 18 06/04/18 00:17 BP 136/85 06/04/18 00:17 Pulse Ox 98 06/04/18 00:17 - Medical History PMH: Asthma, Diabetes, HTN, Peripheral Edema, Seizures - [facility] Procedures ALCOHOL DETOXIFICATION (08/03/14) DETACHMENT AT LEFT 3RD TOE, COMPLETE, OPEN APPROACH (06/05/17) DETACHMENT AT LEFT 3RD TOE, HIGH, OPEN APPROACH (06/05/17) DETACHMENT AT LEFT 4TH TOE, COMPLETE, OPEN APPROACH (06/05/17) DETACHMENT AT LEFT 4TH TOE, HIGH, OPEN APPROACH (06/05/17) DETACHMENT AT LEFT 5TH TOE, COMPLETE, OPEN APPROACH (06/05/17) DETACHMENT AT LEFT 5TH TOE, HIGH, OPEN APPROACH (06/05/17) DETACHMENT AT LEFT FOOT, COMPLETE 5TH RAY, OPEN APPROACH (06/05/17) DETACHMENT AT LEFT FOOT, PARTIAL 1ST RAY, OPEN APPROACH (05/24/17) DRAINAGE OF L FOOT SUBCU/FASCIA, OPEN APPROACH (06/05/17) EXCISION OF L FOOT SUBCU/FASCIA, OPEN APPROACH (06/05/17) EXCISION OF LEFT FOOT SKIN, EXTERNAL APPROACH (08/19/17) EXCISION OF TOE NAIL, EXTERNAL APPROACH (10/01/17) FLUOROSCOPY OF SUP VENA CAVA USING L OSM CONTRAST, GUIDANCE (06/05/17) INSERTION OF ENDOTRACHEAL AIRWAY INTO TRACHEA, VIA OPENING (11/10/17) INSERTION OF INFUSION DEV INTO R INNOM VEIN, PERC APPROACH (08/19/17) INSERTION OF INFUSION DEV INTO R SUBCLAV VEIN, PERC APPROACH (10/14/17) INSERTION OF INFUSION DEV INTO SUP VENA CAVA, PERC APPROACH (06/05/17) RESPIRATORY VENTILATION, LESS THAN 24 CONSECUTIVE HOURS (11/10/17) TRANSFUSE NONAUT RED BLOOD CELLS IN PERIPH VEIN, PERC (06/05/17) ULTRASONOGRAPHY OF LEFT UPPER EXTREMITY VEINS, GUIDANCE (06/05/17) ULTRASONOGRAPHY OF RIGHT UPPER EXTREMITY VEINS, GUIDANCE (10/14/17) Family History: States: Unknown Family Hx - Social History Hx Tobacco Use: Yes Hx Alcohol Use: No Hx Substance Use: No (DENIES) - Immunization History Hx Tetanus Toxoid Vaccination: Yes Hx Influenza Vaccination: No Hx Pneumococcal Vaccination: Yes Review Of Systems Constitutional: Negative for: Fever, Chills Gastrointestinal: Negative for: Nausea, Vomiting, Abdominal Pain, Diarrhea Musculoskeletal: Positive for: Other (Left foot wound ) Skin: Negative for: Rash Neurological: Negative for: Weakness, Numbness Physical Exam - Physical Exam Appears: Non-toxic, No Acute Distress, Other (Argumentative ) Skin: Warm, Dry Head: Atraumatic, Normacephalic Eye(s): bilateral: Other (Pin point pupils ) Oral Mucosa: Moist Neck: Supple Chest: Symmetrical, No Tenderness Cardiovascular: Rhythm Regular, No Murmur Respiratory: Normal Breath Sounds, No Decreased Breath Sounds, No Rales, No Rhonchi, No Wheezing Gastrointestinal/Abdominal: Soft, No Tenderness Extremity: Normal ROM, Other (Left toe amputated; Small dorsal wound of 2nd toe ; 1st mtp plantar ) Neurological/Psych: Oriented x3, Normal Speech Gait: Steady ED Course And Treatment - Laboratory Results Result Diagrams: 06/04/18 00:13 06/04/18 00:13 Lab Interpretation: Normal (+ mild elev glu) ECG: Interpreted By Vt ECG Rhythm: Sinus Rhythm ECG Interpretation: Normal Rate From EC O2 Sat by Pulse Oximetry: 98 (RA) Pulse Ox Interpretation: Normal - Radiology CXR: Interpreted by Vt CXR Interpretation: Yes: No Acute Disease Reevaluation Time: 00:52 Reassessment Condition: Unchanged - Physician Consult Information Outcome Of Conversation: seen and d/w POdiatry- recommend opt f/u for potential chronic osteomyelitis of L 2nd Metatarsal. no new abx, pending surgical debridment. Medical Decision Making Medical Decision Making: Ordered EKG, CXR, blood work, Foot X-Ray, and urinalysis. Spoke to Podiatry concrete paving machine operator - Will evaluate patient. chronic osteo no need for adm today per Pod's Disposition Doctor Will See Patient In The: Office Counseled Patient/Family Regarding: Studies Performed, Diagnosis - Disposition Disposition: HOME/ ROUTINE Disposition Time: 00:54 Condition: GOOD Forms: [facility] (Faroese) - Clinical Impression Clinical Impression: Diabetic foot ulcer - Scribe Statement The provider has reviewed the documentation as recorded by the Alexibbeny Rizzo All medical record entries made by the Alexibbeny were at my direction and personally dictated by me. I have reviewed the chart and agree that the record accurately reflects my personal performance of the history, physical exam, medical decision making, and the department course for this patient. I have also personally directed, reviewed, and agree with the discharge instructions and disposition.
[2018-06-04 00:17] VITALS: BP 136/85; PULSE 108
[2018-06-04 00:18] LABS: BASO # 0.1 K/uL (0.0-0.2); EOS # 0.1 K/uL (0.0-0.7); EOS % 1.7 % (0.0-4.0); LYMPH # 1.9 K/uL (1.0-4.3); LYMPH % 31.4 % (20.0-40.0); MEAN CELL VOLUME 88.4 fL (80.0-94.0); MEAN CORPUSCULAR HEMOGLOBIN 30.5 pg (27.0-31.0); MEAN CORPUSCULAR HGB CONC 34.5 g/dL (33.0-37.0); MONO # 0.5 K/uL (0.0-0.8); MONO % 8.8 % (0.0-10.0); NEUT # 3.4 K/uL (1.8-7.0); NEUT % 57.1 % (50.0-75.0); NRBC % 0.1 % (0.0-2.0); RBC 3.93 Mil/uL (4.40-5.90); RED CELL DISTRIBUTION WIDTH 13.6 % (11.5-14.5)
[2018-06-04 00:28] LABS: PROTHROMBIN TIME 10.7 SECONDS (9.7-12.2)
[2018-06-04 00:39] LABS: ALB/GLOB RATIO 1.1 (1.0-2.1); ALBUMIN 3.6 g/dL (3.5-5.0); ALT/SGPT 18 U/L (21-72); AST/SGOT 21 U/L (17-59); BLOOD UREA NITROGEN 10 mg/dL (9-20); CALCIUM 9.3 mg/dl (8.6-10.4); GFR AFRICAN-AMERICAN > 60; GFR NON-AFRICAN AMERICAN > 60
[2018-06-04 00:45] LABS: URINE BILIRUBIN NEGATIVE (NEGATIVE); URINE BLOOD 1+ (NEGATIVE); URINE CLARITY Clear (Clear); URINE COLOR Straw (YELLOW); URINE GLUCOSE (UA) 3+ mg/dL (Normal); URINE LEUKOCYTE ESTERASE NEG Leu/uL (Negative); URINE PROTEIN 2+ mg/dL (NEGATIVE); URINE UROBILINOGEN NORMAL mg/dL (0.2-1.0)
[2018-06-04 00:53] LABS: BARBITURATES, UR NEGATIVE (NEGATIVE); BENZODIAZEPINES, UR NEGATIVE (NEGATIVE); OPIATES, UR NEGATIVE (NEGATIVE); PHENCYCLIDINE, UR NEGATIVE (NEGATIVE)
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
--- NOTE | 2018-06-04 09:40 | RAD ---
Date of service: 06/03/2018 PROCEDURE: CHEST RADIOGRAPH, 1 VIEW HISTORY: SOB COMPARISON: Portable chest 11/11/2017. FINDINGS: LUNGS: Resolution of prior bilateral patchy opacity. PLEURA: No pneumothorax or pleural fluid seen. CARDIOVASCULAR: Normal. OSSEOUS STRUCTURES: No significant abnormalities. VISUALIZED UPPER ABDOMEN: Normal. OTHER FINDINGS: Endotracheal tube now removed as well as nasogastric tube. IMPRESSION: No interval acute cardiopulmonary disease appreciated.
--- NOTE | 2018-06-04 09:45 | RAD ---
Date of service: 06/03/2018 PROCEDURE: Left Foot Radiographs. HISTORY: L 1st and 2nd toes COMPARISON: Left foot radiographs 08/19/2017. FINDINGS: BONES: Amputations at the low left 3rd and 4th swells 5th digits are identified as well as partial amputation of the great toe and 5th metatarsal bone. Prominent mid and distal periosteal changes with erosion at the lateral side of the head of the 2nd metatarsal bone is appreciated. The erosive pattern is suspicious for osteomyelitis. Periosteal thickening appears chronic and although it is not interval findings could reflect changes related to healed fracture. Reaction to chronic inflammation is not completely excluded may consider follow-up MRI for additional characterization with and without contrast. No acute fracture, subluxation or dislocation appreciated. JOINTS: As above. SOFT TISSUES: Extensive dorsal soft tissue edema is appreciated diffusely with a mild amount posteriorly at the upper hindfoot/ankle soft tissues. No emphysema soft tissue changes related. OTHER FINDINGS: Prior ORIF distal tibia with fractured syndesmotic thick screw noted partially transfixing the tibia to the distal fibula. IMPRESSION: Multifocal complete and partial amputations of the forefoot and somewhat involving the midfoot as discussed above. Osteomyelitis is not excluded at the 2nd metatarsal bone distally. Follow-up MRI is advised without contrast for additional characterization. Posttraumatic periostitis at the 2nd metatarsal bone is questioned versus chronic inflammatory changes as discussed above.
--- NOTE | 2018-06-04 11:41 | CARD ---
APPROVED REPORT Date of service: 06/03/2018 EKG Measurement Heart [id number] <Conclusion> Normal sinus rhythm Possible Left atrial enlargement Nonspecific T wave abnormality Abnormal ECG
== END 2018-06-04 01:22 | disposition home or self-care (01) ==
LOC: C.ER 22:33
DX: E11.621 Type 2 diabetes mellitus with foot ulcer (principal); L97.529 Non-pressure chronic ulcer of other part of left foot with unspecified severity; M86.672 Other chronic osteomyelitis, left ankle and foot
CPT/HCPCS: 71045; 73620; 80053; 81001; 82948; 85025; 85610; 85730; 93005; 99285; G0480

== ENCOUNTER 2018-07-04 16:24 | Emergency (ER) | payer OTHER ==
[2018-07-04 16:24] VITALS: BMI 22.0
[2018-07-04 16:34] VITALS: BP 163/91; PULSE 98; RESP 18; TEMP 97.9; O2SAT 100
[2018-07-04] MEDS ORDERED: Sodium Chloride 0.9% 1,000 ML IV ONE (16:35)
--- NOTE | 2018-07-04 16:53 | C.PDOC ---
Time Seen by Provider: 07/04/18 16:34 Chief Complaint (Nursing): High Blood Sugar Past Medical History Vital Signs: Last Vital Signs Temp 97.9 F 07/04/18 16:28 Pulse 98 H 07/04/18 16:28 Resp 18 07/04/18 16:28 BP 163/91 H 07/04/18 16:28 Pulse Ox 100 07/04/18 16:28 - Medical History PMH: Asthma, Diabetes, HTN, Peripheral Edema, Seizures Denies: Deep Vein Thrombosis, Chronic Kidney Disease Surgical History: Denies: Pacemaker - [facility] Procedures ALCOHOL DETOXIFICATION (08/03/14) DETACHMENT AT LEFT 3RD TOE, COMPLETE, OPEN APPROACH (06/05/17) DETACHMENT AT LEFT 3RD TOE, HIGH, OPEN APPROACH (06/05/17) DETACHMENT AT LEFT 4TH TOE, COMPLETE, OPEN APPROACH (06/05/17) DETACHMENT AT LEFT 4TH TOE, HIGH, OPEN APPROACH (06/05/17) DETACHMENT AT LEFT 5TH TOE, COMPLETE, OPEN APPROACH (06/05/17) DETACHMENT AT LEFT 5TH TOE, HIGH, OPEN APPROACH (06/05/17) DETACHMENT AT LEFT FOOT, COMPLETE 5TH RAY, OPEN APPROACH (06/05/17) DETACHMENT AT LEFT FOOT, PARTIAL 1ST RAY, OPEN APPROACH (05/24/17) DRAINAGE OF L FOOT SUBCU/FASCIA, OPEN APPROACH (06/05/17) EXCISION OF L FOOT SUBCU/FASCIA, OPEN APPROACH (06/05/17) EXCISION OF LEFT FOOT SKIN, EXTERNAL APPROACH (08/19/17) EXCISION OF TOE NAIL, EXTERNAL APPROACH (10/01/17) FLUOROSCOPY OF SUP VENA CAVA USING L OSM CONTRAST, GUIDANCE (06/05/17) INSERTION OF ENDOTRACHEAL AIRWAY INTO TRACHEA, VIA OPENING (11/10/17) INSERTION OF INFUSION DEV INTO R INNOM VEIN, PERC APPROACH (08/19/17) INSERTION OF INFUSION DEV INTO R SUBCLAV VEIN, PERC APPROACH (10/14/17) INSERTION OF INFUSION DEV INTO SUP VENA CAVA, PERC APPROACH (06/05/17) RESPIRATORY VENTILATION, LESS THAN 24 CONSECUTIVE HOURS (11/10/17) TRANSFUSE NONAUT RED BLOOD CELLS IN PERIPH VEIN, PERC (06/05/17) ULTRASONOGRAPHY OF LEFT UPPER EXTREMITY VEINS, GUIDANCE (06/05/17) ULTRASONOGRAPHY OF RIGHT UPPER EXTREMITY VEINS, GUIDANCE (10/14/17) Family History: States: Unknown Family Hx - Social History Hx Tobacco Use: Yes Hx Alcohol Use: No Hx Substance Use: No (DENIES) - Immunization History Hx Tetanus Toxoid Vaccination: Yes Hx Influenza Vaccination: No Hx Pneumococcal Vaccination: Yes ED Course And Treatment O2 Sat by Pulse Oximetry: 100 Disposition - Disposition Disposition: AGAINST MEDICAL ADVICE Disposition Time: 16:52 Condition: SERIOUS - Clinical Impression Clinical Impression: Hyperglycemia, Left against medical advice
--- NOTE | 2018-07-04 16:57 | C.PDOC ---
History Of Present Illness 52 y/o male brought to the ED after he was found passed out in the hospital hallway by medical corps officer. Patient does not remember falling or passing out. States he was visiting his in her room in the hospital and was asked to step out of the room, which is the last thing he remembers. He then awoke seated in a wheelchair. Blood sugar was found to be > 500. Patient admits to prior history of asthma, DM, HTN, and has been noncompliant with all medications for over 1 month due to running out of medication and lack of insurance. Patient reports experiencing polydipsia and polyuria daily for the past month. He denies any chest pain, SOB, dizziness, palpitations, headaches, focal weakness, abdominal pain, vomiting, diarrhea, dysuria, or other complaints. On examination, patient notes he has chronic left lower leg swelling and pain. He refuses to have shoes taken off for full examination of extremities. pt became belligerent and loud, stating he didn't want to be here, didn't want to be admitted and that he wanted to leave. pt advised that he could from infection or high blood sugar and assumes risks and consequences if he leaves. Time Seen by Provider: 07/04/18 16:34 Chief Complaint (Nursing): High Blood Sugar History Per: Patient History/Exam Limitations: no limitations Onset/Duration Of Symptoms: Days Current Symptoms Are (Timing): Still Present Current Diabetic Medications: Insulin Causative (Exacerbating) Factor(s): Missed Taking Medication (for a month) Associated Infectious Symptoms: Urinary Frequency, Other (Excessive thirst) Treatment Prior To Provider Evaluation: Accucheck Past Medical History Reviewed: Historical Data, Nursing Documentation, Vital Signs Vital Signs: Last Vital Signs Temp 97.9 F 07/04/18 16:28 Pulse 98 H 07/04/18 16:28 Resp 18 07/04/18 16:28 BP 163/91 H 07/04/18 16:28 Pulse Ox 100 07/05/18 15:03 - Medical History PMH: Asthma, Diabetes, HTN, Peripheral Edema, Seizures Denies: Deep Vein Thrombosis, Chronic Kidney Disease Surgical History: Denies: Pacemaker - [facility] Procedures ALCOHOL DETOXIFICATION (08/03/14) DETACHMENT AT LEFT 3RD TOE, COMPLETE, OPEN APPROACH (06/05/17) DETACHMENT AT LEFT 3RD TOE, HIGH, OPEN APPROACH (06/05/17) DETACHMENT AT LEFT 4TH TOE, COMPLETE, OPEN APPROACH (06/05/17) DETACHMENT AT LEFT 4TH TOE, HIGH, OPEN APPROACH (06/05/17) DETACHMENT AT LEFT 5TH TOE, COMPLETE, OPEN APPROACH (06/05/17) DETACHMENT AT LEFT 5TH TOE, HIGH, OPEN APPROACH (06/05/17) DETACHMENT AT LEFT FOOT, COMPLETE 5TH RAY, OPEN APPROACH (06/05/17) DETACHMENT AT LEFT FOOT, PARTIAL 1ST RAY, OPEN APPROACH (05/24/17) DRAINAGE OF L FOOT SUBCU/FASCIA, OPEN APPROACH (06/05/17) EXCISION OF L FOOT SUBCU/FASCIA, OPEN APPROACH (06/05/17) EXCISION OF LEFT FOOT SKIN, EXTERNAL APPROACH (08/19/17) EXCISION OF TOE NAIL, EXTERNAL APPROACH (10/01/17) FLUOROSCOPY OF SUP VENA CAVA USING L OSM CONTRAST, GUIDANCE (06/05/17) INSERTION OF ENDOTRACHEAL AIRWAY INTO TRACHEA, VIA OPENING (11/10/17) INSERTION OF INFUSION DEV INTO R INNOM VEIN, PERC APPROACH (08/19/17) INSERTION OF INFUSION DEV INTO R SUBCLAV VEIN, PERC APPROACH (10/14/17) INSERTION OF INFUSION DEV INTO SUP VENA CAVA, PERC APPROACH (06/05/17) RESPIRATORY VENTILATION, LESS THAN 24 CONSECUTIVE HOURS (11/10/17) TRANSFUSE NONAUT RED BLOOD CELLS IN PERIPH VEIN, PERC (06/05/17) ULTRASONOGRAPHY OF LEFT UPPER EXTREMITY VEINS, GUIDANCE (06/05/17) ULTRASONOGRAPHY OF RIGHT UPPER EXTREMITY VEINS, GUIDANCE (10/14/17) Family History: States: Unknown Family Hx - Social History Hx Tobacco Use: Yes Hx Alcohol Use: No Hx Substance Use: No (DENIES) - Immunization History Hx Tetanus Toxoid Vaccination: Yes Hx Influenza Vaccination: No Hx Pneumococcal Vaccination: Yes Review Of Systems Constitutional: Positive for: Other (Polydipsia). Negative for: Fever Eyes: Negative for: Vision Change Cardiovascular: Negative for: Chest Pain, Palpitations Respiratory: Negative for: Cough, Shortness of Breath Gastrointestinal: Negative for: Nausea, Vomiting, Abdominal Pain, Diarrhea Genitourinary: Positive for: Other (Polyuria). Negative for: Dysuria, Incontinence, Hematuria Musculoskeletal: Positive for: Leg Pain (left lower leg edema and pain) Neurological: Negative for: Weakness, Numbness Physical Exam - Physical Exam Appears: Non-toxic, No Acute Distress Skin: Warm, Dry Head: Atraumatic, Normacephalic Eye(s): bilateral: Normal Inspection, PERRL, EOMI Oral Mucosa: Moist Neck: Supple Chest: Symmetrical Cardiovascular: Rhythm Regular, No Murmur Respiratory: Normal Breath Sounds, No Rales, No Rhonchi, No Wheezing Gastrointestinal/Abdominal: Soft, No Tenderness, No Distention Extremity: Capillary Refill (less than 2 sec), Swelling (of LLE with increased warmth), Other (Limited examination of feet secondary to patient refusing to cooperate) Neurological/Psych: Oriented x3, Normal Speech Gait: Steady ED Course And Treatment - Laboratory Results Result Diagrams: 07/04/18 16:54 O2 Sat by Pulse Oximetry: 100 (RA) Pulse Ox Interpretation: Normal Against Medical Advice - AMA Patient Left Against Medical Advice: The patient declines admission to the hospital and wishes to leave the Emergency Department. This action is against my medical advice. This decision was made with informed refusal. The patient was told that admission to the hospital is necessary. Explanation of the reasons why were discussed. The risks of leaving were explained to the patient and include, but are not limited to, worsening of known or currently unknown conditions, permanent disability and from undiagnosed or untreated conditions. The patient has the capacity to make this informed decision and understands my explanation of the current medical problem and risks of leaving. The patient voluntarily accepts these risks and signed an AMA form documenting our conversation. The patient was given the opportunity to ask questions and reconsider. The patient was encouraged to return to the Emergency Department at any time for further care. Medical Decision Making Medical Decision Making: pt with hyperglycemia, non compliant with medications. Initial orders were placed for blood work and VBG. Pt refused examination of feet, refuses to remove shoes. states he will not stay in the hospital, did not want to come to the ER. and wants to leave. pt became verbally abusive, refuses treatment, wants iv out. 4:53pm Patient left without treatment and without signing discharge paperwork pt made aware of risks of ama verbally prior to leaving, including and permanent disability. Disposition - Disposition Disposition: AGAINST MEDICAL ADVICE Disposition Time: 16:53 Condition: SERIOUS Forms: Android App Review Source (Lithuanian) - Clinical Impression Clinical Impression: Hyperglycemia, Left against medical advice - PA / SUPERVISOR IN CHARGE / Resident Statement MD/DO has reviewed & agrees with the documentation as recorded. - Scribe Statement The provider has reviewed the documentation as recorded by the Scribe (Frances Aviles) All medical record entries made by the Scribe were at my direction and personally dictated by me. I have reviewed the chart and agree that the record accurately reflects my personal performance of the history, physical exam, medical decision making, and the department course for this patient. I have also personally directed, reviewed, and agree with the discharge instructions and disposition.
[2018-07-04 16:58] LABS: BASO % 0.6 % (0.0-2.0); EOS # 0.1 K/uL (0.0-0.7); EOS % 1.7 % (0.0-4.0); HEMOGLOBIN 12.9 g/dL (12.0-18.0); LYMPH # 1.5 K/uL (1.0-4.3); LYMPH % 22.4 % (20.0-40.0); MEAN CELL VOLUME 90.7 fL (80.0-94.0); MEAN CORPUSCULAR HEMOGLOBIN 30.2 pg (27.0-31.0); MEAN CORPUSCULAR HGB CONC 33.3 g/dL (33.0-37.0); MEAN PLATELET VOLUME 8.1 fL (7.2-11.7); MONO # 0.5 K/uL (0.0-0.8); MONO % 7.6 % (0.0-10.0); NEUT # 4.4 K/uL (1.8-7.0); NEUT % 67.7 % (50.0-75.0); RBC 4.27 Mil/uL (4.40-5.90); RED CELL DISTRIBUTION WIDTH 14.2 % (11.5-14.5); WHITE BLOOD COUNT 6.5 K/uL (4.8-10.8)
[2018-07-04 16:59] LABS: VENOUS BLOOD GAS BASE EXCESS -10.7 mmol/L (0.0-2.0); VENOUS BLOOD GAS PCO2 29 mmHg (40-60); VENOUS BLOOD GAS PO2 49 mm/Hg (30-55)
== END 2018-07-04 16:56 | disposition left against medical advice (07) ==
LOC: C.ER 16:24
DX: E11.65 Type 2 diabetes mellitus with hyperglycemia (principal); I10 Essential (primary) hypertension; Z87.891 Personal history of nicotine dependence

== ENCOUNTER 2018-07-07 10:33 | Emergency (ER) | payer OTHER ==
[2018-07-07 10:33] VITALS: BMI 22.0
[2018-07-07 10:42] VITALS: RESP 18
[2018-07-07] MEDS ORDERED: (Novolin R) Insulin Human Regular 100 units/ml vial SC STA (11:23)
--- NOTE | 2018-07-07 11:23 | C.PDOC ---
History Of Present Illness 52 year old male presents to the emergency department with complaints of right leg pain and swelling for the last two to three days. 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 Patient has not followed up with the surgeon/relief charge nurse, however has been changing his own dressing everyday. He denies fever, shortness of breath, or discharge from foot. Time Seen by Provider: 07/07/18 10:54 Chief Complaint (Nursing): Lower Extremity Problem/Injury History Per: Patient History/Exam Limitations: no limitations Onset/Duration Of Symptoms: Days (2-3) Current Symptoms Are (Timing): Still Present Severity: Mild Past Medical History Reviewed: Historical Data, Nursing Documentation, Vital Signs Vital Signs: Last Vital Signs Temp 98.4 F 07/07/18 15:20 Pulse 85 07/07/18 15:20 Resp 18 07/07/18 15:20 BP 154/91 H 07/07/18 15:20 Pulse Ox 100 07/07/18 15:20 - Medical History PMH: Asthma, Diabetes, HTN, Peripheral Edema, Seizures Surgical History: No Surg Hx - [facility] Procedures ALCOHOL DETOXIFICATION (08/03/14) DETACHMENT AT LEFT 3RD TOE, COMPLETE, OPEN APPROACH (06/05/17) DETACHMENT AT LEFT 3RD TOE, HIGH, OPEN APPROACH (06/05/17) DETACHMENT AT LEFT 4TH TOE, COMPLETE, OPEN APPROACH (06/05/17) DETACHMENT AT LEFT 4TH TOE, HIGH, OPEN APPROACH (06/05/17) DETACHMENT AT LEFT 5TH TOE, COMPLETE, OPEN APPROACH (06/05/17) DETACHMENT AT LEFT 5TH TOE, HIGH, OPEN APPROACH (06/05/17) DETACHMENT AT LEFT FOOT, COMPLETE 5TH RAY, OPEN APPROACH (06/05/17) DETACHMENT AT LEFT FOOT, PARTIAL 1ST RAY, OPEN APPROACH (05/24/17) DRAINAGE OF L FOOT SUBCU/FASCIA, OPEN APPROACH (06/05/17) EXCISION OF L FOOT SUBCU/FASCIA, OPEN APPROACH (06/05/17) EXCISION OF LEFT FOOT SKIN, EXTERNAL APPROACH (08/19/17) EXCISION OF TOE NAIL, EXTERNAL APPROACH (10/01/17) FLUOROSCOPY OF SUP VENA CAVA USING L OSM CONTRAST, GUIDANCE (06/05/17) INSERTION OF ENDOTRACHEAL AIRWAY INTO TRACHEA, VIA OPENING (11/10/17) INSERTION OF INFUSION DEV INTO R INNOM VEIN, PERC APPROACH (08/19/17) INSERTION OF INFUSION DEV INTO R SUBCLAV VEIN, PERC APPROACH (10/14/17) INSERTION OF INFUSION DEV INTO SUP VENA CAVA, PERC APPROACH (06/05/17) RESPIRATORY VENTILATION, LESS THAN 24 CONSECUTIVE HOURS (11/10/17) TRANSFUSE NONAUT RED BLOOD CELLS IN PERIPH VEIN, PERC (06/05/17) ULTRASONOGRAPHY OF LEFT UPPER EXTREMITY VEINS, GUIDANCE (06/05/17) ULTRASONOGRAPHY OF RIGHT UPPER EXTREMITY VEINS, GUIDANCE (10/14/17) Family History: States: No Known Family Hx - Social History Hx Tobacco Use: Yes Hx Alcohol Use: No Hx Substance Use: No (DENIES) - Immunization History Hx Tetanus Toxoid Vaccination: Yes Hx Influenza Vaccination: No Hx Pneumococcal Vaccination: Yes Review Of Systems Constitutional: Negative for: Fever Cardiovascular: Negative for: Chest Pain Respiratory: Negative for: Shortness of Breath Musculoskeletal: Positive for: Leg Pain (right), Foot Pain (right), Other (rght leg swelling) Skin: Negative for: Rash, Other (discharge from foot) Physical Exam - Physical Exam Appears: Well, Non-toxic, No Acute Distress, Unkempt Skin: Warm, Dry Head: Normacephalic Eye(s): bilateral: Normal Inspection Oral Mucosa: Moist Neck: Supple Cardiovascular: Rhythm Regular Respiratory: Normal Breath Sounds, No Rales, No Rhonchi, No Wheezing Gastrointestinal/Abdominal: Normal Exam, Bowel Sounds, Soft, No Tenderness Extremity: Tenderness (mild tenderness to palpation of right lower leg), Calf Tenderness (right side ), Capillary Refill (< 2 sec all digits ), Swelling (to the right lower leg), Other (right toes 1, 2, and 3 amputated, no discharge, no erythema, wounds well healing ) Extremity: Bilateral: Normal ROM Pulses: Left Dorsalis Pedis: Normal, Right Dorsalis Pedis: Normal Neurological/Psych: Oriented x3 Gait: Steady ED Course And Treatment O2 Sat by Pulse Oximetry: 99 (RA) Pulse Ox Interpretation: Normal - Other Rad venous doppler X-Ray: Read By Radiologist (neg for acute DVT) Progress Note: Venous doppler ordered and reviewed. Patient's accucheck is 456 - SC insulin and IV NS bolus given. Reevaluation Time: 15:15 Reassessment Condition: Improved (Patient resting comfortably, in no distress/ pain. Venous doppler neg, and patient's wounds appear clean, without evidence of cellulitis/infection. Pedal pulses intact. Accucheck improved after IV fluids and insulin. Carmelina given Rxs for his medications (DM, seizure disorder , HTN). He was instructed to follow up in our medical clinic in 1-2 days, and also to follow up with his foot surgeon within 1 week. He understands he should return to ED if symptoms worsen.) Disposition Counseled Patient/Family Regarding: Diagnosis, Need For Followup, Rx Given - Disposition Referrals: Jerome Garrison MD [Medical Doctor] - [facility] [Outside] Disposition: HOME/ ROUTINE Disposition Time: 15:15 Condition: STABLE Additional Instructions: FOLLOW UP IN THE MEDICAL CLINIC IN 1-2 DAYS FOLLOW UP WITH YOUR SURGEON WITHIN 1 WEEK RETURN TO ER IF SYMPTOMS WORSEN Prescriptions: amLODIPine [Norvasc] 5 mg PO DAILY #30 tab Insulin Glargine, Recombina [Lantus] 20 unit SC HS #1 bottle levETIRAcetam [Keppra] 500 mg PO BID #60 tab Naproxen 375 mg PO BID PRN #20 tablet PRN Reason: pain Instructions: Dependent Edema (DC), Hyperglycemia, Adult (DC) Forms: Hosted Systems (Nauruan) Print Language: PALAUAN - Clinical Impression Clinical Impression: Noncompliance with medication regimen, Right leg swelling, Diabetes, Medication refill - Scribe Statement The provider has reviewed the documentation as recorded by the Scribe (Tal Morgan) Provider Attestation: All medical record entries made by the Scribe were at my direction and personally dictated by me. I have reviewed the chart and agree that the record accurately reflects my personal performance of the history, physical exam, medical decision making, and the department course for this patient. I have also personally directed, reviewed, and agree with the discharge instructions and disposition.
[2018-07-07] MEDS ORDERED: (Novolin R) Insulin Human Regular 100 units/ml vial ONE (11:44)
[2018-07-07] MEDS ORDERED: Sodium Chloride 0.9% 1,000 ML IV ONE (12:49)
[2018-07-07] MEDS ORDERED: Sodium Chloride 0.9% 1,000 ML ONE (13:19)
--- NOTE | 2018-07-07 14:12 | VASCLAB ---
Date of service: 07/07/2018 PROCEDURE: Left Lower Extremity Venous Duplex Exam. HISTORY: Left leg swelling and pain, s/p left leg procedure. PRIORS: None. TECHNIQUE: Left common femoral, femoral, popliteal and posterior tibial, peroneal and great saphenous veins were evaluated. Flow was assessed with color Doppler, compressibility, assessment of phasic flow and augmentation response. Report prepared by FRANCI Briceno FINDINGS: LEFT: 1. Common Femoral Vein: 1.1. Compressibility - Fully compressible: Thrombus - None : Flow - Phasic: Augmentation -Normal: Reflux - None. 2. Femoral Vein: 2.1. Compressibility - Fully compressible: Thrombus - None: Flow - Phasic: Augmentation -Normal: Reflux - None. 3. Popliteal Vein: 3.1. Compressibility - Fully compressible: Thrombus - None: Flow - Phasic: Augmentation -Normal: Reflux - None. 4. Posterior Tibial Vein: 4.1. Compressibility - Fully compressible: Thrombus - None: Flow - Phasic: Augmentation -Normal: Reflux - None. 5. Peroneal Vein: 5.1. Compressibility - Fully compressible: Thrombus - None: Flow - Phasic: Augmentation -Normal: Reflux - None. 6. Great Saphenous Vein: 6.1. Compressibility - Fully compressible: Thrombus - None: Flow - Phasic: Augmentation - Normal: Reflux - None. OTHER FINDINGS: IMPRESSION: No evidence of deep or superficial vein thrombosis of the left lower extremity with excellent venous flow. Normal valve function noted of the left side. Normal venous flow noted in the right common femoral vein.
[2018-07-07 15:21] VITALS: BP 154/91; PULSE 85; TEMP 98.4
[2018-07-11 10:16] VITALS: O2SAT 99
== END 2018-07-07 15:43 | disposition home or self-care (01) ==
LOC: C.ER 10:33
DX: M79.89 Other specified soft tissue disorders (principal); E11.65 Type 2 diabetes mellitus with hyperglycemia; Z91.14 Patient's other noncompliance with medication regimen
CPT/HCPCS: 82948; 93971; 96360; 96372; 99284; J1885; J7030

== ENCOUNTER 2018-08-15 14:16 | Emergency (ER) | payer SELFPAY ==
[2018-08-15 14:16] VITALS: BMI 22.0
[2018-08-15 14:32] VITALS: BP 133/81; PULSE 101; RESP 18; TEMP 99; O2SAT 100
--- NOTE | 2018-08-15 14:42 | C.PDOC ---
History Of Present Illness 52 y/o male brought is brought in by EMS for public intoxication. Pt was found asleep on sidewalk. Pt has had many prior visits to this ER for similar presentation. He admits to alcohol, heroin, and oxycontin abuse. Pt admits to not being compliant with his diabetes medication. He is requesting refills of lancets and glucose test strips. Denies any complaints. Time Seen by Provider: 08/15/18 14:41 Chief Complaint (Nursing): High Blood Sugar History Per: Patient History/Exam Limitations: no limitations Past Medical History Reviewed: Historical Data, Nursing Documentation, Vital Signs Vital Signs: Last Vital Signs Temp 99.0 F 08/15/18 14:25 Pulse 101 H 08/15/18 14:25 Resp 18 08/15/18 14:25 BP 133/81 08/15/18 14:25 Pulse Ox 100 08/15/18 14:25 - Medical History PMH: Asthma, Diabetes, HTN, Peripheral Edema, Seizures Denies: Deep Vein Thrombosis, Chronic Kidney Disease Surgical History: Denies: Pacemaker - [facility] Procedures ALCOHOL DETOXIFICATION (08/03/14) DETACHMENT AT LEFT 3RD TOE, COMPLETE, OPEN APPROACH (06/05/17) DETACHMENT AT LEFT 3RD TOE, HIGH, OPEN APPROACH (06/05/17) DETACHMENT AT LEFT 4TH TOE, COMPLETE, OPEN APPROACH (06/05/17) DETACHMENT AT LEFT 4TH TOE, HIGH, OPEN APPROACH (06/05/17) DETACHMENT AT LEFT 5TH TOE, COMPLETE, OPEN APPROACH (06/05/17) DETACHMENT AT LEFT 5TH TOE, HIGH, OPEN APPROACH (06/05/17) DETACHMENT AT LEFT FOOT, COMPLETE 5TH RAY, OPEN APPROACH (06/05/17) DETACHMENT AT LEFT FOOT, PARTIAL 1ST RAY, OPEN APPROACH (05/24/17) DRAINAGE OF L FOOT SUBCU/FASCIA, OPEN APPROACH (06/05/17) EXCISION OF L FOOT SUBCU/FASCIA, OPEN APPROACH (06/05/17) EXCISION OF LEFT FOOT SKIN, EXTERNAL APPROACH (08/19/17) EXCISION OF TOE NAIL, EXTERNAL APPROACH (10/01/17) FLUOROSCOPY OF SUP VENA CAVA USING L OSM CONTRAST, GUIDANCE (06/05/17) INSERTION OF ENDOTRACHEAL AIRWAY INTO TRACHEA, VIA OPENING (11/10/17) INSERTION OF INFUSION DEV INTO R INNOM VEIN, PERC APPROACH (08/19/17) INSERTION OF INFUSION DEV INTO R SUBCLAV VEIN, PERC APPROACH (10/14/17) INSERTION OF INFUSION DEV INTO SUP VENA CAVA, PERC APPROACH (06/05/17) RESPIRATORY VENTILATION, LESS THAN 24 CONSECUTIVE HOURS (11/10/17) TRANSFUSE NONAUT RED BLOOD CELLS IN PERIPH VEIN, PERC (06/05/17) ULTRASONOGRAPHY OF LEFT UPPER EXTREMITY VEINS, GUIDANCE (06/05/17) ULTRASONOGRAPHY OF RIGHT UPPER EXTREMITY VEINS, GUIDANCE (10/14/17) Family History: States: Unknown Family Hx - Social History Hx Tobacco Use: Yes Hx Alcohol Use: No Hx Substance Use: No (DENIES) - Immunization History Hx Tetanus Toxoid Vaccination: Yes Hx Influenza Vaccination: No Hx Pneumococcal Vaccination: Yes Review Of Systems Except As Marked, All Systems Reviewed And Found Negative. Constitutional: Negative for: Fever, Chills Cardiovascular: Negative for: Chest Pain Respiratory: Negative for: Shortness of Breath Physical Exam - Physical Exam Appears: Non-toxic, No Acute Distress, Other (argumentative) Skin: Normal Color, Warm, Dry Head: Atraumatic, Normacephalic Eye(s): bilateral: Abnormal Pupil (pinpoint) Oral Mucosa: Moist Neck: Supple Cardiovascular: Rhythm Regular Respiratory: Normal Breath Sounds, No Rales, No Rhonchi, No Wheezing Gastrointestinal/Abdominal: Soft, No Tenderness Extremity: No Tenderness, No Deformity Extremity: Bilateral: Atraumatic, Normal ROM Neurological/Psych: Oriented x3, Normal Speech ED Course And Treatment O2 Sat by Pulse Oximetry: 100 Pulse Ox Interpretation: Normal Medical Decision Making Medical Decision Making: continued opiate (oxycodone and heroine) abuse and uncontrolled DM awake/aware in ED, does not require Narcan pt recently had all meds refilled Disposition Doctor Will See Patient In The: Office Counseled Patient/Family Regarding: Studies Performed, Diagnosis - Disposition Referrals: [facility] [Outside] [facility] [Outside] [facility] [Outside] [facility] [Outside] [facility] [Outside] Disposition: HOME/ ROUTINE Disposition Time: 14:42 Condition: GOOD Prescriptions: Lancets/Blood Glucose Strips [Fora [id number] Strp-Lnct] 1 each MC BID #60 combo..pkg Instructions: Opioid Use Disorder, Diabetes and Diet Forms: [employer] (Latvian) - Clinical Impression Clinical Impression: Diabetes, Opiate abuse, continuous - Scribe Statement The provider has reviewed the documentation as recorded by the Scribe KP All medical record entries made by the Scribe were at my direction and personally dictated by me. I have reviewed the chart and agree that the record accurately reflects my personal performance of the history, physical exam, medical decision making, and the department course for this patient. I have also personally directed, reviewed, and agree with the discharge instructions and disposition.
[2018-08-15] MEDS ORDERED: (Novolin R) Insulin Human Regular 100 units/ml vial IVP STA (14:50)
[2018-08-15] MEDS ORDERED: (Novolin R) Insulin Human Regular 100 units/ml vial ONE (14:55)
== END 2018-08-15 15:07 | disposition home or self-care (01) ==
LOC: C.ER 14:16
DX: E11.9 Type 2 diabetes mellitus without complications (principal); F11.10 Opioid abuse, uncomplicated; Z91.19 Patient's noncompliance with other medical treatment and regimen

== ENCOUNTER 2018-08-17 15:24 | Inpatient (IN) | payer MEDICAID ==
[2018-08-17 15:24] VITALS: BMI 22.0
[2018-08-17] MEDS ORDERED: Sodium Chloride 0.9% 1,000 ML IV ONE (15:58)
[2018-08-17 16:15] LABS: BASO # 0.1 K/uL (0.0-0.2); BASO % 1.2 % (0.0-2.0); EOS # 0.1 K/uL (0.0-0.7); EOS % 1.3 % (0.0-4.0); HEMOGLOBIN 13.6 g/dL (12.0-18.0); LYMPH # 1.1 K/uL (1.0-4.3); MEAN CELL VOLUME 87.2 fL (80.0-94.0); MEAN CORPUSCULAR HEMOGLOBIN 29.7 pg (27.0-31.0); MEAN PLATELET VOLUME 7.8 fL (7.2-11.7); MONO # 0.7 K/uL (0.0-0.8); MONO % 6.9 % (0.0-10.0); NEUT # 8.1 K/uL (1.8-7.0); NEUT % 79.6 % (50.0-75.0); NRBC % 0.1 % (0.0-2.0); RBC 4.6 Mil/uL (4.40-5.90); RED CELL DISTRIBUTION WIDTH 13.7 % (11.5-14.5); WHITE BLOOD COUNT 10.2 K/uL (4.8-10.8)
--- NOTE | 2018-08-17 16:20 | C.PDOC ---
History Of Present Illness Patient BIBA for evaluation of generalized weakness, nausea/vomiting, epigastric pain x 2 days, as well as B/L foot pain. Patient states he has wounds on both feet that have been bleeding for several days. He has PMHx of DM II, seizure disorder, heroin/substance abuse, HTN, asthma. Patient was seen in out ED two days ago, was hyperglycemia, given SC insulin and Rxs for his insulin pens. He states he has not been using the insulin pens, as they have no needles. He denies chest pain, SOB, fever, cough. Time Seen by Provider: 08/17/18 15:28 Chief Complaint (Nursing): High Blood Sugar History Per: Patient, Family (at bedside ) History/Exam Limitations: no limitations Onset/Duration Of Symptoms: Days Current Symptoms Are (Timing): Still Present Severity: Moderate Associated Symptoms: Nausea, Vomiting Past Medical History Reviewed: Historical Data, Nursing Documentation, Vital Signs Vital Signs: Last Vital Signs Temp Pulse 91 H 08/17/18 15:57 Resp 22 08/17/18 15:57 BP 135/81 08/17/18 15:57 Pulse Ox 100 08/17/18 15:57 - Medical History PMH: Asthma, Diabetes, HTN, Peripheral Edema, Seizures Surgical History: No Surg Hx - [facility] Procedures ALCOHOL DETOXIFICATION (08/03/14) DETACHMENT AT LEFT 3RD TOE, COMPLETE, OPEN APPROACH (06/05/17) DETACHMENT AT LEFT 3RD TOE, HIGH, OPEN APPROACH (06/05/17) DETACHMENT AT LEFT 4TH TOE, COMPLETE, OPEN APPROACH (06/05/17) DETACHMENT AT LEFT 4TH TOE, HIGH, OPEN APPROACH (06/05/17) DETACHMENT AT LEFT 5TH TOE, COMPLETE, OPEN APPROACH (06/05/17) DETACHMENT AT LEFT 5TH TOE, HIGH, OPEN APPROACH (06/05/17) DETACHMENT AT LEFT FOOT, COMPLETE 5TH RAY, OPEN APPROACH (06/05/17) DETACHMENT AT LEFT FOOT, PARTIAL 1ST RAY, OPEN APPROACH (05/24/17) DRAINAGE OF L FOOT SUBCU/FASCIA, OPEN APPROACH (06/05/17) EXCISION OF L FOOT SUBCU/FASCIA, OPEN APPROACH (06/05/17) EXCISION OF LEFT FOOT SKIN, EXTERNAL APPROACH (08/19/17) EXCISION OF TOE NAIL, EXTERNAL APPROACH (10/01/17) FLUOROSCOPY OF SUP VENA CAVA USING L OSM CONTRAST, GUIDANCE (06/05/17) INSERTION OF ENDOTRACHEAL AIRWAY INTO TRACHEA, VIA OPENING (11/10/17) INSERTION OF INFUSION DEV INTO R INNOM VEIN, PERC APPROACH (08/19/17) INSERTION OF INFUSION DEV INTO R SUBCLAV VEIN, PERC APPROACH (10/14/17) INSERTION OF INFUSION DEV INTO SUP VENA CAVA, PERC APPROACH (06/05/17) RESPIRATORY VENTILATION, LESS THAN 24 CONSECUTIVE HOURS (11/10/17) TRANSFUSE NONAUT RED BLOOD CELLS IN PERIPH VEIN, PERC (06/05/17) ULTRASONOGRAPHY OF LEFT UPPER EXTREMITY VEINS, GUIDANCE (06/05/17) ULTRASONOGRAPHY OF RIGHT UPPER EXTREMITY VEINS, GUIDANCE (10/14/17) Family History: States: No Known Family Hx - Social History Hx Tobacco Use: Yes Hx Alcohol Use: No Hx Substance Use: No (DENIES) - Immunization History Hx Tetanus Toxoid Vaccination: Yes Hx Influenza Vaccination: No Hx Pneumococcal Vaccination: Yes Review Of Systems Constitutional: Negative for: Fever, Chills Cardiovascular: Negative for: Chest Pain Respiratory: Negative for: Cough, Shortness of Breath Gastrointestinal: Positive for: Nausea, Vomiting, Abdominal Pain. 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 Patient has tonic clonic seizure in ED - IV Ativan 1mg given. Prior records reviewed, patient was seen in Nov [address] Murillo in our hospital, recommended Dilantin 100mg TID. IV dilantin ordered. Disposition - Disposition Forms: [employer] (Mongolian)
[2018-08-17] MEDS ORDERED: Piperacillin/Tazobact 3.375 gm 100 ML IV STA (16:25)
[2018-08-17] MEDS ORDERED: Vancomycin 1 GM 1 GM/250 ML BAG IV STA (16:25)
[2018-08-17 16:27] LABS: ALBUMIN 3.9 g/dL (3.5-5.0); ALT/SGPT 13 U/L (21-72); AST/SGOT 21 U/L (17-59); BLOOD UREA NITROGEN 16 mg/dL (9-20); CALCIUM 9.6 mg/dl (8.6-10.4); GFR NON-AFRICAN AMERICAN > 60
[2018-08-17] MEDS ORDERED: Piperacillin/Tazobact 3.375 gm 100 ML IVPB ONE (16:31)
[2018-08-17] MEDS ORDERED: (Novolin R) Insulin Human Regular 100 units/ml vial IVP STA (16:43)
--- NOTE | 2018-08-17 16:44 | RAD ---
Date of service: 08/17/2018 PROCEDURE: CHEST RADIOGRAPH, 1 VIEW HISTORY: WEAKNESS COMPARISON: None available. FINDINGS: LUNGS: Poor inspiration with low lung volumes, crowded bronchovascular markings and minor bibasilar atelectasis. PLEURA: No pneumothorax or pleural fluid seen. CARDIOVASCULAR: Heart size upper limits of normal likely due to poor inspiration as well. OSSEOUS STRUCTURES: No significant abnormalities. VISUALIZED UPPER ABDOMEN: Normal. OTHER FINDINGS: None. IMPRESSION: Poor inspiration with low lung volumes, crowded bronchovascular markings and minor bibasilar atelectasis.
[2018-08-17 16:45] LABS: VENOUS BLOOD GAS BASE EXCESS 2.2 mmol/L (0.0-2.0); VENOUS BLOOD GAS PCO2 43 mmHg (40-60); VENOUS BLOOD GAS PO2 43 mm/Hg (30-55); VENOUS BLOOD PH 7.41 (7.32-7.43)
--- NOTE | 2018-08-17 17:02 | RAD ---
Date of service: 08/17/2018. PROCEDURE: Bilateral Feet Radiographs. HISTORY: NECROTIC TOES. COMPARISON: Comparison made with radiographs of the left foot 06/03/2018. Redemonstrated are amputation changes of the proximal 5th distal 4th metatarsals as well as FINDINGS: BONES: Left foot: Redemonstrated are amputation changes of the distal aspect of the 3rd, 4th and proximal 5th metatarsals. Apparent destructive changes of the proximal phalanx 2nd digit and possibly the base of the distal phalanx as well. Periosteal reaction with deformity of the distal 2nd metatarsal. Amputation changes of the distal aspect proximal phalanx 1st toe. There may be a small amount of subcutaneous emphysema distal 2nd toe with possible ulcer or emphysema involving the lateral stump soft tissues. Recommend follow-up MRI if further evaluation is required ORIF plate attached to the distal fibula with a anchor screw traversing into the distal tibia unchanged. There appears to be affected fusion of the distal tibia and fibula. Right foot: There is a smooth border contour deformity distal tuft distal phalanx right 5th toe. While this could be congenital or developmental anomaly, the possibility of early destructive changes must be considered. In addition, there may be some subcutaneous emphysema within the distal 5th and 4th toes. No other definitive destructive changes. Recommend follow-up MRI further evaluation is required. Questionable old healed fracture base right 5th metatarsal. IMPRESSION: Amputation changes of 3rd 4th and 5th metatarsals left foot.. Stable amputation changes distal aspect proximal phalanx 1st toe. Apparent destructive changes proximal phalanx 2nd digit and possibly the base of the distal phalanx as well. Questionable emphysema within the distal 2nd toe and possible ulcer or emphysema lateral stump soft tissues Smooth border contour deformity distal tuft distal phalanx right 5th toe. While this could be a developmental or congenital anomaly, the possibility of early destructive changes must be considered. Questionable subcutaneous emphysema distal 5th and 4th toes
[2018-08-17] MEDS ORDERED: (Novolin R) Insulin Human Regular 100 units/ml vial ONE (18:28)
[2018-08-17] MEDS ORDERED: Glucagon Recombinant 1 mg Inj IM PRN (18:39)
[2018-08-17] MEDS ORDERED: Dextrose 50% SYRINGE Inj (50 ml) IV PRN (18:39)
[2018-08-17] MEDS ORDERED: Sodium Chloride 0.9% 1,000 ML IV SCH (18:45)
[2018-08-17] MEDS ORDERED: Vancomycin 1 gm/NS 200 ml 1 GM/200 ML BAG IVPB SCH (18:45)
[2018-08-17] MEDS ORDERED: Vancomycin 1 GM 1 GM/250 ML BAG IVPB ONE (18:45)
[2018-08-17] MEDS ORDERED: (Novolog) Insulin Aspart, Recombinant 100 u/ml 10 ml vial SC SCH (18:45)
[2018-08-17 19:00] VITALS: BP 130/78; PULSE 107; RESP 20; O2SAT 96
[2018-08-17 19:45] LABS: PROTHROMBIN TIME 11.2 SECONDS (9.7-12.2)
[2018-08-17] MEDS ORDERED: Piperacill/Tazo 2.25gm in Dex 2.25 GM/50 ML BAG IVPB SCH (20:30)
[2018-08-17] MEDS ORDERED: (Lantus) Insulin Glargine, Recombinant SC SCH (22:00)
--- NOTE | 2018-08-17 22:15 | CP.PCM.HP ---
History of Present Illness - History of Present Illness History of Present Illness: PGY2 Medicine Note for Dr. Cameron Patient is a 52 year old male with a past medical history of HTN, DM, Asthma, polysubstance abuse, osteomyelitis of the left foot 5th digit and known seizure disorder presenting to the emergency room for abdominal pain and b/l foot pains. Patient is a very poor historian. He does not know the name of his medications but states that he takes them every day. He was seen in the emergency room two days, diagnosed with hyperglycemia and discharged home with insulin (pens). Patient states he did not use the insulin pens because there were no needles. He is unable to state how long his abdominal pain has been occurring. Patient became very agitated at different points throughout the exam and continually fell asleep. He was easily arousable but would refuse to wake up at different times. Story very inconsistent. Patient denies any heroin use for the past 5 months. ROS unattainable due to patient uncooperative. PMH: HTN, DM, Asthma, polysubstance abuse, osteomyelitis of the left foot 5th digit and known seizure disorder PSH: multiple toe amputations Social: polysubstance abuse (denies IVDA, states last heroin use 5 months ago), tobacco abuse, previously documented daily alcohol drinker (unknown status now) Allergies: Fish (rash - patient has had previous IV contrast studies), Tomato (rash) Present on Admission - Present on Admission Any Indicators Present on Admission: Yes History of Uncontrolled Diabetes: Yes Review of Systems - Review of Systems Systems not reviewed;Unavailable: Uncooperative Past Patient History - Infectious Disease Hx of Infectious Diseases: None - Past Medical History & Family History Past Medical History?: Yes - Past Social History Smoking Status: Light Smoker < 10 Cigarettes Daily - CARDIAC Hx Hypertension: Yes Hx Peripheral Edema: Yes - PULMONARY Hx Asthma: Yes - NEUROLOGICAL Hx Seizures: Yes - HEENT Hx HEENT Problems: No - RENAL Hx Chronic Kidney Disease: No - ENDOCRINE/METABOLIC Hx Endocrine Disorders: Yes Hx Diabetes Mellitus Type 2: Yes - INTEGUMENTARY Hx Dermatological Problems: No - MUSCULOSKELETAL/RHEUMATOLOGICAL Hx Musculoskeletal Disorders: Yes Hx Osteomyelitis: Yes (s/p amputations of L toes #3,4,5 ) - GASTROINTESTINAL Hx Gastrointestinal Disorders: No - PSYCHIATRIC Hx Substance Use: No (DENIES) - SURGICAL HISTORY Hx Surgeries: Yes Hx Amputation: Yes (L foot last 3toes) Hx Musculoskeletal Surgery: Yes (LEFT WRIST AND ANKLE) Other/Comment: METAL PLATE IN HEAD - ANESTHESIA Hx Anesthesia: Yes Hx Anesthesia Reactions: No Meds Allergies/Adverse Reactions: Allergies Allergy/AdvReac Type Severity Reaction Status Date / Time FISH Allergy RASH Verified 08/15/18 14:34 tomato Allergy RASH Verified 08/15/18 14:34 Physical Exam - Constitutional Appears: Unkempt, Chronically Ill - Head Exam Head Exam: ATRAUMATIC, NORMOCEPHALIC - Eye Exam Eye Exam: Normal appearance - ENT Exam ENT Exam: Mucous Membranes Moist - Respiratory Exam Respiratory Exam: NORMAL BREATHING PATTERN. absent: Accessory Muscle Use, Rales, Rhonchi, Wheezes, Respiratory Distress - Cardiovascular Exam Cardiovascular Exam: REGULAR RHYTHM, +S1 - GI/Abdominal Exam GI & Abdominal Exam: Soft, Tenderness (epigastric pain). absent: Distended, Guarding, Rigid - Extremities Exam Extremities exam: Positive for: pedal pulses present. Negative for: calf tenderness Additional comments: grangrene appearance to right toes amputation of digits 3,4,5 on left foot strong foul odor to feet - Neurological Exam Neurological exam: Alert, Oriented x3 - Psychiatric Exam Psychiatric exam: Agitated Additional comments: mood swings, falling asleep during questioning, refusing to awaken to answer questions, yelling/cursing at medical staff - Skin Skin Exam: Dry, Warm Additional comments: see extremity exam Results - Vital Signs Recent Vital Signs: Last Vital Signs Temp Pulse 107 H 08/17/18 18:59 Resp 20 08/17/18 18:59 BP 130/78 08/17/18 18:59 Pulse Ox 96 08/17/18 18:59 - Labs Result Diagrams: 08/17/18 16:12 08/17/18 16:12 Labs: Laboratory Results - last 24 hr 08/17/18 08/17/18 08/17/18 15:51 16:12 16:12 WBC 10.2 D RBC 4.60 Hgb 13.6 Hct 40.1 MCV 87.2 D MCH 29.7 MCHC 34.0 RDW 13.7 Plt Count 321 MPV 7.8 Neut % (Auto) 79.6 H Lymph % (Auto) 11.0 L [place] % (Auto) 6.9 Eos % (Auto) 1.3 Baso % (Auto) 1.2 Neut # (Auto) 8.1 H Lymph # (Auto) 1.1 [place] # (Auto) 0.7 Eos # (Auto) 0.1 Baso # (Auto) 0.1 ESR 91 H PT INR APTT pO2 VBG pH VBG pCO2 VBG HCO3 VBG Total CO2 VBG O2 Sat (Calc) VBG Base Excess VBG Potassium Glucose Lactate Crit Value Called To Crit Value Called By Crit Value Read Back Blood Gas Notified Time Sodium 136 Potassium 5.1 Chloride 96 L Carbon Dioxide 29 Anion Gap 17 BUN 16 Creatinine 0.9 Est GFR ( Amer) > 60 Est GFR (Non-Af Amer) > 60 POC Glucose (mg/dL) 381 H Random Glucose 395 H Calcium 9.6 Total Bilirubin 0.7 AST 21 ALT 13 L D Alkaline Phosphatase 154 H D Ammonia Total Protein 7.9 Albumin 3.9 Globulin 4.0 H Albumin/Globulin Ratio 1.0 Lipase Venous Blood Potassium 08/17/18 08/17/18 08/17/18 16:42 18:59 19:32 WBC RBC Hgb Hct MCV MCH MCHC RDW Plt Count MPV Neut % (Auto) Lymph % (Auto) [place] % (Auto) Eos % (Auto) Baso % (Auto) Neut # (Auto) Lymph # (Auto) [place] # (Auto) Eos # (Auto) Baso # (Auto) ESR PT 11.2 INR 1.0 APTT 27 pO2 43 VBG pH 7.41 VBG pCO2 43 VBG HCO3 26.1 VBG Total CO2 28.6 H VBG O2 Sat (Calc) 86.2 H VBG Base Excess 2.2 H VBG Potassium 6.7 H* Glucose 344 H Lactate 1.4 Crit Value Called To Dr stockton Crit Value Called By Bruce franz Crit Value Read Back Y Blood Gas Notified Time 1645 Sodium 135.0 Potassium Chloride 104.0 Carbon Dioxide Anion Gap BUN Creatinine Est GFR ( Amer) Est GFR (Non-Af Amer) POC Glucose (mg/dL) 262 H Random Glucose Calcium Total Bilirubin AST ALT Alkaline Phosphatase Ammonia Total Protein Albumin Globulin Albumin/Globulin Ratio Lipase Venous Blood Potassium 6.7 H* 08/17/18 08/17/18 19:36 19:36 WBC RBC Hgb Hct MCV MCH MCHC RDW Plt Count MPV Neut % (Auto) Lymph % (Auto) [place] % (Auto) Eos % (Auto) Baso % (Auto) Neut # (Auto) Lymph # (Auto) [place] # (Auto) Eos # (Auto) Baso # (Auto) ESR PT INR APTT pO2 VBG pH VBG pCO2 VBG HCO3 VBG Total CO2 VBG O2 Sat (Calc) VBG Base Excess VBG Potassium Glucose Lactate Crit Value Called To Crit Value Called By Crit Value Read Back Blood Gas Notified Time Sodium Potassium Chloride Carbon Dioxide Anion Gap BUN Creatinine Est GFR ( Amer) Est GFR (Non-Af Amer) POC Glucose (mg/dL) Random Glucose Calcium Total Bilirubin AST ALT Alkaline Phosphatase Ammonia 29 Total Protein Albumin Globulin Albumin/Globulin Ratio Lipase 83 Venous Blood Potassium Assessment & Plan - Assessment and Plan (Free Text) Plan: Patient became agitated, cursing and yelling at medical staff, pulled out IV and signed out AMA before having many tests performed. Abdominal Pain Patient left prior to getting abd/pel CT with IV/PO contrast Gangrene of feet possible osteomyelitis due to med non-compliance and hx of drug abuse Podiatry consulted, Dr. Jordan Foot Xray: * Amputation changes of 3rd 4th and 5th metatarsals left foot.. Stable amputation changes distal aspect proximal phalanx 1st toe. Apparent dest ructive changes proximal phalanx 2nd digit and possibly the base of the distal phalanx as well. Questionable emphysema within the distal 2nd toe and possible ulcer or emphysema lateral stump soft tissues * Smooth border contour deformity distal tuft distal phalanx right 5th toe. While this could be a developmental or congenital anomaly, the possibility of early destructive changes must be considered. Questionable subcutaneous emphysema distal 5th and 4th toes Started on Vanco/Zosyn - given one dose each while in ED blood cultures pending Seizure (recurrent) likely 2/2 to med non-compliance known seizure disorder - seizure while in ED - given 1 mg IVP of ativan Head Ct: pending official report Dilantin level: pending Dilantin loading dose given restarted home Keppra 500mg PO BID Hyperglycemia BS 395 Insulin 4units IVP given in ED Lantus 10 units HS ISS Hx of poly substance abuse Utox: not obtained Case discussed with Dr. Rakesh Braun Keshav PGY2
--- NOTE | 2018-08-17 23:14 | CP.PCM.DIS ---
Provider - Provider Date of Admission: 08/17/18 17:53 Attending physician: Dwight Bentley DO Time Spent in preparation of Discharge (in minutes): 0 (AMA) Diagnosis - Discharge Diagnosis (1) Gangrene of foot Status: Acute Hospital Course - Lab Results Lab Results: Most Recent Lab Values WBC 10.2 K/uL (4.8-10.8) D 08/17/18 16:12 RBC 4.60 Mil/uL (4.40-5.90) 08/17/18 16:12 Hgb 13.6 g/dL (12.0-18.0) 08/17/18 16:12 Hct 40.1 % (35.0-51.0) 08/17/18 16:12 MCV 87.2 fL (80.0-94.0) D 08/17/18 16:12 MCH 29.7 pg (27.0-31.0) 08/17/18 16:12 MCHC 34.0 g/dL (33.0-37.0) 08/17/18 16:12 RDW 13.7 % (11.5-14.5) 08/17/18 16:12 Plt Count 321 K/uL (130-400) 08/17/18 16:12 MPV 7.8 fL (7.2-11.7) 08/17/18 16:12 Neut % (Auto) 79.6 % (50.0-75.0) H 08/17/18 16:12 Lymph % (Auto) 11.0 % (20.0-40.0) L 08/17/18 16:12 [place] % (Auto) 6.9 % (0.0-10.0) 08/17/18 16:12 Eos % (Auto) 1.3 % (0.0-4.0) 08/17/18 16:12 Baso % (Auto) 1.2 % (0.0-2.0) 08/17/18 16:12 Neut # (Auto) 8.1 K/uL (1.8-7.0) H 08/17/18 16:12 Lymph # (Auto) 1.1 K/uL (1.0-4.3) 08/17/18 16:12 [place] # (Auto) 0.7 K/uL (0.0-0.8) 08/17/18 16:12 Eos # (Auto) 0.1 K/uL (0.0-0.7) 08/17/18 16:12 Baso # (Auto) 0.1 K/uL (0.0-0.2) 08/17/18 16:12 ESR 91 mm/hr (0-15) H 08/17/18 16:12 PT 11.2 SECONDS (9.7-12.2) 08/17/18 19:32 INR 1.0 08/17/18 19:32 APTT 27 SECONDS (21-34) 08/17/18 19:32 pO2 43 mm/Hg (30-55) 08/17/18 16:42 VBG pH 7.41 (7.32-7.43) 08/17/18 16:42 VBG pCO2 43 mmHg (40-60) 08/17/18 16:42 VBG HCO3 26.1 mmol/L 08/17/18 16:42 VBG Total CO2 28.6 mmol/L (22-28) H 08/17/18 16:42 VBG O2 Sat (Calc) 86.2 % (40-65) H 08/17/18 16:42 VBG Base Excess 2.2 mmol/L (0.0-2.0) H 08/17/18 16:42 VBG Potassium 6.7 mmol/L (3.6-5.2) H* 08/17/18 16:42 Sodium 135.0 mmol/l (132-148) 08/17/18 16:42 Chloride 104.0 mmol/L (98-107) 08/17/18 16:42 Glucose 344 mg/dl (75-110) H 08/17/18 16:42 Lactate 1.4 mmol/L (0.7-2.1) 08/17/18 16:42 Crit Value Called To Dr stockton 08/17/18 16:42 Crit Value Called By Bruce franz 08/17/18 16:42 Crit Value Read Back Y 08/17/18 16:42 Blood Gas Notified Time 1645 08/17/18 16:42 Sodium 136 mmol/L (132-148) 08/17/18 16:12 Potassium 5.1 mmol/L (3.6-5.2) 08/17/18 16:12 Chloride 96 mmol/L (98-107) L 08/17/18 16:12 Carbon Dioxide 29 mmol/L (22-30) 08/17/18 16:12 Anion Gap 17 (10-20) 08/17/18 16:12 BUN 16 mg/dL (9-20) 08/17/18 16:12 Creatinine 0.9 mg/dL (0.8-1.5) 08/17/18 16:12 Est GFR ( Amer) > 60 08/17/18 16:12 Est GFR (Non-Af Amer) > 60 08/17/18 16:12 POC Glucose (mg/dL) 262 mg/dL (65-110) H 08/17/18 18:59 Random Glucose 395 mg/dL (75-110) H 08/17/18 16:12 Calcium 9.6 mg/dl (8.6-10.4) 08/17/18 16:12 Total Bilirubin 0.7 mg/dL (0.2-1.3) 08/17/18 16:12 AST 21 U/L (17-59) 08/17/18 16:12 ALT 13 U/L (21-72) L D 08/17/18 16:12 Alkaline Phosphatase 154 U/L (38-126) H D 08/17/18 16:12 Ammonia 29 umol/L (9-33) 08/17/18 19:36 Total Protein 7.9 g/dL (6.3-8.3) 08/17/18 16:12 Albumin 3.9 g/dL (3.5-5.0) 08/17/18 16:12 Globulin 4.0 gm/dL (2.2-3.9) H 08/17/18 16:12 Albumin/Globulin Ratio 1.0 (1.0-2.1) 08/17/18 16:12 Lipase 83 U/L (23-300) 08/17/18 19:36 Venous Blood Potassium 6.7 mmol/L (3.6-5.2) H* 08/17/18 16:42 - Hospital Course Hospital Course: As per H+P: Patient is a 52 year old male with a past medical history of HTN, DM, Asthma, polysubstance abuse, osteomyelitis of the left foot 5th digit and known seizure disorder presenting to the emergency room for abdominal pain and b/l foot pains. Patient is a very poor historian. He does not know the name of his medications but states that he takes them every day. He was seen in the emergency room two days, diagnosed with hyperglycemia and discharged home with insulin (pens). Patient states he did not use the insulin pens because there were no needles. He is unable to state how long his abdominal pain has been occurring. Patient became very agitated at different points throughout the exam and continually fell asleep. He was easily arousable but would refuse to wake up at different times. Story very inconsistent. Patient denies any heroin use for the past 5 months. ROS unattainable due to patient uncooperative. Hospital Course: Patient presented the ED for abdominal pain and b/l feet pain. He had a seizure in the ED and was given 1mg of ativan. Seizure is believed to be due to medication non-compliance. He was given a loading dose of Dilantin. Patient was admitted for abdominal pain, gangrene of feet, hyperglycemia and recurrent seizure. Patient was had foot x ray that showed: * Amputation changes of 3rd 4th and 5th metatarsals left foot.. Stable amputation changes distal aspect proximal phalanx 1st toe. Apparent destructive changes proximal phalanx 2nd digit and possibly the base of the distal phalanx as well. Questionable emphysema within the distal 2nd toe and possible ulcer or emphysema lateral stump soft tissues * Smooth border contour deformity distal tuft distal phalanx right 5th toe. While this could be a developmental or congenital anomaly, the possibility of early destructive changes must be considered. Questionable subcutaneous emphysema distal 5th and 4th toes Patient also had Head CT because of the seizure. Multiple tests were ordered to further work up abdominal pain, gangrene of feet (possible osteomyelitis), seizure and hyperglycemia but patient became very agitated. According to nursing notes, he began yelling and cursing at medical staff. Patient requested to sign out AMA. Patient pulled out own IV, some bleeding at site and pressure dressing was applied. No physical exam preformed at discharge as patient left AMA. Discharge Exam - Head Exam Head Exam: ATRAUMATIC, NORMOCEPHALIC Discharge Plan - Follow Up Plan Condition: GOOD Disposition: AGAINST MEDICAL ADVICE Instructions: Acute Abdominal Pain (DC), Acute Abdominal Pain (GEN)
--- NOTE | 2018-08-18 10:07 | CT ---
Date of service: 08/17/2018 PROCEDURE: CT HEAD WITHOUT CONTRAST. HISTORY: seizure COMPARISON: Comparison made with CT scan brain 11/13/2017 TECHNIQUE: Axial computed tomography images were obtained through the head/brain without intravenous contrast. Radiation dose: Total exam DLP = 999.44 mGy-cm. This CT exam was performed using one or more of the following dose reduction techniques: Automated exposure control, adjustment of the mA and/or kV according to patient size, and/or use of iterative reconstruction technique. FINDINGS: Note that the study is slightly limited by motion artifact HEMORRHAGE: No acute parenchymal, subarachnoid or extra-axial hemorrhage. BRAIN: Mild chronic periventricular white matter ischemic changes are seen No obvious parenchymal nor extra-axial mass or collection identified on this noncontrast exam.. Suspect small chronic appearing right basal ganglia lacunar type infarct Mild generalized volume loss. VENTRICLES: No obstructive hydrocephalus. CALVARIUM: Calvarium intact. PARANASAL SINUSES: Unremarkable as visualized. No significant inflammatory changes.. Bilateral micah bullosa right larger than left MASTOID AIR CELLS: Unremarkable as visualized. No inflammatory changes. OTHER FINDINGS: None. IMPRESSION: Slightly limited motion degraded study. No acute intracranial hemorrhage. Mild chronic periventricular white matter ischemic changes. Suspect small chronic appearing right basal ganglia lacunar type infarct. Mild generalized volume loss.
--- NOTE | 2018-08-18 18:39 | CARD ---
APPROVED REPORT Date of service: 08/17/2018 EKG Measurement Heart [id number] <Conclusion> Normal sinus rhythm Minimal voltage criteria for LVH, may be normal variant Nonspecific T wave abnormality Abnormal ECG
== END 2018-08-17 20:45 | disposition left against medical advice (07) | DRG 130 ==
LOC: C.ER 15:24 → C.9E 17:53 → C.3T 18:41
PROVIDERS: ADMIT Hospitalist; ATTEND Hospitalist
DX: E11.52 Type 2 diabetes mellitus with diabetic peripheral angiopathy with gangrene (principal); E11.65 Type 2 diabetes mellitus with hyperglycemia; I96 Gangrene, not elsewhere classified; G40.909 Epilepsy, unspecified, not intractable, without status epilepticus; I10 Essential (primary) hypertension; J45.909 Unspecified asthma, uncomplicated; Z89.432 Acquired absence of left foot; Z91.14 Patient's other noncompliance with medication regimen

== ENCOUNTER 2018-08-20 07:48 | Inpatient (IN) | payer MEDICAID ==
[2018-08-20 07:48] VITALS: BMI 22.0
[2018-08-20] MEDS ORDERED: Piperacillin/Tazobact 3.375 gm 100 ML IV STA (08:11)
[2018-08-20] MEDS ORDERED: Vancomycin 1 GM 1 GM/250 ML BAG IV SCH (08:15)
[2018-08-20] MEDS ORDERED: Vancomycin 1 GM 1 GM/250 ML BAG IVPB ONE (08:21)
[2018-08-20] MEDS ORDERED: Piperacillin/Tazobact 3.375 gm 100 ML IVPB ONE (08:21)
[2018-08-20] MEDS ORDERED: Vancomycin 1 GM 1 GM/250 ML BAG IV STA (08:36)
[2018-08-20 08:38] LABS: BASO # 0.1 K/uL (0.0-0.2); BASO % 0.6 % (0.0-2.0); EOS # 0.2 K/uL (0.0-0.7); EOS % 1.4 % (0.0-4.0); HEMOGLOBIN 13.4 g/dL (12.0-18.0); LYMPH # 1.5 K/uL (1.0-4.3); LYMPH % 12.6 % (20.0-40.0); MEAN CORPUSCULAR HEMOGLOBIN 29.1 pg (27.0-31.0); MEAN PLATELET VOLUME 7.2 fL (7.2-11.7); MONO # 0.7 K/uL (0.0-0.8); MONO % 5.8 % (0.0-10.0); NEUT # 9.3 K/uL (1.8-7.0); NEUT % 79.6 % (50.0-75.0); RBC 4.62 Mil/uL (4.40-5.90); RED CELL DISTRIBUTION WIDTH 13.6 % (11.5-14.5); WHITE BLOOD COUNT 11.7 K/uL (4.8-10.8)
--- NOTE | 2018-08-20 08:44 | C.PDOC ---
History Of Present Illness 52-year-old male, presents to the emergency department with complaints of B/L foot pain. Patient states he has wounds on both feet that have been bleeding for several days. He was seen in ED and admitted on 08/17 for same complaint but left AMA. He has PMHx of DM II, seizure disorder, heroin/substance abuse, HTN, asthma. Patient was seen in out ED five days ago, was hyperglycemic, given SC insulin and Rxs for his insulin pens. He denies chest pain, SOB, fever, cough. Time Seen by Provider: 08/20/18 07:52 Chief Complaint (Nursing): Abnormal Skin Integrity History Per: Patient History/Exam Limitations: no limitations Past Medical History Reviewed: Historical Data, Nursing Documentation, Vital Signs Vital Signs: Last Vital Signs Temp 99.5 F 08/20/18 08:02 Pulse 99 H 08/20/18 08:02 Resp 20 08/20/18 08:02 BP 146/91 H 08/20/18 08:02 Pulse Ox 98 08/20/18 08:02 - Medical History PMH: Asthma, Diabetes, HTN, Peripheral Edema, Seizures Denies: Deep Vein Thrombosis, Chronic Kidney Disease Surgical History: Denies: Pacemaker - [facility] Procedures ALCOHOL DETOXIFICATION (08/03/14) DETACHMENT AT LEFT 3RD TOE, COMPLETE, OPEN APPROACH (06/05/17) DETACHMENT AT LEFT 3RD TOE, HIGH, OPEN APPROACH (06/05/17) DETACHMENT AT LEFT 4TH TOE, COMPLETE, OPEN APPROACH (06/05/17) DETACHMENT AT LEFT 4TH TOE, HIGH, OPEN APPROACH (06/05/17) DETACHMENT AT LEFT 5TH TOE, COMPLETE, OPEN APPROACH (06/05/17) DETACHMENT AT LEFT 5TH TOE, HIGH, OPEN APPROACH (06/05/17) DETACHMENT AT LEFT FOOT, COMPLETE 5TH RAY, OPEN APPROACH (06/05/17) DETACHMENT AT LEFT FOOT, PARTIAL 1ST RAY, OPEN APPROACH (05/24/17) DRAINAGE OF L FOOT SUBCU/FASCIA, OPEN APPROACH (06/05/17) EXCISION OF L FOOT SUBCU/FASCIA, OPEN APPROACH (06/05/17) EXCISION OF LEFT FOOT SKIN, EXTERNAL APPROACH (08/19/17) EXCISION OF TOE NAIL, EXTERNAL APPROACH (10/01/17) FLUOROSCOPY OF SUP VENA CAVA USING L OSM CONTRAST, GUIDANCE (06/05/17) INSERTION OF ENDOTRACHEAL AIRWAY INTO TRACHEA, VIA OPENING (11/10/17) INSERTION OF INFUSION DEV INTO R INNOM VEIN, PERC APPROACH (08/19/17) INSERTION OF INFUSION DEV INTO R SUBCLAV VEIN, PERC APPROACH (10/14/17) INSERTION OF INFUSION DEV INTO SUP VENA CAVA, PERC APPROACH (06/05/17) RESPIRATORY VENTILATION, LESS THAN 24 CONSECUTIVE HOURS (11/10/17) TRANSFUSE NONAUT RED BLOOD CELLS IN PERIPH VEIN, PERC (06/05/17) ULTRASONOGRAPHY OF LEFT UPPER EXTREMITY VEINS, GUIDANCE (06/05/17) ULTRASONOGRAPHY OF RIGHT UPPER EXTREMITY VEINS, GUIDANCE (10/14/17) Family History: States: No Known Family Hx - Social History Hx Tobacco Use: Yes Hx Alcohol Use: No (denies) Hx Substance Use: No (DENIES) - Immunization History Hx Tetanus Toxoid Vaccination: Yes Hx Influenza Vaccination: No Hx Pneumococcal Vaccination: Yes Review Of Systems Constitutional: Negative for: Fever, Chills Cardiovascular: Negative for: Chest Pain, Palpitations Respiratory: Negative for: Shortness of Breath Neurological: Negative for: Weakness, Numbness Physical Exam - Physical Exam Appears: Unkempt Skin: Warm, Dry Head: Atraumatic Eye(s): bilateral: Normal Inspection Nose: Normal Oral Mucosa: Moist Lips: Normal Appearing Neck: Normal ROM Cardiovascular: Rhythm Regular, No Murmur Respiratory: Normal Breath Sounds, No Accessory Muscle Use Extremity: No Deformity, Other ((right 5th toe chronic gangrene medial aspect, right 4th toe wet gangrene wound medial aspect, left foot - amputation of digits 3,4,5)) Neurological/Psych: Oriented x3, Normal Speech ED Course And Treatment - Laboratory Results Result Diagrams: 08/20/18 08:35 08/20/18 08:35 Lab Interpretation: No Acute Changes O2 Sat by Pulse Oximetry: 98 Pulse Ox Interpretation: Normal (RA) Progress Note: Treated with IVF NSS, dilatin 300 mg PO, zosyn and vancomycin. Case discussed and patient evaluated by podiatry resident Reassessment Condition: Improved - Physician Consult Information Physician Contacted: Janessa Fernandez Outcome Of Conversation: admit Disposition Discussed With : Janessa Fernandez Doctor Will See Patient In The: Hospital Counseled Patient/Family Regarding: Studies Performed, Diagnosis, Need For Followup - Disposition Disposition: HOSPITALIZED Disposition Time: 09:30 Condition: STABLE - Clinical Impression Clinical Impression: Diabetes, Cellulitis - Scribe Statement The provider has reviewed the documentation as recorded by the Scribe (Virginia Edwards) All medical record entries made by the Scribe were at my direction and personally dictated by me. I have reviewed the chart and agree that the record accurately reflects my personal performance of the history, physical exam, medical decision making, and the department course for this patient. I have also personally directed, reviewed, and agree with the discharge instructions and disposition. Decision To Admit - Pt Status Changed To: Hospital Disposition Of: Inpatient - Admit Certification Admit to Inpatient:: After my assessment, the patient will require hospitalization for at least two midnights. This is because of the severity of symptoms shown, intensity of services needed, and/or the medical risk in this patient being treated as an outpatient. - InPatient: Physician Admission Certification: I certify that this patient requires 2 or more midnights of care for the following reason:: Cellulitis. Diabetes - . Bed Request Type: Regular Admitting Physician: Janessa Fernandez Patient Diagnosis: Cellulitis
[2018-08-20 08:54] LABS: ALB/GLOB RATIO 0.9 (1.0-2.1); ALT/SGPT 17 U/L (21-72); AST/SGOT 25 U/L (17-59); BLOOD UREA NITROGEN 13 mg/dL (9-20); CALCIUM 9.4 mg/dl (8.6-10.4); GFR NON-AFRICAN AMERICAN > 60
--- NOTE | 2018-08-20 09:44 | RAD ---
Date of service: 08/20/2018 PROCEDURE: Bilateral Feet Radiographs. HISTORY: cellulitis COMPARISON: None. FINDINGS: BONES: Prior left 3rd 4th and 5th digit amputation are identified as well as transmetatarsal amputation at the 5th metatarsal bone. Limited deformities of the 2nd of the 3rd and 4th distal metatarsal bones are stable. Chronic postoperative or posttraumatic deformity of the distal and mid segments of the left 2nd metatarsal bone is appreciated which is unchanged. Marked deformity of the left proximal middle phalanges is reiterated with partial amputation of the great toe. Consider potential chronic osteomyelitis at the 2nd digit and 2nd metatarsal bone given the appearance. MRI is recommended for added characterization. No similar changes seen related otherwise throughout the remainder of the left foot. At the right side, soft tissue edema and bandaging is seen related to this 4th and 5th digits with edema related to the medial great toe soft tissues as well. There is a deformity of the distal phalanx of the right great toe with no middle phalanx appreciable. Alternately, the distal phalanx may been amputated and we are actually looking at the middle phalanx deformity. This is suspicious for osteomyelitis follow-up MRI is advised given the cortical and medullary deformity appreciated. An ulcer is also questioned at the right small toe soft tissues distally. No periosteal reaction is appreciated though osteopenia seen at the distal and middle phalanges of the 4th digit. Osteomyelitis is not favored here. MRI may be useful for evaluation of 4th digit osseous elements as well. No fracture, subluxation or dislocation bilateral feet. JOINTS: Right Foot: Normal. No osteoarthritis. Left Foot: Normal. No osteoarthritis. SOFT TISSUES: Right Foot: Normal. Left Foot: Normal. OTHER FINDINGS: None. IMPRESSION: Stable appearance of bilateral feet including potential osteomyelitis at the distal or middle phalanx right small digit. Postoperative changes are seen at the left foot including 3rd 4th and 5th digit amputations and partial amputation of the 5th metatarsal bone. Abnormal changes at the 2nd digit and mid to distal 2nd metatarsal bone may reflect osteomyelitis. Follow-up MRI is advised for both feet.
--- NOTE | 2018-08-20 10:30 | CP.PCM.CON ---
History of Present Illness - History of Present Illness History of Present Illness: Podiatry - Dr. Jordan 52M PMHx HTN, DM, seizures, Asthma, polysubstance abuse, osteomyelitis of the left foot 5th digit and known seizure disorder seen and evaluated in ED for bilateral LE pain and infected wounds. Patient is a poor historian; falling asleep during exam, story inconsistent. Patient states he developed a new wound on his right 4th digit approximately 3-4 days ago, unknown how it started. Denies any trauma to the area. Unknown to patient how long he has had the wound on his right 5th digit and the wounds on his left foot. Patient states he has not followed up in the podiatry clinic for continued care; states he has been performing local wound care himself with dry dressings. Patient reports constant, moderate pain in lower extremities. Denies numbness/burning/tingling. Denies n/v/f/d/c/sob. PMH: HTN, DM, Asthma, polysubstance abuse, osteomyelitis of the left foot 5th digit and known seizure disorder PSH: multiple toe amputations Social: polysubstance abuse (denies IVDA, states last heroin use 5 months ago), tobacco abuse, previously documented daily alcohol drinker (unknown status now) Allergies: Fish (rash - patient has had previous IV contrast studies), Tomato (rash) Review of Systems - Review of Systems All systems: reviewed and no additional remarkable complaints except (as per HPI) Past Patient History - Infectious Disease Hx of Infectious Diseases: None - Past Medical History & Family History Past Medical History?: Yes - Past Social History Smoking Status: Light Smoker < 10 Cigarettes Daily - CARDIAC Hx Hypertension: Yes Hx Pacemaker: No Hx Peripheral Edema: Yes - PULMONARY Hx Asthma: Yes - NEUROLOGICAL Hx Seizures: Yes - HEENT Hx HEENT Problems: No - RENAL Hx Chronic Kidney Disease: No - ENDOCRINE/METABOLIC Hx Endocrine Disorders: Yes Hx Diabetes Mellitus Type 2: Yes - INTEGUMENTARY Hx Dermatological Problems: No - MUSCULOSKELETAL/RHEUMATOLOGICAL Hx Musculoskeletal Disorders: Yes Hx Osteomyelitis: Yes (s/p amputations of L toes #3,4,5 ) - GASTROINTESTINAL Hx Gastrointestinal Disorders: No - PSYCHIATRIC Hx Substance Use: No (DENIES) - SURGICAL HISTORY Hx Surgeries: Yes Hx Amputation: Yes (L foot last 3toes) Hx Musculoskeletal Surgery: Yes (LEFT WRIST AND ANKLE) Other/Comment: METAL PLATE IN HEAD - ANESTHESIA Hx Anesthesia: Yes Hx Anesthesia Reactions: No Meds Allergies/Adverse Reactions: Allergies Allergy/AdvReac Type Severity Reaction Status Date / Time FISH Allergy RASH Verified 08/20/18 07:59 tomato Allergy RASH Verified 08/15/18 14:34 Physical Exam - Constitutional Appears: Non-toxic, No Acute Distress - Extremities Exam Additional comments: Vasc: DP pulses palpable 2/4 b/l, PT pulses non palpable secondary to edema of LE b/l, cap refill <3 seconds to remaining digits, temp gradient warm to warm b/l from proximal to distal with increase in warmth noted to right 4th digit, +1 pitting edema present b/l, nonpitting edema noted to right 4th and 5th digits. Neuro: Gross and protective sensation diminished b/l Derm: RLE= Wound noted to entire dorsal aspect of right 4th digit with sloughing of skin - purulence noted along wound bed with nail avulsed; malodor present; serosanguinous drainage present; necrosis noted along proximal aspect. Dry necrosis noted to distal aspect of right 4th digit with; malodor present; no drainage present. Severe maceration noted to webspaces 3 and 4. Hyperkeratosis noted to plantarmedial IPJ; no open lesion present. LLE= Ulcer noted to plantar hallucal sulcus measuring approximately 2 x 1 x 0.3 cm with 100% granular base and hyperkeratotic rim; no drainage noted; no purulence noted; no erythema; no probe to bone; no malodor. superficial ulceration noted to dorsolateral aspect of 2nd digit with 100% granular base; no drainage noted; no purulence noted; no fluctuance; no periwound erythema present; no malodor. Ortho: previous amputations noted on the left foot 3,4,5 digit and distal first digit, pain on palpation at the wound sites/periwound, MMT 5/5 b/l - Psychiatric Exam Psychiatric exam: Normal Mood Results - Vital Signs Recent Vital Signs: Last Vital Signs Temp 99.5 F 08/20/18 08:02 Pulse 99 H 08/20/18 08:02 Resp 20 08/20/18 08:02 BP 146/91 H 08/20/18 08:02 Pulse Ox 98 08/20/18 08:49 - Labs Result Diagrams: 08/20/18 08:35 08/20/18 08:35 Labs: Laboratory Results - last 24 hr 08/20/18 08/20/18 08/20/18 08:10 08:35 08:35 WBC 11.7 H RBC 4.62 Hgb 13.4 Hct 40.6 MCV 88.0 MCH 29.1 MCHC 33.0 RDW 13.6 Plt Count 361 MPV 7.2 Neut % (Auto) 79.6 H Lymph % (Auto) 12.6 L [place] % (Auto) 5.8 Eos % (Auto) 1.4 Baso % (Auto) 0.6 Neut # (Auto) 9.3 H Lymph # (Auto) 1.5 [place] # (Auto) 0.7 Eos # (Auto) 0.2 Baso # (Auto) 0.1 Sodium 135 Potassium 4.6 Chloride 93 L Carbon Dioxide 28 Anion Gap 19 BUN 13 Creatinine 0.9 Est GFR ( Amer) > 60 Est GFR (Non-Af Amer) > 60 POC Glucose (mg/dL) 375 H Random Glucose 309 H Calcium 9.4 Total Bilirubin 0.6 AST 25 ALT 17 L D Alkaline Phosphatase 167 H Total Protein 8.5 H Albumin 4.0 Globulin 4.5 H Albumin/Globulin Ratio 0.9 L Assessment & Plan - Assessment and Plan (Free Text) Assessment: 52M PMHx HTN, DM, seizures, Asthma, polysubstance abuse, osteomyelitis of the left foot 5th digit and known seizure disorder with bilateral lower extremity wounds, infected right 4th digit, gangrene right 5th digit Plan: Patient seen and evaluated Discussed with attending, Dr. Jordan Afebrile, WBC 11.7, ESR 102 Bilateral foot XR reviewed: Potential OM right 4th and 5th digits; postoperative changes left foot s/p 3rd, 4th, 5th digit amputations and partial amputatoin of 5th metatarsal. MRI ordered b/l Right foot 4th digit wound culture taken, f/u Wounds cleansed with saline and dressed with betadine, DSD ID consulted, f/u - empiric abx started Vascular consulted LE arterial duplex ordered Pain control per primary Thank you for the consult Podiatry will continue to follow while in house
[2018-08-20 12:23] LABS: SQUAMOUS EPITHIAL < 1 /hpf (0-5); URINE BACTERIA RARE (<OCC); URINE BILIRUBIN NEGATIVE (NEGATIVE); URINE BLOOD 1+ (NEGATIVE); URINE CLARITY Clear (Clear); URINE COLOR Yellow (YELLOW); URINE GLUCOSE (UA) 3+ mg/dL (Normal); URINE LEUKOCYTE ESTERASE NEG Leu/uL (Negative); URINE PROTEIN 2+ mg/dL (NEGATIVE); URINE UROBILINOGEN NORMAL mg/dL (0.2-1.0)
--- NOTE | 2018-08-20 16:28 | CP.PCM.CON ---
History of Present Illness - History of Present Illness History of Present Illness: Surgery 52M PMHx HTN, DM, seizures, Asthma, polysubstance abuse, osteomyelitis of the left foot 5th digit and known seizure disorder seen and evaluated in ED for bilateral LE pain and infected wounds. vascular surgery is consulted to evaluate for non healing foot ulcer. Pt reports that he had pain on b/l feet for several days. Pain is worse on R foot. Denies difficulty ambulating. Pt is feely ambulating in ED. Denies calf pain. PT is being seen by podiatry team. Pt is non comliant with meds. Reports he doesn;t work and lives with his family. PMH: HTN, DM, Asthma, polysubstance abuse, osteomyelitis of the left foot 5th digit and known seizure disorder PSH: multiple toe amputations Social: polysubstance abuse (denies IVDA, states last heroin use 5 months ago), tobacco abuse, previously documented daily alcohol drinker (unknown status now) Allergies: Fish (rash - patient has had previous IV contrast studies), Tomato (rash) Review of Systems - Review of Systems Review of Systems: See HPI Past Patient History - Infectious Disease Hx of Infectious Diseases: None - Past Medical History & Family History Past Medical History?: Yes - Past Social History Smoking Status: Light Smoker < 10 Cigarettes Daily - CARDIAC Hx Hypertension: Yes Hx Pacemaker: No Hx Peripheral Edema: Yes - PULMONARY Hx Asthma: Yes - NEUROLOGICAL Hx Seizures: Yes - HEENT Hx HEENT Problems: No - RENAL Hx Chronic Kidney Disease: No - ENDOCRINE/METABOLIC Hx Endocrine Disorders: Yes Hx Diabetes Mellitus Type 2: Yes - INTEGUMENTARY Hx Dermatological Problems: No - MUSCULOSKELETAL/RHEUMATOLOGICAL Hx Musculoskeletal Disorders: Yes Hx Osteomyelitis: Yes (s/p amputations of L toes #3,4,5 ) - GASTROINTESTINAL Hx Gastrointestinal Disorders: No - PSYCHIATRIC Hx Substance Use: No (DENIES) - SURGICAL HISTORY Hx Surgeries: Yes Hx Amputation: Yes (L foot last 3toes) Hx Musculoskeletal Surgery: Yes (LEFT WRIST AND ANKLE) Other/Comment: METAL PLATE IN HEAD - ANESTHESIA Hx Anesthesia: Yes Hx Anesthesia Reactions: No Meds Allergies/Adverse Reactions: Allergies Allergy/AdvReac Type Severity Reaction Status Date / Time FISH Allergy RASH Verified 08/20/18 07:59 tomato Allergy RASH Verified 08/15/18 14:34 Physical Exam - Constitutional Appears: No Acute Distress - Head Exam Head Exam: ATRAUMATIC, NORMAL INSPECTION, NORMOCEPHALIC - Eye Exam Eye Exam: EOMI, Normal appearance, PERRL Pupil Exam: NORMAL ACCOMODATION, PERRL - ENT Exam ENT Exam: Mucous Membranes Moist, Normal Exam - Neck Exam Neck exam: Positive for: Normal Inspection - Respiratory Exam Respiratory Exam: NORMAL BREATHING PATTERN - Cardiovascular Exam Cardiovascular Exam: REGULAR RHYTHM - GI/Abdominal Exam GI & Abdominal Exam: Soft. absent: Tenderness - Exam Exam: NORMAL INSPECTION - Extremities Exam Extremities exam: Positive for: full ROM, normal capillary refill, tenderness, pedal pulses present. Negative for: normal inspection, pedal edema Additional comments: L toes amputation , R 4th toe wet necrotic dorsal tissues. purulent drainage. palpable distal pulses, poplitieal, SFA b/l - Back Exam Back exam: NORMAL INSPECTION - Neurological Exam Neurological exam: Alert, CN II-XII Intact, Normal Gait, Oriented x3, Reflexes Normal - Psychiatric Exam Psychiatric exam: Normal Affect, Normal Mood - Skin Skin Exam: Erythema, Warm Results - Vital Signs Recent Vital Signs: Last Vital Signs Temp 98.8 F 08/20/18 14:16 Pulse 88 08/20/18 14:16 Resp 20 08/20/18 14:16 BP 142/90 08/20/18 14:16 Pulse Ox 99 08/20/18 14:16 - Labs Result Diagrams: 08/20/18 08:35 08/20/18 08:35 Labs: Laboratory Results - last 24 hr 08/20/18 08/20/18 08/20/18 08:10 08:35 08:35 WBC 11.7 H RBC 4.62 Hgb 13.4 Hct 40.6 MCV 88.0 MCH 29.1 MCHC 33.0 RDW 13.6 Plt Count 361 MPV 7.2 Neut % (Auto) 79.6 H Lymph % (Auto) 12.6 L [place] % (Auto) 5.8 Eos % (Auto) 1.4 Baso % (Auto) 0.6 Neut # (Auto) 9.3 H Lymph # (Auto) 1.5 [place] # (Auto) 0.7 Eos # (Auto) 0.2 Baso # (Auto) 0.1 ESR 102 H Sodium 135 Potassium 4.6 Chloride 93 L Carbon Dioxide 28 Anion Gap 19 BUN 13 Creatinine 0.9 Est GFR ( Amer) > 60 Est GFR (Non-Af Amer) > 60 POC Glucose (mg/dL) 375 H Random Glucose 309 H Calcium 9.4 Total Bilirubin 0.6 AST 25 ALT 17 L D Alkaline Phosphatase 167 H Total Protein 8.5 H Albumin 4.0 Globulin 4.5 H Albumin/Globulin Ratio 0.9 L Urine Color Urine Clarity Urine pH Ur Specific [place] Urine Protein Urine Glucose (UA) Urine Ketones Urine Blood Urine Nitrate Urine Bilirubin Urine Urobilinogen Ur Leukocyte Esterase Urine WBC (Auto) Urine RBC (Auto) Ur Squamous Epith Cells Urine Bacteria Phenytoin 08/20/18 08/20/18 10:43 11:52 WBC RBC Hgb Hct MCV MCH MCHC RDW Plt Count MPV Neut % (Auto) Lymph % (Auto) [place] % (Auto) Eos % (Auto) Baso % (Auto) Neut # (Auto) Lymph # (Auto) [place] # (Auto) Eos # (Auto) Baso # (Auto) ESR Sodium Potassium Chloride Carbon Dioxide Anion Gap BUN Creatinine Est GFR ( Amer) Est GFR (Non-Af Amer) POC Glucose (mg/dL) Random Glucose Calcium Total Bilirubin AST ALT Alkaline Phosphatase Total Protein Albumin Globulin Albumin/Globulin Ratio Urine Color Yellow Urine Clarity Clear Urine pH 5.0 Ur Specific [place] 1.028 Urine Protein 2+ H Urine Glucose (UA) 3+ H Urine Ketones 1+ H Urine Blood 1+ H Urine Nitrate Negative Urine Bilirubin Negative Urine Urobilinogen Normal Ur Leukocyte Esterase Neg Urine WBC (Auto) 1 Urine RBC (Auto) 4 H Ur Squamous Epith Cells < 1 Urine Bacteria Rare Phenytoin 7.3 L Assessment & Plan - Assessment and Plan (Free Text) Assessment: R toe ulcer : b/l palpable distal pulses, popliteal, SFA -No surgical intervention at this time -wound care -Diabetic management -POdiatry on board DW Dr. Way
[2018-08-20] MEDS ORDERED: Oxycodone/Acetaminophen 5/325 mg Tab PO ONE (18:45)
[2018-08-20] MEDS ORDERED: HYDROmorphone 0.5 mg/0.5 ml ISec IVP ONE (19:00)
--- NOTE | 2018-08-20 19:14 | CP.PCM.CON ---
History of Present Illness - History of Present Illness History of Present Illness: 52M admitted with bilateral LE pain and infected wounds. Patient is a poor historian; falling asleep during exam, story inconsistent. Patient states he developed a new wound on his right 4th digit approximately 3-4 days ago, unknown how it started. ID consulted for antibiotic management cultures are pending PMH: HTN, DM, Asthma, polysubstance abuse, osteomyelitis of the left foot 5th digit and known seizure disorder PSH: multiple toe amputations Social: polysubstance abuse (denies IVDA, states last heroin use 5 months ago), tobacco abuse, previously documented daily alcohol drinker (unknown status now) Allergies: Fish (rash - patient has had previous IV contrast studies), Tomato (rash) Review of Systems - Review of Systems All systems: reviewed and no additional remarkable complaints except (as per HPI) Past Patient History - Infectious Disease Hx of Infectious Diseases: None - Past Medical History & Family History Past Medical History?: Yes - Past Social History Smoking Status: Light Smoker < 10 Cigarettes Daily - CARDIAC Hx Hypertension: Yes Hx Pacemaker: No Hx Peripheral Edema: Yes - PULMONARY Hx Asthma: Yes - NEUROLOGICAL Hx Seizures: Yes - HEENT Hx HEENT Problems: No - RENAL Hx Chronic Kidney Disease: No - ENDOCRINE/METABOLIC Hx Endocrine Disorders: Yes Hx Diabetes Mellitus Type 2: Yes - INTEGUMENTARY Hx Dermatological Problems: No - MUSCULOSKELETAL/RHEUMATOLOGICAL Hx Musculoskeletal Disorders: Yes Hx Osteomyelitis: Yes (s/p amputations of L toes #3,4,5 ) - GASTROINTESTINAL Hx Gastrointestinal Disorders: No - PSYCHIATRIC Hx Substance Use: No (DENIES) - SURGICAL HISTORY Hx Surgeries: Yes Hx Amputation: Yes (L foot last 3toes) Hx Musculoskeletal Surgery: Yes (LEFT WRIST AND ANKLE) Other/Comment: METAL PLATE IN HEAD - ANESTHESIA Hx Anesthesia: Yes Hx Anesthesia Reactions: No Meds Allergies/Adverse Reactions: Allergies Allergy/AdvReac Type Severity Reaction Status Date / Time FISH Allergy RASH Verified 08/20/18 07:59 tomato Allergy RASH Verified 08/15/18 14:34 - Medications Medications: Current Medications Insulin Human Regular (Novolin R) 0 unit SC ACHS RANDAL; Protocol Ondansetron HCl (Zofran Inj) 4 mg IVP Q6 PRN PRN Reason: Nausea/Vomiting Last Admin: 08/20/18 18:55 Dose: 4 mg Physical Exam - Constitutional Appears: Chronically Ill - Head Exam Head Exam: ATRAUMATIC - Eye Exam Eye Exam: PERRL - ENT Exam ENT Exam: Mucous Membranes Dry - Neck Exam Neck exam: Negative for: Lymphadenopathy - Respiratory Exam Respiratory Exam: Decreased Breath Sounds - Cardiovascular Exam Cardiovascular Exam: REGULAR RHYTHM - GI/Abdominal Exam GI & Abdominal Exam: Diminished Bowel Sounds, Soft - Rectal Exam Rectal Exam: Deferred - Exam Exam: NORMAL INSPECTION - Extremities Exam Additional comments: Vasc: DP pulses palpable 2/4 b/l, PT pulses non palpable secondary to edema of LE b/l, cap refill <3 seconds to remaining digits, temp gradient warm to warm b/l from proximal to distal with increase in warmth noted to right 4th digit, +1 pitting edema present b/l, nonpitting edema noted to right 4th and 5th digits. Neuro: Gross and protective sensation diminished b/l Derm: RLE= Wound noted to entire dorsal aspect of right 4th digit with sloughing of skin - purulence noted along wound bed with nail avulsed; malodor present; serosanguinous drainage present; necrosis noted along proximal aspect. Dry necrosis noted to distal aspect of right 4th digit with; malodor present; no drainage present. Severe maceration noted to webspaces 3 and 4. Hyperkeratosis noted to plantarmedial IPJ; no open lesion present. LLE= Ulcer noted to plantar hallucal sulcus measuring approximately 2 x 1 x 0.3 cm with 100% granular base and hyperkeratotic rim; no drainage noted; no purulence noted; no erythema; no probe to bone; no malodor. superficial ulceration noted to dorsolateral aspect of 2nd digit with 100% granular base; no drainage noted; no purulence noted; no fluctuance; no periwound erythema present; no malodor. Ortho: previous amputations noted on the left foot 3,4,5 digit and distal first digit, pain on palpation at the wound sites/periwound, MMT 5/5 b/l - Back Exam Back exam: absent: CVA tenderness (L), CVA tenderness (R) - Neurological Exam Neurological exam: Alert, CN II-XII Intact, Oriented x3, Reflexes Normal - Psychiatric Exam Psychiatric exam: Depressed - Skin Skin Exam: Dry Results - Vital Signs Recent Vital Signs: Last Vital Signs Temp 98.8 F 08/20/18 14:16 Pulse 88 10/10/18 14:16 Resp 20 08/20/18 14:16 BP 142/90 08/20/18 14:16 Pulse Ox 99 08/20/18 14:16 - Labs Result Diagrams: 08/21/18 08:34 08/21/18 08:34 Labs: Laboratory Results - last 24 hr 08/20/18 08/20/18 08/20/18 08:10 08:35 08:35 WBC 11.7 H RBC 4.62 Hgb 13.4 Hct 40.6 MCV 88.0 MCH 29.1 MCHC 33.0 RDW 13.6 Plt Count 361 MPV 7.2 Neut % (Auto) 79.6 H Lymph % (Auto) 12.6 L [place] % (Auto) 5.8 Eos % (Auto) 1.4 Baso % (Auto) 0.6 Neut # (Auto) 9.3 H Lymph # (Auto) 1.5 [place] # (Auto) 0.7 Eos # (Auto) 0.2 Baso # (Auto) 0.1 ESR 102 H Sodium 135 Potassium 4.6 Chloride 93 L Carbon Dioxide 28 Anion Gap 19 BUN 13 Creatinine 0.9 Est GFR ( Amer) > 60 Est GFR (Non-Af Amer) > 60 POC Glucose (mg/dL) 375 H Random Glucose 309 H Calcium 9.4 Total Bilirubin 0.6 AST 25 ALT 17 L D Alkaline Phosphatase 167 H Total Protein 8.5 H Albumin 4.0 Globulin 4.5 H Albumin/Globulin Ratio 0.9 L Urine Color Urine Clarity Urine pH Ur Specific [place] Urine Protein Urine Glucose (UA) Urine Ketones Urine Blood Urine Nitrate Urine Bilirubin Urine Urobilinogen Ur Leukocyte Esterase Urine WBC (Auto) Urine RBC (Auto) Ur Squamous Epith Cells Urine Bacteria Phenytoin 08/20/18 08/20/18 10:43 11:52 WBC RBC Hgb Hct MCV MCH MCHC RDW Plt Count MPV Neut % (Auto) Lymph % (Auto) [place] % (Auto) Eos % (Auto) Baso % (Auto) Neut # (Auto) Lymph # (Auto) [place] # (Auto) Eos # (Auto) Baso # (Auto) ESR Sodium Potassium Chloride Carbon Dioxide Anion Gap BUN Creatinine Est GFR ( Amer) Est GFR (Non-Af Amer) POC Glucose (mg/dL) Random Glucose Calcium Total Bilirubin AST ALT Alkaline Phosphatase Total Protein Albumin Globulin Albumin/Globulin Ratio Urine Color Yellow Urine Clarity Clear Urine pH 5.0 Ur Specific [place] 1.028 Urine Protein 2+ H Urine Glucose (UA) 3+ H Urine Ketones 1+ H Urine Blood 1+ H Urine Nitrate Negative Urine Bilirubin Negative Urine Urobilinogen Normal Ur Leukocyte Esterase Neg Urine WBC (Auto) 1 Urine RBC (Auto) 4 H Ur Squamous Epith Cells < 1 Urine Bacteria Rare Phenytoin 7.3 L Assessment & Plan (1) Cellulitis Status: Acute (2) Diabetes Status: Acute (3) Alcohol dependence Status: Acute (4) Amputation of left foot with complication Status: Acute (5) Cellulitis of left foot Status: Acute (6) Diabetic foot infection Status: Acute (7) Diabetic toe ulcer Status: Acute (8) Diabetic ulcer of left foot Status: Acute (9) Hypertension Status: Acute (10) Intractable vomiting Status: Acute (11) Nausea and vomiting in adult Status: Acute (12) Noncompliance with medication regimen Status: Acute (13) Opiate abuse, continuous Status: Acute (14) Osteomyelitis of foot Status: Acute (15) Alcohol abuse Status: Chronic Priority: Medium (16) Diabetic foot ulcer Status: Chronic Priority: Medium (17) Polysubstance abuse Status: Chronic Priority: High - Assessment and Plan (Free Text) Assessment: iv rx in progress needs vascular eval Podiatry on board IV antibiotics
[2018-08-20 21:40] LABS: HEPATITIS B SURFACE AG Negative (NEGATIVE)
[2018-08-20 21:46] LABS: HEPATITIS A IGM NEGATIVE (NEGATIVE); HEPATITIS B CORE AB NEGATIVE (NEGATIVE)
[2018-08-20 21:57] LABS: HEPATITIS C ANTIBODY NEGATIVE (NEGATIVE)
[2018-08-20] MEDS: (Novolin R) Insulin Human Regular 100 units/ml vial SC SCH (22:00)
[2018-08-20] MEDS: Piperacill/Tazo 3.375gm in Dex 3.375 GM/50 ML BAG IVPB SCH (22:00)
[2018-08-20] MEDS: HYDROmorphone 0.5 mg/0.5 ml ISec IVP PRN (22:02)
[2018-08-20] MEDS ORDERED: Glucagon Recombinant 1 mg Inj IM PRN (22:18)
[2018-08-20] MEDS ORDERED: Dextrose 50% SYRINGE Inj (50 ml) IV PRN (22:18)
[2018-08-20] MEDS: Albuterol-Ipratrop 3 mg / 0.5 (3 ml) UD IH SCH (23:51)
[2018-08-21] MEDS: Albuterol-Ipratrop 3 mg / 0.5 (3 ml) UD IH SCH ×4 (01:15→20:01)
[2018-08-21] MEDS: HYDROmorphone 0.5 mg/0.5 ml ISec IVP PRN (02:00)
[2018-08-21] MEDS: Piperacill/Tazo 3.375gm in Dex 3.375 GM/50 ML BAG IVPB SCH ×3 (03:45→20:32)
[2018-08-21] MEDS ORDERED: Naloxone 0.4 mg/ml Inj (Adult) IVP ONE (07:33)
--- NOTE | 2018-08-21 07:47 | PCM.RRT ---
INTERNET MARKETING STRATEGIST Nurses Assessment - Situation Date: 08/21/18 Time INTERNET MARKETING STRATEGIST was called: 07:30 INTERNET MARKETING STRATEGIST Responder Arrival Time:: 07:30 INTERNET MARKETING STRATEGIST Location:: 3T Med/Oncology INTERNET MARKETING STRATEGIST Reason for Call: Change in Mental Status (Found unresponsive. Patient became alert and oriented in 10mins." I am not drug addict to take Narcane") INTERNET MARKETING STRATEGIST Called By: RN - IV IV Inserted during INTERNET MARKETING STRATEGIST?: No - Respiratory INTERNET MARKETING STRATEGIST Delivery Method: Nasal Cannula @L/min Received Nebulizer Treatments: No Was the Patient Ventilated with Bag/Mask 100% O2?: No Secretions Suctioned?: No Was the Patient Intubated?: No Was the Patient Placed on a Ventilator?: No - Ventilator Settings Ventilator Respiratory Rate Settin Ventilator Tidal Volume Settin - Diagnostic Test Ordered EKG: Yes Other Diagnostic Test Ordered: urine drug screen - Stat Labs Ordered INTERNET MARKETING STRATEGIST Stat Labs Ordered: CBC, BMP, TROPONIN CPR started during INTERNET MARKETING STRATEGIST?: No - [place] Coma Scale Coma Scale Verbal: Oriented - Recommendations 5) INTERNET MARKETING STRATEGIST Level of Care Recommendations: Remain in current setting Notifications: Attending Physician I.Reason for INTERNET MARKETING STRATEGIST - A) Acute Change in Patient: (Select all that apply): Acute change in mental status - Neurological Status (Select all that apply): Lethargic - Respiratory Oxygen Delivery Method: Nasal Cannula @L/min Oxygen Flow Rate: 2 - Constitutional Appears: Non-toxic - Head Head Exam: NORMAL INSPECTION - Eyes Eye Exam: Normal appearance - Respiratory Exam Respiratory Exam: Clear to Ausculation Bilateral - Cardiovascular Exam Cardiovascular Exam: REGULAR RHYTHM - GI/Abdominal Exam GI & Abdominal Exam: Soft, Normal Bowel Sounds - Neurological Exam Neurological Exam: Awake, Oriented x3 - Extremities Exam Extremities Exam: Full ROM
[2018-08-21 08:48] LABS: HEMOGLOBIN 12.6 g/dL (12.0-18.0); MEAN CELL VOLUME 88.2 fL (80.0-94.0); MEAN CORPUSCULAR HEMOGLOBIN 29.1 pg (27.0-31.0); MEAN PLATELET VOLUME 7.4 fL (7.2-11.7); RBC 4.32 Mil/uL (4.40-5.90); RED CELL DISTRIBUTION WIDTH 13.9 % (11.5-14.5); WHITE BLOOD COUNT 9.9 K/uL (4.8-10.8)
[2018-08-21 09:01] LABS: ALB/GLOB RATIO 0.9 (1.0-2.1); ALBUMIN 3.7 g/dL (3.5-5.0); ALT/SGPT 8 U/L (21-72); AST/SGOT 16 U/L (17-59); BLOOD UREA NITROGEN 15 mg/dL (9-20); CALCIUM 9.3 mg/dl (8.6-10.4); GFR NON-AFRICAN AMERICAN > 60
[2018-08-21] MEDS: (Novolin R) Insulin Human Regular 100 units/ml vial SC SCH ×4 (09:23→21:14)
--- NOTE | 2018-08-21 10:02 | HP ---
date 08/20/18 CHIEF COMPLAINT: Nausea, vomiting, bleeding feet ulcers. HISTORY OF PRESENT ILLNESS: Mr. Thee Walker is a 52-year-old male, came to the Emergency Department with complaining of bilateral foot pain. Patient states that he has wound on both feet that had been bleeding for several days. He was seen in ED and admitted on 08/17/2018 for the same complaint, but left against medical advice. PAST MEDICAL HISTORY: He has past medical history of diabetes mellitus, seizure disorders, heroin substance abuse, hypertension, asthma. Patient was seen in ED 5 days ago, was hyperglycemic, given subcutaneous insulin, and prescription of insulin pens. He denies chest pain, shortness of breath, fever, cough, but stated he is actively vomiting and has foot pain. Past medical history of asthma, diabetes mellitus, hypertension, peripheral edema, seizure disorder. FAMILY HISTORY: Father, mother noncontributory. HABITS: Tobacco abuse yes. Alcohol denies. Substance abuse denies. REVIEW OF SYSTEMS: Patient was seen and examined at the bedside in his room. He is vomiting and complaining about pain in the feet. No fever, no chills. No chest pain. No palpitation. Negative shortness of breath. Negative for fever and weakness. PHYSICAL EXAMINATION: VITAL SIGNS: Temperature 99.5, pulse 99, respiratory rate 20, blood pressure 142/91. HEENT: Head normocephalic, atraumatic. Eyes PERRLA. Extraocular muscles intact. Conjunctivae clear. Nose patent. Mucous membrane moist. NECK: Supple. No carotid bruit. No JVD or thyromegaly. CHEST: Bilaterally symmetrical. HEART: S1 and S2 positive. LUNGS: Clear to auscultation. ABDOMEN: Soft. Bowel sounds present. No organomegaly. EXTREMITIES: No edema. No cyanosis. Both feet have dressing. Right fifth toe chronic gangrene medial aspect. Right fourth toe wet gangrene wound on the medial aspect. Left foot amputation of the digits 3, 4, and 5. NEUROLOGICAL: Oriented x3. Follow simple orders. Moving all 4 extremities. Speech normal. LABORATORY DATA: White blood cells 11.7, hemoglobin 13.4, hematocrit 40.6, platelet count 361. Sodium 135, potassium 4.6, BUN 13, creatinine 0.9, glucose 309. ASSESSMENT AND PLAN: Mr. Thee Walker, a 52-year-old male with leukocytosis, hyperchloremia, uncontrolled diabetes mellitus, came with cellulitis of the feet and gangrenous toes. Patient is very noncompliant, has history of asthma, hypertension, peripheral edema, seizure disorder. Patient was seen in ER couple of days ago, signed against medical advice. History of heroin and substance abuse as per medical record. For nausea I gave her Zofran, for pain Dilaudid. Patient is seen by Dr. Stiven Levy, Infectious Disease. Patient has history of osteomyelitis of the toes, multiple toes amputation, history of IV drug abuse, tobacco abuse. THE PATIENT IS ALLERGIC WITH FISH. We will continue antibiotics as per Infectious Disease. We will involve Podiatry also. We will put on sliding scale. Gastrointestinal and deep vein thrombosis prophylaxes. Repeat labs. We will follow up. Janessa Fernandez MD [facility]
--- NOTE | 2018-08-21 10:30 | CP.PCM.CON ---
<Dain Diane - Last Filed: 08/21/18 13:51> History of Present Illness - History of Present Illness History of Present Illness: PGY6 GI Fellow Consult Note Patient is a 52yo male with PMHx significant for opioid abuse (heroin), diabetes mellitus, seizure d/o, hypertension, asthma who presented to the ED for evaluation of foot wounds. Our service has been consulted for vomiting. The patient is a poor historian and has been exhibiting drug seeking behavior with multiple members of the medical staff. Upon arrival at the bedside, the patient stated that he was having B/L foot pain, bringing him to the ED for evaluation of his foot wounds. He appeared to have episodes of dry heaves while at bedside and was mostly spitting saliva. Patient admits to sensation of nausea, but has had no witnessed vomiting. During interview, patient demanded pain medications and upon refusal, stopped answering questions, stood up and lay down on the floor next to his bed. Now, he is refusing to answer questions. SENIOR PROJECT ENGINEER was called and medical team is at bedside assisting the patient. 12 system ROS limited given present condition PMHx: See HPI PSHx: Left 3rd, 4th, 5th metatarsal amputation FHx: Unable to assess presently Social: Known polysubstance abuse with history of snorting heroin, prior EtOH abuse, no tobacco use Endo: No known endoscopic history Past Patient History - Infectious Disease Hx of Infectious Diseases: None - Past Medical History & Family History Past Medical History?: Yes - Past Social History Smoking Status: Smoker Currrent Status Unknown - CARDIAC Hx Hypertension: Yes Hx Pacemaker: No Hx Peripheral Edema: Yes - PULMONARY Hx Asthma: Yes - NEUROLOGICAL Hx Seizures: Yes - HEENT Hx HEENT Problems: No - RENAL Hx Chronic Kidney Disease: No - ENDOCRINE/METABOLIC Hx Endocrine Disorders: Yes Hx Diabetes Mellitus Type 2: Yes - INTEGUMENTARY Hx Dermatological Problems: No - MUSCULOSKELETAL/RHEUMATOLOGICAL Hx Musculoskeletal Disorders: Yes Hx Falls: No Hx Osteomyelitis: Yes (s/p amputations of L toes #3,4,5 ) - GASTROINTESTINAL Hx Gastrointestinal Disorders: No - PSYCHIATRIC Hx Substance Use: No (denies) - SURGICAL HISTORY Hx Surgeries: Yes Hx Amputation: Yes (L foot last 3toes) Hx Musculoskeletal Surgery: Yes (LEFT WRIST AND ANKLE) Other/Comment: METAL PLATE IN HEAD - ANESTHESIA Hx Anesthesia: Yes Hx Anesthesia Reactions: No Meds Allergies/Adverse Reactions: Allergies Allergy/AdvReac Type Severity Reaction Status Date / Time FISH Allergy RASH Verified 08/20/18 07:59 tomato Allergy RASH Verified 08/15/18 14:34 - Medications Medications: Current Medications Acetaminophen (Tylenol 325 Mg Supp) 325 mg NM ONCE ONE Stop: 08/21/18 10:31 Last Admin: 08/21/18 10:27 Dose: Not Given Albuterol/Ipratropium (Duoneb 3 Mg/0.5 Mg (3 Ml) Ud) 3 ml IH RQ6 [facility] Last Admin: 08/21/18 07:16 Dose: Not Given Dextrose (Dextrose 50% Inj) 0 ml IV STAT PRN; Protocol PRN Reason: Hypoglycemia Protocol Dextrose (Glutose 15) 0 gm PO ONCE PRN; Protocol PRN Reason: Hypoglycemia Protocol Glucagon (Glucagen Diagnostic Kit) 0 mg IM STAT PRN; Protocol PRN Reason: Hypoglycemia Protocol Hydromorphone HCl (Dilaudid) 0.5 mg IVP Q4H PRN PRN Reason: Pain, Mild (1-3) Last Admin: 08/21/18 02:00 Dose: 0.5 mg Piperacillin Sod/Tazobactam Sod (Zosyn 3.375 Gm Iv Premix) 3.375 gm in 50 mls @ 100 mls/hr IVPB Q8H [facility]; Protocol Last Admin: 08/21/18 03:45 Dose: 100 mls/hr Dextrose (Dextrose 5% In Water 1000 Ml) 1,000 mls @ 0 mls/hr IV .Q0M PRN; Protocol PRN Reason: Hypoglycemia Protocol Influenza Virus Vaccine (Fluzone Quad [id number]) 60 mcg IM .ONCE ONE Stop: 08/22/18 10:01 Insulin Human Regular (Novolin R) 0 unit SC ACHS [facility]; Protocol Last Admin: 08/21/18 09:23 Dose: Not Given Ondansetron HCl (Zofran Inj) 4 mg IVP Q6 PRN PRN Reason: Nausea/Vomiting Last Admin: 08/21/18 08:00 Dose: 4 mg Phenytoin Sodium (Dilantin) 100 mg PO TID [facility] Last Admin: 08/21/18 09:23 Dose: Not Given Physical Exam - Constitutional Appears: No Acute Distress - Eye Exam Eye Exam: EOMI, PERRL - ENT Exam ENT Exam: Mucous Membranes Moist - Respiratory Exam Respiratory Exam: Clear to Auscultation Bilateral. absent: Rales, Rhonchi, Wheezes - Cardiovascular Exam Cardiovascular Exam: REGULAR RHYTHM, +S1, +S2 - GI/Abdominal Exam GI & Abdominal Exam: Normal Bowel Sounds, Soft. absent: Distended, Firm, Guarding, Hernia, Organomegaly, Rigid, Tenderness - Extremities Exam Extremities exam: Negative for: pedal edema Additional comments: right foot toe amputations noted - Neurological Exam Neurological exam: Alert, Oriented x3 - Psychiatric Exam Psychiatric exam: Agitated, Anxious - Skin Skin Exam: Dry, Warm Additional comments: wounds on both feet Results - Vital Signs Recent Vital Signs: Last Vital Signs Temp 98.3 F 08/21/18 08:12 Pulse 87 08/21/18 08:12 Resp 20 08/21/18 08:12 BP 162/84 H 08/21/18 08:12 Pulse Ox 96 08/21/18 08:12 - Labs Result Diagrams: 08/21/18 08:34 08/21/18 08:34 Labs: Laboratory Results - last 24 hr 08/20/18 08/20/18 08/20/18 08:35 08:35 10:43 WBC 11.7 H RBC 4.62 Hgb 13.4 Hct 40.6 MCV 88.0 MCH 29.1 MCHC 33.0 RDW 13.6 Plt Count 361 MPV 7.2 Neut % (Auto) 79.6 H Lymph % (Auto) 12.6 L [place] % (Auto) 5.8 Eos % (Auto) 1.4 Baso % (Auto) 0.6 Neut # (Auto) 9.3 H Lymph # (Auto) 1.5 [place] # (Auto) 0.7 Eos # (Auto) 0.2 Baso # (Auto) 0.1 ESR 102 H Sodium Potassium Chloride Carbon Dioxide Anion Gap BUN Creatinine Est GFR ( Amer) Est GFR (Non-Af Amer) POC Glucose (mg/dL) Random Glucose Calcium Phosphorus Magnesium Total Bilirubin AST ALT Alkaline Phosphatase Troponin I Total Protein Albumin Globulin Albumin/Globulin Ratio Urine Color Urine Clarity Urine pH Ur Specific [place] Urine Protein Urine Glucose (UA) Urine Ketones Urine Blood Urine Nitrate Urine Bilirubin Urine Urobilinogen Ur Leukocyte Esterase Urine WBC (Auto) Urine RBC (Auto) Ur Squamous Epith Cells Urine Bacteria Phenytoin 7.3 L Hepatitis A IgM Ab Negative Hep Bs Antigen Negative Hep B Core IgM Ab Negative Hepatitis C Antibody Negative HIV 1&2 Antibody Screen 08/20/18 08/20/18 08/20/18 10:43 11:52 21:06 WBC RBC Hgb Hct MCV MCH MCHC RDW Plt Count MPV Neut % (Auto) Lymph % (Auto) [place] % (Auto) Eos % (Auto) Baso % (Auto) Neut # (Auto) Lymph # (Auto) [place] # (Auto) Eos # (Auto) Baso # (Auto) ESR Sodium Potassium Chloride Carbon Dioxide Anion Gap BUN Creatinine Est GFR ( Amer) Est GFR (Non-Af Amer) POC Glucose (mg/dL) 289 H Random Glucose Calcium Phosphorus Magnesium Total Bilirubin AST ALT Alkaline Phosphatase Troponin I Total Protein Albumin Globulin Albumin/Globulin Ratio Urine Color Yellow Urine Clarity Clear Urine pH 5.0 Ur Specific [place] 1.028 Urine Protein 2+ H Urine Glucose (UA) 3+ H Urine Ketones 1+ H Urine Blood 1+ H Urine Nitrate Negative Urine Bilirubin Negative Urine Urobilinogen Normal Ur Leukocyte Esterase Neg Urine WBC (Auto) 1 Urine RBC (Auto) 4 H Ur Squamous Epith Cells < 1 Urine Bacteria Rare Phenytoin Hepatitis A IgM Ab Hep Bs Antigen Hep B Core IgM Ab Hepatitis C Antibody HIV 1&2 Antibody Screen Negative 08/21/18 08/21/18 08/21/18 06:58 07:35 08:34 WBC 9.9 RBC 4.32 L Hgb 12.6 Hct 38.1 MCV 88.2 MCH 29.1 MCHC 33.0 RDW 13.9 Plt Count 376 MPV 7.4 Neut % (Auto) Lymph % (Auto) [place] % (Auto) Eos % (Auto) Baso % (Auto) Neut # (Auto) Lymph # (Auto) [place] # (Auto) Eos # (Auto) Baso # (Auto) ESR Sodium Potassium Chloride Carbon Dioxide Anion Gap BUN Creatinine Est GFR ( Amer) Est GFR (Non-Af Amer) POC Glucose (mg/dL) 286 H 275 H Random Glucose Calcium Phosphorus Magnesium Total Bilirubin AST ALT Alkaline Phosphatase Troponin I Total Protein Albumin Globulin Albumin/Globulin Ratio Urine Color Urine Clarity Urine pH Ur Specific [place] Urine Protein Urine Glucose (UA) Urine Ketones Urine Blood Urine Nitrate Urine Bilirubin Urine Urobilinogen Ur Leukocyte Esterase Urine WBC (Auto) Urine RBC (Auto) Ur Squamous Epith Cells Urine Bacteria Phenytoin Hepatitis A IgM Ab Hep Bs Antigen Hep B Core IgM Ab Hepatitis C Antibody HIV 1&2 Antibody Screen 08/21/18 08:34 WBC RBC Hgb Hct MCV MCH MCHC RDW Plt Count MPV Neut % (Auto) Lymph % (Auto) [place] % (Auto) Eos % (Auto) Baso % (Auto) Neut # (Auto) Lymph # (Auto) [place] # (Auto) Eos # (Auto) Baso # (Auto) ESR Sodium 138 Potassium 4.6 Chloride 96 L Carbon Dioxide 22 Anion Gap 25 H BUN 15 Creatinine 0.9 Est GFR ( Amer) > 60 Est GFR (Non-Af Amer) > 60 POC Glucose (mg/dL) Random Glucose 301 H Calcium 9.3 Phosphorus 4.8 H Magnesium 2.3 Total Bilirubin 0.5 AST 16 L D ALT 8 L D Alkaline Phosphatase 150 H Troponin I 0.0150 Total Protein 7.9 Albumin 3.7 Globulin 4.2 H Albumin/Globulin Ratio 0.9 L Urine Color Urine Clarity Urine pH Ur Specific [place] Urine Protein Urine Glucose (UA) Urine Ketones Urine Blood Urine Nitrate Urine Bilirubin Urine Urobilinogen Ur Leukocyte Esterase Urine WBC (Auto) Urine RBC (Auto) Ur Squamous Epith Cells Urine Bacteria Phenytoin Hepatitis A IgM Ab Hep Bs Antigen Hep B Core IgM Ab Hepatitis C Antibody HIV 1&2 Antibody Screen Assessment & Plan - Assessment and Plan (Free Text) Assessment: Patient is a 52yo male with PMHx significant for opioid abuse (heroin), diabetes mellitus, seizure d/o, hypertension, asthma who presented to the ED for evaluation of foot wounds. Our service is consulted for nausea/vomiting. -Diabetic foot wounds -Opiate abuse and suspected withdrawal -Nausea Plan: -Etiology of nausea is likely multifactorial and possibly related to opiate withdrawal, diabetic gastroparesis or medication adverse effects -Agree with zofran PRN nausea -Patient requesting diet, will start liquid diet -Tight glycemic control -Substance abuse rehabilitation warranted, psychiatric evaluation -Supportive care - Date & Time Date: 08/21/18 Time: 10:25 <Kush Vasques - Last Filed: 08/21/18 14:03> Meds - Medications Medications: Current Medications Albuterol/Ipratropium (Duoneb 3 Mg/0.5 Mg (3 Ml) Ud) 3 ml RQ6 [facility] Last Admin: 08/21/18 07:16 Dose: Not Given Dextrose (Dextrose 50% Inj) 0 ml IV STAT PRN; Protocol PRN Reason: Hypoglycemia Protocol Dextrose (Glutose 15) 0 gm PO ONCE PRN; Protocol PRN Reason: Hypoglycemia Protocol Glucagon (Glucagen Diagnostic Kit) 0 mg IM STAT PRN; Protocol PRN Reason: Hypoglycemia Protocol Hydromorphone HCl (Dilaudid) 0.5 mg IVP Q4H PRN PRN Reason: Pain, Mild (1-3) Last Admin: 08/21/18 02:00 Dose: 0.5 mg Piperacillin Sod/Tazobactam Sod (Zosyn 3.375 Gm Iv Premix) 3.375 gm in 50 mls @ 100 mls/hr IVPB Q8H [facility]; Protocol Last Admin: 08/21/18 03:45 Dose: 100 mls/hr Dextrose (Dextrose 5% In Water 1000 Ml) 1,000 mls @ 0 mls/hr IV .Q0M PRN; P rotocol PRN Reason: Hypoglycemia Protocol Sodium Chloride (Sodium Chloride 0.45%) 1,000 mls @ 100 mls/hr IV .Q10H [facility] Influenza Virus Vaccine (Fluzone Quad [id number]) 60 mcg IM .ONCE ONE Stop: 08/22/18 10:01 Insulin Human Regular (Novolin R) 0 unit SC ACHS [facility]; Protocol Last Admin: 08/21/18 11:26 Dose: Not Given Ondansetron HCl (Zofran Inj) 4 mg IVP Q6 PRN PRN Reason: Nausea/Vomiting Last Admin: 08/21/18 08:00 Dose: 4 mg Phenytoin Sodium (Dilantin) 100 mg PO TID [facility] Last Admin: 08/21/18 09:23 Dose: Not Given Results - Vital Signs Recent Vital Signs: Last Vital Signs Temp 98.3 F 08/21/18 08:12 Pulse 87 08/21/18 08:12 Resp 20 08/21/18 08:12 BP 162/84 H 08/21/18 08:12 Pulse Ox 96 08/21/18 08:12 - Labs Result Diagrams: 08/21/18 08:34 08/21/18 08:34 Labs: Laboratory Results - last 24 hr 08/20/18 08/20/18 08/20/18 08:35 10:43 21:06 WBC RBC Hgb Hct MCV MCH MCHC RDW Plt Count MPV Sodium Potassium Chloride Carbon Dioxide Anion Gap BUN Creatinine Est GFR ( Amer) Est GFR (Non-Af Amer) POC Glucose (mg/dL) 289 H Random Glucose Calcium Phosphorus Magnesium Total Bilirubin AST ALT Alkaline Phosphatase Troponin I Total Protein Albumin Globulin Albumin/Globulin Ratio Hepatitis A IgM Ab Negative Hep Bs Antigen Negative Hep B Core IgM Ab Negative Hepatitis C Antibody Negative HIV 1&2 Antibody Screen Negative 08/21/18 08/21/18 08/21/18 06:58 07:35 08:34 WBC 9.9 RBC 4.32 L Hgb 12.6 Hct 38.1 MCV 88.2 MCH 29.1 MCHC 33.0 RDW 13.9 Plt Count 376 MPV 7.4 Sodium Potassium Chloride Carbon Dioxide Anion Gap BUN Creatinine Est GFR ( Amer) Est GFR (Non-Af Amer) POC Glucose (mg/dL) 286 H 275 H Random Glucose Calcium Phosphorus Magnesium Total Bilirubin AST ALT Alkaline Phosphatase Troponin I Total Protein Albumin Globulin Albumin/Globulin Ratio Hepatitis A IgM Ab Hep Bs Antigen Hep B Core IgM Ab Hepatitis C Antibody HIV 1&2 Antibody Screen 08/21/18 08/21/18 08:34 10:43 WBC RBC Hgb Hct MCV MCH MCHC RDW Plt Count MPV Sodium 138 Potassium 4.6 Chloride 96 L Carbon Dioxide 22 Anion Gap 25 H BUN 15 Creatinine 0.9 Est GFR ( Amer) > 60 Est GFR (Non-Af Amer) > 60 POC Glucose (mg/dL) 284 H Random Glucose 301 H Calcium 9.3 Phosphorus 4.8 H Magnesium 2.3 Total Bilirubin 0.5 AST 16 L D ALT 8 L D Alkaline Phosphatase 150 H Troponin I 0.0150 Total Protein 7.9 Albumin 3.7 Globulin 4.2 H Albumin/Globulin Ratio 0.9 L Hepatitis A IgM Ab Hep Bs Antigen Hep B Core IgM Ab Hepatitis C Antibody HIV 1&2 Antibody Screen Attending/Attestation - Attestation I have personally seen and examined this patient.: Yes I have fully participated in the care of the patient.: Yes I have reviewed all pertinent clinical information: Yes Notes (Text): 08/21/18 13:58 I have seen and examined patient with GI fellow. Agree with above documentation with the following additions. In brief, this is a 52 year old male with history of substance abuse, DM, HTN, seizure disorder who presented to hospital for evaluation of lower extremity lesions. Hospital course has been complicated by a rapid response due to potential seizure activity. GI called for evaluation of vomiting. He reports poor appetite over the past few days along with clear emesis and generalized abdominal pain. He denies fever/chills, weight loss, r ectal bleeding, or change in bowel habits. He admits to opiate pain medication use. Unknown prior endoscopic history. DM / HTN Seizure disorder Substance abuse Lower extremity wound Nausea, vomiting - Clear liquid diet as tolerated - Anti-emetic therapy PRN - Continue with supportive therapy with IVF hydration and observation - Maintain strict glycemic control - No plan for GI intervention at this time, will continue to monitor patient clinical course
[2018-08-21] MEDS ORDERED: Sodium Chloride 0.9% 1,000 ML IV SCH (10:45)
--- NOTE | 2018-08-21 11:40 | PCM.RRT ---
FOREIGN LAW CONSULTANT Nurses Assessment - Situation Date: 08/21/18 Time FOREIGN LAW CONSULTANT was called: 07:00 FOREIGN LAW CONSULTANT Location:: Med/Oncology Room Number: 352B FOREIGN LAW CONSULTANT Reason for Call: Change in Mental Status (As per GI fellow, "He appeared to have episodes of dry heaves while at bedside and was mostly spitting saliva. Patient admits to sensation of nausea, but has had no witnessed vomiting. During interview, patient demanded pain medications and upon refusal, stopped answering questions, stood up and lay down on the floor next to his bed. Now, he is refusing to answer questions." Pt layed on the ground and was noted to have frothing from the mouth with seizure like activity noted by the nurse. When Dr. Henderson saw the pt, he was getting back up onto the bed by himelf. He then proceeded to exhibit seizure like activity. Before ativan was able to be given, Pt was responding and answering questions. Pt reported that he has no allergies to medications. ) FOREIGN LAW CONSULTANT Called By: RN - IV IV Inserted during FOREIGN LAW CONSULTANT?: No - Respiratory FOREIGN LAW CONSULTANT Delivery Method: Nasal Cannula @L/min Oxygen Flow Rate: 2 Received Nebulizer Treatments: No Was the Patient Ventilated with Bag/Mask 100% O2?: No Secretions Suctioned?: No Was the Patient Intubated?: No Was the Patient Placed on a Ventilator?: No - Medication Medications Administered During FOREIGN LAW CONSULTANT: Keppra 1000 mg ordered. CPR started during FOREIGN LAW CONSULTANT?: No - Vital Signs Vital Signs: Rapid Response Vital Sign Blood Pressure 176/86 Pulse Rate 82 Respiratory Rate 20 Temperature 98.2 F Oxygen Saturation 99 - Ruby Coma Scale Coma Scale Eye Opening: Spontaneous Coma Scale Motor: Obeys Commands Movement Coma Scale Verbal: Confused/able to answer Coma Scale Total: 14 - Time FOREIGN LAW CONSULTANT Ended Time FOREIGN LAW CONSULTANT Ended: 08:00 - Vital Signs at end of FOREIGN LAW CONSULTANT Vital Signs at end of FOREIGN LAW CONSULTANT: 98.2 F HR 82 BP 176/86 99% on 2L NC - Recommendations 5) FOREIGN LAW CONSULTANT Level of Care Recommendations: Transfer to Telemetry Notifications: Attending Physician - Respiratory Oxygen Delivery Method: Nasal Cannula @L/min Oxygen Flow Rate: 2
--- NOTE | 2018-08-21 11:44 | CT ---
Date of service: 08/21/2018 PROCEDURE: CT HEAD WITHOUT CONTRAST. HISTORY: seizure COMPARISON: Noncontrast head CT performed 08/17/18 TECHNIQUE: Axial computed tomography images were obtained through the head/brain without intravenous contrast. Radiation dose: Total exam DLP = 1291.50 mGy-cm. This CT exam was performed using one or more of the following dose reduction techniques: Automated exposure control, adjustment of the mA and/or kV according to patient size, and/or use of iterative reconstruction technique. FINDINGS: Mild streak artifact limits evaluation of the skull base. HEMORRHAGE: No intracranial hemorrhage. BRAIN: Mild atrophy with prominence of the ventricles and sulci noted. No mass effect or edema. Intracranial atherosclerosis. The mae-white matter differentiation appears otherwise intact. Please note that MRI with diffusion imaging is more sensitive in the detection of acute ischemic event. VENTRICLES: No hydrocephalus. CALVARIUM: Unremarkable. PARANASAL SINUSES: Unremarkable as visualized. No significant inflammatory changes. MASTOID AIR CELLS: Unremarkable as visualized. No inflammatory changes. OTHER FINDINGS: None. IMPRESSION: No acute intracranial pathology identified. Findings as above.
[2018-08-21] MEDS: Sodium Chloride 0.45% 1,000 ML IV SCH ×2 (12:30→23:41)
--- NOTE | 2018-08-21 14:45 | CP.PCM.PN ---
Subjective - Date & Time of Evaluation Date of Evaluation: 08/21/18 Time of Evaluation: 11:00 - Subjective Subjective: Podiatry - Dr. Jordan 52M seen and evaluated in ICU for bilateral lower extremity wounds. Patient asleep on rounds, lethargic but arousable. Of note, 2 blower feeder dyed raw stock were called this AM due to change in mental status; was transferred to ICU for further monitoring. At present, patient reports pain in both feet, R>L. Ambulating w/o issues. Thien es n/v/f/d/c/sob/anthony/cp. Objective - Vital Signs/Intake and Output Vital Signs (last 24 hours): Temp Pulse Resp BP Pulse Ox 98.3 F 87 20 162/84 H 96 08/21/18 08:12 08/21/18 08:12 08/21/18 08:12 08/21/18 08:12 08/21/18 08:12 Intake and Output: 08/21/18 08/21/18 06:59 18:59 Intake Total 50 Balance 50 - Medications Medications: Current Medications Albuterol/Ipratropium (Duoneb 3 Mg/0.5 Mg (3 Ml) Ud) 3 ml IH RQ6 [facility] Last Admin: 08/21/18 07:16 Dose: Not Given Dextrose (Dextrose 50% Inj) 0 ml IV STAT PRN; Protocol PRN Reason: Hypoglycemia Protocol Dextrose (Glutose 15) 0 gm PO ONCE PRN; Protocol PRN Reason: Hypoglycemia Protocol Glucagon (Glucagen Diagnostic Kit) 0 mg IM STAT PRN; Protocol PRN Reason: Hypoglycemia Protocol Hydromorphone HCl (Dilaudid) 0.5 mg IVP Q4H PRN PRN Reason: Pain, Mild (1-3) Last Admin: 08/21/18 02:00 Dose: 0.5 mg Piperacillin Sod/Tazobactam Sod (Zosyn 3.375 Gm Iv Premix) 3.375 gm in 50 mls @ 100 mls/hr IVPB Q8H [facility]; Protocol Last Admin: 08/21/18 03:45 Dose: 100 mls/hr Dextrose (Dextrose 5% In Water 1000 Ml) 1,000 mls @ 0 mls/hr IV .Q0M PRN; Protocol PRN Reason: Hypoglycemia Protocol Sodium Chloride (Sodium Chloride 0.45%) 1,000 mls @ 100 mls/hr IV .Q10H [facility] Influenza Virus Vaccine (Fluzone Quad [id number]) 60 mcg IM .ONCE ONE Stop: 08/22/18 10:01 Insulin Human Regular (Novolin R) 0 unit SC ACHS [facility]; Protocol Last Admin: 08/21/18 11:26 Dose: Not Given Ondansetron HCl (Zofran Inj) 4 mg IVP Q6 PRN PRN Reason: Nausea/Vomiting Last Admin: 08/21/18 08:00 Dose: 4 mg Phenytoin Sodium (Dilantin) 100 mg PO TID [facility] Last Admin: 08/21/18 09:23 Dose: Not Given - Labs Labs: 08/21/18 08:34 08/21/18 08:34 - Constitutional Appears: No Acute Distress - Extremities Exam Additional comments: Vasc: DP pulses palpable 2/4 b/l, PT pulses non palpable secondary to edema of LE b/l, cap refill <3 seconds to remaining digits, temp gradient warm to warm b/l from proximal to distal with increase in warmth noted to right 4th digit, +1 pitting edema present b/l, nonpitting edema noted to right 4th and 5th digits. Neuro: Gross and protective sensation diminished b/l Derm: RLE= Wound noted to entire dorsal aspect of right 4th digit with sloughing of skin - purulence noted along wound bed with nail avulsed; malodor present; serosanguinous drainage present; necrosis noted along proximal aspect. Dry necrosis noted to distal aspect of right 4th digit with; malodor present; no kt inage present. Severe maceration noted to webspaces 3 and 4. Hyperkeratosis noted to plantarmedial IPJ; no open lesion present. LLE= Ulcer noted to plantar hallucal sulcus measuring approximately 2 x 1 x 0.3 cm with 100% granular base and hyperkeratotic rim; no drainage noted; no purulence noted; no erythema; no probe to bone; no malodor. superficial ulceration noted to dorsolateral aspect of 2nd digit with 100% granular base; no drainage noted; no purulence noted; no fluctuance; no periwound erythema present; no malodor. Ortho: previous amputations noted on the left foot 3,4,5 digit and distal first digit, pain on palpation at the wound sites/periwound, MMT 5/5 b/l - Psychiatric Exam Psychiatric exam: Normal Affect, Normal Mood Assessment and Plan - Assessment and Plan (Free Text) Assessment: 52M with bilateral lower extremity wounds, infected right 4th digit, gangrene right 5th digit Plan: Patient seen and evaluated Discussed with attending, Dr. Julian Zhou, WBC 9.9, ESR 102 Bilateral foot XR reviewed: Potential OM right 4th and 5th digits; postoperative changes left foot s/p 3rd, 4th, 5th digit amputations and partial amputation of 5th metatarsal. MRI ordered b/l Right foot 4th digit wound culture: gram positive cocci (prelim) Wounds cleansed with saline and dressed with betadine, DSD -Bactroban ordered for QD dressing changes ID - continue Zosyn pending cultures Vascular consulted - No surgical intervention LE arterial duplex ordered Pain control per primary Podiatry will continue to follow
[2018-08-21 14:47] LABS: BARBITURATES, UR NEGATIVE (NEGATIVE); BENZODIAZEPINES, UR NEGATIVE (NEGATIVE); PHENCYCLIDINE, UR NEGATIVE (NEGATIVE)
[2018-08-21 15:12] LABS: OPIATES, UR POSITIVE (NEGATIVE)
--- NOTE | 2018-08-21 17:22 | CP.PCM.PN ---
Subjective - Date & Time of Evaluation Date of Evaluation: 08/21/18 Time of Evaluation: 08:00 - Subjective Subjective: 52M seen and evaluated in ICU for bilateral lower extremity wounds. 2 retail sales consultant were called this AM due to change in mental status; was transferred to ICU for further monitoring. At present, patient reports pain in both feet, R>L. Objective - Vital Signs/Intake and Output Vital Signs (last 24 hours): Temp Pulse Resp BP Pulse Ox 98.0 F 87 20 162/84 H 96 08/21/18 16:17 08/21/18 08:12 08/21/18 08:12 08/21/18 08:12 08/21/18 08:12 Intake and Output: 08/21/18 08/21/18 06:59 18:59 Intake Total 450 Output Total 700 Balance -250 - Medications Medications: Current Medications Albuterol/Ipratropium (Duoneb 3 Mg/0.5 Mg (3 Ml) Ud) 3 ml IH RQ6 [facility] Last Admin: 08/21/18 07:16 Dose: Not Given Dextrose (Dextrose 50% Inj) 0 ml IV STAT PRN; Protocol PRN Reason: Hypoglycemia Protocol Dextrose (Glutose 15) 0 gm PO ONCE PRN; Protocol PRN Reason: Hypoglycemia Protocol Glucagon (Glucagen Diagnostic Kit) 0 mg IM STAT PRN; Protocol PRN Reason: Hypoglycemia Protocol Hydromorphone HCl (Dilaudid) 0.5 mg IVP Q4H PRN PRN Reason: Pain, Mild (1-3) Last Admin: 08/21/18 02:00 Dose: 0.5 mg Piperacillin Sod/Tazobactam Sod (Zosyn 3.375 Gm Iv Premix) 3.375 gm in 50 mls @ 100 mls/hr IVPB Q8H [facility]; Protocol Last Admin: 08/21/18 03:45 Dose: 100 mls/hr Dextrose (Dextrose 5% In Water 1000 Ml) 1,000 mls @ 0 mls/hr IV .Q0M PRN; Protocol PRN Reason: Hypoglycemia Protocol Sodium Chloride (Sodium Chloride 0.45%) 1,000 mls @ 100 mls/hr IV .Q10H [facility] Influenza Virus Vaccine (Fluzone Quad [id number]) 60 mcg IM .ONCE ONE Stop: 08/22/18 10:01 Insulin Human Regular (Novolin R) 0 unit SC ACHS [facility]; Protocol Last Admin: 08/21/18 11:26 Dose: Not Given Mupirocin (Bactroban Ointment) 0 gm TOP DAILY [facility] Ondansetron HCl (Zofran Inj) 4 mg IVP Q6 PRN PRN Reason: Nausea/Vomiting Last Admin: 08/21/18 08:00 Dose: 4 mg Phenytoin Sodium (Dilantin) 100 mg PO TID [facility] Last Admin: 08/21/18 09:23 Dose: Not Given - Labs Labs: 08/21/18 08:34 08/21/18 08:34 - Constitutional Appears: Non-toxic, Cachectic, Chronically Ill - Head Exam Head Exam: NORMOCEPHALIC - Eye Exam Eye Exam: PERRL - ENT Exam ENT Exam: Mucous Membranes Dry - Neck Exam Neck Exam: absent: Lymphadenopathy - Respiratory Exam Respiratory Exam: Decreased Breath Sounds - Cardiovascular Exam Cardiovascular Exam: REGULAR RHYTHM - GI/Abdominal Exam GI & Abdominal Exam: Distended, Soft. absent: Tenderness - Rectal Exam Rectal Exam: Deferred - Exam Exam: NORMAL INSPECTION - Extremities Exam Extremities Exam: Pedal Edema, Tenderness. absent: Normal Inspection - Back Exam Back Exam: absent: CVA tenderness (L), CVA tenderness (R) - Neurological Exam Neurological Exam: Alert, Awake, CN II-XII Intact, Oriented x3 - Psychiatric Exam Psychiatric exam: Depressed - Skin Skin Exam: Dry Assessment and Plan (1) Cellulitis Status: Acute (2) Diabetes Status: Acute (3) Alcohol dependence Status: Acute (4) Amputation of left foot with complication Status: Acute (5) Cellulitis of left foot Status: Acute (6) Diabetic foot infection Status: Acute (7) Diabetic toe ulcer Status: Acute (8) Diabetic ulcer of left foot Status: Acute (9) Hypertension Status: Acute (10) Intractable vomiting Status: Acute (11) Nausea and vomiting in adult Status: Acute (12) Noncompliance with medication regimen Status: Acute (13) Opiate abuse, continuous Status: Acute (14) Osteomyelitis of foot Status: Acute (15) Alcohol abuse Status: Chronic (16) Diabetic foot ulcer Status: Chronic (17) Polysubstance abuse Status: Chronic - Assessment and Plan (Free Text) Assessment: going through withdrawl IV antibiotics in progresss vascular and podiatry on board
[2018-08-22] MEDS: Albuterol-Ipratrop 3 mg / 0.5 (3 ml) UD IH SCH ×4 (01:55→19:53)
[2018-08-22] MEDS: Piperacill/Tazo 3.375gm in Dex 3.375 GM/50 ML BAG IVPB SCH ×3 (03:45→20:42)
[2018-08-22] MEDS: (Novolin R) Insulin Human Regular 100 units/ml vial SC SCH ×4 (07:30→21:39)
--- NOTE | 2018-08-22 07:45 | PN ---
DATE: 08/21/2018 SUBJECTIVE: The patient was seen and examined at the bedside on 08/21/2018. He came with pain in both feet and intractable vomiting, wanting more pain medications. On the floor, he did rapid response, he had altered mental status and transfer patient to ICU for further monitoring. Discussion done with hospitalist and physician on-call for the patient's condition. According to the patient, he has more pain on the right side than the left. Underwent CAT scan of the head. PHYSICAL EXAMINATION: VITAL SIGNS: Temperature 98, pulse 87, respiratory rate 20, blood pressure 162/84, pulse oximetry 96. HEENT: Head is normocephalic and atraumatic. Eyes, PERRLA. Extraocular muscles intact. Conjunctivae pale. Nose patent. Mucous membranes moist. NECK: Supple. No carotid bruits. No JVD. No thyromegaly. CHEST: Bilaterally symmetrical. HEART: S1 and S2 positive. LUNGS: Clear to auscultation. ABDOMEN: Soft. Bowel sound present. No organomegaly. EXTREMITIES: No edema. No cyanosis. Feet have dressing. NEUROLOGICAL: Awake, alert. Follows simple commands. MEDICATIONS: DuoNeb, dextrose, Glucagon, Dilaudid, Zosyn, insulin, Dilantin. LABORATORY DATA: White blood cell 9.9, hemoglobin 12.6, hematocrit 38.1, platelets 276. Sodium 139, potassium 4.6, BUN 15, creatinine 0.9, glucose 301. ASSESSMENT AND PLAN: Mr. Ton Walker is a 52-year-old male with hypochloremia, hyperglycemia, has cellulitis of the feet, diabetes mellitus, alcohol dependency, amputation of the left foot toes with complications of the left foot, diabetic foot infection and diabetic ulcer of the left foot, hypertension, intractable nausea and vomiting medication regimen. Opioid abuse continued. Osteomyelitis of the foot. Infectious Disease is on the case. The patient was seen by Dr. Levy. He was started on antibiotics. Repeat labs. We will follow up. Janessa Fernandez MD MTDTeo
--- NOTE | 2018-08-22 08:43 | CP.PCM.PN ---
<Dain Diane - Last Filed: 08/22/18 10:25> Subjective - Date & Time of Evaluation Date of Evaluation: 08/22/18 Time of Evaluation: 08:40 - Subjective Subjective: PGY6 GI Fellow Progress Note Patient seen and examined bedside this morning. The patient is very drowsy but arousable. He has not had any narcotic medication since 2am on 08/21/18 and is currently refusing most medications. Per nursing staff, patient becomes agitated and is spitting on the floor and on staff. He vomited this morning, yet he continues to ask for food. Denies any discomfort at this time but for the most part, will not respond to any questions. 12 system ROS cannot be completed given current condition. Objective - Vital Signs/Intake and Output Vital Signs (last 24 hours): Temp Pulse Resp BP Pulse Ox 98.1 F 95 H 19 157/88 H 97 08/22/18 04:00 08/22/18 06:00 08/22/18 04:00 08/22/18 04:00 08/22/18 04:00 Intake and Output: 08/22/18 08/22/18 06:59 18:59 Intake Total 650 Output Total 750 Balance -100 - Medications Medications: Current Medications Albuterol/Ipratropium (Duoneb 3 Mg/0.5 Mg (3 Ml) Ud) 3 ml IH RQ6 [facility] Last Admin: 08/22/18 08:15 Dose: Not Given Dextrose (Dextrose 50% Inj) 0 ml IV STAT PRN; Protocol PRN Reason: Hypoglycemia Protocol Dextrose (Glutose 15) 0 gm PO ONCE PRN; Protocol PRN Reason: Hypoglycemia Protocol Glucagon (Glucagen Diagnostic Kit) 0 mg IM STAT PRN; Protocol PRN Reason: Hypoglycemia Protocol Hydromorphone HCl (Dilaudid) 0.5 mg IVP Q4H PRN PRN Reason: Pain, Mild (1-3) Last Admin: 08/21/18 02:00 Dose: 0.5 mg Piperacillin Sod/Tazobactam Sod (Zosyn 3.375 Gm Iv Premix) 3.375 gm in 50 mls @ 100 mls/hr IVPB Q8H [facility]; Protocol Last Admin: 08/22/18 03:45 Dose: 100 mls/hr Dextrose (Dextrose 5% In Water 1000 Ml) 1,000 mls @ 0 mls/hr IV .Q0M PRN; Protocol PRN Reason: Hypoglycemia Protocol Sodium Chloride (Sodium Chloride 0.45%) 1,000 mls @ 100 mls/hr IV .Q10H [facility] Last Admin: 08/21/18 23:41 Dose: Not Given Influenza Virus Vaccine (Fluzone Quad [id number]) 60 mcg IM .ONCE ONE Stop: 08/22/18 10:01 Insulin Human Regular (Novolin R) 0 unit SC ACHS [facility]; Protocol Last Admin: 08/21/18 21:14 Dose: Not Given Mupirocin (Bactroban Ointment) 0 gm TOP DAILY [facility] Last Admin: 08/21/18 15:21 Dose: 1 applic Ondansetron HCl (Zofran Inj) 4 mg IVP Q6 PRN PRN Reason: Nausea/Vomiting Last Admin: 08/22/18 03:45 Dose: 4 mg Phenytoin Sodium (Dilantin) 100 mg PO TID [facility] Last Admin: 08/21/18 18:20 Dose: Not Given - Labs Labs: 08/21/18 08:34 08/21/18 08:34 - Constitutional Appears: Non-toxic, No Acute Distress - Eye Exam Eye Exam: PERRL - ENT Exam ENT Exam: Mucous Membranes Moist - Respiratory Exam Respiratory Exam: Clear to Ausculation Bilateral. absent: Rales, Rhonchi, Wheezes - Cardiovascular Exam Cardiovascular Exam: RRR, +S1, +S2 - GI/Abdominal Exam GI & Abdominal Exam: Soft, Normal Bowel Sounds. absent: Distended, Firm, Guarding, Rigid, Tenderness, Organomegaly - Extremities Exam Extremities Exam: absent: Pedal Edema Additional comments: left foot digit amputations (3-5) - Neurological Exam Additional comments: drowsy but arousable - Psychiatric Exam Psychiatric exam: Flat Affect - Skin Skin Exam: Dry, Warm Assessment and Plan - Assessment and Plan (Free Text) Assessment: Patient is a 52yo male with PMHx significant for opioid abuse (heroin), diabetes mellitus, seizure d/o, hypertension, asthma who presented to the ED for evaluation of foot wounds. Our service is consulted for nausea/vomiting. -Altered mental status -Diabetic foot wounds -Opiate abuse and suspected withdrawal -Nausea/Vomiting 2/2 above Plan: -Etiology of nausea/vomiting likely multifactorial but suspect withdrawal as leading etiology -Patient continues to exhibit drug seeking behaviors -Patient remains abusive and combative with staff -Schedule Zofran Q6H for 24H -Advance as tolerated -Recommend plain film of the abdomen if patient will allow it -Altered mental status noted, neurologic and psychiatric evaluations recommended -Refusing anti-epileptic medications -Avoid sedating medications -Supportive care. Will sign off <Kaden Franklin - Last Filed: 08/22/18 12:10> Objective - Vital Signs/Intake and Output Vital Signs (last 24 hours): Temp Pulse Resp BP Pulse Ox 98.1 F 95 H 19 157/88 H 97 08/22/18 04:00 08/22/18 06:00 08/22/18 04:00 08/22/18 04:00 08/22/18 04:00 Intake and Output: 08/22/18 08/22/18 06:59 18:59 Intake Total 650 Output Total 750 Balance -100 - Medications Medications: Current Medications Albuterol/Ipratropium (Duoneb 3 Mg/0.5 Mg (3 Ml) Ud) 3 ml IH RQ6 [facility] Last Admin: 08/22/18 08:15 Dose: Not Given Dextrose (Dextrose 50% Inj) 0 ml IV STAT PRN; Protocol PRN Reason: Hypoglycemia Protocol Dextrose (Glutose 15) 0 gm PO ONCE PRN; Protocol PRN Reason: Hypoglycemia Protocol Glucagon (Glucagen Diagnostic Kit) 0 mg IM STAT PRN; Protocol PRN Reason: Hypoglycemia Protocol Hydromorphone HCl (Dilaudid) 0.5 mg IVP Q4H PRN PRN Reason: Pain, Mild (1-3) Last Admin: 08/21/18 02:00 Dose: 0.5 mg Piperacillin Sod/Tazobactam Sod (Zosyn 3.375 Gm Iv Premix) 3.375 gm in 50 mls @ 100 mls/hr IVPB Q8H [facility]; Protocol Last Admin: 08/22/18 03:45 Dose: 100 mls/hr Dextrose (Dextrose 5% In Water 1000 Ml) 1,000 mls @ 0 mls/hr IV .Q0M [facility]; Protocol PRN Reason: Hypoglycemia Protocol Sodium Chloride (Sodium Chloride 0.45%) 1,000 mls @ 100 mls/hr IV .Q10H [facility] Last Admin: 08/21/18 23:41 Dose: Not Given Insulin Human Regular (Novolin R) 0 unit SC ACHS [facility]; Protocol Last Admin: 08/21/18 21:14 Dose: Not Given Mupirocin (Bactroban Ointment) 0 gm TOP DAILY [facility] Last Admin: 08/21/18 15:21 Dose: 1 applic Ondansetron HCl (Zofran Inj) 4 mg IVP Q6 [facility] Stop: 08/23/18 06:01 Phenytoin Sodium (Dilantin) 100 mg PO TID [facility] Last Admin: 08/21/18 18:20 Dose: Not Given - Labs Labs: 08/21/18 08:34 08/21/18 08:34 Attending/Attestation - Attestation I have personally seen and examined this patient.: Yes I have fully participated in the care of the patient.: Yes I have reviewed all pertinent clinical information, including history, physical exam and plan: Yes Notes (Text): 08/22/18 12:07 I have seen and examined patient with GI fellow in MICU [facility]. In brief, this is a 52 year old male with history of substance abuse, DM, HTN, seizure disorder who presented to hospital for evalua tion of lower extremity lesions. Hospital course has been complicated by a rapid response due to potential seizure activity. GI called for evaluation of vomiting. tolerating CLD and asking for lawanda pastora. He is combative and needs restrain. Advance diet as tolerated after cleared by neurology. Should rule out organic causes of behavioral disorder and get psych consult due to alcohol and heroin abuse and possible withdrawl. Anti emetic as needed. Supportive care. Will sign off. - Anti-emetic therapy PRN
[2018-08-22] MEDS ORDERED: Influenza Vaccine 60 MCG/0.5 ML SYR (3 yr & up) IM ONE (10:00)
--- NOTE | 2018-08-22 10:42 | RAD ---
Date of service: 08/22/2018 HISTORY: Nausea/vomiting COMPARISON: Comparison made abdominal radiograph 05/26/[address] scan of the abdomen pelvis 05/12/2014. FINDINGS: BOWEL: Few nondistended air-filled loops of small bowel seen centrally. No evidence of acute mechanical bowel obstruction. No gross free intraperitoneal air seen on the limited supine views of the abdomen BONES: No acute compression fractures. There is slight dextroscoliosis which could be due to could in part be secondary to side bending of the upper torso to the left and/or spasm however a idiopathic scoliosis not completely excluded. OTHER FINDINGS: Few tiny calcific like densities overlying the left superior true pelvis islands. Possibly representing bone islands or osteomas. IMPRESSION: No acute mechanical bowel obstruction.
--- NOTE | 2018-08-22 11:53 | CP.PCM.PN ---
Subjective - Date & Time of Evaluation Date of Evaluation: 08/22/18 Time of Evaluation: 11:49 - Subjective Subjective: Podiatry - Dr. Jordan 52M seen and evaluated in ICU for bilateral lower extremity wounds. Patient asleep on rounds. NAD. Patient aggressive this AM, STAT Ativan 1mg administered prior to arrival. Dressings to LE absent as patient vomited large brown emesis onto feet. Objective - Vital Signs/Intake and Output Vital Signs (last 24 hours): Temp Pulse Resp BP Pulse Ox 98.1 F 95 H 19 157/88 H 97 08/22/18 04:00 08/22/18 06:00 08/22/18 04:00 08/22/18 04:00 08/22/18 04:00 Intake and Output: 08/22/18 08/22/18 06:59 18:59 Intake Total 650 Output Total 750 Balance -100 - Medications Medications: Current Medications Albuterol/Ipratropium (Duoneb 3 Mg/0.5 Mg (3 Ml) Ud) 3 ml IH RQ6 [facility] Last Admin: 08/22/18 08:15 Dose: Not Given Dextrose (Dextrose 50% Inj) 0 ml IV STAT PRN; Protocol PRN Reason: Hypoglycemia Protocol Dextrose (Glutose 15) 0 gm PO ONCE PRN; Protocol PRN Reason: Hypoglycemia Protocol Glucagon (Glucagen Diagnostic Kit) 0 mg IM STAT PRN; Protocol PRN Reason: Hypoglycemia Protocol Hydromorphone HCl (Dilaudid) 0.5 mg IVP Q4H PRN PRN Reason: Pain, Mild (1-3) Last Admin: 08/21/18 02:00 Dose: 0.5 mg Piperacillin Sod/Tazobactam Sod (Zosyn 3.375 Gm Iv Premix) 3.375 gm in 50 mls @ 100 mls/hr IVPB Q8H [facility]; Protocol Last Admin: 08/22/18 03:45 Dose: 100 mls/hr Dextrose (Dextrose 5% In Water 1000 Ml) 1,000 mls @ 0 mls/hr IV .Q0M [facility]; Protocol PRN Reason: Hypoglycemia Protocol Sodium Chloride (Sodium Chloride 0.45%) 1,000 mls @ 100 mls/hr IV .Q10H [facility] Last Admin: 08/21/18 23:41 Dose: Not Given Insulin Human Regular (Novolin R) 0 unit SC ACHS [facility]; Protocol Last Admin: 08/21/18 21:14 Dose: Not Given Mupirocin (Bactroban Ointment) 0 gm TOP DAILY [facility] Last Admin: 08/21/18 15:21 Dose: 1 applic Ondansetron HCl (Zofran Inj) 4 mg IVP Q6 [facility] Stop: 08/23/18 06:01 Phenytoin Sodium (Dilantin) 100 mg PO TID [facility] Last Admin: 08/21/18 18:20 Dose: Not Given - Labs Labs: 08/21/18 08:34 08/21/18 08:34 - Constitutional Appears: Non-toxic, No Acute Distress - Extremities Exam Additional comments: Vasc: DP pulses palpable 2/4 b/l, PT pulses non palpable secondary to edema of LE b/l, cap refill <3 seconds to remaining digits, temp gradient warm to warm b/l from proximal to distal with increase in warmth noted to right 4th digit, +1 pitting edema present b/l, nonpitting edema noted to right 4th and 5th digits. Neuro: Gross and protective sensation diminished b/l Derm: RLE= Wound noted to entire dorsal aspect of right 4th digit with sloughing of skin - purulence noted along wound bed with nail avulsed; malodor present; serosanguinous drainage present; necrosis noted along proximal aspect. Dry necrosis noted to distal aspect of right 4th digit with; malodor present; no drainage present. Severe maceration noted to webspaces 3 and 4. Hyperkeratosis noted to plantarmedial IPJ; no open lesion present. LLE= Ulcer noted to plantar hallucal sulcus measuring approximately 2 x 1 x 0.3 cm with 100% granular base and hyperkeratotic rim; no drainage noted; no purulence noted; no erythema; no probe to bone; no malodor. superficial ul ceration noted to dorsolateral aspect of 2nd digit with 100% granular base; no drainage noted; no purulence noted; no fluctuance; no periwound erythema present; no malodor. Ortho: previous amputations noted on the left foot 3,4,5 digit and distal first digit, pain on palpation at the wound sites/periwound, MMT 5/5 b/l - Neurological Exam Neurological Exam: Altered Assessment and Plan - Assessment and Plan (Free Text) Assessment: 52M with bilateral lower extremity wounds, infected right 4th digit, gangrene right 5th digit Plan: Patient seen and evaluated Discussed with attending, Dr. Jordan Afebrile, ESR 102 Bilateral foot XR reviewed: Potential OM right 4th and 5th digits; postoperative changes left foot s/p 3rd, 4th, 5th digit amputations and partial amputation of 5th metatarsal. MRI ordered b/l - f/u LE arterial duplex ordered Right foot 4th digit wound culture: enterococcus faecalis, klebsiella pneumoniae Continue local wound care: saline cleanse, bactroban, DSD b/l ID - continue Zosyn; may need 6-8 weeks IV abx Vascular consulted - No surgical intervention Pain control per primary Podiatry will continue to follow
--- NOTE | 2018-08-22 15:28 | CARD ---
APPROVED REPORT Date of service: 08/21/2018 EKG Measurement Heart [id number] <Conclusion> Normal sinus rhythm Possible Left atrial enlargement Left ventricular hypertrophy Nonspecific T wave abnormality Abnormal ECG
--- NOTE | 2018-08-22 16:10 | CP.PCM.PN ---
Subjective - Date & Time of Evaluation Date of Evaluation: 08/22/18 Time of Evaluation: 08:00 - Subjective Subjective: arousable NAD await MRI Objective - Vital Signs/Intake and Output Vital Signs (last 24 hours): Temp Pulse Resp BP Pulse Ox 98.4 F 90 18 157/88 H 98 08/22/18 08:00 08/22/18 08:00 08/22/18 08:00 08/22/18 04:00 08/22/18 08:00 Intake and Output: 08/22/18 08/22/18 06:59 18:59 Intake Total 650 240 Output Total 750 Balance -100 240 - Medications Medications: Current Medications Albuterol/Ipratropium (Duoneb 3 Mg/0.5 Mg (3 Ml) Ud) 3 ml IH RQ6 [facility] Last Admin: 08/22/18 13:23 Dose: Not Given Dextrose (Dextrose 50% Inj) 0 ml IV STAT PRN; Protocol PRN Reason: Hypoglycemia Protocol Dextrose (Glutose 15) 0 gm PO ONCE PRN; Protocol PRN Reason: Hypoglycemia Protocol Glucagon (Glucagen Diagnostic Kit) 0 mg IM STAT PRN; Protocol PRN Reason: Hypoglycemia Protocol Hydromorphone HCl (Dilaudid) 0.5 mg IVP Q4H PRN PRN Reason: Pain, Mild (1-3) Last Admin: 08/21/18 02:00 Dose: 0.5 mg Piperacillin Sod/Tazobactam Sod (Zosyn 3.375 Gm Iv Premix) 3.375 gm in 50 mls @ 100 mls/hr IVPB Q8H [facility]; Protocol Last Admin: 08/22/18 12:48 Dose: 100 mls/hr Dextrose (Dextrose 5% In Water 1000 Ml) 1,000 mls @ 0 mls/hr IV .Q0M [facility]; Protocol PRN Reason: Hypoglycemia Protocol Sodium Chloride (Sodium Chloride 0.45%) 1,000 mls @ 100 mls/hr IV .Q10H [facility] Last Admin: 08/21/18 23:41 Dose: Not Given Insulin Human Regular (Novolin R) 0 unit SC ACHS [facility]; Protocol Last Admin: 08/22/18 12:46 Dose: 6 units Mupirocin (Bactroban Ointment) 0 gm TOP DAILY [facility] Last Admin: 08/21/18 15:21 Dose: 1 applic Ondansetron HCl (Zofran Inj) 4 mg IVP Q6 [facility] Stop: 08/23/18 06:01 Last Admin: 08/22/18 13:03 Dose: 4 mg Phenytoin Sodium (Dilantin) 100 mg PO TID [facility] Last Admin: 08/21/18 18:20 Dose: Not Given - Labs Labs: 08/21/18 08:34 08/21/18 08:34 - Constitutional Appears: Non-toxic - Head Exam Head Exam: NORMOCEPHALIC - Eye Exam Eye Exam: absent: Scleral icterus - ENT Exam ENT Exam: Mucous Membranes Dry - Neck Exam Neck Exam: absent: Lymphadenopathy - Respiratory Exam Respiratory Exam: Decreased Breath Sounds - Cardiovascular Exam Cardiovascular Exam: REGULAR RHYTHM - GI/Abdominal Exam GI & Abdominal Exam: Distended - Rectal Exam Rectal Exam: Deferred - Exam Exam: NORMAL INSPECTION - Extremities Exam Extremities Exam: absent: Pedal Edema Additional comments: Vasc: DP pulses palpable 2/4 b/l, PT pulses non palpable secondary to edema of LE b/l, cap refill <3 seconds to remaining digits, temp gradient warm to warm b/l from proximal to distal with increase in warmth noted to right 4th digit, +1 pitting edema present b/l, nonpitting edema noted to right 4th and 5th digits. Neuro: Gross and protective sensation diminished b/l Derm: RLE= Wound noted to entire dorsal aspect of right 4th digit with sloughing of skin - purulence noted along wound bed with nail avulsed; malodor present; se rosanguinous drainage present; necrosis noted along proximal aspect. Dry necrosis noted to distal aspect of right 4th digit with; malodor present; no drainage present. Severe maceration noted to webspaces 3 and 4. Hyperkeratosis noted to plantarmedial IPJ; no open lesion present. LLE= Ulcer noted to plantar hallucal sulcus measuring approximately 2 x 1 x 0.3 cm with 100% granular base and hyperkeratotic rim; no drainage noted; no purulence noted; no erythema; no probe to bone; no malodor. superficial ulceration noted to dorsolateral aspect of 2nd digit with 100% granular base; no drainage noted; no purulence noted; no fluctuance; no periwound erythema present; no malodor. Ortho: previous amputations noted on the left foot 3,4,5 digit and distal first digit, pain on palpation at the wound sites/periwound, MMT 5/5 b/l - Back Exam Back Exam: absent: CVA tenderness (L), CVA tenderness (R) - Neurological Exam Neurological Exam: Alert, Awake, Oriented x3 - Psychiatric Exam Psychiatric exam: Depressed - Skin Skin Exam: Dry Assessment and Plan (1) Cellulitis Status: Acute (2) Diabetes Status: Acute (3) Alcohol dependence Status: Acute (4) Amputation of left foot with complication Status: Acute (5) Cellulitis of left foot Status: Acute (6) Diabetic foot infection Status: Acute (7) Diabetic toe ulcer Status: Acute (8) Diabetic ulcer of left foot Status: Acute (9) Hypertension Status: Acute (10) Intractable vomiting Status: Acute (11) Nausea and vomiting in adult Status: Acute (12) Noncompliance with medication regimen Status: Acute (13) Opiate abuse, continuous Status: Acute (14) Osteomyelitis of foot Status: Acute (15) Alcohol abuse Status: Chronic (16) Diabetic foot ulcer Status: Chronic (17) Polysubstance abuse Status: Chronic - Assessment and Plan (Free Text) Assessment: cannot r/o OM of feet await MRI podiatry folowing may benefit from debriddement when stable cont iv antbiotics and wound care may need 6-8 weeks iv rx
[2018-08-23] MEDS: Albuterol-Ipratrop 3 mg / 0.5 (3 ml) UD IH SCH ×3 (00:59→19:30)
[2018-08-23] MEDS: Piperacill/Tazo 3.375gm in Dex 3.375 GM/50 ML BAG IVPB SCH ×3 (04:00→21:00)
[2018-08-23] MEDS: Sodium Chloride 0.45% 1,000 ML IV SCH (04:30)
--- NOTE | 2018-08-23 05:13 | PN ---
DATE: 08/22/2018 SUBJECTIVE: The patient is a 52-year-old male. The patient was seen and examined at the bedside on 08/22/2018, looking anxious. The patient is having episodes of drowsiness, but sometimes becoming anxious. Still having nausea and vomiting but asking about food. As per nursing staff, he is spitting on the nurses in the floor and not responding properly to their questions. Psych consulted. No fever. No chills. Still complaining about the pain in the foot. PHYSICAL EXAMINATION: VITAL SIGNS: Temperature 98.1, pulse 59, respiratory rate 19, blood pressure 157/88, pulse 97. HEENT: Head, normocephalic and atraumatic. Eyes PERRLA. Extraocular muscles intact. Conjunctivae clear. Nose patent. NECK: Supple. No carotid bruits, JVD, or thyromegaly. CHEST: Bilateral symmetrical. HEART: S1 and S2 positive. LUNGS: Clear to auscultation. ABDOMEN: Soft. Bowel sound present. No organomegaly. EXTREMITIES: No edema, no cyanosis, but feet have dressing bilaterally. NEUROLOGIC: The patient is awake, but according to the nurse most of the time he is sleeping, very non-cooperative. MEDICATIONS: Albuterol, dextrose, hydromorphone, Zosyn, influenza . Zofran, Dilantin. LABORATORY DATA: White blood cells 9.9, hemoglobin 12.6, hematocrit 38.1, platelets 376. Sodium 138, potassium 4.6, BUN 15, creatinine 0.9, glucose 301. ASSESSMENT AND PLAN: Mr. Ton Walker is a 52-year-old male with hyperchloremia, hyperglycemia, history of opioid abuse especially heroin, diabetes mellitus, seizure, hypertension, asthma, bilateral foot wounds. Has constant nausea and vomiting, altered mental status, diabetic foot wound. Etiology of nausea and vomiting, multifactorial was suspected withdrawals as may be etiology. Psychiatry is on the case. The patient looks like has drug-seeking behavior, but remains abusive and combative with the staff. Scheduled Zofran every 6 hours for 24 hours. Advance diet as tolerated if the patient is not nauseous. Altered mental status noted. Neurology and psychiatric evaluations recommended. Assuring antiepileptic medications. Avoid medication. Gastrointestinal and deep venous thrombosis prophylaxis. Seen by Dr. Levy. Abdominal x-ray done. Repeat labs. We will follow up. Janessa Fernandez MD MIKE
[2018-08-23] MEDS: (Novolin R) Insulin Human Regular 100 units/ml vial SC SCH ×5 (08:31→22:18)
--- NOTE | 2018-08-24 00:52 | PN ---
DATE: 08/23/2018 SUBJECTIVE: The patient was seen and examined at the [facility] on 08/23/2018, looking comfortable, complaining about pain, but as soon as we are giving him Dilaudid or other IV medications, he is becoming lethargic, multeple rapid response happened , and I started the patient on Celebrex. Podiatry and ID are on the case. The patient is getting antibiotics. No fever. No chills. No hematuria or hematochezia. PHYSICAL EXAMINATION: VITAL SIGNS: Temperature 97.2, pulse 83, blood pressure 118/95, respiratory rate 20. HEENT: Head normocephalic, atraumatic. Eyes PERRLA. Extraocular movements intact. Conjunctivae clear. Nose patent. Mucous membranes moist. NECK: Supple. No carotid bruits. No JVD or thyromegaly. CHEST: Bilaterally symmetrical. HEART: S1 and S2 positive. LUNGS: Clear to auscultation. ABDOMEN: Soft. Bowel sounds present. No organomegaly. EXTREMITIES: No edema, no cyanosis. Both feet have dressings. NEUROLOGIC: The patient is awake and alert. Moving all four extremities. No deficits. MEDICATIONS: Bactroban ointment, Celebrex, dextrose, DuoNeb, insulin, and Zosyn. LABORATORY DATA: White blood cell 9.9, hemoglobin 12.6, hematocrit 38.1, and platelets 376. Glucose more than 500. ASSESSMENT AND PLAN: Mr. Thee Walker is a 52-year-old male with leucocytosis, hyperglycemia. Discontinue dextrose. Opiates positive in the urine. Hepatitis and EKG are negative. History of seizures; bilateral foot nonhealing ulcers, getting Zosyn from Dr. Levy. Has diabetic ulcers, hypertension, history of intractable vomiting, noncompliant with medication, opioid abuse, osteomyelitis of the foot, history of alcohol abuse, polysubstance abuse, cannot rule out actually osteomyelitis, waiting for MRI results. The patient's left foot with complications. May benefit from debridement when stable. Continue IV antibiotics and wound care, may need 6 to 8 weeks of IV antibiotics. Gastrointestinal and deep vein thrombosis prophylaxis. Repeat labs. We will follow up. Janessa Fernandez MD MTDTeo
[2018-08-24] MEDS: HYDROmorphone 0.5 mg/0.5 ml ISec IVP PRN ×2 (02:02→19:39)
[2018-08-24] MEDS: Sodium Chloride 0.45% 1,000 ML IV SCH (02:09)
[2018-08-24] MEDS: Albuterol-Ipratrop 3 mg / 0.5 (3 ml) UD IH SCH ×4 (02:30→20:03)
[2018-08-24] MEDS: Piperacill/Tazo 3.375gm in Dex 3.375 GM/50 ML BAG IVPB SCH ×3 (03:09→20:51)
[2018-08-24 08:18] LABS: HEMOGLOBIN 15.4 g/dL (12.0-18.0); MEAN CELL VOLUME 88.2 fL (80.0-94.0); MEAN PLATELET VOLUME 7.1 fL (7.2-11.7); RBC 5.12 Mil/uL (4.40-5.90); RED CELL DISTRIBUTION WIDTH 14.1 % (11.5-14.5); WHITE BLOOD COUNT 7.3 K/uL (4.8-10.8)
[2018-08-24] MEDS: (Novolin R) Insulin Human Regular 100 units/ml vial SC SCH ×4 (08:19→22:43)
[2018-08-24 08:36] LABS: CALCIUM 9.3 mg/dl (8.6-10.4)
--- NOTE | 2018-08-24 09:50 | CP.PCM.PN ---
<Chaz Dutton - Last Filed: 08/24/18 09:44> Subjective - Date & Time of Evaluation Date of Evaluation: 08/24/18 Time of Evaluation: 08:30 - Subjective Subjective: PGY-4 GI Fellow Prog Note Pt sitting up in bed, sitter at bedside. State that he "needs pain meds" and falls across bed, not answering questions. Just prior to entering room, patient was heard down the [place] shouting. Nursing reports that patient has been non- cooperative, spitting at them at time as well as seen inducing emesis by sticking finger in mouth. 5 point ROS negative other than stated above Objective - Vital Signs/Intake and Output Vital Signs (last 24 hours): Temp Pulse Resp BP Pulse Ox 98.4 F 90 20 171/90 H 97 08/24/18 08:00 08/24/18 08:00 08/24/18 08:00 08/24/18 08:00 08/24/18 08:00 - Medications Medications: Current Medications Albuterol/Ipratropium (Duoneb 3 Mg/0.5 Mg (3 Ml) Ud) 3 ml IH RQ6 [facility] Last Admin: 08/24/18 09:06 Dose: 3 ml Celecoxib (Celebrex) 200 mg PO BID [facility] Last Admin: 08/23/18 21:30 Dose: Not Given Dextrose (Dextrose 50% Inj) 0 ml IV STAT PRN; Protocol PRN Reason: Hypoglycemia Protocol Dextrose (Glutose 15) 0 gm PO ONCE PRN; Protocol PRN Reason: Hypoglycemia Protocol Glucagon (Glucagen Diagnostic Kit) 0 mg IM STAT PRN; Protocol PRN Reason: Hypoglycemia Protocol Hydromorphone HCl (Dilaudid) 0.25 mg IVP Q8H PRN PRN Reason: Pain, severe (8-10) Last Admin: 08/24/18 02:02 Dose: 0.25 mg Piperacillin Sod/Tazobactam Sod (Zosyn 3.375 Gm Iv Premix) 3.375 gm in 50 mls @ 100 mls/hr IVPB Q8H [facility]; Protocol Last Admin: 08/24/18 03:09 Dose: 100 mls/hr Sodium Chloride (Sodium Chloride 0.45%) 1,000 mls @ 100 mls/hr IV .Q10H [facility] Last Admin: 10/14/18 02:09 Dose: 100 mls/hr Insulin Human Regular (Novolin R) 0 unit SC ACHS [facility]; Protocol Last Admin: 08/24/18 08:19 Dose: 6 units Mupirocin (Bactroban Ointment) 0 gm TOP DAILY [facility] Last Admin: 08/23/18 08:00 Dose: 1 applic Ondansetron HCl (Zofran Inj) 4 mg IVP Q6 PRN PRN Reason: Nausea/Vomiting Phenytoin Sodium (Dilantin) 100 mg PO TID [facility] Last Admin: 08/23/18 09:30 Dose: Not Given - Labs Labs: 08/24/18 08:12 08/24/18 08:12 - Constitutional Appears: Agitated, Chronically Ill, Other (raising voice and flailing arms) - Head Exam Head Exam: ATRAUMATIC, NORMAL INSPECTION - Eye Exam Eye Exam: EOMI, Normal appearance. absent: Conjunctival injection - ENT Exam ENT Exam: Mucous Membranes Moist, Normal External Ear Exam. absent: Mucous Membranes Dry - Respiratory Exam Respiratory Exam: absent: Accessory Muscle Use, Respiratory Distress - GI/Abdominal Exam GI & Abdominal Exam: Soft, Tenderness (in epigastrum w/o guarding), Normal Bowel Sounds. absent: Bruit, Distended, Firm, Guarding, Rigid, Hernia, Mass, Organomegaly, Pulsatile Mass, Rebound Assessment and Plan - Assessment and Plan (Free Text) Assessment: 52yo male with PMHx significant for opioid abuse (heroin), diabetes mellitus, seizure d/o, hypertension, asthma who presented to the ED for evaluation of foot wounds. Our service is consulted for nausea/vomiting. -Altered mental status -Diabetic foot wounds -Opiate abuse and suspected withdrawal -Uncontrolled diabetes: BS 200-500 throughout admission. Suspect component of gastroparesis as well. -Nausea/Vomiting 2/2 above Plan: -Etiology of nausea/vomiting likely multifactorial but suspect withdrawal and gastroparesis; furthermore nursing reports pt sticking finger down mouth at times -Tight glycemic control -Patient continues to exhibit drug seeking behaviors -Patient remains abusive and combative with staff -Schedule Zofran Q6H for 24H -Second line would be metoclopramide -Advance as tolerated; recommend small frequent low fat, low fiber meals, carb controlled -Supportive care Pt discussed with Dr. Ambriz. Please see attestation for further recs/changes. Will sign off. Please page if questions. <Edwardo Ambriz - Last Filed: 08/24/18 13:49> Objective - Vital Signs/Intake and Output Vital Signs (last 24 hours): Temp Pulse Resp BP Pulse Ox 98.4 F 90 20 171/90 H 97 08/24/18 08:00 08/24/18 08:00 08/24/18 08:00 08/24/18 08:00 08/24/18 08:00 Intake and Output: 08/24/18 08/24/18 06:59 18:59 Intake Total 600 Balance 600 - Medications Medications: Current Medications Albuterol/Ipratropium (Duoneb 3 Mg/0.5 Mg (3 Ml) Ud) 3 ml IH RQ6 [facility] Last Admin: 08/24/18 09:06 Dose: 3 ml Celecoxib (Celebrex) 200 mg PO BID [facility] Last Admin: 08/24/18 10:05 Dose: 200 mg Dextrose (Dextrose 50% Inj) 0 ml IV STAT PRN; Protocol PRN Reason: Hypoglycemia Protocol Dextrose (Glutose 15) 0 gm PO ONCE PRN; Protocol PRN Reason: Hypoglycemia Protocol Glucagon (Glucagen Diagnostic Kit) 0 mg IM STAT PRN; Protocol PRN Reason: Hypoglycemia Protocol Hydromorphone HCl (Dilaudid) 0.25 mg IVP Q8H PRN PRN Reason: Pain, severe (8-10) Last Admin: 08/24/18 02:02 Dose: 0.25 mg Piperacillin Sod/Tazobactam Sod (Zosyn 3.375 Gm Iv Premix) 3.375 gm in 50 mls @ 100 mls/hr IVPB Q8H [facility]; Protocol Last Admin: 08/24/18 12:44 Dose: Not Given Insulin Human Regular (Novolin R) 0 unit SC ACHS [facility]; Protocol Last Admin: 08/24/18 12:44 Dose: Not Given Mupirocin (Bactroban Ointment) 0 gm TOP DAILY [facility] Last Admin: 08/24/18 12:43 Dose: Not Given Ondansetron HCl (Zofran Inj) 4 mg IVP Q6 PRN PRN Reason: Nausea/Vomiting Phenytoin Sodium (Dilantin) 100 mg PO TID [facility] Last Admin: 08/24/18 10:19 Dose: Not Given - Labs Labs: 08/24/18 08:12 08/24/18 08:12 Attending/Attestation - Attestation I have personally seen and examined this patient.: Yes I have fully participated in the care of the patient.: Yes I have reviewed all pertinent clinical information, including history, physical exam and plan: Yes Notes (Text): 08/24/18 13:48 Chart reviewed. The patient was seen and examined. Assessment and recommen dations were discussed with Dr. Dutton and documented above.
--- NOTE | 2018-08-24 11:50 | PCM.PSYCH ---
Initial Psychiatric Evaluation - Initial Psychiatric Evaluation Type of Admission: Voluntary Legal Status: Capacity Chief Complaint (in patient's own words): I have abdominal pain. History of Present Illness and Precipitating Events: Patient is a 52 years old, -[place] male who was admitted to ICU due to change in mental status. Psych consult was called to evaluate the patient. Patient was seen in the ICU. Patient was poor historian. Not much history was obtained from the patient. Most of the history was obtained from the record and from the staff. Patient denied any psychiatric history including depression, psychosis, anxiety and forest. Patient denied use of any drugs including alcohol, cocaine, cannabis and heroin. According to the record patient reported last use of heroin 5 months ago. Urine drug screen was positive for opiates. Staff reported that patient is vomiting due to abdominal pain and was getting IV fluid. Patient was unable to eat or drink anything. On lab reviews was found that patient has very high blood glucose. Staff also reported that patient become conscious at times but other times he is unconscious, irritable and restless. Current Medications: Active Medications Generic Name Dose Route Start Last Admin Trade Name Winston PRN Reason Stop Dose Admin Albuterol/Ipratropium 3 ml 08/20/18 22:15 08/24/18 09:06 Duoneb 3 Mg/0.5 Mg (3 Ml) Ud IH 3 ml RQ6 [facility] Administration Celecoxib 200 mg 08/23/18 19:30 08/23/18 21:30 Celebrex PO Not Given BID RANDAL Dextrose 0 ml 08/20/18 22:18 Dextrose 50% Inj IV STAT PRN Hypoglycemia Protocol Protocol Dextrose 0 gm 08/20/18 22:18 Glutose 15 PO ONCE PRN Hypoglycemia Protocol Protocol Glucagon 0 mg 08/20/18 22:18 Glucagen Diagnostic Kit IM STAT PRN Hypoglycemia Protocol Protocol Hydromorphone HCl 0.25 mg 08/24/18 01:42 08/24/18 02:02 Dilaudid IVP 0.25 mg Q8H PRN Administration Pain, severe (8-10) Piperacillin Sod/Tazobactam Sod 3.375 gm in 50 mls @ 100 mls/hr 08/20/18 20:00 08/24/18 03:09 Zosyn 3.375 Gm Iv Premix IVPB 100 mls/hr Q8H [facility] Administration Protocol Sodium Chloride 1,000 mls @ 100 mls/hr 08/21/18 12:30 08/24/18 02:09 Sodium Chloride 0.45% IV 100 mls/hr .Q10H [facility] Administration Insulin Human Regular 0 unit 08/22/18 16:30 08/24/18 08:19 Novolin R SC 6 units ACHS [facility] Administration Protocol Mupirocin 0 gm 08/21/18 15:00 08/23/18 08:00 Bactroban Ointment TOP 1 applic DAILY [facility] Administration Ondansetron HCl 4 mg 08/23/18 19:57 Zofran Inj IVP Q6 PRN Nausea/Vomiting Phenytoin Sodium 100 mg 08/21/18 10:00 08/23/18 09:30 Dilantin PO Not Given TID [facility] Past Psychiatric History - Past Psychiatric History Previous Treatment History: None (None reported) History of Abuse: Unavailable History of ETOH/Drug Use: See HPI History of Family Illness: Unavailable Pertinent Medical Hx (Current Medical&Sleep Prob, Allergies): Allergies Allergy/AdvReac Type Severity Reaction Status Date / Time FISH Allergy RASH Verified 08/20/18 07:59 tomato Allergy RASH Verified 08/15/18 14:34 Dilantin 08/15/18 Diabetes mellitus Hypertension Seizure disorder Asthma Review of Systems - Psychiatric Psychiatric: As Per HPI Mental Status Examination - Personal Presentation Personal Presentation: Looks stated age - Affect Affect: Depressed - Motor Activity Motor Activity: Psychomotor Retardation - Reliability in Providing Information Reliability in Providing Information: Poor, due to cognitve impairment - Speech Speech: Relevant - Mood Mood: Other - Formal Thought Process Formal Thought Process: No Impairment (Patient denied) - Hallucinations/Delusions Hallucinations: Other (None reported) Delusions: Other - Obsessions/Compulsions Obsessions: None Compulsions: None - Cognitive Functions Orientation: Person Judgement: Imparied, as evidence by: Other - Risk Risk: Withdrawal, Diminished functioning - Strength & Assets Inventory Strength & Assets Inventory: Other - Limitations Limitations: Other DSM 5 DX - DSM 5 DSM 5 Diagnosis: Opioid use disorder severe. Opioid withdrawal Provisional: Delirium Provisional: DKA - Recommended/Plan of Treatment Treatment Recommendations and Plan of Treatment: Staff education. We will start Haldol 5 mg IM every 6 as needed for agitation until patient cannot take anything by mouth. Once patient starts eating then Haldol 5 mg p.o. every 6 as needed for agitation and will discontinue IM. Ativan 2 mg IV push every 6 hours as needed for anxiety/irritability. Continue rest of the treatment as per medicine. - Smoking Cessation Smoking Cessation Initiated: No
--- NOTE | 2018-08-24 14:51 | CP.PCM.PN ---
Subjective - Date & Time of Evaluation Date of Evaluation: 08/24/18 Time of Evaluation: 09:00 - Subjective Subjective: wounds same wants to sign out Objective - Vital Signs/Intake and Output Vital Signs (last 24 hours): Temp Pulse Resp BP Pulse Ox 98.4 F 90 20 171/90 H 97 08/24/18 08:00 08/24/18 08:00 08/24/18 08:00 08/24/18 08:00 08/24/18 08:00 Intake and Output: 08/24/18 08/24/18 06:59 18:59 Intake Total 600 Balance 600 - Medications Medications: Current Medications Albuterol/Ipratropium (Duoneb 3 Mg/0.5 Mg (3 Ml) Ud) 3 ml IH RQ6 [facility] Last Admin: 08/24/18 14:09 Dose: Not Given Celecoxib (Celebrex) 200 mg PO BID [facility] Last Admin: 08/24/18 10:05 Dose: 200 mg Dextrose (Dextrose 50% Inj) 0 ml IV STAT PRN; Protocol PRN Reason: Hypoglycemia Protocol Dextrose (Glutose 15) 0 gm PO ONCE PRN; Protocol PRN Reason: Hypoglycemia Protocol Glucagon (Glucagen Diagnostic Kit) 0 mg IM STAT PRN; Protocol PRN Reason: Hypoglycemia Protocol Hydromorphone HCl (Dilaudid) 0.25 mg IVP Q8H PRN PRN Reason: Pain, severe (8-10) Last Admin: 08/24/18 02:02 Dose: 0.25 mg Piperacillin Sod/Tazobactam Sod (Zosyn 3.375 Gm Iv Premix) 3.375 gm in 50 mls @ 100 mls/hr IVPB Q8H [facility]; Protocol Last Admin: 08/24/18 12:44 Dose: Not Given Insulin Human Regular (Novolin R) 0 unit SC ACHS [facility]; Protocol Last Admin: 08/24/18 12:44 Dose: Not Given Mupirocin (Bactroban Ointment) 0 gm TOP DAILY [facility] Last Admin: 08/24/18 12:43 Dose: Not Given Ondansetron HCl (Zofran Inj) 4 mg IVP Q6 PRN PRN Reason: Nausea/Vomiting Phenytoin Sodium (Dilantin) 100 mg PO TID [facility] Last Admin: 08/24/18 10:19 Dose: Not Given - Labs Labs: 08/24/18 08:12 08/24/18 08:12 - Constitutional Appears: Non-toxic, Chronically Ill - Head Exam Head Exam: NORMOCEPHALIC - Eye Exam Eye Exam: PERRL - ENT Exam ENT Exam: Mucous Membranes Dry - Neck Exam Neck Exam: absent: Lymphadenopathy - Respiratory Exam Respiratory Exam: Decreased Breath Sounds - Cardiovascular Exam Cardiovascular Exam: REGULAR RHYTHM - GI/Abdominal Exam GI & Abdominal Exam: Distended, Soft Assessment and Plan (1) Cellulitis Status: Acute (2) Diabetes Status: Acute (3) Alcohol dependence Status: Acute (4) Amputation of left foot with complication Status: Acute (5) Cellulitis of left foot Status: Acute (6) Diabetic foot infection Status: Acute (7) Diabetic toe ulcer Status: Acute (8) Diabetic ulcer of left foot Status: Acute (9) Hypertension Status: Acute (10) Intractable vomiting Status: Acute (11) Nausea and vomiting in adult Status: Acute (12) Noncompliance with medication regimen Status: Acute (13) Opiate abuse, continuous Status: Acute (14) Osteomyelitis of foot Status: Acute (15) Alcohol abuse Status: Chronic (16) Diabetic foot ulcer Status: Chronic (17) Polysubstance abuse Status: Chronic
--- NOTE | 2018-08-24 15:55 | CP.PCM.PN ---
Subjective - Date & Time of Evaluation Date of Evaluation: 08/24/18 Time of Evaluation: 15:52 - Subjective Subjective: Podiatry - Dr. Jordan 52M seen and evaluated at bedside for bilateral lower extremity wounds. Patient vomiting and yelling at nurses saying he wants to be discharged upon visit. Patient aggressive this AM, Dressings to LE absent. Nurses unable to get an IV in him and when they did he took it out or threatened to take it out forcing t hem to remove it. Objective - Vital Signs/Intake and Output Vital Signs (last 24 hours): Temp Pulse Resp BP Pulse Ox 98.4 F 90 20 171/90 H 97 08/24/18 08:00 08/24/18 08:00 08/24/18 08:00 08/24/18 08:00 08/24/18 08:00 Intake and Output: 08/24/18 08/24/18 06:59 18:59 Intake Total 600 Balance 600 - Medications Medications: Current Medications Albuterol/Ipratropium (Duoneb 3 Mg/0.5 Mg (3 Ml) Ud) 3 ml IH RQ6 [facility] Last Admin: 08/24/18 14:09 Dose: Not Given Celecoxib (Celebrex) 200 mg PO BID [facility] Last Admin: 08/24/18 10:05 Dose: 200 mg Dextrose (Dextrose 50% Inj) 0 ml IV STAT PRN; Protocol PRN Reason: Hypoglycemia Protocol Dextrose (Glutose 15) 0 gm PO ONCE PRN; Protocol PRN Reason: Hypoglycemia Protocol Glucagon (Glucagen Diagnostic Kit) 0 mg IM STAT PRN; Protocol PRN Reason: Hypoglycemia Protocol Hydromorphone HCl (Dilaudid) 0.25 mg IVP Q8H PRN PRN Reason: Pain, severe (8-10) Last Admin: 08/24/18 02:02 Dose: 0.25 mg Piperacillin Sod/Tazobactam Sod (Zosyn 3.375 Gm Iv Premix) 3.375 gm in 50 mls @ 100 mls/hr IVPB Q8H [facility]; Protocol Last Admin: 08/24/18 12:44 Dose: Not Given Insulin Human Regular (Novolin R) 0 unit SC ACHS [facility]; Protocol Last Admin: 08/24/18 12:44 Dose: Not Given Mupirocin (Bactroban Ointment) 0 gm TOP DAILY [facility] Last Admin: 08/24/18 12:43 Dose: Not Given Ondansetron HCl (Zofran Inj) 4 mg IVP Q6 PRN PRN Reason: Nausea/Vomiting Phenytoin Sodium (Dilantin) 100 mg PO TID [facility] Last Admin: 08/24/18 10:19 Dose: Not Given - Labs Labs: 08/24/18 08:12 08/24/18 08:12 - Constitutional Appears: Non-toxic - Extremities Exam Additional comments: Vasc: DP pulses palpable 2/4 b/l, PT pulses non palpable secondary to edema of LE b/l, cap refill <3 seconds to remaining digits, temp gradient warm to warm b/l from proximal to distal with increase in warmth noted to right 4th digit, +1 pitting edema present b/l, nonpitting edema noted to right 4th and 5th digits. Neuro: Gross and protective sensation diminished b/l Derm: RLE= Wound noted to entire dorsal aspect of right 4th digit with sloughing of skin - purulence noted along wound bed with nail avulsed; malodor present; serosanguinous drainage present; necrosis noted along proximal aspect. Dry necrosis noted to distal aspect of right 4th digit with; malodor present; no drainage present. Severe maceration noted to webspaces 3 and 4. Hyperkeratosis noted to plantarmedial IPJ; no open lesion present. LLE= Ulcer noted to plantar hallucal sulcus measuring approximately 2 x 1 x 0.3 cm with 100% granular base and hyperkeratotic rim; no drainage noted; no purulence noted; no erythema; no probe to bone; no malodor. superficial ulcer ation noted to dorsolateral aspect of 2nd digit with 100% granular base; no drainage noted; no purulence noted; no fluctuance; no periwound erythema present; no malodor. Ortho: previous amputations noted on the left foot 3,4,5 digit and distal first digit, pain on palpation at the wound sites/periwound, MMT 5/5 b/l - Neurological Exam Neurological Exam: Alert, Awake, Oriented x3 - Psychiatric Exam Psychiatric exam: Agitated Assessment and Plan - Assessment and Plan (Free Text) Assessment: 52M with bilateral lower extremity wounds, infected right 4th digit, gangrene right 5th digit Plan: Patient seen and evaluated Discussed with attending, Dr. Jordan Afebrile, ESR 102 Bilateral foot XR reviewed: Potential OM right 4th and 5th digits; postoperative changes left foot s/p 3rd, 4th, 5th digit amputations and partial amputation of 5th metatarsal. MRI ordered b/l - f/u LE arterial duplex ordered Right foot 4th digit wound culture: enterococcus faecalis, klebsiella pneumoniae Continue local wound care: saline cleanse, bactroban, DSD b/l ID - continue Zosyn; may need 6-8 weeks IV abx Vascular consulted - No surgical intervention Pain control per primary Podiatry will continue to follow
--- NOTE | 2018-08-25 01:34 | PN ---
DATE: 08/24/2018 SUBJECTIVE: The patient was seen and examined, has dressing in both feet, has wounds . The patient is still vomiting, but asking about food; started on ice chips. For pain, started on Celebrex because the patient is not keeping IV line, actually he was on Dilaudid but he removed his IV line and he looks like very angry on the nurses. Psych is on the case; hope psych will advise the medication. PHYSICAL EXAMINATION: VITAL SIGNS: Temperature 98.4, pulse 90, respiratory rate 20, blood pressure 170/90, pulse oximetry 97. HEENT: Head normocephalic and atraumatic. Eyes, PERRLA. Extraocular muscles intact. Conjunctivae pale. Nose patent. Mucous membranes moist. NECK: Supple. No carotid bruits. No JVD. No thyromegaly. CHEST: Bilaterally symmetrical. HEART: S1 and S2 positive. LUNGS: Clear to auscultation. ABDOMEN: Soft. Bowel sounds present. No organomegaly. EXTREMITIES: Both feet has dressing. No edema. No cyanosis. MEDICATIONS: DuoNeb, Celebrex, IV fluid, Dilaudid, Zosyn, Bactroban ointment, Zofran, Dilantin. LABORATORY DATA: White blood cell 7.3, hemoglobin 15.4, hematocrit 45.1, platelets 450. Sodium 140, potassium 4.2, BUN 47, creatinine 1.5, glucose 349. ASSESSMENT AND PLAN: Mr. Ton Walker is a 52 years old male, very noncompliant, has leukocytosis, hypochloremia, renal insufficiency, hyperglycemia, history of seizers, came with bilateral feet wounds, infected right fourth digit, gangrene right fifth digit. Plan is that Podiatry is on the case, potentially osteomyelitis of right foot site, fourth and fifth digits, postoperative changes. Left foot status post third, fourth and five digits amputation and partial amputation on the fifth metatarsal. MRI ordered. Bilateral Duplex ordered. Continue Zosyn may be 6-8 weeks. No surgical intervention at this time as per Podiatry. The patient is seen by SONIA Han. According to the staff, the patient wants to sign against medical advice. The patient has history of alcohol dependency, hypertension, intractable vomiting. GI is on the case, is on Zofran. History of polysubstance abuse. The patient removed his intravenous line, he is not getting intravenous antibiotics. Nurses are working hard to keep intravenous line. We will talk the patient more. We will follow up. Janessa Fernandez MD [facility]
[2018-08-25] MEDS: Albuterol-Ipratrop 3 mg / 0.5 (3 ml) UD IH SCH ×5 (01:52→20:00)
[2018-08-25] MEDS: HYDROmorphone 0.5 mg/0.5 ml ISec IVP PRN ×3 (04:31→20:15)
[2018-08-25] MEDS: Piperacill/Tazo 3.375gm in Dex 3.375 GM/50 ML BAG IVPB SCH ×3 (04:34→20:05)
[2018-08-25] MEDS: (Novolin R) Insulin Human Regular 100 units/ml vial SC SCH ×4 (09:03→23:52)
--- NOTE | 2018-08-25 15:32 | CP.PCM.PN ---
Subjective - Date & Time of Evaluation Date of Evaluation: 08/25/18 Time of Evaluation: 15:31 - Subjective Subjective: 52 y/o male seen at bedside this morning for bilateral LE wounds to digits. He states he is in a lot of pain and wants medication. States he doesn't want to get the MRIs or the vascular studies and that he just wants to go home. Admits t o pain in both feet, the right more so than the left, especially when anything touches the 4th and 5th toes. States it is a very sensitive area and feels like an intense, burning throbbing pain. Denies F/C/N/V/CP/SOB Objective - Vital Signs/Intake and Output Vital Signs (last 24 hours): Temp Pulse Resp BP Pulse Ox 98.5 F 85 20 167/88 H 97 08/25/18 08:22 08/25/18 08:22 08/25/18 08:22 08/25/18 08:22 08/25/18 08:22 Intake and Output: 08/25/18 08/25/18 06:59 18:59 Intake Total 920 Balance 920 - Medications Medications: Current Medications Albuterol/Ipratropium (Duoneb 3 Mg/0.5 Mg (3 Ml) Ud) 3 ml IH RQ6 [facility] Last Admin: 08/25/18 14:15 Dose: 3 ml Celecoxib (Celebrex) 200 mg PO BID [facility] Last Admin: 08/25/18 10:49 Dose: Not Given Dextrose (Dextrose 50% Inj) 0 ml IV STAT PRN; Protocol PRN Reason: Hypoglycemia Protocol Dextrose (Glutose 15) 0 gm PO ONCE PRN; Protocol PRN Reason: Hypoglycemia Protocol Glucagon (Glucagen Diagnostic Kit) 0 mg IM STAT PRN; Protocol PRN Reason: Hypoglycemia Protocol Hydromorphone HCl (Dilaudid) 0.25 mg IVP Q8H PRN PRN Reason: Pain, severe (8-10) Last Admin: 08/25/18 12:15 Dose: 0.25 mg Piperacillin Sod/Tazobactam Sod (Zosyn 3.375 Gm Iv Premix) 3.375 gm in 50 mls @ 100 mls/hr IVPB Q8H [facility]; Protocol Last Admin: 08/25/18 13:21 Dose: 100 mls/hr Insulin Human Regular (Novolin R) 0 unit SC ACHS [facility]; Protocol Last Admin: 08/25/18 12:13 Dose: 8 units Mupirocin (Bactroban Ointment) 0 gm TOP DAILY [facility] Last Admin: 08/25/18 10:49 Dose: Not Given Ondansetron HCl (Zofran Inj) 4 mg IVP Q6 PRN PRN Reason: Nausea/Vomiting Last Admin: 08/25/18 01:18 Dose: 4 mg Phenytoin Sodium (Dilantin) 100 mg PO TID [facility] Last Admin: 08/25/18 10:49 Dose: Not Given - Labs Labs: 08/24/18 08:12 08/24/18 08:12 - Constitutional Appears: Well, Non-toxic, No Acute Distress - Extremities Exam Additional comments: Lower extremity focused exam: Vasc: DP pulses palpable 2/4 b/l, PT pulses non palpable secondary to edema of LE. CFT <3 seconds to remaining digits. Temp gradient warm to warm B/L from proximal to distal with increase in warmth noted to right 4th digit. +1 pitting edema present B/L, nonpitting edema noted to right 4th and 5th digits. Neuro: Gross and protective sensation diminished B/L Derm: Right: Wound noted to entire dorsal aspect of right 4th digit with sloughing of skin - purulence noted along wound bed with nail avulsed. Malodor present; seros anguinous drainage present; necrosis noted along proximal aspect. Dry necrosis noted to distal aspect of right 4th digit with malodor present; no drainage present. Severe maceration noted to interdigital spaces 3 and 4 with malodor noted. Hyperkeratosis noted to plantarmedial IPJ with no open lesion present. Left: Ulcer noted to plantar hallucal sulcus measuring approximately 2cm x 1cm x 0.3 cm with 100% granular base and hyperkeratotic rim; no drainage noted; no purulence noted; no erythema; no probe to bone; no malodor. superficial ulceration noted to dorsolateral aspect of 2nd digit with 100% granular base; no drainage noted; no purulence noted; no fluctuance; no periwound erythema present; no malodor. Ortho: previous amputations noted on the left foot 3,4,5 digit and distal first digit, pain on palpation at the wound sites/periwound, MMT 5/5 B/L - Neurological Exam Neurological Exam: Alert, Awake - Psychiatric Exam Psychiatric exam: Agitated Assessment and Plan - Assessment and Plan (Free Text) Assessment: 52 y/o male with bilateral lower extremity wounds, with infected right 4th digit and gangrene right 5th digit Plan: Patient seen and evaluated Discussed with attending, Dr. Jordan Afebrile, ESR 102 Bilateral foot XR reviewed: Potential OM right 4th and 5th digits; postoperative changes left foot s/p 3rd, 4th, 5th digit amputations and partial amputation of 5th metatarsal MRI ordered B/L - pt not tolerating MRIs at present LE arterial duplex ordered - pt refusing at this time Right foot 4th digit wound culture: enterococcus faecalis, klebsiella pneumoniae Wound sites cleaned with saline and dressed with bactroban, DSD ID Dr. Levy on board - continue Zosyn; may need 6-8 weeks IV abx Vascular consulted - No surgical intervention at this time Pain control per primary team Podiatry will continue to follow pt while in house
[2018-08-26] MEDS: Albuterol-Ipratrop 3 mg / 0.5 (3 ml) UD IH SCH ×3 (02:00→13:49)
[2018-08-26] MEDS: HYDROmorphone 0.5 mg/0.5 ml ISec IVP PRN ×2 (04:15→12:19)
[2018-08-26] MEDS: Piperacill/Tazo 3.375gm in Dex 3.375 GM/50 ML BAG IVPB SCH ×2 (04:53→12:20)
--- NOTE | 2018-08-26 08:00 | CP.PCM.PN ---
Subjective - Date & Time of Evaluation Date of Evaluation: 08/26/18 Time of Evaluation: 08:00 - Subjective Subjective: 52 y/o male seen at bedside this morning for management of lower extremity digital wounds. Pt is seated in a bedside chair at time of visit with dressings absent to both lower extremities. Nursing staff at bedside who explains that patient is adamant about leaving the hospital and is refusing all medications and dressings. Pt states he does not want a dressing put on the foot. Denies F/C/N/V/CP/SOB Objective - Vital Signs/Intake and Output Vital Signs (last 24 hours): Temp Pulse Resp BP Pulse Ox 98.4 F 88 20 167/88 H 96 08/25/18 23:00 08/26/18 04:10 08/25/18 23:00 08/25/18 23:00 08/25/18 23:00 - Medications Medications: Current Medications Albuterol/Ipratropium (Duoneb 3 Mg/0.5 Mg (3 Ml) Ud) 3 ml IH RQ6 [facility] Last Admin: 08/26/18 02:00 Dose: Not Given Celecoxib (Celebrex) 200 mg PO BID [facility] Last Admin: 08/25/18 18:50 Dose: Not Given Dextrose (Dextrose 50% Inj) 0 ml IV STAT PRN; Protocol PRN Reason: Hypoglycemia Protocol Dextrose (Glutose 15) 0 gm PO ONCE PRN; Protocol PRN Reason: Hypoglycemia Protocol Glucagon (Glucagen Diagnostic Kit) 0 mg IM STAT PRN; Protocol PRN Reason: Hypoglycemia Protocol Hydromorphone HCl (Dilaudid) 0.25 mg IVP Q8H PRN PRN Reason: Pain, severe (8-10) Last Admin: 08/26/18 04:15 Dose: 0.25 mg Piperacillin Sod/Tazobactam Sod (Zosyn 3.375 Gm Iv Premix) 3.375 gm in 50 mls @ 100 mls/hr IVPB Q8H [facility]; Protocol Last Admin: 08/26/18 04:53 Dose: 100 mls/hr Insulin Human Regular (Novolin R) 0 unit SC ACHS [facility]; Protocol Last Admin: 08/25/18 23:52 Dose: Not Given Mupirocin (Bactroban Ointment) 0 gm TOP DAILY [facility] Last Admin: 08/25/18 10:49 Dose: Not Given Ondansetron HCl (Zofran Inj) 4 mg IVP Q6 PRN PRN Reason: Nausea/Vomiting Last Admin: 08/25/18 01:18 Dose: 4 mg Phenytoin Sodium (Dilantin) 100 mg PO TID [facility] Last Admin: 08/25/18 18:50 Dose: Not Given - Labs Labs: 08/24/18 08:12 08/24/18 08:12 - Constitutional Appears: Well, Non-toxic, No Acute Distress - Extremities Exam Additional comments: Lower extremity focused exam: Vasc: DP pulses palpable 2/4 B/L, PT pulses non palpable secondary to edema of LE. CFT <3 seconds to remaining digits. Temp gradient warm to warm B/L from proximal to distal with increase in warmth noted to right 4th digit. +1 pitting edema present B/L, nonpitting edema noted to right 4th and 5th digits. Neuro: Gross and protective sensation diminished B/L Derm: Right: Wound noted to entire dorsal aspect of right 4th digit with sloughing of skin - purulence noted along wound bed with nail avulsed. Malodor present; serosanguinous drainage present; necrosis noted along proximal aspect. Dry necrosis noted to distal aspect of right 4th digit with malodor present; no drainage present. Severe maceration noted to interdigital spaces 3 and 4 with malodor noted. Hyperkeratosis noted to plantarmedial IPJ with no open lesion present. Left: Ulcer noted to plantar hallucal sulcus measuring approximately 2cm x 1cm x 0.3 cm with 100% granular base and hyperkeratotic rim; no drainage noted; no purulence noted; no erythema; no probe to bone; no malodor. superficial ulceration noted to dorsolateral aspect of 2nd digit with 100% granular base; no drainage noted; no purulence noted; no fluctuance; no periwound erythema present; no malodor. Ortho: previous amputations noted on the left foot 3,4,5 digit and distal first digit, pain on palpation at the wound sites/periwound, MMT 5/5 B/L - Neurological Exam Neurological Exam: Alert, Awake - Psychiatric Exam Psychiatric exam: Normal Affect, Normal Mood Assessment and Plan - Assessment and Plan (Free Text) Assessment: 52 y/o male with bilateral lower extremity wounds, with infected right 4th digit and gangrene right 5th digit Plan: Patient seen and evaluated Discussed with attending, Dr. Jordan Afebrile, ESR 102 Bilateral foot XR reviewed: Potential OM right 4th and 5th digits; postoperative changes left foot s/p 3rd, 4th, 5th digit amputations and partial amputation of 5th metatarsal MRI ordered B/L - pt still refusing MRIs LE arterial duplex ordered - pt refusing at this time Right foot 4th digit wound culture: enterococcus faecalis, klebsiella pneumoniae Per patient, does not want his wounds dressed and wants to leave hospital ID Dr. Levy on board - continue Zosyn; may need 6-8 weeks IV abx Vascular consulted - No surgical intervention at this time Pain control per primary team Podiatry will continue to follow pt while in house
[2018-08-26 08:15] LABS: BASO % 0.6 % (0.0-2.0); EOS # 0.1 K/uL (0.0-0.7); EOS % 1.9 % (0.0-4.0); HEMOGLOBIN 14.9 g/dL (12.0-18.0); LYMPH # 1.7 K/uL (1.0-4.3); LYMPH % 23.4 % (20.0-40.0); MEAN CELL VOLUME 87.3 fL (80.0-94.0); MEAN CORPUSCULAR HEMOGLOBIN 29.2 pg (27.0-31.0); MEAN CORPUSCULAR HGB CONC 33.4 g/dL (33.0-37.0); MEAN PLATELET VOLUME 7.2 fL (7.2-11.7); MONO # 0.5 K/uL (0.0-0.8); MONO % 6.5 % (0.0-10.0); NEUT # 4.9 K/uL (1.8-7.0); NEUT % 67.6 % (50.0-75.0); NRBC % 0.1 % (0.0-2.0); RBC 5.12 Mil/uL (4.40-5.90); RED CELL DISTRIBUTION WIDTH 13.6 % (11.5-14.5); WHITE BLOOD COUNT 7.2 K/uL (4.8-10.8)
[2018-08-26 08:27] LABS: BLOOD UREA NITROGEN 35 mg/dL (9-20); CALCIUM 9.3 mg/dl (8.6-10.4); GFR NON-AFRICAN AMERICAN > 60
[2018-08-26] MEDS: (Novolin R) Insulin Human Regular 100 units/ml vial SC SCH ×2 (11:28→13:32)
--- NOTE | 2018-08-26 12:45 | CP.PCM.PN ---
Subjective - Date & Time of Evaluation Date of Evaluation: 08/26/18 Time of Evaluation: 10:00 - Subjective Subjective: events noted IV rx in progress Objective - Vital Signs/Intake and Output Vital Signs (last 24 hours): Temp Pulse Resp BP Pulse Ox 98.4 F 88 20 167/88 H 96 08/25/18 23:00 08/26/18 04:10 08/25/18 23:00 08/25/18 23:00 08/25/18 23:00 Intake and Output: 08/26/18 08/26/18 06:59 18:59 Intake Total 290 Balance 290 - Medications Medications: Current Medications Albuterol/Ipratropium (Duoneb 3 Mg/0.5 Mg (3 Ml) Ud) 3 ml IH RQ6 [facility] Last Admin: 08/26/18 08:26 Dose: Not Given Celecoxib (Celebrex) 200 mg PO BID [facility] Last Admin: 08/26/18 11:28 Dose: Not Given Dextrose (Dextrose 50% Inj) 0 ml IV STAT PRN; Protocol PRN Reason: Hypoglycemia Protocol Dextrose (Glutose 15) 0 gm PO ONCE PRN; Protocol PRN Reason: Hypoglycemia Protocol Glucagon (Glucagen Diagnostic Kit) 0 mg IM STAT PRN; Protocol PRN Reason: Hypoglycemia Protocol Hydromorphone HCl (Dilaudid) 0.25 mg IVP Q8H PRN PRN Reason: Pain, severe (8-10) Last Admin: 08/26/18 12:19 Dose: 0.25 mg Piperacillin Sod/Tazobactam Sod (Zosyn 3.375 Gm Iv Premix) 3.375 gm in 50 mls @ 100 mls/hr IVPB Q8H [facility]; Protocol Last Admin: 08/26/18 12:20 Dose: 100 mls/hr Insulin Human Regular (Novolin R) 0 unit SC ACHS [facility]; Protocol Last Admin: 08/26/18 11:28 Dose: Not Given Mupirocin (Bactroban Ointment) 0 gm TOP DAILY [facility] Last Admin: 08/26/18 11:28 Dose: Not Given Ondansetron HCl (Zofran Inj) 4 mg IVP Q6 PRN PRN Reason: Nausea/Vomiting Last Admin: 08/25/18 01:18 Dose: 4 mg Phenytoin Sodium (Dilantin) 100 mg PO TID [facility] Last Admin: 08/26/18 11:28 Dose: Not Given - Labs Labs: 08/26/18 08:00 08/26/18 08:00 - Constitutional Appears: Non-toxic, Chronically Ill - Head Exam Head Exam: NORMOCEPHALIC - Eye Exam Eye Exam: PERRL - ENT Exam ENT Exam: Mucous Membranes Dry - Neck Exam Neck Exam: absent: Lymphadenopathy - Respiratory Exam Respiratory Exam: Decreased Breath Sounds - Cardiovascular Exam Cardiovascular Exam: REGULAR RHYTHM - GI/Abdominal Exam GI & Abdominal Exam: Distended - Rectal Exam Rectal Exam: Deferred - Exam Exam: NORMAL INSPECTION - Extremities Exam Extremities Exam: absent: Pedal Edema - Back Exam Back Exam: absent: CVA tenderness (L), CVA tenderness (R) - Neurological Exam Neurological Exam: Alert Assessment and Plan (1) Cellulitis Status: Acute (2) Diabetes Status: Acute (3) Alcohol dependence Status: Acute (4) Amputation of left foot with complication Status: Acute (5) Cellulitis of left foot Status: Acute (6) Diabetic foot infection Status: Acute (7) Diabetic toe ulcer Status: Acute (8) Diabetic ulcer of left foot Status: Acute (9) Hypertension Status: Acute (10) Intractable vomiting Status: Acute (11) Nausea and vomiting in adult Status: Acute (12) Noncompliance with medication regimen Status: Acute (13) Opiate abuse, continuous Status: Acute (14) Osteomyelitis of foot Status: Acute (15) Alcohol abuse Status: Chronic (16) Diabetic foot ulcer Status: Chronic (17) Polysubstance abuse Status: Chronic
[2018-08-26 17:14] VITALS: BP 155/87; PULSE 94; RESP 18; TEMP 97.9; O2SAT 98
--- NOTE | 2018-08-27 00:02 | PCM.PYCHPN ---
Psychiatric Progress Note - Psychiatric Progress Note Patient seen today, length of contact: 15 min Medication Change: Yes Medical Record Reviewed: Yes Mental Status Examination - Cognitive Function Orientation: Person, Place, Situation, Time Memory: Intact Attention: WNL Concentration: Poor Association: WNL Fund of Knowledge: Poor - Mood Mood: Anxious, Other - Affect Affect: Depressed - Speech Speech: Soft - Formal Thought Process Formal Thought Process: No Impairment (Patient denied) - Suicidal Ideation Suicidal Ideation: No - Homicidal Ideation Homicidal Ideation: No Goal/Treatment Plan - Goal/Treatment Plan Need for Continued Stay: Severe depression anxiety, Severe functional impairment Progress Toward Problem(s) and Goals/Treatment Plan: Pt psychiatrically stable and clear for discharge. - Smoking Cessation Smoking Cessation Initiated: No
--- NOTE | 2018-08-27 08:31 | PN ---
DATE: 08/25/2018 SUBJECTIVE: The patient is a 52-year-old male. The patient was seen and examined at bedside on 08/25/2018. No change in the status. Still having pain in both feet. Sometime vomiting. No fever, no chills. No headache, no dizziness. PHYSICAL EXAMINATION: VITAL SIGNS: Temperature 98.5, pulse 85, respiratory rate 20, blood pressure 157/88, and pulse oximetry 97. HEENT: Head normocephalic and atraumatic. Eyes, PERRLA. Extraocular muscles intact. Conjunctivae clear. Nose patent. NECK: Supple. No carotid bruits. No JVD or thyromegaly. CHEST: Bilaterally symmetrical. HEART: S1 and S2 positive. LUNGS: Clear to auscultation. ABDOMEN: Soft. Bowel sounds present. No organomegaly. EXTREMITIES: No edema. No cyanosis. Both feet have dressings. NEUROLOGIC: The patient is awake and alert. Follows simple commands. MEDICATIONS: Duoneb, Celebrex, dextrose, glucagon, hydromorphone, Zosyn, insulin, Zofran, Dilantin. LABORATORY DATA: White blood cell 7.3, hemoglobin 15.4, hematocrit 45.1, platelets 450. Sodium 142, potassium 4.2, BUN 47, creatinine 1.7, glucose 349. ASSESSMENT AND PLAN: The patient is a 52-year-old male with leukocytosis, renal insufficiency, hyperglycemia, hypochloremia, has bilateral lower extremity wounds on the feet with infected right fourth digit and gangrene right fifth digit. The patient is afebrile. ESR is high. Bilateral foot x-rays reviewed. Potential osteomyelitis of right fourth and fifth digit, postoperative changes left foot; status post third, fourth and fifth digits amputation, and partial amputation of the fifth metatarsal. MRI or debridement of bilateral toes as needed. The patient not tolerated MRI at present. Left arterial duplex ordered, the patient refused at this time. Right foot fourth digit wound culture, enterococcus faecalis Klebsiella pneumoniae. Wound sites cleaned with saline at present, Bactroban by Podiatry. Infection Disease, Dr. Levy. Continue Zosyn as per Dr. Levy for 6 to 8 weeks. According to vascular change consultant, there is no need for surgical intervention right now. Pain control. Complete antibiotics, and we will plan according to that. Out of bed, physical therapy. Janessa Fernandez MD [facility]
== END 2018-08-26 18:00 | disposition left against medical advice (07) | DRG 249 ==
LOC: C.ER 07:48 → C.9E 10:03 → C.3T 16:00 → C.9I 08-21 11:46 → C.6T 08-23 11:20
PROVIDERS: ADMIT Internal Medicine; ATTEND Internal Medicine
DX: T87.44 Infection of amputation stump, left lower extremity (principal); E11.52 Type 2 diabetes mellitus with diabetic peripheral angiopathy with gangrene; E11.65 Type 2 diabetes mellitus with hyperglycemia; F11.23 Opioid dependence with withdrawal; L03.116 Cellulitis of left lower limb; L97.529 Non-pressure chronic ulcer of other part of left foot with unspecified severity; E11.621 Type 2 diabetes mellitus with foot ulcer; E11.43 Type 2 diabetes mellitus with diabetic autonomic (poly)neuropathy; Z79.4 Long term (current) use of insulin; E11.10 Type 2 diabetes mellitus with ketoacidosis without coma; F10.20 Alcohol dependence, uncomplicated; G40.909 Epilepsy, unspecified, not intractable, without status epilepticus; I10 Essential (primary) hypertension; J45.909 Unspecified asthma, uncomplicated; Z76.5 Malingerer [conscious simulation]; K31.84 Gastroparesis; Z91.14 Patient's other noncompliance with medication regimen; F17.210 Nicotine dependence, cigarettes, uncomplicated; Y83.5 Amputation of limb(s) as the cause of abnormal reaction of the patient, or of later complication, without mention of misadventure at the time of the procedure